=== PATIENT | female | born 1950 | race Hispanic/Latino ===

== ENCOUNTER 2016-08-07 19:21 | Emergency (ER) | payer MEDICARE, OTHER ==
[2016-08-07 19:45] VITALS: BP 150/103
--- NOTE | 2016-08-07 20:20 | Emergency Department Report ---
Chief Complaint: Chest Pain Stated Complaint: CHEST PAIN - HPI History of Present Illness: Patient w/ PMH of HTN, angina, CHF, COPD c/o squeezing-type chest pain with radiation into left shoulder blades and left neck since noon. states no relief with 2 ntg. Reports SOB. Patient on Lovenox blood-thinner. - Exam Vital Signs: Vital Signs 08/07/16 19:41 Temperature 98.1 F Pulse Rate 91 H Respiratory 22 Rate Blood Pressure 150/103 O2 Sat by Pulse 97 Oximetry Physical Exam: General: On o2 nasal canula. Heart: irregularly irregular. Lungs: Equal sounds b/l. MSE screening note: Focused history and physical exam performed. Due to findings the following was ordered: ED Medical Decision Making - Medical Decision Making Patient to be seen by MD in main ED. ED Disposition for MSE Condition: Stable
[2016-08-07 20:51] LABS: Basophils % (Auto) 0.6 % (0.0-1.8); Eosinophils % (Auto) 1.5 % (0.0-4.3); Hematocrit 41.1 % (30.3-42.9); Hemoglobin 13.6 gm/dl (10.1-14.3); Mean Corpuscular HGB Conc 33 % (30-34); Mean Corpuscular Hemoglobin 32 pg (28-32); Mean Corpuscular Volume 96 fl (79-97); Platelet Count 245 K/mm3 (140-440); Red Cell Distribution Width 13.5 % (13.2-15.2); White Blood Count 10.5 K/mm3 (4.5-11.0)
[2016-08-07 21:02] LABS: INR 1.35 (0.87-1.13)
[2016-08-07 21:49] LABS: BUN/Creatinine Ratio 14.28; Blood Urea Nitrogen 10 mg/dL (7-17); Calcium 9.5 mg/dL (8.4-10.2); Carbon Dioxide 32 mmol/L (22-30); Chloride 98.1 mmol/L (98-107); Glucose 89 mg/dL (65-100); Potassium 4.1 mmol/L (3.6-5.0); Sodium 143 mmol/L (137-145)
[2016-08-07 21:55] LABS: Anion Gap 17 mmol/L
--- NOTE | 2016-08-08 07:56 | XRay Report ---
PA and lateral chest: There is diffuse distortion of bronchovascular structures in both lungs slightly worse on the right than left. There are scattered areas of coarse bronchovascular markings. There is no focal infiltrate or nodule identified. The heart is normal in size and is no vascular congestion. On the frontal projection the markings at the left lung base appears slightly more prominent than seen on a prior study on February 28, 2016 however the remainder of the chest is essentially unchanged. Impression: Fibrotic appearing changes. Interval development of probable mild left basilar atelectasis.
--- NOTE | 2016-08-08 12:11 | ED Elopement Review ---
ED Pt Elopement review - Results review Lab results: Laboratory Tests 08/07/16 08/07/16 08/07/16 20:31 20:31 20:31 WBC 10.5 RBC 4.30 Hgb 13.6 Hct 41.1 MCV 96 MCH 32 MCHC 33 RDW 13.5 Plt Count 245 Lymph % (Auto) 19.3 Gilmer % (Auto) 5.4 Eos % (Auto) 1.5 Baso % (Auto) 0.6 Lymph # 2.0 Gilmer # 0.6 Eos # 0.2 Baso # 0.1 Seg Neutrophils % 73.2 H Seg Neutrophils # 7.7 PT 16.6 H INR 1.35 H APTT 33.0 Sodium 143 Potassium 4.1 Chloride 98.1 Carbon Dioxide 32 H Anion Gap 17 BUN 10 Creatinine 0.7 Estimated GFR > 60 BUN/Creatinine Ratio 14.28 Glucose 89 Calcium 9.5 Troponin T < 0.010 NT-Pro-B Natriuret Pep 08/07/16 20:31 WBC RBC Hgb Hct MCV MCH MCHC RDW Plt Count Lymph % (Auto) [place] % (Auto) Eos % (Auto) Baso % (Auto) Lymph # Gilmer # Eos # Baso # Seg Neutrophils % Seg Neutrophils # PT INR APTT Sodium Potassium Chloride Carbon Dioxide Anion Gap BUN Creatinine Estimated GFR BUN/Creatinine Ratio Glucose Calcium Troponin T NT-Pro-B Natriuret Pep 185.8 - Call Back decision Pt Call Back Decision: No action required
== END 2016-08-07 22:40 | disposition left against medical advice (07) ==
LOC: ED 19:21
DX: R07.89 Other chest pain (principal); R06.02 Shortness of breath; M54.2 Cervicalgia; Z53.21 Procedure and treatment not carried out due to patient leaving prior to being seen by health care provider
CPT/HCPCS: 36415; 71020; 80048; 83880; 84484; 85025; 85610; 85730; 93005; 93010

== ENCOUNTER 2016-08-13 09:34 | Emergency (ER) | payer MEDICARE, OTHER ==
--- NOTE | 2016-08-13 10:14 | Emergency Department Report ---
Chief Complaint: Shoulder Injury Stated Complaint: LEFT SHOULDER PAIN Time Seen by Provider: 08/13/16 10:08 - HPI History of Present Illness: 66 y/o female complain of left shoulder pain x 2 days ago .pt state was seen at primary care this am and sent over for further evaluation of left shoulder .obvious deformity noted to the left shoulder .pt state pain is radiating to finger .pt state she has taken half of percocet x 4 hours ago . - ROS Review of Systems: per HPI - Exam Vital Signs: Vital Signs 08/13/16 09:42 Temperature 97.9 F Pulse Rate 92 H Respiratory 18 Rate Blood Pressure 151/81 O2 Sat by Pulse 96 Oximetry Physical Exam: GENERAL: The patient is well-developed and well-nourished. Patient is in NAD. HENT: Normocephalic. Atraumatic. Patient has moist mucous membranes. Throat: No erythema, swelling or exudates. EYES: Extraocular motions are intact, PERRL NECK: Supple. No meningitic signs are noted. There is no adenopathy noted. CHEST/LUNGS: Clear to auscultation bilaterally. No wheezing, rales or rhonchi noted. There is no respiratory distress noted. HEART/CARDIOVASCULAR: Regular rate and rhythm. Normal S1 S2. No murmurs, rubs , clicks, or gallops. ABDOMEN: Abdomen is soft, nontender.. Bowel sounds normoactive. There is no abdominal distention. Negative rebound tenderness. : Deferred. SKIN: There is no rash. There is no edema. There is no diaphoresis. NEURO: The patient is A&Ox3. The patient has no focal neurologic deficits. MUSCULOSKELETAL: deformity noted to left shoulder .limit range of motion with pain to left shoulder PSYCH: Pt has appropriate mood and affect. MSE screening note: Focused history and physical exam performed. Due to findings the following was ordered: ED Disposition for MSE Condition: Stable
[2016-08-13] MEDS ORDERED: NORCO 5/325 PO ONE (10:41)
--- NOTE | 2016-08-13 10:41 | Emergency Department Report ---
HPI - General Chief Complaint: Shoulder Injury Time Seen by Provider: 08/13/16 10:32 - HPI HPI: This is a 66-year-old female who presents to the emergency department from her primary care doctor's office, Dr. Tunde Woodall, with the complaint of left shoulder pain and possible dislocation. Patient says that she injured it 2 nights ago when she was reaching up behind her body with her left arm to reach some water. At this point she felt it pop and has had residual pain since. She is not taken anything for symptoms prior to presentation. She went in to see the PCP today and was told to come here for x-rays and possible reduction as he had a high suspicion for dislocation. Patient says she is able to move the arm to some extent but it is painful to do so. She says she already has a history of left shoulder problems and requires a shoulder replacement, but her orthopedist at [facility], Dr. Hopper, does not want to do it secondary to her other comorbidities. ED Past Medical Hx - Past Medical History Previous Medical History?: Yes Hx Hypertension: Yes (s/p stroke on left side 02/06 and 12/09) Hx CVA: Yes Hx Congestive Heart Failure: Yes Hx Arthritis: Yes Hx Kidney Stones: Yes Hx Psychiatric Treatment: Yes (anxiety) Hx COPD: Yes (bronchitis) Additional medical history: emphysema, bronchitis, A. Fib; MVP; aneurysm- coil on right side of head, Home oxygen @ 2lpm nasal cannula - Surgical History Past Surgical History?: Yes Hx Breast Surgery: Yes (LEFT BREST BX) Additional Surgical History: tonsillectomy, cerebral aneurysm coil, hysterectomy , hemorrhoid surgery, bilateral benign breast biopsies - Social History Smoking Status: Former Smoker Substance Use Type: Prescribed - Medications Home Medications: Home Medications Medication Instructions Recorded Confirmed Last Taken Type Atorvastatin (Nf) [Lipitor (Nf)] 20 mg PO QDAY 11/30/14 02/28/16 05/28/16 History DULoxetine [Cymbalta] 30 mg PO QDAY 11/30/14 02/28/16 05/28/16 History Digoxin 125 mcg PO DAILY 11/30/14 02/28/16 05/28/16 History Esomeprazole Magnesium [NexIUM] 40 mg PO QDAY 11/30/14 02/28/16 05/28/16 History Fluticasone/Salmeterol [Advair 1 puff IH BID 11/30/14 02/28/16 05/28/16 History Diskus 500-50 mcg] Furosemide [Lasix TAB] 20 mg PO QDAY 11/30/14 02/28/16 05/28/16 History Isosorbide Mononitrate 120 mg PO DAILY 11/30/14 02/28/16 05/28/16 History Levocetirizine Dihydrochloride 5 mg PO DAILY 11/30/14 02/28/16 05/28/16 History Levothyroxine [Synthroid] 112 mcg PO QAM 11/30/14 02/28/16 05/28/16 History Lisinopril 10 mg PO DAILY 11/30/14 02/28/16 05/28/16 History Mirtazapine [Remeron] 45 mg PO DAILY 11/30/14 02/28/16 05/28/16 History [place]-3 Acid Ethyl Esters [Lovaza] 1 gm PO BID 11/30/14 02/28/16 05/28/16 History Prednisone [predniSONE] 5 mg PO QDAY 11/30/14 02/28/16 05/28/16 History Restasis 0.05% 1 drop OU BID 11/30/14 02/28/16 05/28/16 History Rivaroxaban [Xarelto] 20 mg PO QDAY 11/30/14 02/28/16 05/28/16 History Tiotropium [Spiriva] 18 mcg IH QDAY 11/30/14 02/28/16 05/28/16 History Verapamil ER [Calan SR] 240 mg PO DAILY 11/30/14 02/28/16 05/29/16 History Aspirin [Aspirin TAB] 325 mg PO QDAY tablet 12/02/14 02/28/16 05/21/16 Rx ALPRAZolam [Xanax TAB] 1 mg PO TID PRN #90 tablet 03/02/16 05/28/16 Rx Ciprofloxacin HCl [Ciprofloxacin 500 mg PO BID #7 day 03/02/16 Unknown Rx TAB] Lisinopril [Zestril TAB] 10 mg PO DAILY tablet 03/02/16 05/29/16 Rx Mirtazapine [Remeron] 45 mg PO QHS tablet 03/02/16 05/28/16 Rx metroNIDAZOLE [Flagyl TAB] 500 mg PO Q8HR #7 day 03/02/16 Unknown Rx oxyCODONE /ACETAMINOPHEN [Percocet 1 tab PO Q4HR PRN #30 tablet 03/02/16 Rx 5/325 mg] HYDROcodone/APAP 5-325 [[place] 1 each PO Q6HR PRN #12 tablet 08/13/16 Unknown Rx 5/325] ED Review of Systems ROS: Stated complaint: LEFT SHOULDER PAIN Other details as noted in HPI Comment: All other systems reviewed and negative Constitutional: denies: chills, fever Eyes: denies: eye pain, eye discharge, vision change ENT: denies: ear pain, throat pain Respiratory: denies: cough, shortness of breath, wheezing Cardiovascular: denies: chest pain, palpitations Gastrointestinal: denies: abdominal pain, nausea, diarrhea Genitourinary: denies: urgency, dysuria, discharge Musculoskeletal: arthralgia. denies: back pain Skin: denies: rash, lesions Neurological: denies: headache, weakness, paresthesias Physical Exam - Physical Exam Vital Signs: Vital Signs 08/13/16 09:42 Temperature 97.9 F Pulse Rate 92 H Respiratory 18 Rate Blood Pressure 151/81 O2 Sat by Pulse 96 Oximetry Physical Exam: GENERAL: The patient is well-developed well-nourished. HEENT: Normocephalic. Atraumatic. Extraocular motions are intact. Patient has moist mucous membranes. Pupils equal reactive to light bilaterally. NECK: Supple. Trachea is midline. CHEST/LUNGS: Clear to auscultation. There is no respiratory distress noted. HEART/CARDIOVASCULAR: Regular. There is no tachycardia. There is no gallop rub or murmur. ABDOMEN: Abdomen is soft, nontender. Patient has normal bowel sounds. There is no abdominal distention. SKIN: There is no rash. There is no edema. There is no diaphoresis. NEURO: The patient is awake, alert, and oriented. The patient is cooperative. The patient has no focal neurologic deficits. The patient has normal speech. MUSCULOSKELETAL: Patient has tenderness to palpation to the left circumferential shoulder and proximal left humerus but no obvious deformity. Patient has trouble actively moving the left upper STEMI secondary to pain in the shoulder. She still has pain with passive movement but I'm able to range it more. Radial pulses +2 over 4 bilaterally. Cap refill less than 2 seconds. ED Course Vital Signs 08/13/16 09:42 Temperature 97.9 F Pulse Rate 92 H Respiratory 18 Rate Blood Pressure 151/81 O2 Sat by Pulse 96 Oximetry ED Medical Decision Making - Radiology Data Radiology results: image reviewed interpreted by me: X-ray of the left shoulder, which also includes the proximal half of the humerus , does not show any obvious fracture, dislocation, subluxation or foreign bodies. - Medical Decision Making 66-year-old female sent in to get an x-ray done of her left shoulder after she reached back behind her body and felt a pop and has had residual pain since. X- ray was done that does not show any fracture, dislocation or any acute process and this was confirmed by the reading by radiology. Patient is unable to get an MRI anyways but does not require that through the emergency department at this time. She already has established care with an orthopedist through [facility]. She was given a pain pill here and will be given a prescription for it at home. We discussed using ice. She'll be placed in a sling. She is to return to the emergency department with any worsening of her symptoms or any acute distress. - Differential Diagnosis Shoulder fracture, dislocation, sprain, contusion, tendon injury Critical Care Time: No Critical care attestation.: If time is entered above; I have spent that time in minutes in the direct care of this critically ill patient, excluding procedure time. ED Disposition Clinical Impression: Shoulder pain, left Qualifiers: Chronicity: acute Qualified Code(s): M25.512 - Pain in left shoulder Left shoulder strain Qualifiers: Encounter type: initial encounter Qualified Code(s): S46.912A - Strain of unspecified muscle, fascia and tendon at shoulder and upper arm level, left arm , initial encounter Disposition: DISCHARGED TO HOME OR SELFCARE Is pt being admited?: No Does the pt Need Aspirin: No Condition: Stable Instructions: Rotator Cuff Injury (ED), Shoulder Sprain (ED) Additional Instructions: These follow-up with your orthopedist, Dr. Hopper, over the next few days. You can use ice at 20 mins intervals but not directly against the skin. Remain in the sling until follow-up with the orthopedist. Return to the emergency department with any worsening of your symptoms or any acute distress. You've been prescribed a medication that is sedating. Therefore this medication cannot be mixed with alcohol, or taken prior to driving, working, or being responsible for children. Prescriptions: HYDROcodone/APAP 5-325 [[place] 5/325] 1 each PO Q6HR PRN #12 tablet PRN Reason: Pain Referrals: TUNDE WOODALL MD [Primary Care Provider] - 3-5 Days Time of Disposition: 11:21
--- NOTE | 2016-08-13 10:55 | XRay Report ---
LEFT SHOULDER, 3 VIEWS: HISTORY: Left shoulder injury. FINDINGS: There is borderline bone mineralization. Mild degenerative changes are noted at the glenohumeral joint. Normal articulation at the AC joint. No evidence for fracture, dislocation or ligamentous injury. The left humeral head is slightly sclerotic which may represent osteonecrosis. There are also 3 or 4 calcified foreign bodies which appear to be within the joint space. This could represent chondromatosis. Consider further evaluation with MRI. IMPRESSION: No acute process. Chronic findings, as outlined above.
[2016-08-13 11:36] VITALS: BP 146/88
== END 2016-08-13 11:36 | disposition home or self-care (01) ==
LOC: ED 09:34
DX: S46.912A Strain of unspecified muscle, fascia and tendon at shoulder and upper arm level, left arm, initial encounter (principal); M25.512 Pain in left shoulder; I10 Essential (primary) hypertension; I63.9 Cerebral infarction, unspecified; I50.9 Heart failure, unspecified; M19.90 Unspecified osteoarthritis, unspecified site; F41.9 Anxiety disorder, unspecified; J44.9 Chronic obstructive pulmonary disease, unspecified; Z87.891 Personal history of nicotine dependence; Z79.82 Long term (current) use of aspirin; X58.XXXA Exposure to other specified factors, initial encounter; Y93.89 Activity, other specified; Y99.9 Unspecified external cause status; Y92.89 Other specified places as the place of occurrence of the external cause

== ENCOUNTER 2016-11-09 08:11 | Emergency (ER) | payer MEDICARE, OTHER ==
[2016-11-09] MEDS ORDERED: NORCO 5/325 PO ONE (09:50)
--- NOTE | 2016-11-09 10:37 | XRay Report ---
RIGHT WRIST THREE VIEWS: 11/09/16 08:39:00 CLINICAL: Fall and pain. FINDINGS: The quality of the exam is degraded by motion. Transverse minimally displaced fracture of the distal radius with no callus. No extension into the radiocarpal joint. The distal ulna and carpal bones are intact. No soft tissue swelling but no foreign body or soft tissue air. IMPRESSION: An acute closed minimally displaced traumatic distal radius fracture.
--- NOTE | 2016-11-09 10:38 | XRay Report ---
RIGHT KNEE THREE VIEWS: 11/09/16 08:11:00 CLINICAL: Fall and pain. FINDINGS: Normal bones, joints and soft tissues. No fracture or dislocation. No joint effusion. IMPRESSION: Normal.
--- NOTE | 2016-11-09 11:58 | Emergency Department Report ---
Entered by LISA MCDONNELL, acting as scribe for ANDRÉS LIN PA. ED Fall HPI - General Chief Complaint: Fall Stated Complaint: RT WRIST PAIN Time Seen by Provider: 11/09/16 08:53 Source: patient, family Mode of arrival: Wheelchair - History of Present Illness Initial Comments: 66 y/o female presents c/o sharp pain to the right knee and right wrist as a result of a fall that occurred this morning at her home. Pt notes she fell onto tile floor and rates the pain 10/10 in severity. Additional Sx include wheezing , but pt denies numbness, tingling, LOC. She denies any trauma to the head. Pt has Hx of COPD and medication includes xarelto. No additional Sx MD Complaint: fall -: This morning Fall From: standing (patient reported that she slipped) When Fall Occurred: just prior to arrival Fall Witnessed: no Place Fall Occurred: home Loss of Consciousness: none Prolonged Down Time?: no Symptoms Prior to Fall: none Location: other (right wrist and right knee impact) Location - Extremities: Right: Forearm (right wrist pain and swelling), Knee ( pain) Severity: severe Severity scale (0 -10): 10 Quality: sharp Context: tripped/slipped Associated Symptoms: other (pain in right wrist and right knee, denies tingling or LOC). denies: headache, neck pain, numbness, chest paint, shortness of breath, abdominal pain, hematuria, unable to walk, lightheaded, vertigo, confusion - Related Data Home Medications Medication Instructions Recorded Confirmed Last Taken Atorvastatin (Nf) [Lipitor (Nf)] 20 mg PO QDAY 11/30/14 02/28/16 05/28/16 DULoxetine [Cymbalta] 30 mg PO QDAY 11/30/14 02/28/16 05/28/16 Digoxin 125 mcg PO DAILY 11/30/14 02/28/16 05/28/16 Esomeprazole Magnesium [NexIUM] 40 mg PO QDAY 11/30/14 02/28/16 05/28/16 Fluticasone/Salmeterol [Advair 1 puff IH BID 11/30/14 02/28/16 05/28/16 Diskus 500-50 mcg] Furosemide [Lasix TAB] 20 mg PO QDAY 11/30/14 02/28/1605/28/16 Isosorbide Mononitrate 120 mg PO DAILY 11/30/14 02/28/16 05/28/16 Levocetirizine Dihydrochloride 5 mg PO DAILY 11/30/14 02/28/16 05/28/16 Levothyroxine [Synthroid] 112 mcg PO QAM 11/30/14 02/28/16 05/28/16 Lisinopril 10 mg PO DAILY 11/30/14 02/28/16 05/28/16 Mirtazapine [Remeron] 45 mg PO DAILY 11/30/14 02/28/16 05/28/16 O'Kean-3 Acid Ethyl Esters [Lovaza] 1 gm PO BID 11/30/14 02/28/16 05/28/16 Prednisone [predniSONE] 5 mg PO QDAY 11/30/14 02/28/16 05/28/16 Restasis 0.05% 1 drop OU BID 11/30/14 02/28/16 05/28/16 Rivaroxaban [Xarelto] 20 mg PO QDAY 11/30/14 02/28/16 05/28/16 Tiotropium [Spiriva] 18 mcg IH QDAY 11/30/14 02/28/16 05/28/16 Verapamil ER [Calan SR] 240 mg PO DAILY 11/30/14 02/28/16 05/29/16 Previous Rx's Medication Instructions Recorded Last Taken Type Aspirin [Aspirin TAB] 325 mg PO QDAY tablet 12/02/14 05/21/16 Rx ALPRAZolam [Xanax TAB] 1 mg PO TID PRN #90 tablet 03/02/16 05/28/16 Rx Ciprofloxacin HCl [Ciprofloxacin 500 mg PO BID #7 day 03/02/16 Unknown Rx TAB] Lisinopril [Zestril TAB] 10 mg PO DAILY tablet 03/02/16 05/29/16 Rx Mirtazapine [Remeron] 45 mg PO QHS tablet 03/02/16 05/28/16 Rx metroNIDAZOLE [Flagyl TAB] 500 mg PO Q8HR #7 day 03/02/16 Unknown Rx oxyCODONE /ACETAMINOPHEN [Percocet 1 tab PO Q4HR PRN #30 tablet 03/02/16 Rx 5/325 mg] HYDROcodone/APAP 5-325 [Moberly 1 each PO Q6HR PRN #12 tablet 08/13/16 Unknown Rx 5/325] traMADol [Ultram] 50 mg PO Q6HR PRN #20 tablet 11/09/16 Unknown Rx Allergies Allergy/AdvReac Type Severity Reaction Status Date / Time adhesive Allergy Hives Verified 06/05/15 16:31 amlodipine besylate Allergy Anaphylaxis Verified 06/05/15 16:31 [From Norvasc] diltiazem Allergy Anaphylaxis Verified 06/05/15 16:31 diltiazem HCl [From Cardizem] Allergy Anaphylaxis Verified 06/05/15 16:31 Renexa Allergy Unknown Uncoded 08/13/16 09:41 ED Review of Systems Comment: All other systems reviewed and negative Constitutional: denies: chills, fever Eyes: denies: eye pain, eye discharge, vision change ENT: denies: ear pain, throat pain, congestion Respiratory: wheezing. denies: cough Cardiovascular: denies: chest pain, palpitations, edema, syncope Gastrointestinal: denies: abdominal pain, nausea, vomiting Musculoskeletal: joint swelling, arthralgia, other (right wrist and right knee pain) Neurological: denies: headache, weakness, numbness, paresthesias, confusion, abnormal gait, vertigo ED Past Medical Hx - Past Medical History Previous Medical History?: Yes Hx Hypertension: Yes (s/p stroke on left side 02/06 and 12/09) Hx CVA: Yes Hx Congestive Heart Failure: Yes Hx Arthritis: Yes Hx Kidney Stones: Yes Hx Psychiatric Treatment: Yes (anxiety) Hx COPD: Yes (bronchitis) Additional medical history: emphysema, bronchitis, A. Fib; MVP; aneurysm- coil on right side of head, Home oxygen @ 2lpm nasal cannula - Surgical History Past Surgical History?: Yes Hx Breast Surgery: Yes (LEFT BREST BX) Additional Surgical History: tonsillectomy, cerebral aneurysm coil, hysterectomy , hemorrhoid surgery, bilateral benign breast biopsies - Family History Family history: hypertension - Social History Smoking Status: Former Smoker Substance Use Type: Prescribed - Medications Home Medications: Home Medications Medication Instructions Recorded Confirmed Last Taken Type Atorvastatin (Nf) [Lipitor (Nf)] 20 mg PO QDAY 11/30/14 02/28/16 05/28/16 History DULoxetine [Cymbalta] 30 mg PO QDAY 05/01/0902/28/16 05/28/16 History Digoxin 125 mcg PO DAILY 11/30/14 02/28/16 05/28/16 History Esomeprazole Magnesium [NexIUM] 40 mg PO QDAY 11/30/14 02/28/16 05/28/16 History Fluticasone/Salmeterol [Advair 1 puff IH BID 11/30/14 02/28/16 05/28/16 History Diskus 500-50 mcg] Furosemide [Lasix TAB] 20 mg PO QDAY 11/30/14 02/28/16 05/28/16 History Isosorbide Mononitrate 120 mg PO DAILY 11/30/14 02/28/16 05/28/16 History Levocetirizine Dihydrochloride 5 mg PO DAILY 11/30/14 02/28/16 05/28/16 History Levothyroxine [Synthroid] 112 mcg PO QAM 11/30/14 02/28/16 05/28/16 History Lisinopril 10 mg PO DAILY 11/30/14 02/28/16 05/28/16 History Mirtazapine [Remeron] 45 mg PO DAILY 11/30/14 02/28/16 05/28/16 History O'Kean-3 Acid Ethyl Esters [Lovaza] 1 gm PO BID 11/30/14 02/28/16 05/28/16 History Prednisone [predniSONE] 5 mg PO QDAY 11/30/14 02/28/16 05/28/16 History Restasis 0.05% 1 drop OU BID 11/30/14 02/28/16 05/28/16 History Rivaroxaban [Xarelto] 20 mg PO QDAY 11/30/14 02/28/16 05/28/16 History Tiotropium [Spiriva] 18 mcg IH QDAY 11/30/14 02/28/16 05/28/16 History Verapamil ER [Calan SR] 240 mg PO DAILY 11/30/14 02/28/16 05/29/16 History Aspirin [Aspirin TAB] 325 mg PO QDAY tablet 12/02/14 02/28/16 05/21/16 Rx ALPRAZolam [Xanax TAB] 1 mg PO TID PRN #90 tablet 03/02/16 05/28/16 Rx Ciprofloxacin HCl [Ciprofloxacin 500 mg PO BID #7 day 03/02/16 Unknown Rx TAB] Lisinopril [Zestril TAB] 10 mg PO DAILY tablet 03/02/16 05/29/16 Rx Mirtazapine [Remeron] 45 mg PO QHS tablet 03/02/16 05/28/16 Rx metroNIDAZOLE [Flagyl TAB] 500 mg PO Q8HR #7 day 03/02/16 Unknown Rx oxyCODONE /ACETAMINOPHEN [Percocet 1 tab PO Q4HR PRN #30 tablet 03/02/16 Rx 5/325 mg] HYDROcodone/APAP 5-325 [[place]ober[place] 1 each PO Q6HR PRN #12 tablet 08/13/16 Unknown Rx 5/325] traMADol [Ultram] 50 mg PO Q6HR PRN #20 tablet 11/09/16 Unknown Rx ED Physical Exam - General Limitations: No Limitations General appearance: alert, in no apparent distress - Head Head exam: Present: atraumatic, normocephalic, normal inspection - Expanded Head Exam Expanded Head exam: Absent: laceration, abrasion, contusion, hematoma, racoon eyes, vieira's sign, general tenderness, tenderness of temporal artery, CSF rhinorrhea , CSF otorrhea - Eye Eye exam: Present: normal appearance, PERRL, EOMI. Absent: periorbital swelling , periorbital tenderness Pupils: Present: normal accommodation - ENT ENT exam: Present: normal exam, normal orophraynx, mucous membranes moist, TM's normal bilaterally, normal external ear exam - Neck Neck exam: Present: full ROM. Absent: tenderness, lymphadenopathy - Respiratory Respiratory exam: Present: normal lung sounds bilaterally, decreased breath sounds. Absent: respiratory distress, wheezes, rales, rhonchi, stridor, chest wall tenderness - Cardiovascular Cardiovascular Exam: Present: regular rate, normal rhythm, normal heart sounds - GI/Abdominal GI/Abdominal exam: Present: soft, normal bowel sounds. Absent: distended, tenderness, rigid, hyperactive bowel sounds - Extremities Exam Extremities exam: Present: normal inspection, full ROM, normal capillary refill , other (No CCE. +2 pulses. No neurovascular compromise ,negative snuff box tenderness, pain with thumb movement, tender to palpate dorsal aspect of wrist, pain with wrist flexion/extension, able to move all fingers, elbow normal, no a/ c joint tenderness and good ROM, no signs of compartment syndrome in legs, can flex knee, right inner lateral knee tender to palpate, full flexion/extension ) . Absent: tenderness, pedal edema, joint swelling, calf tenderness - Expanded Upper Extremity Exam Right Shoulder Exam: Present: normal inspection, full ROM. Absent: tenderness, swelling, abrasion, laceration, ecchymosis, deformity, crepidus, dislocation, erythema, tenderness over AC joint Upper Arm exam: Present: normal inspection, full ROM. Absent: tenderness, swelling, abrasion, laceration, ecchymosis, deformity, crepidus, dislocation, erythema Elbow exam: Present: normal inspection, full ROM. Absent: tenderness, swelling , abrasion, laceration, ecchymosis, deformity, crepidus, dislocation, erythema, effusion, pain w/ pronation/supination, tenderness over radial head Forearm Wrist exam: Present: normal inspection, tenderness (dorsal aspect of right wrist), swelling (dorsal aspect of right wrist on the radial side), tenderness over anatomical snuff box, pain with axial thumb loading. Absent: full ROM (patient with limited range of motion to right wrist. Pain with passive and active range of motion flexing/Extending.), abrasion, laceration, ecchymosis, deformity, crepidus, dislocation, erythema Hand Wrist exam: Present: normal inspection, full ROM. Absent: tenderness, swelling, abrasion, laceration, ecchymosis, deformity, crepidus, dislocation, erythema, amputation, nail avulsion, subungual hematoma Neuro motor exam: Present: wrist extension intact, thumb opposition intact, thumb IP flexion intact, thumb adduction intact, fingers 2-5 abduction intact Neurosensory exam: Present: 2-point discrimination, radial nerve intact, ulnar nerve intact, median nerve intact Vascular: Present: normal capillary refill, radial pulse, brachial pulse, ulnar pulse. Absent: vascular compromise, Pallo, pulse deficit radial art, pulse deficit ulnar art, pulse deficit brachial art - Back Exam Back exam: Present: normal inspection, full ROM. Absent: tenderness (vertebral , paraspinal, C-spine ), CVA tenderness (R), CVA tenderness (L), muscle spasm, paraspinal tenderness, vertebral tenderness, rash noted - Expanded Neurological Exam Expanded Neurological exam: Absent: innattentive, memory loss-remote event, memory loss- recent event, ataxia, receptive aphasia, expressive aphasia, total aphasia, tremor, protecting the airway Patient oriented to: Present: person, place, time Speech: Present: fluid speech Cranial nerves: EOM's Intact: Normal, Gag Reflex: Normal, Nystagmus: Normal, Facial Sensation: Normal Cerebellar function: Romberg: Normal Upper motor neuron: Pronator Drift: Normal, Sensory Extinction: Normal Sensory exam: Upper Extremity Light Touch: Normal, Upper Extremity Temperature: Normal, UE 2 Point Discrimination: Normal, Lower Extremity Light Touch: Normal, Lower Extremity Temperature: Normal, LE 2 Point Discrimination: Normal Motor strength exam: RUE: 5, LUE: 5, RLE: 5, LLE: 5 DTR: bicep (R): 2+, bicep (L): 2+, tricep (R): 2+, tricep (L): 2+, knee (R): 2+ , knee (L): 2+, ankle (R): 2+, ankle (L): 2+ Best Eye Response ([place]): (4) open spontaneously Best Motor Response (David): (6) obeys commands Best Verbal Response (David): (5) oriented David Total: 15 - Psychiatric Psychiatric exam: Present: normal affect, normal mood - Skin Skin exam: Present: warm, dry, intact, normal color, other (clean, intact with no rash or lesions, good capillary refill in all extremities.). Absent: rash ED Course Vital Signs 11/09/16 11/09/16 08:35 10:16 Temperature 97.6 F Pulse Rate 85 Respiratory 20 16 Rate Blood Pressure 150/74 O2 Sat by Pulse 98 Oximetry - Reevaluation(s) Reevaluation #1: 11/09/16 11:48 Patient here reports that she fell accidentally this morning on tile floor at her home and she has right wrist and right knee pain. 11/09/16 11:48 Patient was given Moberly 1 11/27/24 tablet in emergency room which relieved her pain. XRof right knee reveals normal findings. X-ray of right wrist reveals fracture. - Orthopedic Splinting/Casting Injury #1 Side: right Upper Extremity Injury Location: wrist Upper Extremity Immobilizer: sling/shoulder immobilize, volar spint (dorsal splint) ED Medical Decision Making - Radiology Data Radiology results: report reviewed X-ray of the right wrist revealed an acute minimally displaced traumatic distal radius fracture. XR of right knee revealed no fracture or dislocation. - Medical Decision Making ED course: I diagnosis of arthralgias multiple sites and fracture Radial bone distally, accidental fall. Discussed the patient and x-ray results. See procedure note for splinting details. Patient was understanding of discharge diagnosis and treatment plan. Follow-up with orthopedic doctor in 2-3 days to call tomorrow to schedule an appointment. Receive norco 5/325 one tablet in emergency room which relieved her pain. ED Disposition Clinical Impression: Arthralgia of multiple sites Distal radial fracture Qualifiers: Encounter type: initial encounter Fracture type: closed Fracture morphology: unspecified fracture morphology Laterality: right Qualified Code(s): S52.501A - Unspecified fracture of the lower end of right radius, initial encounter for closed fracture Accidental fall Qualifiers: Encounter type: initial encounter Qualified Code(s): W19.XXXA - Unspecified fall, initial encounter Disposition: DISCHARGED TO HOME OR SELFCARE Is pt being admited?: No Does the pt Need Aspirin: No Condition: Stable Instructions: Fall Prevention for Older Adults (ED), Wrist Fracture in Adults ( ED), Splint Care (ED), Arthralgia (ED) Additional Instructions: Please following instructions and splint care. Call orthopedic doctor in the morning to schedule appointment visit for follow- up. Take Motrin and Ultram to manage her pain. Prescriptions: traMADol [Ultram] 50 mg PO Q6HR PRN #20 tablet PRN Reason: Pain Referrals: PRIMARY CAREMD [Primary Care Provider] - 3-5 Days EVITA MORRIS MD [Staff Physician] - 2-3 Days Forms: Accompanied Note This documentation as recorded by the KECIA burleson RYAN,accurately reflects the service I personally performed and the decisions made by ,ANDRÉS LIN PA.
[2016-11-09 12:47] VITALS: BP 148/76
== END 2016-11-09 11:57 | disposition home or self-care (01) ==
LOC: ED 08:11
DX: S52.501A Unspecified fracture of the lower end of right radius, initial encounter for closed fracture (principal); M25.561 Pain in right knee; I10 Essential (primary) hypertension; I50.9 Heart failure, unspecified; M19.90 Unspecified osteoarthritis, unspecified site; F41.9 Anxiety disorder, unspecified; J44.9 Chronic obstructive pulmonary disease, unspecified; Z90.89 Acquired absence of other organs; Z86.73 Personal history of transient ischemic attack (TIA), and cerebral infarction without residual deficits; Z90.710 Acquired absence of both cervix and uterus; Z87.891 Personal history of nicotine dependence; Z88.8 Allergy status to other drugs, medicaments and biological substances; W01.0XXA Fall on same level from slipping, tripping and stumbling without subsequent striking against object, initial encounter; Y93.89 Activity, other specified; Y92.098 Other place in other non-institutional residence as the place of occurrence of the external cause; Y99.8 Other external cause status

== ENCOUNTER 2017-05-09 15:57 | Outpatient (CLI) | payer MEDICARE, OTHER ==
--- NOTE | 2017-05-12 14:24 | Mammography Report ---
BILATERAL DIGITAL SCREENING MAMMOGRAM with CAD: 05/09/17 15:57:00 CLINICAL: Routine screening. COMPARISON:04/03/16 FINDINGS: The breasts are heterogeneously dense, which may obscure small masses. No mass, architectural distortion or suspicious calcifications. IMPRESSION: No mammographic evidence of malignancy. BI-RADS CATEGORY: 1 - - Negative RECOMMENDATION: Routine mammographic screening in one year. COMMENT: Patient follow-up letters are generated by our [employer] application.
== END 2017-05-09 15:58 | disposition home or self-care (01) ==
LOC: SPVWC 15:57
PROVIDERS: ATTEND Obstetrics & Gynecology
DX: Z12.31 Encounter for screening mammogram for malignant neoplasm of breast (principal)
CPT/HCPCS: 77067; G0202

== ENCOUNTER 2017-08-28 06:27 | Day surgery (SDC) | payer MEDICARE, OTHER ==
[2017-08-28] MEDS ORDERED: HALFPRIN EC PO ONE (06:56)
[2017-08-28] MEDS ORDERED: NACL 0.9% 500 ML 500 ML IV SCH (07:00)
[2017-08-28 07:08] LABS: Basophils % (Auto) 0.5 % (0.0-1.8); Eosinophils # (Auto) 0.2 K/mm3 (0.0-0.4); Eosinophils % (Auto) 2.3 % (0.0-4.3); Hematocrit 42.6 % (30.3-42.9); Hemoglobin 14.5 gm/dl (10.1-14.3); Lymphocytes % (Auto) 23.2 % (13.4-35.0); Mean Corpuscular HGB Conc 34 % (30-34); Mean Corpuscular Hemoglobin 33 pg (28-32); Mean Corpuscular Volume 96 fl (79-97); Monocytes # (Auto) 0.4 K/mm3 (0.0-0.8); Monocytes % (Auto) 5.1 % (0.0-7.3); Platelet Count 207 K/mm3 (140-440); Red Blood Count 4.44 M/mm3 (3.65-5.03); Red Cell Distribution Width 12.9 % (13.2-15.2)
[2017-08-28 07:20] LABS: BUN/Creatinine Ratio 11; Blood Urea Nitrogen 9 mg/dL (7-17); Calcium 9.2 mg/dL (8.4-10.2); Hemolysis Index 23
[2017-08-28 07:21] LABS: INR 0.95 (0.87-1.13)
[2017-08-28] MEDS ORDERED: HEPARIN/NS 5000 UNIT/500ML(CATH LAB) 1,000 ML IR ONE (08:26)
[2017-08-28] MEDS ORDERED: XYLOCAINE 2% INFILTRATI ONE (08:27)
[2017-08-28] MEDS ORDERED: SUBLIMAZE ONE (08:27)
[2017-08-28] MEDS ORDERED: VERSED ONE (08:27)
[2017-08-28] MEDS: CALAN ONE ×2 (08:37→08:58)
[2017-08-28] MEDS: NITROGLYCERIN SYRINGE 3 ML ONE ×2 (08:37→08:58)
[2017-08-28] MEDS: HEPARIN 10,000 UNITS/10 ML ONE ×2 (08:38→08:58)
[2017-08-28] MEDS ORDERED: BABY ASPIRIN PO SCH (10:00)
--- NOTE | 2017-08-28 10:08 | Cardiac Catherization Report ---
CARDIAC CATHETERIZATION REFERRING PHYSICIAN: Vishnu Jennings MD INDICATION FOR PROCEDURE: The patient is exceedingly pleasant 67-year-old female, multiple medical problems including advanced lung disease, known mild coronary disease, presents with recurrent chest pain despite negative stress test on adequate antianginals, referred for left heart catheterization. Risks, benefits, and potential alternatives explained at length prior to obtaining informed consent. PROCEDURE IN DETAIL: The patient was brought to the laborer filter plant in a postabsorptive state, prepped and draped in sterile fashion. Cheng's test in right hand was normal. A 2 mL of 2% lidocaine used to anesthetize the right groin. A standard 6-Argentine sheath used to cannulate the right common femoral artery via modified Seldinger technique. Moderate sedation was employed, directly administered moderate sedation. I directly monitored moderate sedation with administration of fentanyl and Versed. We started at 8:55, monitoring ended at 9:30 a.m. A JL3.5 catheter used to engage the left main. No dampening or ventricularization. Cineangiography performed in all projections. JR4 catheter used to cross the aortic valve under fluoroscopic guidance. Left ventriculography performed in 30 THOMPSON and 30 KHMER projections via hand injection, catheter flushed. Manual pullback performed with continuous pressure monitoring. Catheter used to engage the right coronary. No dampening or ventricularization. Cineangiography performed in all projections. Next, we had difficulty engaging the right coronary. Multiple distal catheters were attempted. Eventually, we were able to selectively engage with an AR mod. In future catheter recommend the use of an AR mod given the horizontal nature of her proximal aorta and groove. At this point, given recurrent chest pain and no evidence of significant coronary disease proceeded with root aortography in the KHMER projection with a power injector and pigtail catheter. Next, catheter removed from the body of wire, sheath removed. Manual pressure used to achieve hemostasis. There were no complications. DATA: Aortic pressure is 140/80, LV pressure is 140. LVP of 20 mmHg. Left ventriculography reveals normal left ventricular systolic performance, estimated ejection fraction of 55% to 60%. No evidence of aortic stenosis. CORONARY ANATOMY: This is a right dominant system, right coronary with a 10% to 20% ostial stenosis. No dampening with 6-Argentine catheter. The rest of the artery is without significant disease. The left main is without significant disease. It bifurcates the left anterior descending and left circumflex. The left circumflex is a moderate sized vessel, courses AV groove. No significant disease. LAD is a moderate sized vessel, courses anterior intergroove, wraps around the apex, no significant disease. There is a small second diagonal with a 70% ostial stenosis, ENEDELIA 3 flow would treat this medically given the size of the LAD from a ratio standpoint given the size of the LAD and diagonal. Mild root aortography reveals a normal contour. No evidence of dissection or penetrating aortic ulcer, no evidence of aortic insufficiency. A type 3 arch calcification horizontal proximal root. CONCLUSIONS: Mild coronary disease, 10% to 20% stenosis of the ostial right coronary and 70% stenosis of ostial second diagonal main branch. LAD is large and without significant disease. Circumflex and left main without significant disease, preserved normal left ventricular systolic performance with estimated ejection fraction of 55% to 60%. Next, root aortography without evidence of dissection, penetrating aortic ulcer, or aortic insufficiency. At this point, recommend continued medical management. Restart systemic anticoagulation. We will consider Ranexa if further chest pain arises. Although, chest pain is unlikely to be cardiac given these findings. Results of procedure explained to the patient and family. All questions and concerns were addressed. [facility]# [id number] VIOLA/JOSE ELIAS
[2017-08-28 12:55] VITALS: BP 149/89
--- NOTE | 2017-09-01 13:56 | Short Stay Summary ---
Short Stay Documentation Date of service: 08/28/17 - History H&P: obtained from office - Allergies and Medications Current Medications: Allergies adhesive Allergy (Verified 11/24/16 12:00) Hives amlodipine besylate [From Norvasc] Allergy (Verified 11/24/16 12:00) Anaphylaxis diltiazem Allergy (Verified 11/24/16 12:00) Anaphylaxis diltiazem HCl [From Cardizem] Allergy (Verified 11/24/16 12:00) Anaphylaxis Renexa Allergy (Uncoded 08/13/16 09:41) Unknown Home Medications Medication Instructions Recorded Confirmed Last Taken Type Atorvastatin (Nf) [Lipitor (Nf)] 20 mg PO QHS 11/30/14 08/28/17 08/27/17 History DULoxetine [Cymbalta] 30 mg PO QDAY 11/30/14 08/28/17 08/27/17 History Digoxin 125 mcg PO DAILY 11/30/14 08/28/17 08/27/17 History Fluticasone/Salmeterol [Advair 1 puff IH BID 11/30/14 08/28/17 08/27/17 History Diskus 500-50 mcg] Furosemide [Lasix TAB] 20 mg PO QDAY 11/30/14 08/28/17 08/27/17 History Isosorbide Mononitrate 120 mg PO DAILY 11/30/14 08/28/17 08/27/17 History Levothyroxine [Synthroid] 100 mcg PO QAM 11/30/14 08/28/17 08/28/17 05:00 History Lisinopril 10 mg PO DAILY 11/30/14 08/28/17 08/28/17 05:00 History Markle-3 Acid Ethyl Esters [Lovaza] 1 gm PO BID 11/30/14 08/28/17 08/27/17 History Prednisone [predniSONE] 5 mg PO QDAY 11/30/14 08/28/17 08/27/17 History Rivaroxaban [Xarelto] 20 mg PO QDAY 11/30/14 08/28/17 08/26/17 History Verapamil ER [Calan SR] 240 mg PO DAILY 11/30/14 08/28/17 08/27/17 History ALPRAZolam [Xanax TAB] 1 mg PO TID PRN #90 tablet 03/02/16 08/28/17 08/27/17 Rx Mirtazapine [Remeron] 45 mg PO QHS tablet 03/02/16 08/28/17 08/27/17 Rx ALBUTEROL Inhaler [Proair] 2 puff IH QID PRN 11/24/16 08/28/17 1 Week Ago History ~08/21/17 Aspirin [Aspirin BABY CHEW TAB] 81 mg PO QDAY 11/24/16 08/28/17 08/27/17 History Desloratadine [Clarinex] 5 mg PO DAILY 11/24/16 08/28/17 08/27/17 History Linaclotide (Nf) [Linzess (Nf)] 290 mcg PO Q48H 11/24/16 08/28/17 08/26/17 History Naloxegol Oxalate [Movantik] 25 mg PO DAILY 11/24/16 08/28/17 08/27/17 History Nitroglycerin [Nitrostat] 0.4 mg SL Q5M PRN 11/24/16 08/28/17 08/22/17 History Oxycodone HCl/Acetaminophen 1 each PO Q8H PRN 11/24/16 08/28/17 Unknown History [Percocet 7.5/325 mg] Pantoprazole [Protonix] 40 mg PO QDAY 11/24/16 08/28/17 08/28/17 05:00 History Potassium Chloride [Klor-Con] 20 meq PO DAILY 11/24/16 08/28/17 08/27/17 History Umeclidinium [place] [Incruse 1 puff IH DAILY 08/28/17 08/28/17 08/27/17 History Ellipta] predniSONE [Deltasone] 5 mg PO QDAY 08/28/17 08/28/17 Unknown History - Brief post op/procedure progress note Date of procedure: 08/28/17 Pre-op diagnosis: reurrent chest pain Post-op diagnosis: same Procedure: C - see cath report Anesthesia: local Estimated blood loss: none Condition: stable - Disposition Condition at discharge: Good Disposition: - TO HOME OR SELFCARE - Discharge Diagnoses (1) CAD (coronary artery disease) Status: Chronic Short Stay Discharge Plan Activity: advance as tolerated Diet: low fat, low cholesterol, low salt Wound: open to air, keep clean and dry, per your surgeon's advice Follow up with: NATASHA WOODALL MD [Primary Care Provider] - 7 Days DOMINICK VAUGHAN MD [Staff Physician] - 7 Days Forms: CardCath PCI D/C Instructions
== END 2017-08-28 12:50 | disposition home or self-care (01) ==
LOC: CATHLABREC 06:27
PROVIDERS: ATTEND Internal Medicine
DX: I25.10 Atherosclerotic heart disease of native coronary artery without angina pectoris (principal); Z88.8 Allergy status to other drugs, medicaments and biological substances; Z91.048 Other nonmedicinal substance allergy status; Z79.899 Other long term (current) drug therapy; Z79.82 Long term (current) use of aspirin
CPT/HCPCS: 36415; 80048; 85025; 85610; 85730; 93005; 93010; 93458; 93567; 99156; 99157; C1894; J1644; J2250; J3010; J7040; Q9967

== ENCOUNTER 2018-08-05 10:16 | Outpatient (CLI) | payer MEDICARE, OTHER ==
--- NOTE | 2018-08-05 10:43 | Mammography Report ---
LEFT DIGITAL DIAGNOSTIC MAMMOGRAM : 08/05/18 10:16:00 CLINICAL: Recalled for asymmetry. COMPARISON:07/22/18 screening FINDINGS: A spot compression MLO view was performed and is negative. Satisfactory effacement of upper asymmetry. IMPRESSION: No mammographic evidence of malignancy. BI-RADS CATEGORY: 1 -- Negative RECOMMENDATION: Routine mammographic screening in one year. ACR BI-RADS MAMMOGRAPHIC CODES: 0 = Needs additional imaging evaluation; 1 = Negative; 2 = Benign; 3 = Probably benign; 4 = Suspicious; 5 = Malignant; 6 = Known biopsy-proven malignancy COMMENT: 1. Dense breast tissue, i.e., adenosis, fibrocystic changes, etc., may obscure an underlying neoplasm. 2. Approximately 10% of cancers are not detected with mammography. 3. A negative mammography report should not delay biopsy if a clinically suspicious mass is present. COMMENT: Patient follow-up letters are generated via our [employer] application.
== END 2018-08-05 10:17 | disposition home or self-care (01) ==
LOC: SPVWC 10:16
PROVIDERS: ATTEND Obstetrics & Gynecology
DX: N64.89 Other specified disorders of breast (principal); I10 Essential (primary) hypertension; E78.5 Hyperlipidemia, unspecified; J44.9 Chronic obstructive pulmonary disease, unspecified; E78.00 Pure hypercholesterolemia, unspecified; E03.9 Hypothyroidism, unspecified; Z90.89 Acquired absence of other organs; Z90.710 Acquired absence of both cervix and uterus; Z87.891 Personal history of nicotine dependence

== ENCOUNTER 2019-04-01 06:46 | Outpatient (CLI) | payer MEDICARE, OTHER ==
--- NOTE | 2019-04-01 09:06 | Fluoroscopy Report ---
BARIUM SWALLOW Indication: R13.14 PHARYNGOSEOPH. Dysphagia Technique: Single contrast barium technique utilized to evaluate the esophagus. FINDINGS: To begin the exam, swallowing was evaluated in the lateral position under direct fluorosco py. Swallowing was within normal limits. No aspiration was witnessed. A prominent cricopharyngeus muscle is identified throughout this exam. This does not obstruct with ba rium liquid but some level of cricopharyngeal achalasia could be considered. A focal stricture is identified in the distal esophagus just above the GE junction consistent with a Schatzki's ring. Stenosis is estimated at 70-80% at the level of the ring. There is delayed emptying of the esophagus throughout this exam. A barium tablet was unable to transverse this ring. A 5 minute delayed drinking film was obtained which demonstrates persistence of the barium tablet in the distal esophagus. No other anatomic esophageal abnormality is identified. Occasional tertiary contractions in the esophagus were witnessed consistent with spasm. No evidence for hiatal hernia or reflux. IMPRESSION: Mildly obstructing Schatzki's ring is suspected as described above. Mild esophageal dysm otility. Slightly prominent cricopharyngeal muscle. See above and correlate with the patient's clinic al presentation. Fluoroscopic time: 2.1 minutes Number of fluoroscopic images: 38 Signer Name: Matt Pineda Jr, MD Signed: 04/01/2019 9:01 AM Workstation Name: [id number]
== END 2019-04-01 06:47 | disposition home or self-care (01) ==
LOC: FLUORO 06:46
PROVIDERS: ATTEND Internal Medicine Gastroenterology
DX: K22.4 Dyskinesia of esophagus (principal); I11.0 Hypertensive heart disease with heart failure; I50.9 Heart failure, unspecified; J43.9 Emphysema, unspecified; E03.9 Hypothyroidism, unspecified; Z90.710 Acquired absence of both cervix and uterus; Z90.89 Acquired absence of other organs
CPT/HCPCS: 74220

== ENCOUNTER 2019-04-13 11:57 | Emergency (ER) | payer MEDICARE, OTHER ==
[2019-04-13] MEDS ORDERED: MORPHINE IV ONE ×3 (13:12→16:19)
--- NOTE | 2019-04-13 13:15 | Emergency Department Report ---
ED General Adult HPI - General Chief complaint: Fall Stated complaint: FALL ON SIDE Time Seen by Provider: 04/13/19 12:47 Source: patient, EMS (ems notes not available at time of chart dictation), RN notes reviewed, old records reviewed Mode of arrival: Stretcher Limitations: Physical Limitation - History of Present Illness Initial comments: This is a pleasant 68-year-old female. Primary care Dr.: Dr. Tunde Woodall Cardiology: Dr. Harsh Jennings Past medical history: Asthma, COPD, stroke, aneurysm, hypertension, hypothyroidism, A. fib, on permanent anticoagulation, eliquis During the patient's history and physical, I am chaperoned by emergency paramed ic Che Del Toro The patient is a blxww-dutz-enrazeli female, who reports being in her usual state of health, when she had a mechanical fall. She reports that she got twisted up while picking up after some dogs. She reports that she landed on her left face, left chest and left arm. Prior to the fall, she is not having any pain. After the fall, she has diffuse left arm pain, left-sided thorax pain, indicates "I think I broke a number of ribs." She also has a mild left-sided headache, left-sided facial pain. She denies extremity weakness and numbness. She denies other complaints and denies abdominal pain. Has chronic upper extremity ecchymoses. Not sure of her last tetanus vaccination. -: Sudden Location: chest, left Radiation: non-radiation Severity scale (0 -10): 10 Quality: aching Consistency: intermittent Improves with: rest Worsens with: movement - Related Data Home Medications Medication Instructions Recorded Confirmed Last Taken Atorvastatin (Nf) [Lipitor (Nf)] 20 mg PO QHS 11/30/14 08/28/17 08/27/17 DULoxetine [Cymbalta] 30 mg PO QDAY 11/30/14 08/28/17 08/27/17 Digoxin 125 mcg PO DAILY 11/30/14 08/28/17 08/27/17 Fluticasone/Salmeterol [Advair 1 puff IH BID 11/30/14 08/28/17 08/27/17 Diskus 500-50 mcg] Furosemide [Lasix TAB] 20 mg PO QDAY 11/30/14 08/28/17 08/27/17 Isosorbide Mononitrate 120 mg PO DAILY 11/30/14 08/28/17 08/27/17 Levothyroxine [Synthroid] 100 mcg PO QAM 11/30/14 08/28/17 08/28/17 05:00 Lisinopril 10 mg PO DAILY 11/30/14 08/28/17 08/28/17 05:00 [place]-3 Acid Ethyl Esters [Lovaza] 1 gm PO BID 11/30/14 08/28/17 08/27/17 Rivaroxaban [Xarelto] 20 mg PO QDAY 11/30/14 08/28/17 08/26/17 Verapamil ER [Calan SR] 240 mg PO DAILY 11/30/14 08/28/17 08/27/17 predniSONE 5 mg PO QDAY 11/30/14 08/28/17 08/27/17 ALBUTEROL Inhaler (OR & NICU) 2 puff IH QID PRN 11/24/16 08/28/17 1 Week Ago [Proair] ~08/21/17 Aspirin [Aspirin BABY CHEW TAB] 81 mg PO QDAY 11/24/16 08/28/17 08/27/17 Desloratadine [Clarinex] 5 mg PO DAILY 11/24/16 08/28/17 08/27/17 Linaclotide (Nf) [Linzess (Nf)] 290 mcg PO Q48H 11/24/16 08/28/17 08/26/17 Naloxegol Oxalate [Movantik] 25 mg PO DAILY 11/24/16 08/28/17 08/27/17 Nitroglycerin [Nitrostat] 0.4 mg SL Q5M PRN 11/24/16 08/28/17 08/22/17 Oxycodone HCl/Acetaminophen 1 each PO Q8H PRN 11/24/16 08/28/17 Unknown [Percocet 7.5/325 mg] Pantoprazole [Protonix] 40 mg PO QDAY 11/24/16 08/28/17 08/28/17 05:00 Potassium Chloride [Klor-Con] 20 meq PO DAILY 11/24/16 08/28/17 08/27/17 Umeclidinium [place] [Incruse 1 puff IH DAILY 08/28/17 08/28/17 08/27/17 Ellipta] predniSONE [Deltasone] 5 mg PO QDAY 08/28/17 08/28/17 Unknown Previous Rx's Medication Instructions Recorded Last Taken Type ALPRAZolam [Xanax TAB] 1 mg PO TID PRN #90 tablet 03/02/16 08/27/17 Rx Mirtazapine [Remeron 15mg TAB] 45 mg PO QHS tablet 03/02/16 08/27/17 Rx oxyCODONE /ACETAMINOPHEN [Percocet 1 tab PO Q6HR PRN #9 tablet 04/13/19 Unknown Rx 5/325] Allergies Allergy/AdvReac Type Severity Reaction Status Date / Time adhesive Allergy Hives Verified 04/13/19 12:44 amlodipine besylate Allergy Anaphylaxis Verified 04/13/19 12:44 [From Norvasc] diltiazem Allergy Anaphylaxis Verified 04/13/19 12:44 diltiazem HCl [From Cardizem] Allergy Anaphylaxis Verified 04/13/19 12:44 Renexa Allergy Unknown Uncoded 08/13/16 09:41 ED Review of Systems ROS: Stated complaint: FALL ON SIDE Other details as noted in HPI Constitutional: denies: fever Eyes: denies: eye discharge ENT: denies: epistaxis Respiratory: denies: wheezing Cardiovascular: other (left-sided thorax and chest wall pain) Gastrointestinal: denies: abdominal pain, nausea, vomiting Genitourinary: denies: dysuria Musculoskeletal: arthralgia, myalgia Skin: denies: lesions Neurological: headache. denies: weakness Psychiatric: anxiety ED Past Medical Hx - Past Medical History Previous Medical History?: Yes Hx Hypertension: Yes Hx CVA: Yes Hx Congestive Heart Failure: Yes Hx Arthritis: Yes Hx Kidney Stones: Yes Hx Psychiatric Treatment: Yes (anxiety) Hx COPD: Yes Additional medical history: emphysema, bronchitis, A. Fib; MVP; aneurysm- coil on right side of head, Home oxygen @ 2lpm nasal cannula - Surgical History Past Surgical History?: Yes Hx Breast Surgery: Yes (bilateral breast biopsy benign) Additional Surgical History: tonsillectomy, cerebral aneurysm coil, hysterectomy, hemorrhoid surgery, bilateral benign breast biopsies - Social History Smoking Status: Never Smoker Substance Use Type: None - Medications Home Medications: Home Medications Medication Instructions Recorded Confirmed Last Taken Type Atorvastatin (Nf) [Lipitor (Nf)] 20 mg PO QHS 11/30/14 08/28/17 08/27/17 History DULoxetine [Cymbalta] 30 mg PO QDAY 11/30/14 08/28/17 08/27/17 History Digoxin 125 mcg PO DAILY 11/30/14 08/28/17 08/27/17 History Fluticasone/Salmeterol [Advair 1 puff IH BID 11/30/14 08/28/17 08/27/17 History Diskus 500-50 mcg] Furosemide [Lasix TAB] 20 mg PO QDAY 11/30/14 08/28/17 08/27/17 History Isosorbide Mononitrate 120 mg PO DAILY 11/30/14 08/28/17 08/27/17 History Levothyroxine [Synthroid] 100 mcg PO QAM 11/30/14 08/28/17 08/28/17 05:00 History Lisinopril 10 mg PO DAILY 11/30/14 08/28/17 08/28/17 05:00 History [place]-3 Acid Ethyl Esters [Lovaza] 1 gm PO BID 11/30/14 08/28/17 08/27/17 History Rivaroxaban [Xarelto] 20 mg PO QDAY 11/30/14 08/28/17 08/26/17 History Verapamil ER [Calan SR] 240 mg PO DAILY 11/30/14 08/28/17 08/27/17 History predniSONE 5 mg PO QDAY 11/30/14 08/28/17 08/27/17 History ALPRAZolam [Xanax TAB] 1 mg PO TID PRN #90 tablet 03/02/16 08/28/17 08/27/17 Rx Mirtazapine [Remeron 15mg TAB] 45 mg PO QHS tablet 03/02/16 08/28/17 08/27/17 Rx ALBUTEROL Inhaler (OR & NICU) 2 puff IH QID PRN 11/24/16 08/28/17 1 Week Ago History [Proair] ~08/21/17 Aspirin [Aspirin BABY CHEW TAB] 81 mg PO QDAY 11/24/16 08/28/17 08/27/17 History Desloratadine [Clarinex] 5 mg PO DAILY 11/24/16 08/28/17 08/27/17 History Linaclotide (Nf) [Linzess (Nf)] 290 mcg PO Q48H 11/24/16 08/28/17 08/26/17 History Naloxegol Oxalate [Movantik] 25 mg PO DAILY 11/24/16 08/28/17 08/27/17 History Nitroglycerin [Nitrostat] 0.4 mg SL Q5M PRN 11/24/16 08/28/17 08/22/17 History Oxycodone HCl/Acetaminophen 1 each PO Q8H PRN 11/24/16 08/28/17 Unknown History [Percocet 7.5/325 mg] Pantoprazole [Protonix] 40 mg PO QDAY 11/24/16 08/28/17 08/28/17 05:00 History Potassium Chloride [Klor-Con] 20 meq PO DAILY 11/24/16 08/28/17 08/27/17 History Umeclidinium [place] [Incruse 1 puff IH DAILY 08/28/17 08/28/17 08/27/17 History Ellipta] predniSONE [Deltasone] 5 mg PO QDAY 08/28/17 08/28/17 Unknown History oxyCODONE /ACETAMINOPHEN [Percocet 1 tab PO Q6HR PRN #9 tablet 04/13/19 Unknown Rx 5/325] ED Physical Exam - General Limitations: No Limitations General appearance: alert, anxious - Head Head exam: Present: atraumatic, normocephalic - Eye Eye exam: Present: normal appearance (evidence of chronic bilateral cataract repair), EOMI, other (visual acuity intact to finger counting, color perception, reading at a close distance) - ENT ENT exam: Present: normal exam, normal orophraynx, mucous membranes moist, TM's normal bilaterally (there is no nasal septal hematoma. There is no hemotympanum), normal external ear exam - Neck Neck exam: Present: normal inspection, tenderness (there is paracervical tenderness), full ROM - Respiratory Respiratory exam: Present: normal lung sounds bilaterally, chest wall tenderness, other (chaperoned by maitre d' Sebastian Del Toro). Absent: respiratory distress, rales, rhonchi, stridor - Cardiovascular Cardiovascular Exam: Present: regular rate, irregular rhythm, normal heart sounds. Absent: bradycardia, tachycardia, systolic murmur, diastolic murmur, rubs, gallop - GI/Abdominal GI/Abdominal exam: Present: soft. Absent: distended, tenderness, guarding, rebound, rigid, pulsatile mass - Extremities Exam Extremities exam: Present: full ROM, tenderness (there is tenderness in the left mid humerus, left elbow, and left forearm. There is no left hand or wrist tenderness. There is no snuffbox tenderness), other (2+ pulses noted in the bilateral upper, lower extremities. The pelvis is stable. There is no lower extremity long bony tenderness. There is no right upper extremity long bony tenderness. Muscular compartments soft). Absent: normal inspection (diffuse upper extremity ecchymosis), calf tenderness - Back Exam Back exam: Present: normal inspection, paraspinal tenderness. Absent: tenderness, CVA tenderness (R), CVA tenderness (L), vertebral tenderness - Neurological Exam Neurological exam: Present: alert, other (Extraocular movements intact. Tongue midline. No facial droop. Facial sensation intact to light touch in the V1, V2, V3 distribution bilaterally. 5 and 5 strength in 4 extremities.. Sensation is intact to light touch in 4 extremities.). Absent: motor sensory deficit - Psychiatric Psychiatric exam: Present: anxious - Skin Skin exam: Present: warm, ecchymosis ED Course Vital Signs 04/13/19 04/13/19 04/13/19 11:58 12:39 15:30 Temperature 97.8 F 97.9 F Pulse Rate 74 80 56 L Respiratory 16 18 24 Rate Blood Pressure 116/62 Blood Pressure 152/69 [Left] O2 Sat by Pulse 100 92 97 Oximetry 04/13/19 16:20 Temperature Pulse Rate 60 Respiratory 24 Rate Blood Pressure Blood Pressure 104/50 [Left] O2 Sat by Pulse 97 Oximetry - Reevaluation(s) Reevaluation #1: 04/13/19 13:35 Differential diagnosis, including not limited to: Soft tissue injury, mechanical fall, contusion, fracture, dislocation, intracranial injury, facial injury, chest wall fracture, contusion, sprain, strain Assessment and plan: Elderly 68-year-old female, multiple medical comorbidities, who is not having any complaints or issues until a mechanical fall, now with reproducible left-sided chest wall pain, left upper extremity pain, left-sided headache, facial pain, and left-sided neck pain. We will treat her pain. We will obtain plain films of the left upper extremity. Given advanced age, concomitant use of systemic anticoagulation, we will obtain CT scan of the brain, facial bones, chest, cervical spine. We will place the patient on a campus monitor. We will reassess after her data points have resulted. GCS of 15 at this time. Airway patent, and intact and protected at this time Reevaluation #2: 04/13/19 18:08 The patient is reassessed multiple times. She reports that she feels improved. CT scan of the brain, facial bones, cervical spine, chest negative for significant traumatic disease. X-ray of the left shoulder, left humerus, left arm/elbow, left forearm negative for acute disease. Vital signs remained stable. Repeat exam improved. Counseled patient to expect to be sore over the next few days. Patient on systemic anticoagulation, therefore not NSAID candidate. She'll be discharged with short prescription of Percocet. Also discussed nonnarcotic and complementary options for therapy, including massage therapy, physical therapy, occupational therapy, and/or acupuncture. ED Medical Decision Making - Lab Data Result diagrams: 04/13/19 14:34 04/13/19 14:34 Vital Signs 04/13/19 04/13/19 11:58 12:39 Temperature 97.8 F 97.9 F Pulse Rate 74 80 Respiratory 16 18 Rate Blood Pressure 116/62 Blood Pressure 152/69 [Left] O2 Sat by Pulse 100 92 Oximetry - EKG Data -: EKG Interpreted by Me - EKG Data 04/13/19 13:35 This EKG shows A. fib, 72 bpm, normal axis, QTC within normal limits, low voltage, motion artifact, the EKG is abnormal, this EKG is not consistent with ST elevation myocardial infarction. - Radiology Data Radiology results: pending, report reviewed, image reviewed Critical care attestation.: If time is entered above; I have spent that time in minutes in the direct care of this critically ill patient, excluding procedure time. ED Disposition Clinical Impression: History of fall, Chest wall pain, Left arm pain, Facial pain Disposition: - TO HOME OR SELFCARE Is pt being admited?: No Does the pt Need Aspirin: No Condition: Stable Instructions: Chest Pain (ED) Additional Instructions: As we discussed, pain typically gets worse before it gets better after mechanical fall. Rest, avoid heavy lifting, and avoid strenuous physical activities. He should may alternate heat packs and ice packs to areas of the body that are painful, and may pursue massage therapy, acupuncture and complementary medicine. Follow-up with your primary care doctor within the next 5-7 days, will return to the emergency room for repeat evaluation and checkup within the next 5-7 days. Patient may continue current outpatient medications. Return to the emergency room right away with new, worsening or different symptoms, or symptoms not present on the initial emergency room evaluation. If taking the Percocet for pain, do not drive, consume alcohol, or make important decisions. Do not combine with other sedating medications such as Xanax, or other opioids/narcotics. Referrals: TUNDE WOODALL MD [Staff Physician] - 3-5 Days
[2019-04-13] MEDS ORDERED: BOOSTRIX IM ONE (13:34)
[2019-04-13 14:55] LABS: Hematocrit 37.8 % (30.3-42.9); Hemoglobin 12.7 gm/dl (10.1-14.3); Mean Corpuscular HGB Conc 34 % (30-34); Mean Corpuscular Volume 97 fl (79-97); Platelet Count 208 K/mm3 (140-440); Red Blood Count 3.89 M/mm3 (3.65-5.03); Red Cell Distribution Width 13.5 % (13.2-15.2)
[2019-04-13 15:06] LABS: INR 1.36 (0.87-1.13)
[2019-04-13 15:07] LABS: Partial Thromboplastin Time 30.9 Sec. (24.2-36.6)
[2019-04-13 15:10] LABS: BUN/Creatinine Ratio 14; Blood Urea Nitrogen 11 mg/dL (7-17); Hemolysis Index 25
--- NOTE | 2019-04-13 16:15 | XRay Report ---
LEFT SHOULDER 3 VIEWS INDICATION / CLINICAL INFORMATION: left arm pain s/p fall. COMPARISON: None available. FINDINGS: Moderately advanced degenerative change in the glenohumeral joint with possible ossific bodies presen t. No definite evidence of a fracture or dislocation. Signer Name: Manoj MCMANUS Signed: 04/13/2019 4:11 PM Workstation Name: [id number]
--- NOTE | 2019-04-13 16:15 | Cat Scan Report ---
CT HEAD WITHOUT CONTRAST INDICATION : fall on head on eliquis. Head injury. TECHNIQUE: Axial imaging performed from the skull apex through the skull base without the use of con trast. Sagittal and coronal reformatted images. All CT scans at this location are performed using C T dose reduction for ALARA by means of automated exposure control. COMPARISON: None FINDINGS: Parenchyma: No acute intracranial hemorrhage or parenchymal abnormality. Ventricles: Ventricles are normal in size and appear symmetric. Bones: No acute osseous abnormality. Sinuses: Sinuses and mastoid air cells are clear. Soft tissues: Soft tissues including the orbits appear normal. Additional findings: Aneurysm coil in the anterior [place] is noted. IMPRESSION: No acute abnormality. Signer Name: Matt Pineda Jr, MD Signed: 04/13/2019 4:10 PM Workstation Name: [id number]
--- NOTE | 2019-04-13 16:15 | XRay Report ---
LEFT FOREARM 2 VIEWS INDICATION / CLINICAL INFORMATION: left arm pain fall. COMPARISON: None available. FINDINGS: No significant skeletal abnormality Signer Name: Manoj Womack MD FACR Signed: 04/13/2019 4:10 PM Workstation Name: [id number]
--- NOTE | 2019-04-13 16:16 | XRay Report ---
Left humerus, 2 views INDICATION: left arm pain fall. COMPARISON: None. IMPRESSION: No acute osseous or soft tissue abnormality. Mild osteopenia. Signer Name: Matt Pineda Jr, MD Signed: 04/13/2019 4:11 PM Workstation Name: [id number]
[2019-04-13] MEDS ORDERED: MORPHINE ONE (16:17)
[2019-04-13 16:21] VITALS: BP 104/50
--- NOTE | 2019-04-13 16:56 | Cat Scan Report ---
CT facial bones without contrast CLINICAL HISTORY: Facial pain and trauma FINDINGS: There is no CT ends of acute fracture involving the facial bones. The optic globes demonstr ate appropriate size and configuration. No significant post septal inflammatory changes are identifie d at. There is moderate opacification of the posterior right sphenoid sinus at. Otherwise I, the paranasal sinuses are clear. The nasal septum is essentially midline at. There is again note of coil embolizati on of projected along the anterior suprasellar region. All CT scans at this location are performed us ing the CT dose reduction for ALARA by means of automated exposure control. IMPRESSION: There is no CT evidence of acute fracture involving the facial bones. There is moderate opacification within the right sphenoid sinus. Signer Name: Samir Harris MD Signed: 04/13/2019 4:51 PM Workstation Name: [id number]
--- NOTE | 2019-04-13 17:03 | XRay Report ---
LEFT ELBOW 2 VIEWS. INDICATION / CLINICAL INFORMATION: fal left elbow pain COMPARISON: None available. FINDINGS: BONES / JOINT(S): No acute fracture or subluxation. No significant arthritis. SOFT TISSUES: Soft tissue swelling greater medially. ADDITIONAL FINDINGS: None. Signer Name: Mario Whitehead MD Signed: 04/13/2019 4:59 PM Workstation Name: [id number]
--- NOTE | 2019-04-13 17:22 | Cat Scan Report ---
CT CERVICAL SPINE: 04/13/2019 INDICATION / CLINICAL INFORMATION: fall on head on eliquis. Trauma COMPARISON: None available. FINDINGS: CT images of the cervical spine were obtained. Images are evaluated in the axial, coronal, and sagit debra planes. There is no evidence of acute osseous injury. Vertebral body alignment is preserved. Some degenerative disc space narrowing is present at the C6-7 level. CRANIOCERVICAL JUNCTION: Unremarkable. PARASPINAL STRUCTURES: Unremarkable. IMPRESSION: No acute abnormality. All CT scans at this location are performed using dose reduction to ALARA by means of automated expos ure control. Signer Name: Cheng Kinsey MD Signed: 04/13/2019 5:17 PM Workstation Name: [id number]
--- NOTE | 2019-04-13 17:25 | Cat Scan Report ---
CT chest wo con INDICATION: chest wall pain on eliquis fall. TECHNIQUE: All CT scans at this location are performed using the following dose modulation technique: Automated exposure control. CONTRAST: None. COMPARISON: CT chest 05/05/2013. FINDINGS: Severe bilateral emphysema/bullous disease is again noted. Negative for mass, pleural fluid or acute infiltrate. A nodular density within the right upper lobe anteriorly (series 2, image 45) m easures 1 cm and is not significantly different. The mediastinum contains reactive appearing age. Negative for mass or inflammatory process. Imaged po rtions of the upper abdomen are unremarkable. IMPRESSION: 1. Persistent severe emphysema. 2. Right upper lobe nodule not sniffly change giving the time interval. 3. Negative for acute abnormality. Signer Name: Mario Whitehead MD Signed: 04/13/2019 5:21 PM Workstation Name: [id number]
== END 2019-04-13 18:45 | disposition home or self-care (01) ==
LOC: ED 11:57
DX: R07.89 Other chest pain (principal); M79.602 Pain in left arm; R51 Headache; M54.2 Cervicalgia; I11.0 Hypertensive heart disease with heart failure; I50.9 Heart failure, unspecified; M19.90 Unspecified osteoarthritis, unspecified site; F41.9 Anxiety disorder, unspecified; J43.9 Emphysema, unspecified; I48.91 Unspecified atrial fibrillation; I34.1 Nonrheumatic mitral (valve) prolapse; I67.1 Cerebral aneurysm, nonruptured; E03.9 Hypothyroidism, unspecified; Z91.048 Other nonmedicinal substance allergy status; Z79.01 Long term (current) use of anticoagulants; Z98.890 Other specified postprocedural states; Z99.81 Dependence on supplemental oxygen; Z90.89 Acquired absence of other organs; Z86.73 Personal history of transient ischemic attack (TIA), and cerebral infarction without residual deficits; Z87.442 Personal history of urinary calculi; Z79.899 Other long term (current) drug therapy; Z79.82 Long term (current) use of aspirin; Z88.8 Allergy status to other drugs, medicaments and biological substances; Z91.81 History of falling
CPT/HCPCS: 36415; 70450; 70486; 71250; 72125; 73030; 73060; 73070; 73090; 80048; 82550; 83735; 85027; 85610; 85730; 90471; 90715; 93005; 93010; 96374; 96376; 99285; J2270

== ENCOUNTER 2019-06-22 18:16 | Inpatient (IN) | payer MEDICARE, OTHER ==
[2019-06-22] MEDS ORDERED: IPRATROPIUM 0.02% NEBU 2.5 ML IH ONE (20:25)
[2019-06-22] MEDS ORDERED: ALBUTEROL 2.5 MG/3 ML NEBU IH ONE ×2 (20:25→21:00)
[2019-06-22] MEDS ORDERED: MAGNESIUM SULFATE 2 GM/50 ML BAG IV ONE (20:25)
[2019-06-22 20:30] LABS: Hematocrit 37.9 % (30.3-42.9); Hemoglobin 12.6 gm/dl (10.1-14.3); Mean Corpuscular HGB Conc 33 % (30-34); Mean Corpuscular Volume 97 fl (79-97); Platelet Count 201 K/mm3 (140-440); Red Blood Count 3.91 M/mm3 (3.65-5.03); Red Cell Distribution Width 12.8 % (13.2-15.2)
[2019-06-22 20:50] LABS: Alanine Aminotransferase 11 units/L (7-56); Albumin 3.7 g/dL (3.9-5); BUN/Creatinine Ratio 17; Blood Urea Nitrogen 12 mg/dL (7-17); Hemolysis Index 54
--- NOTE | 2019-06-22 20:51 | XRay Report ---
CHEST 1 VIEW INDICATION / CLINICAL INFORMATION: ANDREI. COMPARISON: Chest CT dated 04/13/2019 FINDINGS: SUPPORT DEVICES: None. HEART / MEDIASTINUM: Unchanged LUNGS / PLEURA: Severe chronic changes of emphysema and severe bilateral interstitial disease is note d.. No pneumothorax. ADDITIONAL FINDINGS: No significant additional findings. IMPRESSION: 1. Severe chronic changes of emphysema and interstitial disease is noted. Signer Name: Jed Keith MD Signed: 06/22/2019 8:46 PM Workstation Name: [id number]
--- NOTE | 2019-06-22 22:18 | Emergency Department Report ---
ED Shortness of Breath HPI - General Chief Complaint: Dyspnea/Respdistress Stated Complaint: ANDREI Time Seen by Provider: 06/22/19 19:33 Source: EMS Mode of arrival: Stretcher Limitations: No Limitations - History of Present Illness Initial Comments: 69-year-old female presents to the emergency room for respiratory distress while at home 50% 2 L of nasal cannula oxygen. Patient has a past medical history of emphysema, bronchitis, A. 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 Patient denies any fever or chills does report sweating no leg edema productive cough of greenish to brownish mucus. She is followed by Dr. Baldwin handkerchief presser. Patient is here with her sister. MD Complaint: shortness of breath -: This afternoon Consistency: constant Improves With: oxygen Known History Of: COPD, asthma, congestive heart failure, other (emphysema, A. fib) Associated Symptoms: cough, sputum production Treatments Prior to Arrival: oxygen - Related Data Home Oxygen Therapy: Yes Home Oxygen Amount: 2 Liters Home Medications Medication Instructions Recorded Confirmed Last Taken Atorvastatin (Nf) [Lipitor (Nf)] 20 mg PO QHS 11/30/14 08/28/17 08/27/17 DULoxetine [Cymbalta] 30 mg PO QDAY 11/30/14 08/28/17 08/27/17 Digoxin 125 mcg PO DAILY 11/30/14 08/28/17 08/27/17 Fluticasone/Salmeterol [Advair 1 puff IH BID 11/30/14 08/28/17 08/27/17 Diskus 500-50 mcg] Furosemide [Lasix TAB] 20 mg PO QDAY 11/30/14 08/28/17 08/27/17 Isosorbide Mononitrate 120 mg PO DAILY 11/30/14 08/28/17 08/27/17 Levothyroxine [Synthroid] 100 mcg PO QAM 11/30/14 08/28/17 08/28/17 05:00 Lisinopril 10 mg PO DAILY 11/30/14 08/28/17 08/28/17 05:00 Berger-3 Acid Ethyl Esters [Lovaza] 1 gm PO BID 11/30/14 08/28/17 08/27/17 Rivaroxaban [Xarelto] 20 mg PO QDAY 11/30/14 08/28/17 08/26/17 Verapamil ER [Calan SR] 240 mg PO DAILY 11/30/14 08/28/17 08/27/17 predniSONE 5 mg PO QDAY 11/30/14 08/28/17 08/27/17 ALBUTEROL Inhaler (OR & NICU) 2 puff IH QID PRN 11/24/16 08/28/17 1 Week Ago [Proair] ~08/21/17 Aspirin [Aspirin BABY CHEW TAB] 81 mg PO QDAY 11/24/16 08/28/17 08/27/17 Desloratadine [Clarinex] 5 mg PO DAILY 11/24/16 08/28/17 08/27/17 Linaclotide (Nf) [Linzess (Nf)] 290 mcg PO Q48H 11/24/16 08/28/17 08/26/17 Naloxegol Oxalate [Movantik] 25 mg PO DAILY 11/24/16 08/28/17 08/27/17 Nitroglycerin [Nitrostat] 0.4 mg SL Q5M PRN 11/24/16 08/28/17 08/22/17 Oxycodone HCl/Acetaminophen 1 each PO Q8H PRN 11/24/16 08/28/17 Unknown [Percocet 7.5/325 mg] Pantoprazole [Protonix] 40 mg PO QDAY 11/24/16 08/28/17 08/28/17 05:00 Potassium Chloride [Klor-Con] 20 meq PO DAILY 11/24/16 08/28/17 08/27/17 Umeclidinium [place] [Incruse 1 puff IH DAILY 08/28/17 08/28/17 08/27/17 Ellipta] predniSONE [Deltasone] 5 mg PO QDAY 08/28/17 08/28/17 Unknown Previous Rx's Medication Instructions Recorded Last Taken Type ALPRAZolam [Xanax TAB] 1 mg PO TID PRN #90 tablet 03/02/16 08/27/17 Rx Mirtazapine [Remeron 15mg TAB] 45 mg PO QHS tablet 03/02/16 08/27/17 Rx oxyCODONE /ACETAMINOPHEN [Percocet 1 tab PO Q6HR PRN #9 tablet 04/13/19 Unknown Rx 5/325] Allergies Allergy/AdvReac Type Severity Reaction Status Date / Time adhesive Allergy Hives Verified 04/13/19 12:44 amlodipine besylate Allergy Anaphylaxis Verified 04/13/19 12:44 [From Norvasc] diltiazem Allergy Anaphylaxis Verified 04/13/19 12:44 diltiazem HCl [From Cardizem] Allergy Anaphylaxis Verified 04/13/19 12:44 Renexa Allergy Unknown Uncoded 08/13/16 09:41 ED Review of Systems ROS: Stated complaint: ANDREI Other details as noted in HPI Comment: All other systems reviewed and negative ED Past Medical Hx - Past Medical History Previous Medical History?: Yes Hx Hypertension: Yes Hx CVA: Yes Hx Congestive Heart Failure: Yes Hx Arthritis: Yes Hx Kidney Stones: Yes Hx Psychiatric Treatment: Yes (anxiety) Hx COPD: Yes Additional medical history: emphysema, bronchitis, A. Fib; MVP; aneurysm- coil on right side of head, Home oxygen @ 2lpm nasal cannula - Surgical History Past Surgical History?: Yes Hx Breast Surgery: Yes (bilateral breast biopsy benign) Additional Surgical History: tonsillectomy, cerebral aneurysm coil, hysterectomy, hemorrhoid surgery, bilateral benign breast biopsies - Social History Smoking Status: Never Smoker Substance Use Type: None - Medications Home Medications: Home Medications Medication Instructions Recorded Confirmed Last Taken Type Atorvastatin (Nf) [Lipitor (Nf)] 20 mg PO QHS 11/30/14 08/28/17 08/27/17 History DULoxetine [Cymbalta] 30 mg PO QDAY 11/30/14 08/28/17 08/27/17 History Digoxin 125 mcg PO DAILY 11/30/14 08/28/17 08/27/17 History Fluticasone/Salmeterol [Advair 1 puff IH BID 11/30/14 08/28/17 08/27/17 History Diskus 500-50 mcg] Furosemide [Lasix TAB] 20 mg PO QDAY 11/30/14 08/28/17 08/27/17 History Isosorbide Mononitrate 120 mg PO DAILY 11/30/14 08/28/17 08/27/17 History Levothyroxine [Synthroid] 100 mcg PO QAM 11/30/14 08/28/17 08/28/17 05:00 History Lisinopril 10 mg PO DAILY 11/30/14 08/28/17 08/28/17 05:00 History Berger-3 Acid Ethyl Esters [Lovaza] 1 gm PO BID 11/30/14 08/28/17 08/27/17 History Rivaroxaban [Xarelto] 20 mg PO QDAY 11/30/14 08/28/17 08/26/17 History Verapamil ER [Calan SR] 240 mg PO DAILY 11/30/14 08/28/17 08/27/17 History predniSONE 5 mg PO QDAY 11/30/14 08/28/17 08/27/17 History ALPRAZolam [Xanax TAB] 1 mg PO TID PRN #90 tablet 03/02/16 08/28/17 08/27/17 Rx Mirtazapine [Remeron 15mg TAB] 45 mg PO QHS tablet 03/02/16 08/28/17 08/27/17 Rx ALBUTEROL Inhaler (OR & NICU) 2 puff IH QID PRN 11/24/16 08/28/17 1 Week Ago History [Proair] ~08/21/17 Aspirin [Aspirin BABY CHEW TAB] 81 mg PO QDAY 11/24/16 08/28/17 08/27/17 History Desloratadine [Clarinex] 5 mg PO DAILY 11/24/16 08/28/17 08/27/17 History Linaclotide (Nf) [Linzess (Nf)] 290 mcg PO Q48H 11/24/16 08/28/17 08/26/17 History Naloxegol Oxalate [Movantik] 25 mg PO DAILY 11/24/16 08/28/17 08/27/17 History Nitroglycerin [Nitrostat] 0.4 mg SL Q5M PRN 11/24/16 08/28/17 08/22/17 History Oxycodone HCl/Acetaminophen 1 each PO Q8H PRN 11/24/16 08/28/17 Unknown History [Percocet 7.5/325 mg] Pantoprazole [Protonix] 40 mg PO QDAY 11/24/16 08/28/17 08/28/17 05:00 History Potassium Chloride [Klor-Con] 20 meq PO DAILY 11/24/16 08/28/17 08/27/17 History Umeclidinium [place] [Incruse 1 puff IH DAILY 08/28/17 08/28/17 08/27/17 History Ellipta] predniSONE [Deltasone] 5 mg PO QDAY 08/28/17 08/28/17 Unknown History oxyCODONE /ACETAMINOPHEN [Percocet 1 tab PO Q6HR PRN #9 tablet 04/13/19 Unknown Rx 5/325] ED Physical Exam - General Limitations: No Limitations General appearance: alert, in no apparent distress - Head Head exam: Present: atraumatic, normocephalic - Eye Eye exam: Present: normal appearance - ENT ENT exam: Present: mucous membranes moist - Neck Neck exam: Present: normal inspection - Respiratory Respiratory exam: Present: wheezes, prolonged expiratory - Cardiovascular Cardiovascular Exam: Present: tachycardia - GI/Abdominal GI/Abdominal exam: Present: soft, normal bowel sounds. Absent: distended, tende rness - Back Exam Back exam: Present: full ROM - Neurological Exam Neurological exam: Present: alert, oriented X3 - Psychiatric Psychiatric exam: Present: normal affect, normal mood - Skin Skin exam: Present: warm, dry, intact, normal color. Absent: rash ED Course Vital Signs 06/22/19 06/22/19 18:44 21:10 Temperature 98.4 F Pulse Rate 99 H Pulse Rate [ 88 Bilateral] Respiratory 17 Rate Respiratory 24 Rate [Bilateral ] Blood Pressure 136/75 O2 Sat by Pulse 99 Oximetry ED Medical Decision Making - Lab Data Result diagrams: 06/22/19 20:10 06/22/19 20:10 - Medical Decision Making 69-year-old female presents to the emergency room for respiratory distress while at home 50% 2 L of nasal cannula oxygen. Patient has a past medical history of emphysema, bronchitis, A. 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 Patient denies any fever or chills does report sweating no leg edema productive cough of greenish to brownish mucus. She is followed by Dr. Baldwin handkerchief presser. Patient is here with her sister. Critical care attestation.: If time is entered above; I have spent that time in minutes in the direct care of this critically ill patient, excluding procedure time. ED Disposition Condition: Stable
[2019-06-22] MEDS ORDERED: ACETAMINOPHEN 325 MG TAB PO PRN (22:35)
[2019-06-22] MEDS ORDERED: ONDANSETRON 4 MG/2 ML INJ IV PRN (22:35)
[2019-06-22] MEDS ORDERED: oxyCODONE /ACETAMINOPHEN 5-325MG TAB PO PRN (22:37)
[2019-06-22] MEDS ORDERED: NITROGLYCERIN 0.4 MG TAB SUBL SL PRN (22:37)
--- NOTE | 2019-06-22 22:40 | History and Physical Report ---
History of Present Illness Chief complaint: I cant breathe History of present illness: 69 YO Female with Atrial Fib on Therapeutic Anticoagulation, Chronic Respiratory Failure on Home Oxygen @2liters via [place], COPD, HTN, CHF, Anxiety, CVA presents to ED for evaluation. Pt states that she has been experiencing shortness of breath for the 4 days with progressively worsening symptoms over the same time frame. EMS notified, and upon arrival the patient was found to be in distress and transported to [facility]. Pt seen and evaluated in ED and found to have Acute on Chronic Hypoxemic Respiratory Failure. Pt admitted to medical floor. Pt treated with supplemental oxygen and nebulizer therapy without signikficant improvement. Pt acknowledges subjective fever, but denies chills, CP, Palpitations, Syncope, productive cough, BRBPR, hematuria, Syncope, hemoptysis, skin rashes, or recent ill contacts, prolonged immobility/travel, individual/family history of DVT/PE, leg swelling, or calf pain. Prior admission on 11/24/16 reviewed. All listed medication reconciled at time of admission. Past History Past Medical History: other (see hpi) Past Surgical History: Other (Breast surgery) Social history: Family history: hypertension Medications and Allergies Allergies Allergy/AdvReac Type Severity Reaction Status Date / Time adhesive Allergy Hives Verified 04/13/19 12:44 amlodipine besylate Allergy Anaphylaxis Verified 04/13/19 12:44 [From Norvasc] diltiazem Allergy Anaphylaxis Verified 04/13/19 12:44 diltiazem HCl [From Cardizem] Allergy Anaphylaxis Verified 04/13/19 12:44 Renexa Allergy Unknown Uncoded 08/13/16 09:41 Home Medications Medication Instructions Recorded Confirmed Last Taken Type predniSONE 2.5 mg PO QDAY 11/30/14 06/22/19 08/27/17 History ALPRAZolam [Xanax TAB] 1 mg PO TID PRN #90 tablet 03/02/16 06/22/19 08/27/17 Rx ALBUTEROL Inhaler (OR & NICU) 2 puff IH QID PRN 06/22/19 06/23/19 Unknown History [ProAir HFA Inhaler] Apixaban [Eliquis] 5 mg PO BID 06/22/19 06/23/19 Unknown History Aspirin [Aspirin BABY CHEW TAB] 81 mg PO QDAY 06/22/19 06/22/19 Unknown History AtorvaSTATin [Lipitor] 20 mg PO QHS 06/22/19 06/23/19 Unknown History DULoxetine [Cymbalta] 30 mg PO DAILY 06/22/19 06/22/19 Unknown History Desloratadine [Clarinex] 5 mg PO DAILY 06/22/19 06/23/19 Unknown History Digoxin [Lanoxin] 125 mcg PO DAILY 06/22/19 06/22/19 Unknown History Fluticasone/Salmeterol [Advair 1 puff IH BID 06/22/19 06/22/19 Unknown History Diskus 500-50 mcg] Furosemide [Lasix] 20 mg PO QDAY 06/22/19 06/22/19 Unknown History ISOSORBIDE MONOnitrate [Imdur ER] 120 mg PO QDAY 06/22/19 06/22/19 Unknown History Levothyroxine [Synthroid] 100 mcg PO QAM 06/22/19 06/22/19 Unknown History Linaclotide (Nf) [Linzess (Nf)] 290 mcg PO DAILY 06/22/19 06/22/19 Unknown History Lisinopril [Zestril TAB] 10 mg PO QDAY 06/22/19 06/23/19 Unknown History Mirtazapine [Remeron 45mg TAB] 45 mg PO DAILY 06/22/19 06/22/19 Unknown History Naloxegol Oxalate [Movantik] 25 mg PO DAILY 06/22/19 06/23/19 Unknown History Nitroglycerin [Nitrostat] 0.4 mg SL Q5M PRN 06/22/19 06/23/19 Unknown History [place]-3 Acid Ethyl Esters [Lovaza] 1 gm PO BID 06/22/19 06/23/19 Unknown History Oxycodone HCl/Acetaminophen 1 each PO Q6HR PRN 06/22/19 06/23/19 Unknown History [Percocet 7.5/325 mg] Pantoprazole [Protonix] 40 mg PO QDAY 06/22/19 06/22/19 Unknown History Potassium Chloride [Klor-Con 20 meq PO DAILY 06/22/19 06/23/19 Unknown History Sprinkle] Umeclidinium [place] [Incruse 62.5 mcg IH DAILY 06/22/19 06/22/19 Unknown History Ellipta 62.5MCG] Verapamil ER [Calan Sr] 240 mg PO DAILY 06/22/19 06/23/19 Unknown History Active Meds: Active Medications Acetaminophen (Tylenol) 650 mg PO Q4H PRN PRN Reason: Pain MILD(1-3)/Fever >100.5/ARAIZA Ondansetron HCl (Zofran) 4 mg IV Q8H PRN PRN Reason: Nausea And Vomiting Sodium Chloride (Sodium Chloride Flush Syringe 10 Ml) 10 ml IV BID JO Sodium Chloride (Sodium Chloride Flush Syringe 10 Ml) 10 ml IV PRN PRN PRN Reason: LINE FLUSH Review of Systems Constitutional: no weight loss, no weight gain, no fever Ears, nose, mouth and throat: no ear pain, no ear discharge Breasts: no change in shape, no swelling, no mass Cardiovascular: shortness of breath, no chest pain, no palpitations, no syncope Respiratory: shortness of breath, no excessive sputum, no congestion, no wheezing, no pleurisy, no pain Gastrointestinal: no nausea, no vomiting, no constipation, no change in bowel habits Genitourinary Female: no pelvic pain, no menorrhagia, no dysuria, no urgency, no post void dribbling, no incomplete emptying, no urge incontinence Rectal: no pain, no incontinence, no bleeding Musculoskeletal: no neck stiffness, no arm numbness/tingling, no shooting leg pain, no leg numbness/tingling Integumentary: no rash, no pruritis, no sores, no wounds, no jaundice Neurological: no head injury, no transient paralysis, no weakness Psychiatric: no anxiety, no memory loss, no sleep disturbances, no hypersomnia, no change in libido, no suicidal ideation Endocrine: no cold intolerance, no heat intolerance, no excessive thirst, no polyuria, no nocturia Hematologic/Lymphatic: no easy bruising, no easy bleeding, no lymphadenopathy Allergic/Immunologic: no urticaria, no wheezing, no persistent infections, no angioedema Exam - Constitutional Vitals: Temp Pulse Resp BP Pulse Ox 98.4 F 90 22 120/64 94 06/22/19 18:44 06/22/19 22:00 06/22/19 22:00 06/22/19 22:00 06/22/19 22:00 General appearance: Present: mild distress - EENT Eyes: Present: PERRL ENT: hearing intact, clear oral mucosa - Neck Neck: Present: supple, normal ROM - Respiratory Respiratory effort: normal, accessory muscle use Respiratory: bilateral: diminished, rhonchi - Cardiovascular Heart Sounds: Present: S1 & S2. Absent: rub, click - Extremities Extremities: pulses symmetrical, No edema Peripheral Pulses: within normal limits - Abdominal General gastrointestinal: Present: soft, non-tender, non-distended, normal bowel sounds Female genitourinary: Present: normal - Integumentary Integumentary: Present: clear, warm, dry - Musculoskeletal Musculoskeletal: gait normal, strength equal bilaterally - Psychiatric Psychiatric: appropriate mood/affect, intact judgment & insight - Neurologic Neurologic: CNII-XII intact, moves all extremities Results - Labs CBC & Chem 7: 06/22/19 20:10 06/22/19 20:10 Labs: Abnormal lab results 06/22/19 06/22/19 06/22/19 Range/Units 20:10 20:10 20:10 RDW 12.8 L (13.2-15.2) % POC ABG pCO2 (35-45) POC ABG pO2 (80-105) Chloride 95.0 L (98-107) mmol/L Glucose 124 H (65-100) mg/dL NT-Pro-B Natriuret Pep 1380 H (0-900) pg/mL Total Protein 6.1 L (6.3-8.2) g/dL Albumin 3.7 L (3.9-5) g/dL 06/22/19 Range/Units 21:06 RDW (13.2-15.2) % POC ABG pCO2 61.8 H (35-45) POC ABG pO2 77 L (80-105) Chloride (98-107) mmol/L Glucose (65-100) mg/dL NT-Pro-B Natriuret Pep (0-900) pg/mL Total Protein (6.3-8.2) g/dL Albumin (3.9-5) g/dL Assessment and Plan - Patient Problems (1) Acute respiratory failure Current Visit: No Status: Acute Qualifiers: Respiratory failure complication: hypoxia Qualified Code(s): J96.01 - Acute respiratory failure with hypoxia Plan to address problem: Supplemental oxygen, CTA chest, , nebulizer therapy, pulse oximetry, chest x ray, nippv as clinically indicated, (2) Atrial fibrillation Current Visit: Yes Status: Acute Qualifiers: Atrial fibrillation type: unspecified Qualified Code(s): I48.91 - Unspeci fied atrial fibrillation Plan to address problem: rate control, therapeutic anticoagulation, supportive care. (3) CHF (congestive heart failure) Current Visit: Yes Status: Acute Qualifiers: Heart failure chronicity: acute on chronic Plan to address problem: Strict I/O, daily weight, monitor uop q shift, bnp, pulse oximetry, chest x ray, bnp, d dimer (4) Anxiety Current Visit: Yes Status: Acute Plan to address problem: ativan prn, supportive care. (5) HTN (hypertension) Current Visit: No Status: Chronic Qualifiers: Hypertension type: essential hypertension Qualified Code(s): I10 - Essential (primary) hypertension Plan to address problem: monitor bp q shift, continue medical management (6) DVT prophylaxis Current Visit: No Status: Acute Plan to address problem: SCD to BLE while in bed,
[2019-06-22] MEDS ORDERED: LINACLOTIDE 290 MCG PO SCH (22:45)
[2019-06-23] MEDS ORDERED: LORazepam 2 MG/ML VIAL IV PRN (00:20)
[2019-06-23] MEDS ORDERED: NITROGLYCERIN 0.4 MG TAB SUBL SL PRN (00:21)
[2019-06-23] MEDS ORDERED: NON-FORMULARY EACH (Oxycodone Hcl/Acetaminophen [Percocet 7.5/325 Mg] 1 EACH) PO PRN (00:21)
--- NOTE | 2019-06-23 00:39 | Cat Scan Report ---
CTA CHEST WITH IV CONTRAST, 06/22/2019 INDICATION: Chest pain and shortness of breath TECHNIQUE: Axial CT images were obtained through the chest after injection of IV contrast. Coronal oblique 2-D reconstruction images were produced. 3 plane MIP reconstruction images were produced at an [employer] workstation. All CTs at this facility utilize dose reduction techniques including automated expos ure control, iterative reconstruction and weight based dosing when appropriate to reduce patient radi ation dose to as low as reasonable achievable. COMPARISON: CT of the chest, and 04/13/2019 FINDINGS: Evaluation of the pulmonary arteries demonstrates no evidence of central or segmental filling defect to suggest pulmonary embolism. The heart is enlarged. Evaluation of the lung parenchyma demonstrates advanced emphysematous change with diffuse bleb and bulla formation. No definitive superimposed airsp nettie disease or large pleural effusion is identified. The right middle lobe pulmonary nodule measuring 1 cm is again noted. There are numerous prominent mediastinal lymph nodes similar to the prior study . Limited imaging of the upper abdomen demonstrates no CT evidence of acute abnormality. Evaluation of bony structures demonstrates no evidence of acute bony abnormality. IMPRESSION: 1. No evidence of pulmonary embolism. 2. Advanced emphysematous change without definitive evidence of superimposed acute parenchymal proces s. 3. Redemonstration of 1 cm right middle lobe pulmonary mass. 4. Cardiomegaly. Signer Name: Geraldine Choudhury MD Signed: 06/23/2019 12:35 AM Workstation Name: [id number]
[2019-06-23] MEDS ORDERED: oxyCODONE 5 MG TAB PO PRN (00:43)
[2019-06-23] MEDS ORDERED: oxyCODONE /ACETAMINOPHEN 5-325MG TAB PO PRN (00:44)
[2019-06-23] MEDS: LEVOTHYROXINE 100 MCG TAB PO SCH (05:35)
[2019-06-23 05:48] LABS: Basophils % (Auto) 0.3 % (0.0-1.8); Hematocrit 35.9 % (30.3-42.9); Hemoglobin 11.9 gm/dl (10.1-14.3); Lymphocytes # (Auto) 0.7 K/mm3 (1.2-5.4); Lymphocytes % (Auto) 16.7 % (13.4-35.0); Mean Corpuscular HGB Conc 33 % (30-34); Mean Corpuscular Volume 96 fl (79-97); Monocytes # (Auto) 0.1 K/mm3 (0.0-0.8); Monocytes % (Auto) 2.9 % (0.0-7.3); Platelet Count 204 K/mm3 (140-440); Red Blood Count 3.73 M/mm3 (3.65-5.03)
[2019-06-23 06:18] LABS: Alanine Aminotransferase 11 units/L (7-56); Albumin 3.6 g/dL (3.9-5); BUN/Creatinine Ratio 19; Blood Urea Nitrogen 17 mg/dL (7-17); Calcium 9.2 mg/dL (8.4-10.2); Hemolysis Index 12
[2019-06-23] MEDS ORDERED: PREDNISONE 2.5 MG PO SCH (10:00)
[2019-06-23] MEDS ORDERED: FLUTICASONE IH SCH ×2 (10:00)
[2019-06-23] MEDS ORDERED: LINACLOTIDE 290 MCG PO SCH (10:00)
[2019-06-23] MEDS ORDERED: SALMETEROL IH SCH ×2 (10:00)
[2019-06-23] MEDS ORDERED: DULoxetine 30 MG CAP PO SCH (10:00)
[2019-06-23] MEDS ORDERED: ISOSORBIDE MONONITRATE 120 MG PO SCH (10:00)
[2019-06-23] MEDS ORDERED: POTASSIUM CHLORIDE 20 MEQ PO SCH (10:00)
[2019-06-23] MEDS ORDERED: predniSONE 5 MG TAB PO SCH (10:00)
[2019-06-23] MEDS ORDERED: DESLORATADINE 5 MG PO SCH ×2 (10:00)
[2019-06-23] MEDS ORDERED: UMECLIDINIUM BROMIDE 62.5 MCG IH SCH (10:00)
[2019-06-23] MEDS ORDERED: LISINOPRIL 10 MG TAB PO SCH (10:00)
[2019-06-23] MEDS ORDERED: NALOXEGOL OXALATE 25 MG PO SCH ×2 (10:00)
[2019-06-23] MEDS ORDERED: PANTOPRAZOLE 40 MG TAB PO SCH (10:00)
[2019-06-23] MEDS ORDERED: FUROSEMIDE 20 MG TAB PO SCH (10:00)
[2019-06-23] MEDS ORDERED: LEVOTHYROXINE 112 MCG TAB PO SCH (10:00)
[2019-06-23] MEDS ORDERED: LEVOTHYROXINE 100 MCG TAB PO SCH (10:00)
[2019-06-23] MEDS ORDERED: predniSONE 20 MG TAB PO SCH (10:00)
[2019-06-23] MEDS ORDERED: OMEGA ACID ETHYL ESTERS PO SCH ×2 (10:00)
[2019-06-23] MEDS ORDERED: MIRTAZAPINE 45 MG PO SCH (10:00)
[2019-06-23] MEDS ORDERED: DIGOXIN 0.125 MG TAB PO SCH (10:00)
[2019-06-23] MEDS ORDERED: ASPIRIN 81 MG TAB CHEW PO SCH (10:00)
[2019-06-23] MEDS ORDERED: RIVAROXABAN 20 MG TAB PO SCH (10:00)
[2019-06-23] MEDS ORDERED: UMECLIDINIUM BROMIDE IH SCH (10:00)
[2019-06-23] MEDS ORDERED: VERAPAMIL ER 240 MG TAB PO SCH (10:00)
[2019-06-23] MEDS: PANTOPRAZOLE 40 MG TAB PO SCH (10:18)
[2019-06-23] MEDS: FUROSEMIDE 20 MG TAB PO SCH (10:18)
[2019-06-23] MEDS: ASPIRIN 81 MG TAB CHEW PO SCH (10:18)
[2019-06-23] MEDS: APIXABAN 5 MG TAB PO SCH ×2 (10:18→21:19)
[2019-06-23] MEDS: OMEGA-3 FATTY ACIDS/FISH OIL 1 GRAM CAP PO SCH ×2 (10:18→21:19)
[2019-06-23] MEDS: LISINOPRIL 10 MG TAB PO SCH (10:19)
[2019-06-23] MEDS: VERAPAMIL ER 240 MG TAB PO SCH (10:19)
[2019-06-23] MEDS: DULoxetine 30 MG CAP PO SCH (10:19)
[2019-06-23] MEDS: predniSONE 5 MG TAB PO SCH (10:19)
[2019-06-23] MEDS: POTASSIUM CHLORIDE 20 MEQ PACKET PO SCH (10:19)
[2019-06-23] MEDS: LORATADINE (NF) 10 MG TAB PO SCH (10:19)
[2019-06-23] MEDS: BUDESONIDE 0.5 MG/2 ML NEBU IH SCH ×2 (10:40→20:59)
[2019-06-23] MEDS: ARFORMOTEROL 15 MCG/2 ML NEBU IH SCH ×2 (10:40→20:59)
[2019-06-23] MEDS: ALPRAZolam 1 MG TAB PO PRN ×2 (11:02→21:51)
--- NOTE | 2019-06-23 11:41 | Consultation ---
History of Present Illness Consult date: 06/23/19 Reason for consult: dyspnea, chest pain, COPD, hypoxemia History of present illness: Pulmonary and Critical Care Consultation Dr. Logan thank you for asking us to participate in the care of this patient. 69 YO Female with Atrial Fib on Therapeutic Anticoagulation, Chronic Respiratory Failure on Home Oxygen @2liters via [place], COPD, HTN, CHF, Anxiety, CVA presents to ED for evaluation. Pt states that she has been experiencing shortness of breath for the 4 days with progressively worsening symptoms over the same time frame. EMS notified, and upon arrival the patient was found to be in distress and transported to [facility]. Pt seen and evaluated in ED and found to have Acute on Chronic Hypoxemic and hypercapnic Respiratory Failure. Pt admitted to medical floor. Pt treated with supplemental oxygen and nebulizer therapy without significant improvement. Pt acknowledges subjective fever, but denies chills, CP, Palpitations, Syncope, productive cough, BRBPR, hematuria, Syncope, hemoptysis, skin rashes, or recent ill contacts, prolonged immobility/travel, individual/family history of DVT/PE, leg swelling, or calf pain. Patient has history of severe COPD. Patient is on home O2. Patient has history of smoking. Not smoking now. Denies alcohol or drug abuse. Patient allergic to multiple medications. Adhesive tape, [place];odipine, Diltiazem, Renexa. Patient alert, awake and resting on venturimask, FIO2 50%, O2 saturation 100%. Chest xray reported severe changes of COPD. Patient has Angio CT of chest on 06/22/19 reported No evidence of pulmonary embolism. Advanced emphysematous change without definitive evidence of superimposed acute parenchymal process. Redemonstration of 1 cm right middle lobe pulmonary mass. Cardiomegaly. Past History Past Medical History: COPD, hypertension, hypothyroidism, other (see hpi) Past Surgical History: Other (Breast surgery) Social history: Family history: hypertension Medications and Allergies Allergies Allergy/AdvReac Type Severity Reaction Status Date / Time adhesive Allergy Hives Verified 04/13/19 12:44 amlodipine besylate Allergy Anaphylaxis Verified 04/13/19 12:44 [From Norvasc] diltiazem Allergy Anaphylaxis Verified 04/13/19 12:44 diltiazem HCl [From Cardizem] Allergy Anaphylaxis Verified 04/13/19 12:44 Renexa Allergy Unknown Uncoded 08/13/16 09:41 Home Medications Medication Instructions Recorded Confirmed Last Taken Type predniSONE 2.5 mg PO QDAY 11/30/14 06/22/19 08/27/17 History ALPRAZolam [Xanax TAB] 1 mg PO TID PRN #90 tablet 03/02/16 06/22/19 08/27/17 Rx ALBUTEROL Inhaler (OR & NICU) 2 puff IH QID PRN 06/22/19 06/23/19 Unknown History [ProAir HFA Inhaler] Apixaban [Eliquis] 5 mg PO BID 06/22/19 06/23/19 Unknown History Aspirin [Aspirin BABY CHEW TAB] 81 mg PO QDAY 06/22/19 06/22/19 Unknown History AtorvaSTATin [Lipitor] 20 mg PO QHS 06/22/19 06/23/19 Unknown History DULoxetine [Cymbalta] 30 mg PO DAILY 06/22/19 06/22/19 Unknown History Desloratadine [Clarinex] 5 mg PO DAILY 06/22/19 06/23/19 Unknown History Digoxin [Lanoxin] 125 mcg PO DAILY 06/22/19 06/22/19 Unknown History Fluticasone/Salmeterol [Advair 1 puff IH BID 06/22/19 06/22/19 Unknown History Diskus 500-50 mcg] Furosemide [Lasix] 20 mg PO QDAY 06/22/19 06/22/19 Unknown History ISOSORBIDE MONOnitrate [Imdur ER] 120 mg PO QDAY 06/22/19 06/22/19 Unknown History Levothyroxine [Synthroid] 100 mcg PO QAM 06/22/19 06/22/19 Unknown History Linaclotide (Nf) [Linzess (Nf)] 290 mcg PO DAILY 06/22/19 06/22/19 Unknown History Lisinopril [Zestril TAB] 10 mg PO QDAY 06/22/19 06/23/19 Unknown History Mirtazapine [Remeron 45mg TAB] 45 mg PO DAILY 06/22/19 06/22/19 Unknown History Naloxegol Oxalate [Movantik] 25 mg PO DAILY 06/22/19 06/23/19 Unknown History Nitroglycerin [Nitrostat] 0.4 mg SL Q5M PRN 06/22/19 06/23/19 Unknown History [place] Acid Ethyl Esters [Lovaza] 1 gm PO BID 06/22/19 06/23/19 Unknown History Oxycodone HCl/Acetaminophen 1 each PO Q6HR PRN 06/22/19 06/23/19 Unknown History [Percocet 7.5/325 mg] Pantoprazole [Protonix] 40 mg PO QDAY 06/22/19 06/22/19 Unknown History Potassium Chloride [Klor-Con 20 meq PO DAILY 06/22/19 06/23/19 Unknown History Sprinkle] Umeclidinium [place] [Incruse 62.5 mcg IH DAILY 06/22/19 06/22/19 Unknown Histor y Ellipta 62.5MCG] Verapamil ER [Calan Sr] 240 mg PO DAILY 06/22/19 06/23/19 Unknown History Fluticasone/Salmeterol [Advair 500 mcg BID 06/23/19 06/23/19 06/22/19 10:00 History Diskus 500-50 mcg] Linaclotide [Linzess] 290 mcg DAILY 06/23/19 06/23/19 06/22/19 10:00 History Active Meds: Active Medications Acetaminophen (Tylenol) 650 mg PO Q4H PRN PRN Reason: Pain MILD(1-3)/Fever >100.5/ARAIZA Albuterol/Ipratropium (Duoneb *Not For Prn Use*) 1 ampul IH Q6HRT [facility] Alprazolam (Xanax) 1 mg PO TID PRN PRN Reason: Anxiety Last Admin: 06/23/19 11:02 Dose: 1 mg Documented by: Apixaban (Eliquis) 5 mg PO BID [facility]; Protocol Last Admin: 06/23/19 10:18 Dose: 5 mg Documented by: Arformoterol Tartrate (Brovana Nebu) 15 mcg IH Q12HRT [facility] Last Admin: 06/23/19 10:40 Dose: 15 mcg Documented by: Aspirin (Baby Aspirin) 81 mg PO QDAY [facility] Last Admin: 06/23/19 10:18 Dose: 81 mg Documented by: Atorvastatin Calcium (Lipitor) 20 mg PO QHS [facility] Budesonide (Pulmicort) 1 mg IH Q12HRT [facility] Last Admin: 06/23/19 10:40 Dose: 1 mg Documented by: Digoxin (Lanoxin) 0.125 mg PO DAILY@1700 [facility] Duloxetine HCl (Cymbalta) 30 mg PO QDAY [facility] Last Admin: 06/23/19 10:19 Dose: 30 mg Documented by: Fish Oil (Fish Oil) 1,000 mg PO BID [facility] Last Admin: 06/23/19 10:18 Dose: 1,000 mg Documented by: Furosemide (Lasix) 20 mg PO QDAY [facility] Last Admin: 06/23/19 10:18 Dose: 20 mg Documented by: Ipratropium [place] (Atrovent) 0.5 mg IH Q6HRT [facility] Isosorbide Mononitrate (Imdur) 120 mg PO QDAY [facility] Last Admin: 06/23/19 10:18 Dose: 120 mg Documented by: Levothyroxine Sodium (Synthroid) 100 mcg PO DAILY@0600 [facility] Last Admin: 06/23/19 05:35 Dose: 100 mcg Documented by: Lisinopril (Zestril) 10 mg PO DAILY [facility] Last Admin: 06/23/19 10:19 Dose: Not Given Documented by: Loratadine (Claritin) 10 mg PO DAILY [facility] Last Admin: 06/23/19 10:19 Dose: 10 mg Documented by: Lorazepam (Ativan) 1 mg IV Q4H PRN PRN Reason: Anxiety Methylprednisolone Sodium Succinate (Solu-Medrol) 40 mg IV Q8HR [facility] Mirtazapine (Remeron) 45 mg PO QHS [facility] Miscellaneous Medication (Naloxegol Oxalate [Movantik]) 25 mg PO DAILY [facility] Miscellaneous Medication (Linaclotide (Nf)) 290 mcg PO DAILY [facility] Nitroglycerin (Nitrostat) 0.4 mg SL Q5M PRN PRN Reason: Chest Pain Ondansetron HCl (Zofran) 4 mg IV Q8H PRN PRN Reason: Nausea And Vomiting Oxycodone HCl (Roxicodone) 2.5 mg PO Q6H PRN PRN Reason: Pain, Moderate (4-6) Oxycodone/Acetaminophen (Percocet 5/325) 1 tab PO Q6HR PRN PRN Reason: Pain, Moderate (4-6) Pantoprazole Sodium (Protonix) 40 mg PO QDAY [facility] Last Admin: 06/23/19 10:18 Dose: 40 mg Documented by: Potassium Chloride (Potassium Chloride) 20 meq PO DAILY [facility] Last Admin: 06/23/19 10:19 Dose: 20 meq Documented by: Prednisone (Deltasone) 2.5 mg PO QDAY [facility] Last Admin: 06/23/19 10:19 Dose: 2.5 mg Documented by: Sodium Chloride (Sodium Chloride Flush Syringe 10 Ml) 10 ml IV BID [facility] Last Admin: 06/23/19 10:19 Dose: 10 ml Documented by: Sodium Chloride (Sodium Chloride Flush Syringe 10 Ml) 10 ml IV PRN PRN PRN Reason: LINE FLUSH Verapamil HCl (Calan Sr) 240 mg PO DAILY [facility] Last Admin: 06/23/19 10:19 Dose: Not Given Documented by: Review of Systems All systems: negative Physical Examination Vital signs: Vital Signs Temp Pulse Resp BP Pulse Ox 98.4 F 99 H 17 136/75 99 06/22/19 18:44 06/22/19 18:44 06/22/19 18:44 06/22/19 18:44 06/22/19 18:44 General appearance: alert, appears uncomfortable Eyes: non-icteric ENT: oropharynx moist Neck: supple, no JVD Ascultation: Bilateral: diminished breath sounds, rhonchi, other (Prolonged expiratory phase.) Cardiovascular: regular rate and rhythm Gastrointestinal: normoactive bowel sounds, soft, non-tender Extremities: no cyanosis, no edema Musculoskeletal: no deformities Gait: other (Resting in bed at this time.) normal mental status, non-focal exam, pupils equal and round, CN II-XII normal mood appropriate Results - Laboratory Findings CBC and BMP: 06/23/19 05:29 06/23/19 05:29 ABG POC ABG pH 7.373 (7.35-7.45) 06/22/19 21:06 POC ABG pCO2 61.8 (35-45) H 06/22/19 21:06 POC ABG pO2 77 (80-105) L 06/22/19 21:06 POC ABG HCO3 35.9 (22-26 mml/L) 06/22/19 21:06 POC ABG Total CO2 38 (23-27mmol/L) 06/22/19 21:06 POC ABG O2 Sat 94 06/22/19 21:06 Abnormal lab findings: Abnormal Labs 06/22/19 06/22/19 06/22/19 20:10 20:10 20:10 WBC RDW 12.8 L Lymph # Seg Neutrophils % POC ABG pCO2 POC ABG pO2 Chloride 95.0 L Carbon Dioxide Glucose 124 H NT-Pro-B Natriuret Pep 1380 H Total Protein 6.1 L Albumin 3.7 L 06/22/19 06/23/19 06/23/19 21:06 05:29 05:29 WBC 4.3 L RDW 13.0 L Lymph # 0.7 L Seg Neutrophils % 80.1 H POC ABG pCO2 61.8 H POC ABG pO2 77 L Chloride 95.0 L Carbon Dioxide 31 H Glucose 175 H NT-Pro-B Natriuret Pep Total Protein 5.9 L Albumin 3.6 L - Diagnostic Findings Chest x-ray: report reviewed (Severe changes of COPD noted ), image reviewed CT scan - chest: report reviewed (1. No evidence of pulmonary embolism. ), image reviewed Additional studies: CTAngio of Chest on 06/22/2019 1. No evidence of pulmonary embolism. 2. Advanced emphysematous change without definitive evidence of superimposed acute parenchymal process. 3. Redemonstration of 1 cm right middle lobe pulmonary mass. 4. Cardiomegaly. Assessment and Plan 69 YO Female with Atrial Fib on Therapeutic Anticoagulation, Chronic Respiratory Failure on Home Oxygen @2liters via [place], COPD, HTN, CHF, Anxiety, CVA presents to ED for evaluation. Pt states that she has been experiencing shortness of breath for the 4 days with progressively worsening symptoms over the same time frame. EMS notified, and upon arrival the patient was found to be in distress and transported to [facility]. Pt seen and evaluated in ED and found to have Acute on Chronic Hypoxemic and hypercapnic Respiratory Failure. Pt admitted to medical floor. Pt treated with supplemental oxygen and nebulizer therapy without significant improvement. Pt acknowledges subjective fever, but denies chills, CP, Palpitations, Syncope, productive cough, BRBPR, hematuria, Syncope, hemoptysis, skin rashes, or recent ill contacts, prolonged immobility/travel, individual/family history of DVT/PE, leg swelling, or calf pain. Patient has history of severe COPD. Patient is on home O2. Patient has history of smoking. Not smoking now. Denies alcohol or drug abuse. Patient allergic to multiple medications. Adhesive tape, [place];odipine, Diltiazem, Renexa. Patient alert, awake and resting on venturimask, FIO2 50%, O2 saturation 100%. Chest xray reported severe changes of COPD. Patient has Angio CT of chest on 06/22/19 reported No evidence of pulmonary embolism. Advanced emphysematous change without definitive evidence of superimposed acute parenchymal process. Redemonstration of 1 cm right middle lobe pulmonary mass. Cardiomegaly. - Patient Problems (1) COPD with exacerbation Current Visit: No Status: Acute Plan to address problem: O2 3 litres via nasal canula. Albuterol/atrovent aerosol treatments q 6 hours. Continue I/V solumedrol. Continue Apixaban Continue Protonix. Recommend to start on Zithromax. (2) Acute on chronic respiratory failure with hypercapnia Current Visit: Yes Status: Acute Plan to address problem: 2 3 litres via nasal canula. Albuterol/atrovent aerosol treatments q 6 hours. Continue I/V solumedrol. Continue Apixaban Continue Protonix. Recommend to start on Zithromax. (3) Right middle lobe pulmonary nodule Current Visit: Yes Status: Acute Plan to address problem: May obtain percutaneous needle biopsy right chest lesion once patient is stable. (4) Atrial fibrillation Current Visit: Yes Status: Acute Qualifiers: Atrial fibrillation type: unspecified Qualified Code(s): I48.91 - Unspecified atrial fibrillation Plan to address problem: Patient is on apixaban. Management as per cardiology. (5) CHF (congestive heart failure) Current Visit: Yes Status: Acute Qualifiers: Heart failure chronicity: acute on chronic Plan to address problem: Management as per cardiology. (6) HTN (hypertension) Current Visit: No Status: Chronic Qualifiers: Hypertension type: essential hypertension Qualified Code(s): I10 - Essential (primary) hypertension Plan to address problem: Management as per primary care. (7) Hypothyroidism Current Visit: No Status: Chronic Plan to address problem: Patient is on Levothyroxine. Management as per primary care.
--- NOTE | 2019-06-23 11:43 | Consultation ---
History of Present Illness Consult date: 06/23/19 Past History Past Medical History: other (see hpi) Past Surgical History: Other (Breast surgery) Social history: Family history: hypertension Medications and Allergies Allergies Allergy/AdvReac Type Severity Reaction Status Date / Time adhesive Allergy Hives Verified 04/13/19 12:44 amlodipine besylate Allergy Anaphylaxis Verified 04/13/19 12:44 [From Norvasc] diltiazem Allergy Anaphylaxis Verified 04/13/19 12:44 diltiazem HCl [From Cardizem] Allergy Anaphylaxis Verified 04/13/19 12:44 Renexa Allergy Unknown Uncoded 08/13/16 09:41 Home Medications Medication Instructions Recorded Confirmed Last Taken Type predniSONE 2.5 mg PO QDAY 11/30/14 06/22/19 08/27/17 History ALPRAZolam [Xanax TAB] 1 mg PO TID PRN #90 tablet 03/02/16 06/22/19 08/27/17 Rx ALBUTEROL Inhaler (OR & NICU) 2 puff IH QID PRN 06/22/19 06/23/19 Unknown History [ProAir HFA Inhaler] Apixaban [Eliquis] 5 mg PO BID 06/22/19 06/23/19 Unknown History Aspirin [Aspirin BABY CHEW TAB] 81 mg PO QDAY 06/22/19 06/22/19 Unknown History AtorvaSTATin [Lipitor] 20 mg PO QHS 06/22/19 06/23/19 Unknown History DULoxetine [Cymbalta] 30 mg PO DAILY 06/22/19 06/22/19 Unknown History Desloratadine [Clarinex] 5 mg PO DAILY 06/22/19 06/23/19 Unknown History Digoxin [Lanoxin] 125 mcg PO DAILY 06/22/19 06/22/19 Unknown History Fluticasone/Salmeterol [Advair 1 puff IH BID 06/22/19 06/22/19 Unknown History Diskus 500-50 mcg] Furosemide [Lasix] 20 mg PO QDAY 06/22/19 06/22/19 Unknown History ISOSORBIDE MONOnitrate [Imdur ER] 120 mg PO QDAY 06/22/19 06/22/19 Unknown History Levothyroxine [Synthroid] 100 mcg PO QAM 06/22/19 06/22/19 Unknown History Linaclotide (Nf) [Linzess (Nf)] 290 mcg PO DAILY 06/22/19 06/22/19 Unknown History Lisinopril [Zestril TAB] 10 mg PO QDAY 06/22/19 06/23/19 Unknown History Mirtazapine [Remeron 45mg TAB] 45 mg PO DAILY 06/22/19 06/22/19 Unknown History Naloxegol Oxalate [Movantik] 25 mg PO DAILY 06/22/19 06/23/19 Unknown History Nitroglycerin [Nitrostat] 0.4 mg SL Q5M PRN 06/22/19 06/23/19 Unknown History [place]-3 Acid Ethyl Esters [Lovaza] 1 gm PO BID 06/22/19 06/23/19 Unknown History Oxycodone HCl/Acetaminophen 1 each PO Q6HR PRN 06/22/19 06/23/19 Unknown History [Percocet 7.5/325 mg] Pantoprazole [Protonix] 40 mg PO QDAY 06/22/19 06/22/19 Unknown History Potassium Chloride [Klor-Con 20 meq PO DAILY 06/22/19 06/23/19 Unknown History Sprinkle] Umeclidinium [place] [Incruse 62.5 mcg IH DAILY 06/22/19 06/22/19 Unknown History Ellipta 62.5MCG] Verapamil ER [Calan Sr] 240 mg PO DAILY 06/22/19 06/23/19 Unknown History Fluticasone/Salmeterol [Advair 500 mcg BID 06/23/19 06/23/19 06/22/19 10:00 History Diskus 500-50 mcg] Linaclotide [Linzess] 290 mcg DAILY 06/23/19 06/23/19 06/22/19 10:00 History Active Meds: Active Medications Acetaminophen (Tylenol) 650 mg PO Q4H PRN PRN Reason: Pain MILD(1-3)/Fever >100.5/ARAIZA Albuterol/Ipratropium (Duoneb *Not For Prn Use*) 1 ampul IH Q6HRT [facility] Alprazolam (Xanax) 1 mg PO TID PRN PRN Reason: Anxiety Last Admin: 06/23/19 11:02 Dose: 1 mg Documented by: Apixaban (Eliquis) 5 mg PO BID [facility]; Protocol Last Admin: 06/23/19 10:18 Dose: 5 mg Documented by: Arformoterol Tartrate (Brovana Nebu) 15 mcg IH Q12HRT [facility] Last Admin: 06/23/19 10:40 Dose: 15 mcg Documented by: Aspirin (Baby Aspirin) 81 mg PO QDAY [facility] Last Admin: 06/23/19 10:18 Dose: 81 mg Documented by: Atorvastatin Calcium (Lipitor) 20 mg PO QHS [facility] Budesonide (Pulmicort) 1 mg IH Q12HRT [facility] Last Admin: 06/23/19 10:40 Dose: 1 mg Documented by: Digoxin (Lanoxin) 0.125 mg PO DAILY@1700 [facility] Duloxetine HCl (Cymbalta) 30 mg PO QDAY [facility] Last Admin: 06/23/19 10:19 Dose: 30 mg Documented by: Fish Oil (Fish Oil) 1,000 mg PO BID [facility] Last Admin: 06/23/19 10:18 Dose: 1,000 mg Documented by: Furosemide (Lasix) 20 mg PO QDAY [facility] Last Admin: 06/23/19 10:18 Dose: 20 mg Documented by: Ipratropium [place] (Atrovent) 0.5 mg IH Q6HRT [facility] Isosorbide Mononitrate (Imdur) 120 mg PO QDAY [facility] Last Admin: 06/23/19 10:18 Dose: 120 mg Documented by: Levothyroxine Sodium (Synthroid) 100 mcg PO DAILY@0600 [facility] Last Admin: 06/23/19 05:35 Dose: 100 mcg Documented by: Lisinopril (Zestril) 10 mg PO DAILY [facility] Last Admin: 06/23/19 10:19 Dose: Not Given Documented by: Loratadine (Claritin) 10 mg PO DAILY [facility] Last Admin: 06/23/19 10:19 Dose: 10 mg Documented by: Lorazepam (Ativan) 1 mg IV Q4H PRN PRN Reason: Anxiety Methylprednisolone Sodium Succinate (Solu-Medrol) 40 mg IV Q8HR [facility] Mirtazapine (Remeron) 45 mg PO QHS [facility] Miscellaneous Medication (Naloxegol Oxalate [Movantik]) 25 mg PO DAILY [facility] Miscellaneous Medication (Linaclotide (Nf)) 290 mcg PO DAILY [facility] Nitroglycerin (Nitrostat) 0.4 mg SL Q5M PRN PRN Reason: Chest Pain Ondansetron HCl (Zofran) 4 mg IV Q8H PRN PRN Reason: Nausea And Vomiting Oxycodone HCl (Roxicodone) 2.5 mg PO Q6H PRN PRN Reason: Pain, Moderate (4-6) Oxycodone/Acetaminophen (Percocet 5/325) 1 tab PO Q6HR PRN PRN Reason: Pain, Moderate (4-6) Pantoprazole Sodium (Protonix) 40 mg PO QDAY [facility] Last Admin: 06/23/19 10:18 Dose: 40 mg Documented by: Potassium Chloride (Potassium Chloride) 20 meq PO DAILY [facility] Last Admin: 06/23/19 10:19 Dose: 20 meq Documented by: Prednisone (Deltasone) 2.5 mg PO QDAY [facility] Last Admin: 06/23/19 10:19 Dose: 2.5 mg Documented by: Sodium Chloride (Sodium Chloride Flush Syringe 10 Ml) 10 ml IV BID [facility] Last Admin: 06/23/19 10:19 Dose: 10 ml Documented by: Sodium Chloride (Sodium Chloride Flush Syringe 10 Ml) 10 ml IV PRN PRN PRN Reason: LINE FLUSH Verapamil HCl (Calan Sr) 240 mg PO DAILY [facility] Last Admin: 06/23/19 10:19 Dose: Not Given Documented by: Physical Examination Vital Signs Temp Pulse Resp BP Pulse Ox 98.4 F 99 H 17 136/75 99 06/22/19 18:44 06/22/19 18:44 06/22/19 18:44 06/22/19 18:44 06/22/19 18:44 Results 06/23/19 05:29 06/23/19 05:29 Cardiac Enzymes 06/22/19 06/23/19 Range/Units 20:10 05:29 AST 21 15 (5-40) units/L CBC 06/22/19 06/23/19 Range/Units 20:10 05:29 WBC 6.4 4.3 L (4.5-11.0) K/mm3 RBC 3.91 3.73 (3.65-5.03) M/mm3 Hgb 12.6 11.9 (10.1-14.3) gm/dl Hct 37.9 35.9 (30.3-42.9) % Plt Count 201 204 (140-440) K/mm3 Lymph # 0.7 L (1.2-5.4) K/mm3 [place] # 0.1 (0.0-0.8) K/mm3 Eos # 0.0 (0.0-0.4) K/mm3 Baso # 0.0 (0.0-0.1) K/mm3 Comprehensive Metabolic Panel 06/22/19 06/23/19 Range/Units 20:10 05:29 Sodium 138 140 (137-145) mmol/L Potassium 4.3 4.8 (3.6-5.0) mmol/L Chloride 95.0 L 95.0 L (98-107) mmol/L Carbon Dioxide 29 31 H (22-30) mmol/L BUN 12 17 (7-17) mg/dL Creatinine 0.7 0.9 (0.7-1.2) mg/dL Glucose 124 H 175 H (65-100) mg/dL Calcium 9.0 9.2 (8.4-10.2) mg/dL AST 21 15 (5-40) units/L ALT 11 11 (7-56) units/L Alkaline Phosphatase 95 90 (35-129) units/L Total Protein 6.1 L 5.9 L (6.3-8.2) g/dL Albumin 3.7 L 3.6 L (3.9-5) g/dL Assessment and Plan Detailed Cardiology consult dictaed.
--- NOTE | 2019-06-23 12:16 | Consultation ---
CARDIOLOGY CONSULTATION AGE: 69. SEX: Female. REFERRING PHYSICIAN: Sha Logan MD TIME SEEN: 11:30 a.m. HISTORY OF PRESENT ILLNESS: A 69-year-old pleasant white woman with a history of multiple medical problems, hypertension, hyperlipidemia,hypothyroidism, severe COPD, history of chronic heavy smoking in the past, chronic anxiety, chronic diastolic heart failure, chronic atrial fibrillation, was admitted with progressive shortness of breath for the past 1 week, which has become more marked for 2 days before admission. She also had cough with brownish expectoration on and off for the past 1 week. No history of fever or chills. She had some chest heaviness. She is being treated for acute exacerbation of chronic obstructive pulmonary disease with bronchodilators, intravenous steroids. She is also on long-acting nitrates and furosemide. She has clinically improved. She has been on 2.5 liters O2 by nasal cannula at home. She is a prediabetic with hemoglobin A1c of 6.3. PAST MEDICAL HISTORY: History of multiple medical problems as described above. Her most recent echocardiogram was during 05/2017, which revealed normal left ventricular systolic function with LVEF of 65-70%. It was a technically difficult and limited study, no further comments can be made. She had a bilateral carotid Doppler study during 2014, which was unremarkable. Her cardiac catheterization done on 06/08/2015 revealed an 80% stenosis in the proximal part of the first diagonal branch of the left anterior descending artery. She has been treated medically for her coronary artery disease. She is also known to have surgery for cerebral aneurysm in the past. She has had bilateral breast biopsy, which was benign. SOCIAL HISTORY: She was a chronic heavy smoker. She at least has about a 40-50 pack years of smoking. She quit smoking more than 20 years ago. No history of alcohol or drug abuse. FAMILY HISTORY: Negative for premature coronary artery disease. REVIEW OF SYSTEMS: CARDIOVASCULAR: As described in the history. PULMONARY: As described in the history. METABOLISM AND ENDOCRINOLOGY: As described in the history. GASTROINTESTINAL SYSTEM: History of rectal bleed in the past, also known to have diverticulosis of the left colon. BONE AND JOINTS: Negative. NEUROPSYCHIATRIC: History of chronic anxiety. Review of rest of the 10 systems are negative. ADDENDUM: Her echocardiogram during 2014 revealed normal systolic function with evidence of grade 1 diastolic left ventricular dysfunction, insignificant regurgitant valvular lesions were seen at that time. MEDICATIONS: DuoNeb inhaler, Xanax 1 mg p.o. t.i.d. p.r.n., Eliquis 5 mg p.o. b.i.d., Brovana q. 12 hours, aspirin 81 mg p.o. daily, atorvastatin 20 mg p.o. at bedtime daily, Pulmicort 1 mg twice daily, digoxin 0.125 mg p.o. daily, Cymbalta 30 mg p.o. daily, Lasix 20 mg p.o. daily, Imdur 120 mg p.o. daily, levothyroxine 100 mg p.o. daily, lisinopril 10 mg p.o. daily, Claritin 10 mg p.o. daily, Ativan p.r.n. for anxiety, IV Solu-Medrol 40 mg every 8 hours, Remeron 45 mg p.o. at bedtime daily, Protonix 40 mg p.o. daily, potassium supplements, verapamil hydrochloride 240 mg p.o. daily. PHYSICAL EXAMINATION: GENERAL: A 69-year-old pleasant, anxious white woman. VITAL SIGNS: She is afebrile, pulse 76 per minute, irregularly irregular, blood pressure 108/59 mmHg, respirations 20 per minute. NEUROLOGIC: She is alert and oriented x 3. HEENT: Negative. NECK: Supple, no JVD, no bruit, no thyromegaly. HEART: PMI could not be felt satisfactorily. Auscultation of heart reveals S1, S2 heard, heart sounds are muffled. No murmur or rub is detected. EXTREMITIES: Peripheral pulses felt. No edema. LUNGS: Bilateral moderate wheezing. No bronchial breathing. ABDOMEN: Soft, benign. No organomegaly. SKIN: A few superficially engorged veins on both lower extremities. NEUROLOGIC: No focal neurological deficit. LABORATORY DATA: Potassium 4.5, BUN and creatinine normal, sodium 138. Blood gases revealed hypercapnic chronic respiratory acidosis. CBC, platelet count unremarkable. Hemoglobin A1c is 6.3. EKG, atrial fibrillation with controlled ventricular response with mild nonspecific ST-T abnormalities. Chest x-ray, 1 view, severe chronic changes of emphysema, interstitial disease. CAT scan of the chest, no evidence of pulmonary embolism, advanced emphysematous changes. Redemonstration of 1 cm right middle lobe pulmonary mass and cardiomegaly. IMPRESSION: 1. Acute on chronic diastolic heart failure. 2. Acute exacerbation of chronic obstructive pulmonary disease. 3. Known coronary artery disease being treated medically. 4. History of hypertension, hyperlipidemia and hypothyroidism 5. Chronic atrial fibrillation with controlled ventricular response. 6. Chronic anxiety. 7. Acute on chronic hypercapnic respiratory failure. RECOMMENDATIONS: 1. Continue present management. 2. We will order serial troponins. 3. Will obtain an echocardiogram to follow up her RV and LV function. Thank you again, we will follow. Yours Sincerely, MD Kristopher JOB# [id number] MATT/JOSE ELIAS LOFTON
--- NOTE | 2019-06-23 12:17 | Progress Note ---
Assessment and Plan Assessment and plan: 69-year-old woman who presents to the hospital with shortness of breath. She has a history of COPD on 2 L of oxygen at home. CT angiogram chest; emphysematous changes, no PE Copd exacerbation; steroids, nebs, pulmonology consults, aggressive chest PT Hypertension Patient's blood pressure is running low, will hold verapamil and MUNA inhibitor today. Atrial fibrillation Continue digoxin, check dig level, cardiology consulted Previous echo report reviewed, she had preserved EF -No documented history of CHF contrary to H&P Anxiety disorder Ativan as needed DVT prophylaxis Lovenox History Interval history: Review of systems Constitutional: No fevers, no malaise, no joint pains CVS: No chest pain, no orthopnea, no pedal edema GI: No abdominal pain, no diarrhea, no vomiting, no constipation Respiratory: , Complaining of shortness of breath and wheezing Hospitalist Physical - Physical exam Narrative exam: General.: Moderate distress HEENT: Moist mucous membranes, extraocular muscles intact, no lymphadenopathy Neck: supple Cardiac: S1-S2 heard Lungs: Decreased air entry, wheezing throughout Abdomen: soft , nontender, nondistended, bowel sounds positive Extremities: no edema clubbing or cyanosis Skin: no rash or lesions Neurologic: no gross focal deficits Psych: calm, and cooperative - Constitutional Vitals: Temp Pulse Resp BP Pulse Ox 98.2 F 76 20 108/59 96 06/23/19 07:53 06/23/19 10:00 06/23/19 07:53 06/23/19 07:53 06/23/19 07:53 General appearance: Present: mild distress Results - Labs CBC & Chem 7: 06/23/19 05:29 06/23/19 05:29 Labs: Laboratory Last Values WBC 4.3 K/mm3 (4.5-11.0) L 06/23/19 05:29 RBC 3.73 M/mm3 (3.65-5.03) 06/23/19 05:29 Hgb 11.9 gm/dl (10.1-14.3) 06/23/19 05:29 Hct 35.9 % (30.3-42.9) 06/23/19 05:29 MCV 96 fl (79-97) 06/23/19 05:29 MCH 32 pg (28-32) 06/23/19 05:29 MCHC 33 % (30-34) 06/23/19 05:29 RDW 13.0 % (13.2-15.2) L 06/23/19 05:29 Plt Count 204 K/mm3 (140-440) 06/23/19 05:29 Lymph % (Auto) 16.7 % (13.4-35.0) 06/23/19 05:29 [place] % (Auto) 2.9 % (0.0-7.3) 06/23/19 05:29 Eos % (Auto) 0.0 % (0.0-4.3) 06/23/19 05:29 Baso % (Auto) 0.3 % (0.0-1.8) 06/23/19 05:29 Lymph # 0.7 K/mm3 (1.2-5.4) L 06/23/19 05:29 [place] # 0.1 K/mm3 (0.0-0.8) 06/23/19 05:29 Eos # 0.0 K/mm3 (0.0-0.4) 06/23/19 05:29 Baso # 0.0 K/mm3 (0.0-0.1) 06/23/19 05:29 Seg Neutrophils % 80.1 % (40.0-70.0) H 06/23/19 05:29 Seg Neutrophils # 3.4 K/mm3 (1.8-7.7) 06/23/19 05:29 POC ABG pH 7.373 (7.35-7.45) 06/22/19 21:06 POC ABG pCO2 61.8 (35-45) H 06/22/19 21:06 POC ABG pO2 77 (80-105) L 06/22/19 21:06 POC ABG HCO3 35.9 (22-26 mml/L) 06/22/19 21:06 POC ABG Total CO2 38 (23-27mmol/L) 06/22/19 21:06 POC ABG O2 Sat 94 06/22/19 21:06 POC ABG Base Excess 11 ((-2) - (+3)mmol/L) 06/22/19 21:06 FiO2 50 % 06/22/19 21:06 Sodium 140 mmol/L (137-145) 06/23/19 05:29 Potassium 4.8 mmol/L (3.6-5.0) 06/23/19 05:29 Chloride 95.0 mmol/L (98-107) L 06/23/19 05:29 Carbon Dioxide 31 mmol/L (22-30) H 06/23/19 05:29 Anion Gap 19 mmol/L 06/23/19 05:29 BUN 17 mg/dL (7-17) 06/23/19 05:29 Creatinine 0.9 mg/dL (0.7-1.2) 06/23/19 05:29 Estimated GFR > 60 ml/min 06/23/19 05:29 BUN/Creatinine Ratio 19 % 06/23/19 05:29 Glucose 175 mg/dL (65-100) H 06/23/19 05:29 Calcium 9.2 mg/dL (8.4-10.2) 06/23/19 05:29 Magnesium 2.30 mg/dL (1.7-2.3) 06/23/19 10:28 Total Bilirubin 0.50 mg/dL (0.1-1.2) 06/23/19 05:29 AST 15 units/L (5-40) 06/23/19 05:29 ALT 11 units/L (7-56) 06/23/19 05:29 Alkaline Phosphatase 90 units/L (35-129) 06/23/19 05:29 NT-Pro-B Natriuret Pep 1380 pg/mL (0-900) H 06/22/19 20:10 Total Protein 5.9 g/dL (6.3-8.2) L 06/23/19 05:29 Albumin 3.6 g/dL (3.9-5) L 06/23/19 05:29 Albumin/Globulin Ratio 1.6 % 06/23/19 05:29 TSH 1.090 mlU/mL (0.270-4.200) 06/23/19 10:28 Digoxin 1.2 ng/mL (0.9-2.0) 06/23/19 10:28 Active Medications - Current Medications Current Medications: Generic Name Dose Route Start Last Admin Trade Name Freq PRN Reason Stop Dose Admin Acetaminophen 650 mg 06/22/19 22:35 Tylenol PO Q4H PRN Pain MILD(1-3)/Fever >100.5/ARAIZA Albuterol/Ipratropium 1 ampul 06/23/19 14:00 Duoneb *Not For Prn Use* IH Q6HRT [facility] Alprazolam 1 mg 06/22/19 22:37 06/23/19 11:02 Xanax PO 1 mg TID PRN Administration Anxiety Apixaban 5 mg 06/23/19 10:00 06/23/19 10:18 Eliquis PO 5 mg BID JO Administration Protocol Arformoterol Tartrate 15 mcg 06/23/19 08:00 06/23/19 10:40 Brovana Nebu IH 15 mcg Q12HRT JO Administration Aspirin 81 mg 06/23/19 10:00 06/23/19 10:18 Baby Aspirin PO 81 mg QDAY [facility] Administration Atorvastatin Calcium 20 mg 06/23/19 22:00 Lipitor PO QHS [facility] Budesonide 1 mg 06/23/19 08:00 06/23/19 10:40 Pulmicort IH 1 mg Q12HRT JO Administration Digoxin 0.125 mg 06/23/19 17:00 Lanoxin PO DAILY@1700 [facility] Duloxetine HCl 30 mg 06/23/19 10:00 06/23/19 10:19 Cymbalta PO 30 mg QDAY [facility] Administration Fish Oil 1,000 mg 06/23/19 10:00 06/23/19 10:18 Fish Oil PO 1,000 mg BID [facility] Administration Furosemide 20 mg 06/23/19 10:00 06/23/19 10:18 Lasix PO 20 mg QDAY [facility] Administration Ipratropium Alvo 0.5 mg 06/23/19 02:00 Atrovent IH Q6HRT [facility] Isosorbide Mononitrate 120 mg 06/23/19 10:00 06/23/19 10:18 Imdur PO 120 mg QDAY [facility] Administration Levothyroxine Sodium 100 mcg 06/23/19 06:00 06/23/19 05:35 Synthroid PO 100 mcg DAILY@0600 [facility] Administration Lisinopril 10 mg 06/23/19 10:00 06/23/19 10:19 Zestril PO Not Given DAILY [facility] Loratadine 10 mg 06/23/19 10:00 06/23/19 10:19 Claritin PO 10 mg DAILY JO Administration Lorazepam 1 mg 06/23/19 00:20 Ativan IV Q4H PRN Anxiety Methylprednisolone Sodium Succinate 40 mg 06/23/19 10:15 Solu-Medrol IV Q8HR JO Mirtazapine 45 mg 06/23/19 22:00 Remeron PO QHS JO Miscellaneous Medication 25 mg 06/23/19 10:00 Naloxegol Oxalate [Movantik] PO DAILY [facility] Miscellaneous Medication 290 mcg 06/23/19 10:00 Linaclotide (Nf) PO DAILY [facility] Nitroglycerin 0.4 mg 06/23/19 00:21 Nitrostat SL Q5M PRN Chest Pain Ondansetron HCl 4 mg 06/22/19 22:35 Zofran IV Q8H PRN Nausea And Vomiting Oxycodone HCl 2.5 mg 06/23/19 00:43 Roxicodone PO Q6H PRN Pain, Moderate (4-6) Oxycodone/Acetaminophen 1 tab 06/23/19 00:44 Percocet 5/325 PO Q6HR PRN Pain, Moderate (4-6) Pantoprazole Sodium 40 mg 06/23/19 10:00 06/23/19 10:18 Protonix PO 40 mg QDAY JO Administration Potassium Chloride 20 meq 06/23/19 10:00 06/23/19 10:19 Potassium Chloride PO 20 meq DAILY JO Administration Prednisone 2.5 mg 06/23/19 10:00 06/23/19 10:19 Deltasone PO 2.5 mg QDAY JO Administration Sodium Chloride 10 ml 06/23/19 10:00 06/23/19 10:19 Sodium Chloride Flush Syringe 10 Ml IV 10 ml BID JO Administration Sodium Chloride 10 ml 06/22/19 22:35 Sodium Chloride Flush Syringe 10 Ml IV PRN PRN LINE FLUSH Verapamil HCl 240 mg 06/23/19 10:00 06/23/19 10:19 Calan Sr PO Not Given DAILY [facility] Nutrition/Malnutrition Assess - Dietary Evaluation Nutrition/Malnutrition Findings: Nutrition Notes Start: 06/23/19 11:09 Freq: Status: Active Protocol: Document 06/23/19 11:09 LM (Rec: 06/23/19 11:31 LM [id number]) Nutrition Notes Need for Assessment generated from: image editor Initial or Follow up Assessment Current Diagnosis COPD,Hypertension,Heart Failure,Respiratory Failure Other Pertinent Diagnosis afib, CVA, UTI Current Diet Cardiac diet Labs/Tests BG 175 Pertinent Medications Lasix Height 5 ft 8 in Weight 74.7 kg Usual Body Weight 75 kg Neal Body Weight (kg) 63.63 BMI 25.0 Weight Status Appropriate Subjective/Other Information RN screen for MST score and skin risk. Marvin score or 20. Pt stated she was not eating well at home for a couple of days due to UTI and antibiotics. Pt says her UBW is 165 lb (75 kg). Pt ate about 25% of breakfast because she was asleep when tray arrived. Pt stated she feels like she has appetite to eat. Noticed pt with distended abdomin. Burn Absent Trauma Absent GI Symptoms None Current % PO Poor (25-49%) Minimum of two criteria No #1 Nutrition Diagnosis Inadequate oral intake Etiology UTI, SOB As Evidenced by Signs and Symptoms Pt eating 25% of meal, statement of not eating well at home for a couple days due to antibiotics/UTI Is patient on ventilator? No Is Patient Ambulatory and/or Out of Bed Yes REE-([facility]-ambulatory/OOB) [ 1703.650 [id number]] Calculation Used for Recommendations [facility] Additional Notes Protein: 75-90g (1-1.2 g/kg) Fluid: 1 ml/kcal or per MD Nutrition Intervention Change Diet Order: Continue cardiac diet Goal #1 Meet at least 75% of energy and protein needs Anticipated Discharge Needs: Cardaic diet Follow-Up By: 06/25/19 Additional Comments F/U for PO intakes
--- NOTE | 2019-06-23 12:40 | Vascular Lab Report ---
DUPLEX DOPPLER LOWER EXTREMITY VEINS, BILATERAL INDICATION: Bilateral lower extremity edema. TECHNIQUE: Duplex doppler imaging was performed through the veins of both lower extremities using ve nous compression and other maneuvers. COMPARISON: No relevant prior imaging study available. FINDINGS: Right Common femoral vein: Negative. Right Superficial femoral vein: Negative. Right Popliteal vein: Negative. Right Calf veins: Negative. Left Common femoral vein: Negative. Left Superficial femoral vein: Negative. Left Popliteal vein: Negative. Left Calf veins: Negative. Additional findings: None.. IMPRESSION: No sonographic evidence for DVT in either lower extremity. Signer Name: Matt Pineda Jr, MD Signed: 06/23/2019 12:35 PM Workstation Name: [id number]
[2019-06-23] MEDS: IPRATROPIUM/ALBUTEROL SULFATE 3 ML AMPUL.NEB IH SCH ×2 (15:53→20:59)
[2019-06-23] MEDS: methylPREDNISolone Sod Succinate 40 MG/1 ML INJ IV SCH ×3 (16:04→21:20)
[2019-06-23] MEDS: DIGOXIN 0.125 MG TAB PO SCH (17:37)
[2019-06-23] MEDS: MIRTAZAPINE 15 MG TAB PO SCH (21:19)
[2019-06-23] MEDS ORDERED: ENOXAPARIN 40 MG/0.4 ML INJ SUB-Q SCH (22:00)
[2019-06-24] MEDS: LEVOTHYROXINE 100 MCG TAB PO SCH (06:03)
[2019-06-24] MEDS: methylPREDNISolone Sod Succinate 40 MG/1 ML INJ IV SCH ×3 (06:08→22:21)
[2019-06-24] MEDS: BUDESONIDE 0.5 MG/2 ML NEBU IH SCH (08:26)
[2019-06-24] MEDS: ARFORMOTEROL 15 MCG/2 ML NEBU IH SCH (08:26)
[2019-06-24] MEDS: IPRATROPIUM/ALBUTEROL SULFATE 3 ML AMPUL.NEB IH SCH ×3 (08:27→20:47)
--- NOTE | 2019-06-24 09:01 | Progress Note ---
Assessment and Plan Patient's HR noted to be in low 100s intermittently - suspect d/t SOB and use of steroids. Continue digoxin (level WNL) and other cardiac management. The patient has been seen in conjunction with Dr. Rama Jennings, who agrees with the assessment and plan of care. - Patient Problems (1) Atrial fibrillation with rapid ventricular response Current Visit: No Status: Acute (2) Acute respiratory failure Current Visit: No Status: Acute Qualifiers: Respiratory failure complication: hypoxia Qualified Code(s): J96.01 - Acute respiratory failure with hypoxia (3) Right middle lobe pulmonary nodule Current Visit: Yes Status: Chronic (4) COPD (chronic obstructive pulmonary disease) Current Visit: No Status: Acute Qualifiers: COPD type: COPD with acute exacerbation Qualified Code(s): J44.1 - Chronic obstructive pulmonary disease with (acute) exacerbation (5) HTN (hypertension) Current Visit: No Status: Chronic Qualifiers: Hypertension type: essential hypertension Qualified Code(s): I10 - Essential (primary) hypertension (6) CAD (coronary artery disease) Current Visit: No Status: Chronic Qualifiers: Coronary Disease-Associated Artery/Lesion type: [place] artery [place] vs. transplanted heart: unspecified whether [place] or transplanted heart Associated angina: with stable angina Qualified Code(s): I25.118 - Atherosclerotic heart disease of [place] coronary artery with other forms of angina pectoris Subjective Date of service: 06/24/19 Interval history: The patient is lying in bed in NAD. She says she feels worse than she did last night d/t persistent cough and inability clear secretions. Telemetry reviewed - afib in 100s. Echocardiogram reviwed: EF 55 to 60 percent, mild LVH, mild TR, mild MR. Objective Vital Signs Temp Pulse Pulse Resp Resp BP Pulse Ox 06/24/19 08:29 96 06/24/19 08:26 89 12 06/24/19 07:44 98.3 F 97 H 20 148/83 92 06/24/19 02:36 98.3 F 98 H 20 124/76 95 06/23/19 22:00 102 H 97 06/23/19 21:37 93 06/23/19 20:55 98 H 20 06/23/19 19:55 102 H 97 06/23/19 19:42 98.3 F 20 122/76 06/23/19 15:53 96 H 18 06/23/19 13:32 95 H 95 06/23/19 13:31 98.2 F 97 H 20 119/68 85 06/23/19 10:00 76 - Physical Examination General: Appears Well HEENT: Positive: PERRL Neck: Positive: neck supple Cardiac: Positive: irregularly irregular Lungs: Positive: Decreased Breath Sounds Neuro: Positive: Grossly Intact Abdomen: Positive: Unremarkable /Rectal: Other (deferred) Skin: Positive: Clear Musculoskeletal: Normal Range of Motion Extremities: Present: normal - Imaging and Cardiology Echo: report reviewed (05/2019: EF 55-60%, mild LVH, mild MR, mild TR)
--- NOTE | 2019-06-24 09:31 | Progress Note ---
Assessment and Plan COPD with acute exacerbation Acute on chronic hypercapnic and hypoxemic respiratory failure Right middle lobe pulmonary nodule Atrial fibrillation CHF (congestive heart failure) HTN (hypertension) Hypothyroidism - continue supplemental oxygen as needed to keep O2 sat's > 90% (on 4L NC) - prn BIPAP support - continue bronchodilators (add LABA) with pulmonary hygiene per RT - continue systemic steroids with slow taper (add ICS / Pulmicort) - continue anticoagulation with Eliquis for A-fib - rate control per cardiology team - consider empiric CAP directed antibiotics for severe COPD exacerbation - PT/OT as tolerated - mobility protocols for pressure ulcer prophylaxis - GI prophylaxis with pantoprazole - tobacco abstinence strongly counseled at bedside - Flu & Pneumovax addressed per protocol .... re-evaluate in am & prn Subjective Date of service: 06/24/19 Principal diagnosis: AE-COPD; Ac on ch hypercapnic and hypoxemic resp failure; RML nodule; CHF Interval history: Patient is seen today for: AE-COPD; Acute on chronic hypercapnic and hypoxemic respiratory failure; Right middle lobe pulmonary nodule; Atrial fibrillation; CHF (congestive heart failure); HTN (hypertension); Hypothyroidism Seen and examined at bedside; 24hour events reviewed; nursing and respiratory care staff consulted; no adverse overnight events reported to me; resting peacefuly in bed; remains on supplemental oxygen; denies acute chest pains or palpitations; feels a little better; looking forwards to thanksgiving turkey !!! Objective Vital Signs - 12hr 06/23/19 06/23/19 06/24/19 21:37 22:00 02:36 Temperature 98.3 F Pulse Rate 102 H 98 H Pulse Rate [ Bilateral] Respiratory 20 Rate Respiratory Rate [Bilateral ] Blood Pressure 124/76 O2 Sat by Pulse 93 97 95 Oximetry 06/24/19 06/24/19 06/24/19 07:44 08:26 08:29 Temperature 98.3 F Pulse Rate 97 H Pulse Rate [ 89 Bilateral] Respiratory 20 Rate Respiratory 12 Rate [Bilateral ] Blood Pressure 148/83 O2 Sat by Pulse 92 96 Oximetry Constitutional: alert, other (elderly looking obese female normocephalic with mildly increased resp effort at rest) Eyes: non-icteric ENT: oropharynx moist, other (Mallampati 3) Neck: supple, no lymphadenopathy, no JVD Effort: mildly labored Ascultation: Bilateral: diminished breath sounds, rhonchi, other (Prolonged expiratory phase.) Percussion: Bilateral: not dull Cardiovascular: irregular rhythm Gastrointestinal: normoactive bowel sounds, soft, non-tender, non-distended Integumentary: normal Extremities: no cyanosis, no edema, pink and warm, pulses normal, no ischemia or petechiae Neurologic: normal mental status, non-focal exam (grossly), pupils equal and round, CN II-XII normal, motor strength normal and Psychiatric: mood appropriate, affect normal CBC and BMP: 06/23/19 05:29 06/23/19 05:29 ABG, PT/INR, D-dimer: ABG POC ABG pH 7.373 (7.35-7.45) 06/22/19 21:06 POC ABG pCO2 61.8 (35-45) H 06/22/19 21:06 POC ABG pO2 77 (80-105) L 06/22/19 21:06 POC ABG HCO3 35.9 (22-26 mml/L) 06/22/19 21:06 POC ABG Total CO2 38 (23-27mmol/L) 06/22/19 21:06 POC ABG O2 Sat 94 06/22/19 21:06 Abnormal lab findings: Abnormal Labs 06/22/19 06/22/19 06/22/19 20:10 20:10 20:10 WBC RDW 12.8 L Lymph # Seg Neutrophils % POC ABG pCO2 POC ABG pO2 Chloride 95.0 L Carbon Dioxide Glucose 124 H NT-Pro-B Natriuret Pep 1380 H Total Protein 6.1 L Albumin 3.7 L 06/22/19 06/23/19 06/23/19 21:06 05:29 05:29 WBC 4.3 L RDW 13.0 L Lymph # 0.7 L Seg Neutrophils % 80.1 H POC ABG pCO2 61.8 H POC ABG pO2 77 L Chloride 95.0 L Carbon Dioxide 31 H Glucose 175 H NT-Pro-B Natriuret Pep Total Protein 5.9 L Albumin 3.6 L Chest x-ray: image reviewed (chronic fibritic and COPD changes) CT scan - chest: image reviewed (stable RUL 1 cm nodule) Allied health notes reviewed: nursing
--- NOTE | 2019-06-24 09:33 | Progress Note ---
Assessment and Plan Assessment and plan: 69-year-old woman who presents to the hospital with shortness of breath. She has a history of COPD on 2 L of oxygen at home. CT angiogram chest; emphysematous changes, no PE Copd exacerbation; steroids, nebs, pulmonology consults, aggressive chest PT Hypertension cont bp meds Atrial fibrillation with hypercoagulable states Continue digoxin, dig level wnl, cardiology consult appreciated Previous echo report reviewed, she had preserved EF -No documented history of CHF contrary to H&P Fully anticoagulated on Eliquis Anxiety disorder Ativan as needed DVT prophylaxis fully anticoagulated History Interval history: Review of systems Constitutional: No fevers, no malaise, no joint pains CVS: No chest pain, no orthopnea, no pedal edema GI: No abdominal pain, no diarrhea, no vomiting, no constipation Respiratory: , Complaining of shortness of breath and wheezing Hospitalist Physical - Physical exam Narrative exam: General.: Moderate distress HEENT: Moist mucous membranes, extraocular muscles intact, no lymphadenopathy Neck: supple Cardiac: S1-S2 heard Lungs: Decreased air entry, wheezing throughout Abdomen: soft , nontender, nondistended, bowel sounds positive Extremities: no edema clubbing or cyanosis Skin: no rash or lesions Neurologic: no gross focal deficits Psych: calm, and cooperative - Constitutional Vitals: Temp Pulse Resp BP Pulse Ox 98.3 F 89 12 148/83 96 06/24/19 07:44 06/24/19 08:26 06/24/19 08:26 06/24/19 07:44 06/24/19 08:29 General appearance: Present: mild distress Results - Labs CBC & Chem 7: 06/23/19 05:29 06/23/19 05:29 Labs: Laboratory Last Values WBC 4.3 K/mm3 (4.5-11.0) L 06/23/19 05:29 RBC 3.73 M/mm3 (3.65-5.03) 06/23/19 05:29 Hgb 11.9 gm/dl (10.1-14.3) 06/23/19 05:29 Hct 35.9 % (30.3-42.9) 06/23/19 05:29 MCV 96 fl (79-97) 06/23/19 05:29 MCH 32 pg (28-32) 06/23/19 05:29 MCHC 33 % (30-34) 06/23/19 05:29 RDW 13.0 % (13.2-15.2) L 06/23/19 05:29 Plt Count 204 K/mm3 (140-440) 06/23/19 05:29 Lymph % (Auto) 16.7 % (13.4-35.0) 06/23/19 05:29 [place] % (Auto) 2.9 % (0.0-7.3) 06/23/19 05:29 Eos % (Auto) 0.0 % (0.0-4.3) 06/23/19 05:29 Baso % (Auto) 0.3 % (0.0-1.8) 06/23/19 05:29 Lymph # 0.7 K/mm3 (1.2-5.4) L 06/23/19 05:29 [place] # 0.1 K/mm3 (0.0-0.8) 06/23/19 05:29 Eos # 0.0 K/mm3 (0.0-0.4) 06/23/19 05:29 Baso # 0.0 K/mm3 (0.0-0.1) 06/23/19 05:29 Seg Neutrophils % 80.1 % (40.0-70.0) H 06/23/19 05:29 Seg Neutrophils # 3.4 K/mm3 (1.8-7.7) 06/23/19 05:29 POC ABG pH 7.373 (7.35-7.45) 06/22/19 21:06 POC ABG pCO2 61.8 (35-45) H 06/22/19 21:06 POC ABG pO2 77 (80-105) L 06/22/19 21:06 POC ABG HCO3 35.9 (22-26 mml/L) 06/22/19 21:06 POC ABG Total CO2 38 (23-27mmol/L) 06/22/19 21:06 POC ABG O2 Sat 94 06/22/19 21:06 POC ABG Base Excess 11 ((-2) - (+3)mmol/L) 06/22/19 21:06 FiO2 50 % 06/22/19 21:06 Sodium 140 mmol/L (137-145) 06/23/19 05:29 Potassium 4.8 mmol/L (3.6-5.0) 06/23/19 05:29 Chloride 95.0 mmol/L (98-107) L 06/23/19 05:29 Carbon Dioxide 31 mmol/L (22-30) H 06/23/19 05:29 Anion Gap 19 mmol/L 06/23/19 05:29 BUN 17 mg/dL (7-17) 06/23/19 05:29 Creatinine 0.9 mg/dL (0.7-1.2) 06/23/19 05:29 Estimated GFR > 60 ml/min 06/23/19 05:29 BUN/Creatinine Ratio 19 % 06/23/19 05:29 Glucose 175 mg/dL (65-100) H 06/23/19 05:29 Calcium 9.2 mg/dL (8.4-10.2) 06/23/19 05:29 Magnesium 2.30 mg/dL (1.7-2.3) 06/23/19 10:28 Total Bilirubin 0.50 mg/dL (0.1-1.2) 06/23/19 05:29 AST 15 units/L (5-40) 06/23/19 05:29 ALT 11 units/L (7-56) 06/23/19 05:29 Alkaline Phosphatase 90 units/L (35-129) 06/23/19 05:29 Troponin T < 0.010 ng/mL (0.00-0.029) 06/23/19 16:39 NT-Pro-B Natriuret Pep 1380 pg/mL (0-900) H 06/22/19 20:10 Total Protein 5.9 g/dL (6.3-8.2) L 06/23/19 05:29 Albumin 3.6 g/dL (3.9-5) L 06/23/19 05:29 Albumin/Globulin Ratio 1.6 % 06/23/19 05:29 TSH 1.090 mlU/mL (0.270-4.200) 06/23/19 10:28 Digoxin 1.2 ng/mL (0.9-2.0) 06/23/19 10:28 Active Medications - Current Medications Current Medications: Generic Name Dose Route Start Last Admin Trade Name Stivenq PRN Reason Stop Dose Admin Acetaminophen 650 mg 06/22/19 22:35 Tylenol PO Q4H PRN Pain MILD(1-3)/Fever >100.5/ARAIZA Albuterol/Ipratropium 1 ampul 06/23/19 14:00 06/24/19 08:27 Duoneb *Not For Prn Use* IH Not Given Q6HRT JO Alprazolam 1 mg 06/22/19 22:37 06/23/19 21:51 Xanax PO 1 mg TID PRN Administration Anxiety Apixaban 5 mg 06/23/19 10:00 06/23/19 21:19 Eliquis PO 5 mg BID JO Administration Protocol Arformoterol Tartrate 15 mcg 06/23/19 08:00 06/24/19 08:26 Brovana Nebu IH 15 mcg Q12HRT JO Administration Aspirin 81 mg 06/23/19 10:00 06/23/19 10:18 Baby Aspirin PO 81 mg QDAY JO Administration Atorvastatin Calcium 20 mg 06/23/19 22:00 06/23/19 21:19 Lipitor PO 20 mg QHS JO Administration Budesonide 1 mg 06/23/19 08:00 06/24/19 08:26 Pulmicort IH 1 mg Q12HRT JO Administration Digoxin 0.125 mg 06/23/19 17:00 06/23/19 17:37 Lanoxin PO 0.125 mg DAILY@1700 JO Administration Duloxetine HCl 30 mg 06/23/19 10:00 06/23/19 10:19 Cymbalta PO 30 mg QDAY JO Administration Fish Oil 1,000 mg 06/23/19 10:00 06/23/19 21:19 Fish Oil PO 1,000 mg BID JO Administration Furosemide 20 mg 06/23/19 10:00 06/23/19 10:18 Lasix PO 20 mg QDAY JO Administration Ipratropium [place] 0.5 mg 06/23/19 02:00 Atrovent IH Q6HRT JO Isosorbide Mononitrate 120 mg 06/23/19 10:00 06/23/19 10:18 Imdur PO 120 mg QDAY JO Administration Levothyroxine Sodium 100 mcg 06/23/19 06:00 06/24/19 06:03 Synthroid PO 100 mcg DAILY@0600 JO Administration Lisinopril 10 mg 06/23/19 10:00 06/23/19 10:19 Zestril PO Not Given DAILY [facility] Loratadine 10 mg 06/23/19 10:00 06/23/19 10:19 Claritin PO 10 mg DAILY JO Administration Lorazepam 1 mg 06/23/19 00:20 Ativan IV Q4H PRN Anxiety Methylprednisolone Sodium Succinate 40 mg 06/23/19 10:15 06/24/19 06:08 Solu-Medrol IV 40 mg Q8HR JO Administration Mirtazapine 45 mg 06/23/19 22:00 06/23/19 21:19 Remeron PO 45 mg QHS JO Administration Miscellaneous Medication 25 mg 06/23/19 10:00 Naloxegol Oxalate [Movantik] PO DAILY [facility] Miscellaneous Medication 290 mcg 06/24/19 10:00 Linaclotide [Linzess] PO DAILY [facility] Nitroglycerin 0.4 mg 06/23/19 00:21 Nitrostat SL Q5M PRN Chest Pain Ondansetron HCl 4 mg 06/22/19 22:35 Zofran IV Q8H PRN Nausea And Vomiting Oxycodone HCl 2.5 mg 06/23/19 00:43 Roxicodone PO Q6H PRN Pain, Moderate (4-6) Oxycodone/Acetaminophen 1 tab 06/23/19 00:44 Percocet 5/325 PO Q6HR PRN Pain, Moderate (4-6) Pantoprazole Sodium 40 mg 06/23/19 10:00 06/23/19 10:18 Protonix PO 40 mg QDAY JO Administration Potassium Chloride 20 meq 06/23/19 10:00 06/23/19 10:19 Potassium Chloride PO 20 meq DAILY JO Administration Prednisone 2.5 mg 06/23/19 10:00 06/23/19 10:19 Deltasone PO 2.5 mg QDAY JO Administration Sodium Chloride 10 ml 06/23/19 10:00 06/23/19 21:21 Sodium Chloride Flush Syringe 10 Ml IV 10 ml BID JO Administration Sodium Chloride 10 ml 06/22/19 22:35 Sodium Chloride Flush Syringe 10 Ml IV PRN PRN LINE FLUSH Verapamil HCl 240 mg 06/23/19 10:00 06/23/19 10:19 Calan Sr PO Not Given DAILY [facility] Nutrition/Malnutrition Assess - Dietary Evaluation Nutrition/Malnutrition Findings: Nutrition Notes Start: 06/23/19 11:09 Freq: Status: Active Protocol: Document 06/23/19 11:09 LM (Rec: 06/23/19 11:31 LM [email or web address]) Nutrition Notes Need for Assessment 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 [place] score or 20. Pt stated she was not eating well at home for a couple of days due to UTI and antibiotics. Pt says her UBW is 165 lb (75 kg). Pt ate about 25% of breakfast because she was asleep when tray arrived. Pt stated she feels like she has appetite to eat. Noticed pt with distended abdomin. Burn Absent Trauma Absent GI Symptoms None Current % PO Poor (25-49%) Minimum of two criteria No #1 Nutrition Diagnosis Inadequate oral intake Etiology UTI, SOB As Evidenced by Signs and Symptoms Pt eating 25% of meal, statement of not eating well at home for a couple days due to antibiotics/UTI Is patient on ventilator? No Is Patient Ambulatory and/or Out of Bed Yes REE-([place]. Jeor-ambulatory/OOB) [ 1703.650 [id number]] Calculation Used for Recommendations [place] or Additional Notes Protein: 75-90g (1-1.2 g/kg) Fluid: 1 ml/kcal or per MD Nutrition Intervention Change Diet Order: Continue cardiac diet Goal #1 Meet at least 75% of energy and protein needs Anticipated Discharge Needs: Cardaic diet Follow-Up By: 06/25/19 Additional Comments F/U for PO intakes
[2019-06-24] MEDS: OMEGA-3 FATTY ACIDS/FISH OIL 1 GRAM CAP PO SCH ×2 (09:49→22:21)
[2019-06-24] MEDS: predniSONE 5 MG TAB PO SCH (09:50)
[2019-06-24] MEDS: ASPIRIN 81 MG TAB CHEW PO SCH (09:50)
[2019-06-24] MEDS: LISINOPRIL 10 MG TAB PO SCH (09:50)
[2019-06-24] MEDS: APIXABAN 5 MG TAB PO SCH ×2 (09:50→22:21)
[2019-06-24] MEDS: PANTOPRAZOLE 40 MG TAB PO SCH (09:51)
[2019-06-24] MEDS: LORATADINE (NF) 10 MG TAB PO SCH (09:51)
[2019-06-24] MEDS: DULoxetine 30 MG CAP PO SCH (09:51)
[2019-06-24] MEDS: POTASSIUM CHLORIDE 20 MEQ PACKET PO SCH (09:51)
[2019-06-24] MEDS: VERAPAMIL ER 240 MG TAB PO SCH (09:52)
[2019-06-24] MEDS: FUROSEMIDE 20 MG TAB PO SCH (09:52)
[2019-06-24] MEDS ORDERED: LINACLOTIDE 290 MCG PO SCH (10:00)
[2019-06-24] MEDS: ALPRAZolam 1 MG TAB PO PRN ×2 (10:48→22:51)
[2019-06-24] MEDS: IPRATROPIUM 0.02% NEBU 2.5 ML IH SCH (16:40)
[2019-06-24] MEDS: DIGOXIN 0.125 MG TAB PO SCH (18:02)
[2019-06-24] MEDS: ADVAIR PO SCH (22:20)
[2019-06-24] MEDS: MIRTAZAPINE 15 MG TAB PO SCH (22:21)
[2019-06-25] MEDS: IPRATROPIUM/ALBUTEROL SULFATE 3 ML AMPUL.NEB IH SCH ×4 (02:29→20:38)
[2019-06-25] MEDS: methylPREDNISolone Sod Succinate 40 MG/1 ML INJ IV SCH ×3 (06:57→22:01)
[2019-06-25] MEDS: LEVOTHYROXINE 100 MCG TAB PO SCH (06:58)
--- NOTE | 2019-06-25 09:52 | Progress Note ---
Assessment and Plan Patient remains mildly tachycardic, which is likely physiologic secondary to SOB and steroid therapy. Continue current management. The patient has been seen in conjunction with Dr. Rama Jennings, who agrees with the assessment and plan. - Patient Problems (1) Atrial fibrillation with rapid ventricular response Current Visit: No Status: Acute (2) Acute respiratory failure Current Visit: No Status: Acute Qualifiers: Respiratory failure complication: hypoxia Qualified Code(s): J96.01 - Acute respiratory failure with hypoxia (3) Right middle lobe pulmonary nodule Current Visit: Yes Status: Chronic (4) COPD (chronic obstructive pulmonary disease) Current Visit: No Status: Acute Qualifiers: COPD type: COPD with acute exacerbation Qualified Code(s): J44.1 - Chronic obstructive pulmonary disease with (acute) exacerbation (5) HTN (hypertension) Current Visit: No Status: Chronic Qualifiers: Hypertension type: essential hypertension Qualified Code(s): I10 - Essential (primary) hypertension (6) CAD (coronary artery disease) Current Visit: No Status: Chronic Qualifiers: Coronary Disease-Associated Artery/Lesion type: [place] artery [place] vs. transplanted heart: unspecified whether [place] or transplanted heart Associated angina: with stable angina Qualified Code(s): I25.118 - Atherosclerotic heart disease of [place] coronary artery with other forms of angina pectoris Subjective Date of service: 06/25/19 Interval history: The patient is sitting up in bed in [facility]. She reports that her breathing is improved and her supplemental oxygen requirement is lower. Telemetry reviewed - afib in 100s. Objective Last Vital Signs Temp 97.7 F 06/25/19 07:19 Pulse 104 H 06/25/19 08:49 Resp 20 06/25/19 08:49 BP 146/92 06/25/19 07:19 Pulse Ox 95 06/25/19 08:51 - Physical Examination General: Appears Well HEENT: Positive: PERRL Neck: Positive: neck supple Cardiac: Positive: irregularly irregular Lungs: Positive: Decreased Breath Sounds Neuro: Positive: Grossly Intact Abdomen: Positive: Unremarkable /Rectal: Other (deferred) Skin: Positive: Clear Musculoskeletal: Normal Range of Motion Extremities: Present: normal - Imaging and Cardiology Echo: report reviewed (05/2019: EF 55-60%, mild LVH, mild MR, mild TR) - Telemetry EKG Rhythm: Atrial Fibrillation
[2019-06-25] MEDS: APIXABAN 5 MG TAB PO SCH ×2 (10:31→21:59)
[2019-06-25] MEDS: VERAPAMIL ER 240 MG TAB PO SCH (10:31)
[2019-06-25] MEDS: POTASSIUM CHLORIDE 20 MEQ PACKET PO SCH (10:31)
[2019-06-25] MEDS: DULoxetine 30 MG CAP PO SCH (10:32)
[2019-06-25] MEDS: ALPRAZolam 1 MG TAB PO PRN ×2 (10:32→22:31)
[2019-06-25] MEDS: ASPIRIN 81 MG TAB CHEW PO SCH (10:32)
[2019-06-25] MEDS: LISINOPRIL 10 MG TAB PO SCH (10:32)
[2019-06-25] MEDS: FUROSEMIDE 20 MG TAB PO SCH (10:32)
[2019-06-25] MEDS: PANTOPRAZOLE 40 MG TAB PO SCH (10:32)
[2019-06-25] MEDS: predniSONE 5 MG TAB PO SCH (10:32)
[2019-06-25] MEDS: OMEGA-3 FATTY ACIDS/FISH OIL 1 GRAM CAP PO SCH ×2 (10:32→21:59)
[2019-06-25] MEDS: LINZESS 290 MCG CAPSULE PO SCH (10:37)
[2019-06-25] MEDS: ADVAIR PO SCH ×2 (10:44→22:32)
[2019-06-25] MEDS: LORATADINE (NF) 10 MG TAB PO SCH (10:45)
[2019-06-25] MEDS: INCRUSE ELLIPTA PO SCH (11:28)
--- NOTE | 2019-06-25 13:08 | Progress Note ---
Assessment and Plan Assessment and plan: 69-year-old woman who presents to the hospital with shortness of breath. She has a history of COPD on 2 L of oxygen at home. CT angiogram chest; emphysematous changes, no PE Copd exacerbation; steroids, nebs, pulmonology consults, aggressive chest PT Acute on chronic hypoxic respiratory failure Continue oxygen supplementation. She is currently on 4 L, takes 2 L at home Hypertension cont bp meds Atrial fibrillation with hypercoagulable states Continue digoxin, dig level wnl, cardiology consult appreciated Previous echo report reviewed, she had preserved EF -No documented history of CHF contrary to H&P Fully anticoagulated on Eliquis Anxiety disorder Ativan as needed DVT prophylaxis fully anticoagulated History Interval history: Review of systems Constitutional: No fevers, no malaise, no joint pains CVS: No chest pain, no orthopnea, no pedal edema GI: No abdominal pain, no diarrhea, no vomiting, no constipation Respiratory: , Complaining of shortness of breath and wheezing Hospitalist Physical - Physical exam Narrative exam: General.: Moderate distress HEENT: Moist mucous membranes, extraocular muscles intact, no lymphadenopathy Neck: supple Cardiac: S1-S2 heard Lungs: Decreased air entry, wheezing throughout Abdomen: soft , nontender, nondistended, bowel sounds positive Extremities: no edema clubbing or cyanosis Skin: no rash or lesions Neurologic: no gross focal deficits Psych: calm, and cooperative - Constitutional Vitals: Temp Pulse Resp BP Pulse Ox 97.7 F 104 H 20 146/92 95 06/25/19 07:19 06/25/19 08:49 06/25/19 08:49 06/25/19 07:19 06/25/19 08:51 General appearance: Present: mild distress Results - Labs CBC & Chem 7: 06/23/19 05:29 06/23/19 05:29 Labs: Laboratory Last Values WBC 4.3 K/mm3 (4.5-11.0) L 06/23/19 05:29 RBC 3.73 M/mm3 (3.65-5.03) 06/23/19 05:29 Hgb 11.9 gm/dl (10.1-14.3) 06/23/19 05:29 Hct 35.9 % (30.3-42.9) 06/23/19 05:29 MCV 96 fl (79-97) 06/23/19 05:29 MCH 32 pg (28-32) 06/23/19 05:29 MCHC 33 % (30-34) 06/23/19 05:29 RDW 13.0 % (13.2-15.2) L 06/23/19 05:29 Plt Count 204 K/mm3 (140-440) 06/23/19 05:29 Lymph % (Auto) 16.7 % (13.4-35.0) 06/23/19 05:29 [place] % (Auto) 2.9 % (0.0-7.3) 06/23/19 05:29 Eos % (Auto) 0.0 % (0.0-4.3) 06/23/19 05:29 Baso % (Auto) 0.3 % (0.0-1.8) 06/23/19 05:29 Lymph # 0.7 K/mm3 (1.2-5.4) L 06/23/19 05:29 [place] # 0.1 K/mm3 (0.0-0.8) 06/23/19 05:29 Eos # 0.0 K/mm3 (0.0-0.4) 06/23/19 05:29 Baso # 0.0 K/mm3 (0.0-0.1) 06/23/19 05:29 Seg Neutrophils % 80.1 % (40.0-70.0) H 06/23/19 05:29 Seg Neutrophils # 3.4 K/mm3 (1.8-7.7) 06/23/19 05:29 POC ABG pH 7.373 (7.35-7.45) 06/22/19 21:06 POC ABG pCO2 61.8 (35-45) H 06/22/19 21:06 POC ABG pO2 77 (80-105) L 06/22/19 21:06 POC ABG HCO3 35.9 (22-26 mml/L) 06/22/19 21:06 POC ABG Total CO2 38 (23-27mmol/L) 06/22/19 21:06 POC ABG O2 Sat 94 06/22/19 21:06 POC ABG Base Excess 11 ((-2) - (+3)mmol/L) 06/22/19 21:06 FiO2 50 % 06/22/19 21:06 Sodium 140 mmol/L (137-145) 06/23/19 05:29 Potassium 4.8 mmol/L (3.6-5.0) 06/23/19 05:29 Chloride 95.0 mmol/L (98-107) L 06/23/19 05:29 Carbon Dioxide 31 mmol/L (22-30) H 06/23/19 05:29 Anion Gap 19 mmol/L 06/23/19 05:29 BUN 17 mg/dL (7-17) 06/23/19 05:29 Creatinine 0.9 mg/dL (0.7-1.2) 06/23/19 05:29 Estimated GFR > 60 ml/min 06/23/19 05:29 BUN/Creatinine Ratio 19 % 06/23/19 05:29 Glucose 175 mg/dL (65-100) H 06/23/19 05:29 Calcium 9.2 mg/dL (8.4-10.2) 06/23/19 05:29 Magnesium 2.30 mg/dL (1.7-2.3) 06/23/19 10:28 Total Bilirubin 0.50 mg/dL (0.1-1.2) 06/23/19 05:29 AST 15 units/L (5-40) 06/23/19 05:29 ALT 11 units/L (7-56) 06/23/19 05:29 Alkaline Phosphatase 90 units/L (35-129) 06/23/19 05:29 Troponin T < 0.010 ng/mL (0.00-0.029) 06/23/19 16:39 NT-Pro-B Natriuret Pep 1380 pg/mL (0-900) H 06/22/19 20:10 Total Protein 5.9 g/dL (6.3-8.2) L 06/23/19 05:29 Albumin 3.6 g/dL (3.9-5) L 06/23/19 05:29 Albumin/Globulin Ratio 1.6 % 06/23/19 05:29 TSH 1.090 mlU/mL (0.270-4.200) 06/23/19 10:28 Digoxin 1.2 ng/mL (0.9-2.0) 06/23/19 10:28 Active Medications - Current Medications Current Medications: Generic Name Dose Route Start Last Admin Trade Name Freq PRN Reason Stop Dose Admin Acetaminophen 650 mg 06/22/19 22:35 Tylenol PO Q4H PRN Pain MILD(1-3)/Fever >100.5/ARAIZA Albuterol/Ipratropium 1 ampul 06/23/19 14:00 06/25/19 08:30 Duoneb *Not For Prn Use* IH 1 ampul Q6HRT JO Administration Alprazolam 1 mg 06/22/19 22:37 06/25/19 10:32 Xanax PO 1 mg TID PRN Administration Anxiety Apixaban 5 mg 06/23/19 10:00 06/25/19 10:31 Eliquis PO 5 mg BID JO Administration Protocol Aspirin 81 mg 06/23/19 10:00 06/25/19 10:32 Baby Aspirin PO 81 mg QDAY JO Administration Atorvastatin Calcium 20 mg 06/23/19 22:00 06/24/19 22:22 Lipitor PO 20 mg QHS JO Administration Digoxin 0.125 mg 06/23/19 17:00 06/24/19 18:02 Lanoxin PO 0.125 mg DAILY@1700 JO Administration Duloxetine HCl 30 mg 06/23/19 10:00 06/25/19 10:32 Cymbalta PO 30 mg QDAY JO Administration Fish Oil 1,000 mg 06/23/19 10:00 06/25/19 10:32 Fish Oil PO 1,000 mg BID JO Administration Furosemide 20 mg 06/23/19 10:00 06/25/19 10:32 Lasix PO 20 mg QDAY JO Administration Ipratropium [place] 0.5 mg 06/23/19 02:00 06/24/19 16:40 Atrovent IH Not Given Q6HRT JO Isosorbide Mononitrate 120 mg 06/23/19 10:00 06/25/19 10:31 Imdur PO 120 mg QDAY JO Administration Levothyroxine Sodium 100 mcg 06/23/19 06:00 06/25/19 06:58 Synthroid PO 100 mcg DAILY@0600 JO Administration Lisinopril 10 mg 06/23/19 10:00 06/25/19 10:32 Zestril PO 10 mg DAILY JO Administration Loratadine 10 mg 06/23/19 10:00 06/25/19 10:45 Claritin PO 10 mg DAILY JO Administration Lorazepam 1 mg 06/23/19 00:20 Ativan IV Q4H PRN Anxiety Methylprednisolone Sodium Succinate 40 mg 06/23/19 10:15 06/25/19 06:57 Solu-Medrol IV 40 mg Q8HR JO Administration Mirtazapine 45 mg 06/23/19 22:00 06/24/19 22:21 Remeron PO 45 mg QHS JO Administration Miscellaneous Medication 25 mg 06/23/19 10:00 Naloxegol Oxalate [Movantik] PO DAILY JO Miscellaneous Medication 1 each 06/25/19 10:00 06/25/19 10:37 Non-Formulary PO 1 each QDAY JO Administration Miscellaneous Medication 1 each 06/25/19 10:00 06/25/19 11:28 Non-Formulary PO 1 each QDAY JO Administration Miscellaneous Medication 1 each 06/24/19 22:00 06/25/19 10:44 Non-Formulary PO 1 each BID JO Administration Nitroglycerin 0.4 mg 06/23/19 00:21 Nitrostat SL Q5M PRN Chest Pain Ondansetron HCl 4 mg 06/22/19 22:35 Zofran IV Q8H PRN Nausea And Vomiting Oxycodone HCl 2.5 mg 06/23/19 00:43 Roxicodone PO Q6H PRN Pain, Moderate (4-6) Oxycodone/Acetaminophen 1 tab 06/23/19 00:44 Percocet 5/325 PO Q6HR PRN Pain, Moderate (4-6) Pantoprazole Sodium 40 mg 06/23/19 10:00 06/25/19 10:32 Protonix PO 40 mg QDAY JO Administration Potassium Chloride 20 meq 06/23/19 10:00 06/25/19 10:31 Potassium Chloride PO 20 meq DAILY JO Administration Prednisone 2.5 mg 06/23/19 10:00 06/25/19 10:32 Deltasone PO 2.5 mg QDAY JO Administration Sodium Chloride 10 ml 06/23/19 10:00 06/25/19 11:29 Sodium Chloride Flush Syringe 10 Ml IV 10 ml BID JO Administration Sodium Chloride 10 ml 06/22/19 22:35 Sodium Chloride Flush Syringe 10 Ml IV PRN PRN LINE FLUSH Verapamil HCl 240 mg 06/23/19 10:00 06/25/19 10:31 Calan Sr PO 240 mg DAILY JO Administration Nutrition/Malnutrition Assess - Dietary Evaluation Nutrition/Malnutrition Findings: Nutrition Notes Start: 06/23/19 11:09 Freq: Status: Active Protocol: Document 06/25/19 12:58 LM (Rec: 06/25/19 13:01 LM [email or web address]) Nutrition Notes Initial or Follow up Brief Note Subjective/Other Information Pt ate all of breakfast this AM. Percent of energy/protein needs met: 100%/100% #1 Nutrition Diagnosis Inadequate oral intake Diagnosis Progress(for reassessment Resolved documentation) Nutrition Intervention Revisit per MD consult or patient Sign Off request:
--- NOTE | 2019-06-25 13:50 | Progress Note ---
Assessment and Plan COPD with acute exacerbation Acute on chronic hypercapnic and hypoxemic respiratory failure Right middle lobe pulmonary nodule Atrial fibrillation CHF (congestive heart failure) HTN (hypertension) Hypothyroidism - continue supplemental oxygen as needed to keep O2 sat's > 90% (on 4L NC) - prn BIPAP support - continue bronchodilators (add LABA) with pulmonary hygiene per RT - continue systemic steroids with slow taper (add ICS / Pulmicort) - continue anticoagulation with Eliquis for A-fib - rate control per cardiology team - consider empiric CAP directed antibiotics for severe COPD exacerbation - PT/OT as tolerated - mobility protocols for pressure ulcer prophylaxis - GI prophylaxis with pantoprazole - tobacco abstinence strongly counseled at bedside - Flu & Pneumovax addressed per protocol .... re-evaluate in am & prn Subjective Date of service: 06/25/19 Principal diagnosis: AE-COPD; Ac on ch hypercapnic and hypoxemic resp failure; RML nodule; CHF Interval history: Patient is seen today for: AE-COPD; Acute on chronic hypercapnic and hypoxemic respiratory failure; Right middle lobe pulmonary nodule; Atrial fibrillation; CHF (congestive heart failure); HTN (hypertension); Hypothyroidism Seen and examined at bedside; 24hour events reviewed; nursing and respiratory care staff consulted; no adverse overnight events reported to me; resting peacefuly in bed; remains on supplemental oxygen; denies acute chest pains or palpitations; feels better overall; No N/V/F/C Objective Vital Signs - 12hr 06/25/19 06/25/19 06/25/19 07:19 08:30 08:49 Temperature 97.7 F Pulse Rate 93 H Pulse Rate [ 104 H Bilateral] Respiratory 20 Rate Respiratory 20 Rate [Bilateral ] Blood Pressure 146/92 O2 Sat by Pulse 96 99 Oximetry 06/25/19 06/25/19 08:51 12:38 Temperature 97.8 F Pulse Rate 105 H Pulse Rate [ Bilateral] Respiratory 20 Rate Respiratory Rate [Bilateral ] Blood Pressure 154/80 O2 Sat by Pulse 95 97 Oximetry Constitutional: alert, other (elderly looking obese female normocephalic with mildly increased resp effort at rest) Eyes: non-icteric ENT: oropharynx moist, other (Mallampati 3) Neck: supple, no lymphadenopathy, no JVD Effort: mildly labored Ascultation: Bilateral: diminished breath sounds, rhonchi, other (Prolonged expiratory phase.) Percussion: Bilateral: not dull Cardiovascular: irregular rhythm Gastrointestinal: normoactive bowel sounds, soft, non-tender, non-distended Integumentary: normal Extremities: no cyanosis, no edema, pink and warm, pulses normal, no ischemia or petechiae Neurologic: normal mental status, non-focal exam (grossly), pupils equal and round, CN II-XII normal, motor strength normal and Psychiatric: mood appropriate, affect normal CBC and BMP: 06/23/19 05:29 06/23/19 05:29 ABG, PT/INR, D-dimer: ABG POC ABG pH 7.373 (7.35-7.45) 06/22/19 21:06 POC ABG pCO2 61.8 (35-45) H 06/22/19 21:06 POC ABG pO2 77 (80-105) L 06/22/19 21:06 POC ABG HCO3 35.9 (22-26 mml/L) 06/22/19 21:06 POC ABG Total CO2 38 (23-27mmol/L) 06/22/19 21:06 POC ABG O2 Sat 94 06/22/19 21:06 Abnormal lab findings: Abnormal Labs 06/22/19 06/22/19 06/22/19 20:10 20:10 20:10 WBC RDW 12.8 L Lymph # Seg Neutrophils % POC ABG pCO2 POC ABG pO2 Chloride 95.0 L Carbon Dioxide Glucose 124 H NT-Pro-B Natriuret Pep 1380 H Total Protein 6.1 L Albumin 3.7 L 06/22/19 06/23/19 06/23/19 21:06 05:29 05:29 WBC 4.3 L RDW 13.0 L Lymph # 0.7 L Seg Neutrophils % 80.1 H POC ABG pCO2 61.8 H POC ABG pO2 77 L Chloride 95.0 L Carbon Dioxide 31 H Glucose 175 H NT-Pro-B Natriuret Pep Total Protein 5.9 L Albumin 3.6 L Allied health notes reviewed: nursing
[2019-06-25] MEDS: DIGOXIN 0.125 MG TAB PO SCH (18:06)
[2019-06-25] MEDS: MIRTAZAPINE 15 MG TAB PO SCH (22:01)
[2019-06-26] MEDS: IPRATROPIUM/ALBUTEROL SULFATE 3 ML AMPUL.NEB IH SCH ×4 (02:38→23:52)
[2019-06-26] MEDS: LEVOTHYROXINE 100 MCG TAB PO SCH (05:13)
[2019-06-26] MEDS: methylPREDNISolone Sod Succinate 40 MG/1 ML INJ IV SCH ×3 (05:13→16:53)
[2019-06-26] MEDS: VERAPAMIL ER 240 MG TAB PO SCH (10:05)
[2019-06-26] MEDS: ADVAIR PO SCH ×2 (10:05→21:18)
[2019-06-26] MEDS: INCRUSE ELLIPTA PO SCH (10:05)
[2019-06-26] MEDS: POTASSIUM CHLORIDE 20 MEQ PACKET PO SCH (10:05)
[2019-06-26] MEDS: OMEGA-3 FATTY ACIDS/FISH OIL 1 GRAM CAP PO SCH ×2 (10:05→21:20)
[2019-06-26] MEDS: DULoxetine 30 MG CAP PO SCH (10:05)
[2019-06-26] MEDS: LORATADINE (NF) 10 MG TAB PO SCH (10:06)
[2019-06-26] MEDS: FUROSEMIDE 20 MG TAB PO SCH (10:06)
[2019-06-26] MEDS: LINZESS 290 MCG CAPSULE PO SCH (10:06)
[2019-06-26] MEDS: ASPIRIN 81 MG TAB CHEW PO SCH (10:06)
[2019-06-26] MEDS: PANTOPRAZOLE 40 MG TAB PO SCH (10:06)
[2019-06-26] MEDS: LISINOPRIL 10 MG TAB PO SCH (10:07)
[2019-06-26] MEDS: predniSONE 5 MG TAB PO SCH (10:07)
[2019-06-26] MEDS: APIXABAN 5 MG TAB PO SCH ×2 (10:07→21:20)
--- NOTE | 2019-06-26 10:33 | Progress Note ---
Assessment and Plan stable from cardiac perspective cont to optimize pulm status - Patient Problems (1) Acute on chronic respiratory failure with hypercapnia Current Visit: Yes Status: Acute (2) Anxiety Current Visit: Yes Status: Acute (3) Atrial fibrillation Current Visit: Yes Status: Acute Qualifiers: Atrial fibrillation type: unspecified Qualified Code(s): I48.91 - Unspecified atrial fibrillation (4) Right middle lobe pulmonary nodule Current Visit: Yes Status: Chronic (5) Acute respiratory failure Current Visit: No Status: Acute Qualifiers: Respiratory failure complication: hypoxia Qualified Code(s): J96.01 - Acute respiratory failure with hypoxia (6) Atrial fibrillation or flutter Current Visit: No Status: Acute (7) COPD (chronic obstructive pulmonary disease) Current Visit: No Status: Acute Qualifiers: COPD type: COPD with acute exacerbation Qualified Code(s): J44.1 - Chronic obstructive pulmonary disease with (acute) exacerbation (8) CAD (coronary artery disease) Current Visit: No Status: Chronic (9) Chronic anticoagulation Current Visit: No Status: Chronic (10) Dyslipidemia Current Visit: No Status: Chronic (11) HTN (hypertension) Current Visit: No Status: Chronic Qualifiers: Hypertension type: essential hypertension Qualified Code(s): I10 - Essential (primary) hypertension Subjective Date of service: 06/26/19 Principal diagnosis: AE-COPD; Ac on ch hypercapnic and hypoxemic resp failure; RML nodule; CHF Interval history: feeling a little better Objective Vital Signs Temp Pulse Pulse Resp Resp BP Pulse Ox 06/26/19 09:12 96 06/26/19 08:58 100 H 18 06/26/19 07:43 98.6 F 104 H 20 156/90 95 06/26/19 02:37 97.8 F 99 H 18 117/59 94 06/25/19 20:53 98 H 18 95 06/25/19 19:25 98.3 F 98 H 18 141/84 93 06/25/19 18:06 113 H 06/25/19 14:47 104 H 06/25/19 14:45 94 H 20 06/25/19 12:38 97.8 F 105 H 20 154/80 97 - Physical Examination General: Appears Well HEENT: Positive: PERRL Neck: Positive: neck supple Neuro: Positive: Grossly Intact Abdomen: Positive: Unremarkable /Rectal: Other (deferred) Skin: Positive: Clear Musculoskeletal: Normal Range of Motion Extremities: Present: normal - Imaging and Cardiology Echo: report reviewed (05/2019: EF 55-60%, mild LVH, mild MR, mild TR) - Allied health notes Allied health notes reviewed: nursing
[2019-06-26] MEDS: ALPRAZolam 1 MG TAB PO PRN ×2 (10:34→21:20)
--- NOTE | 2019-06-26 12:21 | Progress Note ---
Hospitalist Physical - Constitutional Vitals: Temp Pulse Resp BP Pulse Ox 98.6 F 100 H 18 156/90 96 06/26/19 07:43 06/26/19 08:58 06/26/19 08:58 06/26/19 07:43 06/26/19 09:12 General appearance: Present: mild distress Results - Labs CBC & Chem 7: 06/23/19 05:29 06/23/19 05:29 Labs: Laboratory Last Values WBC 4.3 K/mm3 (4.5-11.0) L 06/23/19 05:29 RBC 3.73 M/mm3 (3.65-5.03) 06/23/19 05:29 Hgb 11.9 gm/dl (10.1-14.3) 06/23/19 05:29 Hct 35.9 % (30.3-42.9) 06/23/19 05:29 MCV 96 fl (79-97) 06/23/19 05:29 MCH 32 pg (28-32) 06/23/19 05:29 MCHC 33 % (30-34) 06/23/19 05:29 RDW 13.0 % (13.2-15.2) L 06/23/19 05:29 Plt Count 204 K/mm3 (140-440) 06/23/19 05:29 Lymph % (Auto) 16.7 % (13.4-35.0) 06/23/19 05:29 [place] % (Auto) 2.9 % (0.0-7.3) 06/23/19 05:29 Eos % (Auto) 0.0 % (0.0-4.3) 06/23/19 05:29 Baso % (Auto) 0.3 % (0.0-1.8) 06/23/19 05:29 Lymph # 0.7 K/mm3 (1.2-5.4) L 06/23/19 05:29 [place] # 0.1 K/mm3 (0.0-0.8) 06/23/19 05:29 Eos # 0.0 K/mm3 (0.0-0.4) 06/23/19 05:29 Baso # 0.0 K/mm3 (0.0-0.1) 06/23/19 05:29 Seg Neutrophils % 80.1 % (40.0-70.0) H 06/23/19 05:29 Seg Neutrophils # 3.4 K/mm3 (1.8-7.7) 06/23/19 05:29 POC ABG pH 7.373 (7.35-7.45) 06/22/19 21:06 POC ABG pCO2 61.8 (35-45) H 06/22/19 21:06 POC ABG pO2 77 (80-105) L 06/22/19 21:06 POC ABG HCO3 35.9 (22-26 mml/L) 06/22/19 21:06 POC ABG Total CO2 38 (23-27mmol/L) 06/22/19 21:06 POC ABG O2 Sat 94 06/22/19 21:06 POC ABG Base Excess 11 ((-2) - (+3)mmol/L) 06/22/19 21:06 FiO2 50 % 06/22/19 21:06 Sodium 140 mmol/L (137-145) 06/23/19 05:29 Potassium 4.8 mmol/L (3.6-5.0) 06/23/19 05:29 Chloride 95.0 mmol/L (98-107) L 06/23/19 05:29 Carbon Dioxide 31 mmol/L (22-30) H 06/23/19 05:29 Anion Gap 19 mmol/L 06/23/19 05:29 BUN 17 mg/dL (7-17) 06/23/19 05:29 Creatinine 0.9 mg/dL (0.7-1.2) 06/23/19 05:29 Estimated GFR > 60 ml/min 06/23/19 05:29 BUN/Creatinine Ratio 19 % 06/23/19 05:29 Glucose 175 mg/dL (65-100) H 06/23/19 05:29 Calcium 9.2 mg/dL (8.4-10.2) 06/23/19 05:29 Magnesium 2.30 mg/dL (1.7-2.3) 06/23/19 10:28 Total Bilirubin 0.50 mg/dL (0.1-1.2) 06/23/19 05:29 AST 15 units/L (5-40) 06/23/19 05:29 ALT 11 units/L (7-56) 06/23/19 05:29 Alkaline Phosphatase 90 units/L (35-129) 06/23/19 05:29 Troponin T < 0.010 ng/mL (0.00-0.029) 06/23/19 16:39 NT-Pro-B Natriuret Pep 1380 pg/mL (0-900) H 06/22/19 20:10 Total Protein 5.9 g/dL (6.3-8.2) L 06/23/19 05:29 Albumin 3.6 g/dL (3.9-5) L 06/23/19 05:29 Albumin/Globulin Ratio 1.6 % 06/23/19 05:29 TSH 1.090 mlU/mL (0.270-4.200) 06/23/19 10:28 Digoxin 1.2 ng/mL (0.9-2.0) 06/23/19 10:28 Active Medications - Current Medications Current Medications: Generic Name Dose Route Start Last Admin Trade Name Freq PRN Reason Stop Dose Admin Acetaminophen 650 mg 06/22/19 22:35 Tylenol PO Q4H PRN Pain MILD(1-3)/Fever >100.5/ARAIZA Albuterol/Ipratropium 1 ampul 06/23/19 14:00 06/26/19 08:52 Duoneb *Not For Prn Use* IH 1 ampul Q6HRT JO Administration Alprazolam 1 mg 06/22/19 22:37 06/26/19 10:34 Xanax PO 1 mg TID PRN Administration Anxiety Apixaban 5 mg 06/23/19 10:00 06/26/19 10:07 Eliquis PO 5 mg BID JO Administration Protocol Aspirin 81 mg 06/23/19 10:00 06/26/19 10:06 Baby Aspirin PO 81 mg QDAY JO Administration Atorvastatin Calcium 20 mg 06/23/19 22:00 06/25/19 22:02 Lipitor PO 20 mg QHS JO Administration Digoxin 0.125 mg 06/23/19 17:00 06/25/19 18:06 Lanoxin PO 0.125 mg DAILY@1700 JO Administration Duloxetine HCl 30 mg 06/23/19 10:00 06/26/19 10:05 Cymbalta PO 30 mg QDAY JO Administration Fish Oil 1,000 mg 06/23/19 10:00 06/26/19 10:05 Fish Oil PO 1,000 mg BID JO Administration Furosemide 20 mg 06/23/19 10:00 06/26/19 10:06 Lasix PO 20 mg QDAY JO Administration Ipratropium [place] 0.5 mg 06/23/19 02:00 06/24/19 16:40 Atrovent IH Not Given Q6HRT [facility] Isosorbide Mononitrate 120 mg 06/23/19 10:00 06/26/19 10:05 Imdur PO 120 mg QDAY JO Administration Levothyroxine Sodium 100 mcg 06/23/19 06:00 06/26/19 05:13 Synthroid PO 100 mcg DAILY@0600 [facility] Administration Lisinopril 10 mg 06/23/19 10:00 06/26/19 10:07 Zestril PO 10 mg DAILY [facility] Administration Loratadine 10 mg 06/23/19 10:00 06/26/19 10:06 Claritin PO 10 mg DAILY [facility] Administration Lorazepam 1 mg 06/23/19 00:20 Ativan IV Q4H PRN Anxiety Methylprednisolone Sodium Succinate 40 mg 06/23/19 10:15 06/26/19 05:13 Solu-Medrol IV 40 mg Q8HR JO Administration Mirtazapine 45 mg 06/23/19 22:00 06/25/19 22:01 Remeron PO 45 mg QHS JO Administration Miscellaneous Medication 25 mg 06/23/19 10:00 Naloxegol Oxalate [Movantik] PO DAILY [facility] Miscellaneous Medication 1 each 06/25/19 10:00 06/26/19 10:06 Non-Formulary PO 1 each QDAY JO Administration Miscellaneous Medication 1 each 06/25/19 10:00 06/26/19 10:05 Non-Formulary PO 1 each QDAY JO Administration Miscellaneous Medication 1 each 06/24/19 22:00 06/26/19 10:05 Non-Formulary PO 1 each BID JO Administration Nitroglycerin 0.4 mg 06/23/19 00:21 Nitrostat SL Q5M PRN Chest Pain Ondansetron HCl 4 mg 06/22/19 22:35 Zofran IV Q8H PRN Nausea And Vomiting Oxycodone HCl 2.5 mg 06/23/19 00:43 Roxicodone PO Q6H PRN Pain, Moderate (4-6) Oxycodone/Acetaminophen 1 tab 06/23/19 00:44 Percocet 5/325 PO Q6HR PRN Pain, Moderate (4-6) Pantoprazole Sodium 40 mg 06/23/19 10:00 06/26/19 10:06 Protonix PO 40 mg QDAY JO Administration Potassium Chloride 20 meq 06/23/19 10:00 06/26/19 10:05 Potassium Chloride PO 20 meq DAILY JO Administration Prednisone 2.5 mg 06/23/19 10:00 06/26/19 10:07 Deltasone PO 2.5 mg QDAY JO Administration Sodium Chloride 10 ml 06/23/19 10:00 06/25/19 22:02 Sodium Chloride Flush Syringe 10 Ml IV 10 ml BID JO Administration Sodium Chloride 10 ml 06/22/19 22:35 06/25/19 15:14 Sodium Chloride Flush Syringe 10 Ml IV 10 ml PRN PRN Administration LINE FLUSH Verapamil HCl 240 mg 06/23/19 10:00 06/26/19 10:05 Calan Sr PO 240 mg DAILY JO Administration Nutrition/Malnutrition Assess - Dietary Evaluation Nutrition/Malnutrition Findings: Nutrition Notes Start: 06/23/19 11:09 Freq: Status: Active Protocol: Document 06/25/19 12:58 LM (Rec: 06/25/19 13:01 LM [id number]) Nutrition Notes Initial or Follow up Brief Note Subjective/Other Information Pt ate all of breakfast this AM. Percent of energy/protein needs met: 100%/100% #1 Nutrition Diagnosis Inadequate oral intake Diagnosis Progress(for reassessment Resolved documentation) Nutrition Intervention Revisit per MD consult or patient Sign Off request:
--- NOTE | 2019-06-26 13:33 | Progress Note ---
Assessment and Plan COPD with acute exacerbation Acute on chronic hypercapnic and hypoxemic respiratory failure Right middle lobe pulmonary nodule Atrial fibrillation CHF (congestive heart failure) HTN (hypertension) Hypothyroidism - continue supplemental oxygen as needed to keep O2 sat's > 90% (on 4L NC) - prn BIPAP support - continue bronchodilators (HEAVENLY & LABA) with pulmonary hygiene per RT - continue systemic steroids with slow taper (tapered to 40mg IV q12h) - continue ICS - continue anticoagulation with Eliquis for A-fib - rate control per cardiology team - consider empiric CAP directed antibiotics for severe COPD exacerbation - PT/OT as tolerated - mobility protocols for pressure ulcer prophylaxis - GI prophylaxis with pantoprazole - tobacco abstinence strongly counseled at bedside - Flu & Pneumovax addressed per protocol .... re-evaluate in am & prn Subjective Date of service: 06/26/19 Principal diagnosis: AE-COPD; Ac on ch hypercapnic and hypoxemic resp failure; RML nodule; CHF Interval history: Patient is seen today for: AE-COPD; Acute on chronic hypercapnic and hypoxemic respiratory failure; Right middle lobe pulmonary nodule; Atrial fibrillation; CHF (congestive heart failure); HTN (hypertension); Hypothyroidism Seen and examined at bedside; 24hour events reviewed; nursing and respiratory care staff consulted; no adverse overnight events reported to me; resting peacefuly in bed; remains on supplemental oxygen; began PT/OT today; NO N/V/F/C; no chest pains or palpitations Objective Vital Signs - 12hr 06/26/19 06/26/19 06/26/19 02:37 07:43 08:58 Temperature 97.8 F 98.6 F Pulse Rate 99 H 104 H Pulse Rate [ 100 H Bilateral] Respiratory 18 20 Rate Respiratory 18 Rate [Bilateral ] Blood Pressure 117/59 156/90 O2 Sat by Pulse 94 95 Oximetry 06/26/19 06/26/19 09:12 13:15 Temperature 97.8 F Pulse Rate 100 H Pulse Rate [ Bilateral] Respiratory 22 Rate Respiratory Rate [Bilateral ] Blood Pressure 144/67 O2 Sat by Pulse 96 93 Oximetry Constitutional: alert, other (elderly looking obese female normocephalic with mildly increased resp effort at rest) Eyes: non-icteric ENT: oropharynx moist, other (Mallampati 3) Neck: supple, no lymphadenopathy, no JVD Effort: mildly labored Ascultation: Bilateral: diminished breath sounds, rhonchi, other (Prolonged expiratory phase.) Percussion: Bilateral: not dull Cardiovascular: irregular rhythm Gastrointestinal: normoactive bowel sounds, soft, non-tender, non-distended Integumentary: normal Extremities: no cyanosis, no edema, pink and warm, pulses normal, no ischemia or petechiae Neurologic: normal mental status, non-focal exam (grossly), pupils equal and round, CN II-XII normal, motor strength normal and Psychiatric: mood appropriate, affect normal CBC and BMP: 06/23/19 05:29 06/23/19 05:29 ABG, PT/INR, D-dimer: ABG POC ABG pH 7.373 (7.35-7.45) 06/22/19 21:06 POC ABG pCO2 61.8 (35-45) H 06/22/19 21:06 POC ABG pO2 77 (80-105) L 06/22/19 21:06 POC ABG HCO3 35.9 (22-26 mml/L) 06/22/19 21:06 POC ABG Total CO2 38 (23-27mmol/L) 06/22/19 21:06 POC ABG O2 Sat 94 06/22/19 21:06 Abnormal lab findings: Abnormal Labs 06/22/19 06/22/19 06/22/19 20:10 20:10 20:10 WBC RDW 12.8 L Lymph # Seg Neutrophils % POC ABG pCO2 POC ABG pO2 Chloride 95.0 L Carbon Dioxide Glucose 124 H NT-Pro-B Natriuret Pep 1380 H Total Protein 6.1 L Albumin 3.7 L 06/22/19 06/23/19 06/23/19 21:06 05:29 05:29 WBC 4.3 L RDW 13.0 L Lymph # 0.7 L Seg Neutrophils % 80.1 H POC ABG pCO2 61.8 H POC ABG pO2 77 L Chloride 95.0 L Carbon Dioxide 31 H Glucose 175 H NT-Pro-B Natriuret Pep Total Protein 5.9 L Albumin 3.6 L Allied health notes reviewed: nursing
[2019-06-26] MEDS: DIGOXIN 0.125 MG TAB PO SCH (16:53)
[2019-06-26] MEDS: MIRTAZAPINE 15 MG TAB PO SCH (21:20)
[2019-06-26] MEDS: BUDESONIDE 0.5 MG/2 ML NEBU IH SCH (23:52)
[2019-06-26] MEDS: ARFORMOTEROL 15 MCG/2 ML NEBU IH SCH (23:52)
[2019-06-27] MEDS: methylPREDNISolone Sod Succinate 40 MG/1 ML INJ IV SCH (04:14)
[2019-06-27] MEDS: ARFORMOTEROL 15 MCG/2 ML NEBU IH SCH (09:03)
[2019-06-27] MEDS: IPRATROPIUM/ALBUTEROL SULFATE 3 ML AMPUL.NEB IH SCH ×3 (09:03→13:00)
[2019-06-27] MEDS: BUDESONIDE 0.5 MG/2 ML NEBU IH SCH (09:03)
[2019-06-27] MEDS: INCRUSE ELLIPTA PO SCH (09:34)
[2019-06-27] MEDS: LINZESS 290 MCG CAPSULE PO SCH (09:34)
[2019-06-27] MEDS: ADVAIR PO SCH (09:34)
[2019-06-27] MEDS: VERAPAMIL ER 240 MG TAB PO SCH (09:35)
[2019-06-27] MEDS: predniSONE 5 MG TAB PO SCH (09:35)
[2019-06-27] MEDS: LISINOPRIL 10 MG TAB PO SCH (09:36)
[2019-06-27] MEDS: DULoxetine 30 MG CAP PO SCH (09:36)
[2019-06-27] MEDS: FUROSEMIDE 20 MG TAB PO SCH (09:37)
[2019-06-27] MEDS: POTASSIUM CHLORIDE 20 MEQ PACKET PO SCH (09:37)
[2019-06-27] MEDS: LORATADINE (NF) 10 MG TAB PO SCH (09:37)
[2019-06-27] MEDS: ASPIRIN 81 MG TAB CHEW PO SCH (09:37)
[2019-06-27] MEDS: APIXABAN 5 MG TAB PO SCH (09:37)
[2019-06-27] MEDS: PANTOPRAZOLE 40 MG TAB PO SCH (09:37)
[2019-06-27] MEDS: OMEGA-3 FATTY ACIDS/FISH OIL 1 GRAM CAP PO SCH (09:43)
[2019-06-27] MEDS: ALPRAZolam 1 MG TAB PO PRN (09:43)
--- NOTE | 2019-06-27 12:52 | Discharge Summary ---
Providers - Providers Date of Admission: 06/22/19 22:35 Attending physician: ROB LOMBARDO MD 06/23/19 08:47 Physical Therapy Evaluation and Treat [CONS] Routine Comment: Reason For Exam: weakness 06/23/19 10:05 Consult to Physician [CONS] Routine Comment: spoke to dr/ cassi Consulting Provider: MAC BEY Physician Instructions: Reason For Exam: afib 06/23/19 10:14 Consult to Physician [CONS] Routine Comment: called office/ cassi Consulting Provider: ANNIE PACHECO Physician Instructions: Reason For Exam: copd Primary care physician: PAOLA GUERRA MD Hospitalization Condition: Stable Exam - Constitutional Vitals: Temp Pulse Resp BP Pulse Ox 97.7 F 94 H 18 148/93 93 06/27/19 07:35 06/27/19 09:36 06/27/19 09:23 06/27/19 09:36 06/27/19 09:23 Plan Follow up with: PAOLA GUERRA MD [Primary Care Provider] - 7 Days
--- NOTE | 2019-06-27 13:24 | Progress Note ---
Assessment and Plan stable from cardiac perspective no changes today - Patient Problems (1) Acute on chronic respiratory failure with hypercapnia Current Visit: Yes Status: Acute (2) Anxiety Current Visit: Yes Status: Acute (3) Atrial fibrillation Current Visit: Yes Status: Acute Qualifiers: Atrial fibrillation type: unspecified Qualified Code(s): I48.91 - Unspecified atrial fibrillation (4) Right middle lobe pulmonary nodule Current Visit: Yes Status: Chronic (5) Acute respiratory failure Current Visit: No Status: Acute Qualifiers: Respiratory failure complication: hypoxia Qualified Code(s): J96.01 - Acute respiratory failure with hypoxia (6) Atrial fibrillation or flutter Current Visit: No Status: Acute (7) COPD (chronic obstructive pulmonary disease) Current Visit: No Status: Acute Qualifiers: COPD type: COPD with acute exacerbation Qualified Code(s): J44.1 - Chronic obstructive pulmonary disease with (acute) exacerbation (8) CAD (coronary artery disease) Current Visit: No Status: Chronic (9) Chronic anticoagulation Current Visit: No Status: Chronic (10) Dyslipidemia Current Visit: No Status: Chronic (11) HTN (hypertension) Current Visit: No Status: Chronic Qualifiers: Hypertension type: essential hypertension Qualified Code(s): I10 - Essential (primary) hypertension Subjective Principal diagnosis: AE-COPD; Ac on ch hypercapnic and hypoxemic resp failure; RML nodule; CHF Interval history: feels a lot better today Objective Vital Signs Temp Pulse Pulse Resp Resp BP Pulse Ox 06/27/19 13:00 121 H 18 06/27/19 09:36 94 H 148/93 06/27/19 09:35 94 H 148/93 06/27/19 09:23 115 H 18 93 06/27/19 07:35 97.7 F 94 H 20 148/93 94 06/27/19 02:46 97.7 F 86 20 137/79 96 06/26/19 23:54 104 H 18 06/26/19 22:00 104 H 98 06/26/19 20:24 98.6 F 94 H 18 150/82 94 06/26/19 16:53 100 H 06/26/19 14:10 96 H 18 - Physical Examination General: Appears Well HEENT: Positive: PERRL Neck: Positive: neck supple Neuro: Positive: Grossly Intact Abdomen: Positive: Unremarkable /Rectal: Other (deferred) Skin: Positive: Clear Musculoskeletal: Normal Range of Motion Extremities: Present: normal - Imaging and Cardiology Echo: report reviewed (05/2019: EF 55-60%, mild LVH, mild MR, mild TR) - Allied health notes Allied health notes reviewed: nursing
--- NOTE | 2019-06-27 14:53 | Progress Note ---
Assessment and Plan COPD with acute exacerbation Acute on chronic hypercapnic and hypoxemic respiratory failure Right middle lobe pulmonary nodule Atrial fibrillation CHF (congestive heart failure) HTN (hypertension) Hypothyroidism - continue supplemental oxygen as needed to keep O2 sat's > 90% (on 4L NC) - continue bronchodilators (HEAVENLY & LABA) with pulmonary hygiene per RT - continue systemic steroids with slow taper (tapered to oral Prednisone) - continue ICS - continue anticoagulation with Eliquis for A-fib - rate control per cardiology team - consider empiric CAP directed antibiotics for severe COPD exacerbation - PT/OT as tolerated - mobility protocols for pressure ulcer prophylaxis - GI prophylaxis with pantoprazole - tobacco abstinence strongly counseled at bedside - Flu & Pneumovax addressed per protocol - discharge planning ongoing concurrently .... re-evaluate in am & prn Subjective Date of service: 06/27/19 Principal diagnosis: AE-COPD; Ac on ch hypercapnic and hypoxemic resp failure; RML nodule; CHF Interval history: Patient is seen today for: AE-COPD; Acute on chronic hypercapnic and hypoxemic respiratory failure; Right middle lobe pulmonary nodule; Atrial fibrillation; CHF (congestive heart failure); HTN (hypertension); Hypothyroidism Seen and examined at bedside; 24hour events reviewed; nursing and respiratory care staff consulted; no adverse overnight events reported to me; resting peacefuly in bed; feels better; remains on supplemental oxygen; ready to go home Objective Vital Signs - 12hr 06/27/19 06/27/19 06/27/19 07:35 09:23 09:35 Temperature 97.7 F Pulse Rate 94 H 94 H Pulse Rate [ 115 H Bilateral] Respiratory 20 Rate Respiratory 18 Rate [Bilateral ] Blood Pressure 148/93 148/93 O2 Sat by Pulse 94 93 Oximetry 06/27/19 06/27/19 09:36 13:00 Temperature Pulse Rate 94 H Pulse Rate [ 121 H Bilateral] Respiratory Rate Respiratory 18 Rate [Bilateral ] Blood Pressure 148/93 O2 Sat by Pulse Oximetry Constitutional: alert, other (elderly looking obese female normocephalic with mildly increased resp effort at rest) Eyes: non-icteric ENT: oropharynx moist, other (Mallampati 3) Neck: supple, no lymphadenopathy, no JVD Effort: mildly labored Ascultation: Bilateral: diminished breath sounds, rhonchi, other (Prolonged expiratory phase.) Percussion: Bilateral: not dull Cardiovascular: irregular rhythm Gastrointestinal: normoactive bowel sounds, soft, non-tender, non-distended Integumentary: normal Extremities: no cyanosis, no edema, pink and warm, pulses normal, no ischemia or petechiae Neurologic: normal mental status, non-focal exam (grossly), pupils equal and round, CN II-XII normal, motor strength normal and Psychiatric: mood appropriate, affect normal CBC and BMP: 06/23/19 05:29 06/23/19 05:29 ABG, PT/INR, D-dimer: ABG POC ABG pH 7.373 (7.35-7.45) 06/22/19 21:06 POC ABG pCO2 61.8 (35-45) H 06/22/19 21:06 POC ABG pO2 77 (80-105) L 06/22/19 21:06 POC ABG HCO3 35.9 (22-26 mml/L) 06/22/19 21:06 POC ABG Total CO2 38 (23-27mmol/L) 06/22/19 21:06 POC ABG O2 Sat 94 06/22/19 21:06 Abnormal lab findings: Abnormal Labs 06/22/19 06/22/19 06/22/19 20:10 20:10 20:10 WBC RDW 12.8 L Lymph # Seg Neutrophils % POC ABG pCO2 POC ABG pO2 Chloride 95.0 L Carbon Dioxide Glucose 124 H NT-Pro-B Natriuret Pep 1380 H Total Protein 6.1 L Albumin 3.7 L 06/22/19 06/23/19 06/23/19 21:06 05:29 05:29 WBC 4.3 L RDW 13.0 L Lymph # 0.7 L Seg Neutrophils % 80.1 H POC ABG pCO2 61.8 H POC ABG pO2 77 L Chloride 95.0 L Carbon Dioxide 31 H Glucose 175 H NT-Pro-B Natriuret Pep Total Protein 5.9 L Albumin 3.6 L Allied health notes reviewed: nursing
[2019-06-27] MEDS ORDERED: predniSONE 5 MG TAB PO SCH (14:54)
[2019-06-27] MEDS ORDERED: predniSONE 20 MG TAB PO SCH (16:00)
[2019-06-27 16:37] VITALS: BP 147/72
== END 2019-06-27 14:40 | disposition home or self-care (01) | DRG 291 ==
LOC: ED 18:16 → 2B-ACE 22:35
PROVIDERS: ADMIT Internal Medicine; ATTEND Internal Medicine
PROC: 4A033R1 Measurement of Arterial Saturation, Peripheral, Percutaneous Approach (ICD-10-PCS; principal; 2019-06-22)
DX: I11.0 Hypertensive heart disease with heart failure (principal); J96.21 Acute and chronic respiratory failure with hypoxia; J96.22 Acute and chronic respiratory failure with hypercapnia; I48.92 Unspecified atrial flutter; D68.59 Other primary thrombophilia; I50.33 Acute on chronic diastolic (congestive) heart failure; I48.91 Unspecified atrial fibrillation; J43.9 Emphysema, unspecified; R91.1 Solitary pulmonary nodule; E78.5 Hyperlipidemia, unspecified; E03.9 Hypothyroidism, unspecified; M19.90 Unspecified osteoarthritis, unspecified site; I25.118 Atherosclerotic heart disease of native coronary artery with other forms of angina pectoris; F41.9 Anxiety disorder, unspecified; Z79.01 Long term (current) use of anticoagulants; Z82.49 Family history of ischemic heart disease and other diseases of the circulatory system; Z79.899 Other long term (current) drug therapy; Z79.82 Long term (current) use of aspirin; Z99.81 Dependence on supplemental oxygen; Z86.73 Personal history of transient ischemic attack (TIA), and cerebral infarction without residual deficits; Z87.442 Personal history of urinary calculi
CPT/HCPCS: 36415; 71045; 71275; 80053; 80162; 82803; 83735; 83880; 84443; 84484; 85025; 85027; 93005; 93010; 93306; 93970; 94640; 94644; 94760; G0378; A9270-GY; J2920; J3475; J7512; Q9967

== ENCOUNTER 2019-07-10 14:09 | Inpatient (IN) | payer MEDICARE, OTHER ==
--- NOTE | 2019-07-10 14:41 | Emergency Department Report ---
ED Shortness of Breath HPI - General Stated Complaint: CHEST PAIN/SOB Time Seen by Provider: 07/10/19 14:31 Source: patient, EMS Mode of arrival: Stretcher Limitations: Physical Limitation - History of Present Illness Initial Comments: Patient is a 69-year-old female that presents emergency room with complaints of chest pain or shortness of breath. Patient states her chest pain was a 9 out of 10 when EMS picked her up but after the medications the patient states her chest pain is now a 7 out of 10. Patient states her chest pain is a throbbing pain in the center of her chest and is nonradiating. Patient states that her pain is better with medications, rest. Patient states her pain is worse with exertion, movement, lying flat. Patient states she has a history of CHF, A. fib, hypertension, COPD. Patient states her chest pain shortness of breath been going on for 2 days. Report received from EMS. EMS states that the patient's initial blood pressure was 210/120 and then reduced to 140/73 after she was given meds. EMS states they gave her Lasix 40 mg, aspirin 324 mg, 4 mg of morphine, 3 nitroglycerin. EMS states the patient's oxygen saturation was 83% and then after the medications and oxygen increased to 95%. MD Complaint: shortness of breath, cough, chest pain, pain with inspiration -: Sudden Severity: severe Pain Scale: 7 Quality: throbbing Consistency: constant Improves With: oxygen, rest, upright position Worsens With: lying flat, exertion, movement, coughing, inspiration Known History Of: COPD, congestive heart failure Associated Symptoms: chest pain, pain with inspiration, cough Treatments Prior to Arrival: oxygen, asprin, nitroglycerin, diuretics, other (4 mg of morphine) - Related Data Home Oxygen Therapy: No Home Medications Medication Instructions Recorded Confirmed Last Taken ALBUTEROL Inhaler (OR & NICU) 2 puff IH QID PRN 06/22/19 06/23/19 Unknown [ProAir HFA Inhaler] Apixaban [Eliquis] 5 mg PO BID 06/22/19 06/23/19 Unknown Aspirin [Aspirin BABY CHEW TAB] 81 mg PO QDAY 06/22/19 06/22/19 Unknown AtorvaSTATin [Lipitor] 20 mg PO QHS 06/22/19 06/23/19 Unknown DULoxetine [Cymbalta] 30 mg PO DAILY 06/22/19 06/22/19 Unknown Desloratadine [Clarinex] 5 mg PO DAILY 06/22/19 06/23/19 Unknown Fluticasone/Salmeterol [Advair 1 puff IH BID 06/22/19 06/22/19 Unknown Diskus 500-50 mcg] Mirtazapine [Remeron 45mg TAB] 45 mg PO DAILY 06/22/19 06/22/19 Unknown Nitroglycerin [Nitrostat] 0.4 mg SL Q5M PRN 06/22/19 06/23/19 Unknown Norlina-3 Acid Ethyl Esters [Lovaza] 1 gm PO BID 06/22/19 06/23/19 Unknown Oxycodone HCl/Acetaminophen 1 each PO Q6HR PRN 06/22/19 06/23/19 Unknown [Percocet 7.5/325 mg] Pantoprazole [Protonix TAB] 40 mg PO QDAY 06/22/19 06/22/19 Unknown Umeclidinium [place] [Incruse 62.5 mcg IH DAILY 06/22/19 06/22/19 Unknown Ellipta 62.5MCG] Verapamil ER [Calan SR] 240 mg PO DAILY 06/22/19 06/23/19 Unknown Linaclotide [Linzess] 290 mcg DAILY 06/23/19 06/23/19 06/22/19 10:00 Previous Rx's Medication Instructions Recorded Last Taken Type ALPRAZolam [Xanax TAB] 1 mg PO TID PRN #90 tablet 03/02/16 08/27/17 Rx AtorvaSTATin [Lipitor] 20 mg PO QHS tablet 06/27/19 Unknown Rx DULoxetine [Cymbalta] 30 mg PO QDAY capsule 06/27/19 Unknown Rx Digoxin [Lanoxin] 0.125 mg PO DAILY@1700 tablet 06/27/19 Unknown Rx Furosemide [Lasix TAB] 20 mg PO QDAY tablet 06/27/19 Unknown Rx ISOSORBIDE MONOnitrate [Imdur ER] 120 mg PO QDAY tablet 06/27/19 Unknown Rx Levothyroxine [Synthroid] 100 mcg PO DAILY@0600 tablet 06/27/19 Unknown Rx Lisinopril [Zestril TAB] 10 mg PO DAILY tablet 06/27/19 Unknown Rx Loratadine (Nf) [Claritin (Nf)] 10 mg PO DAILY tablet 06/27/19 Unknown Rx Mirtazapine [Remeron 15mg TAB] 45 mg PO QHS tablet 06/27/19 Unknown Rx Naloxegol Oxalate [Movantik] 25 mg PO DAILY 06/27/19 Unknown Rx Norlina-3 Fatty Acids/Fish Oil [Fish 1,000 mg PO BID capsule 06/27/19 Unknown Rx Oil] Pantoprazole [Protonix TAB] 40 mg PO QDAY tablet 06/27/19 Unknown Rx Potassium Chloride 20 meq PO DAILY packet 06/27/19 Unknown Rx predniSONE [Deltasone] 10 mg PO .TAPER #48 tab 06/27/19 Unknown Rx Allergies Allergy/AdvReac Type Severity Reaction Status Date / Time adhesive Allergy Hives Verified 04/13/19 12:44 amlodipine besylate Allergy Anaphylaxis Verified 04/13/19 12:44 [From Norvasc] diltiazem Allergy Anaphylaxis Verified 04/13/19 12:44 diltiazem HCl [From Cardizem] Allergy Anaphylaxis Verified 04/13/19 12:44 Renexa Allergy Unknown Uncoded 08/13/16 09:41 ED Review of Systems ROS: Stated complaint: CHEST PAIN/SOB Other details as noted in HPI Constitutional: denies: chills, fever Eyes: denies: eye pain, eye discharge, vision change ENT: denies: ear pain, throat pain Respiratory: cough, shortness of breath, SOB with exertion, SOB at rest Cardiovascular: chest pain, dyspnea on exertion. denies: palpitations Endocrine: no symptoms reported Gastrointestinal: denies: abdominal pain, nausea, diarrhea Genitourinary: denies: urgency, dysuria, discharge Musculoskeletal: denies: back pain, joint swelling, arthralgia Skin: denies: rash, lesions Neurological: denies: headache, weakness, paresthesias Psychiatric: denies: anxiety, depression Hematological/Lymphatic: denies: easy bleeding, easy bruising ED Past Medical Hx - Past Medical History Previous Medical History?: Yes Hx Hypertension: Yes Hx CVA: Yes Hx Congestive Heart Failure: Yes Hx Arthritis: Yes Hx Kidney Stones: Yes Hx Psychiatric Treatment: Yes (anxiety) Hx COPD: Yes Additional medical history: emphysema, bronchitis, A. Fib; MVP; aneurysm- coil on right side of head, Home oxygen @ 2lpm nasal cannula - Surgical History Hx Breast Surgery: Yes (bilateral breast biopsy benign) Additional Surgical History: tonsillectomy, cerebral aneurysm coil, hysterectomy , hemorrhoid surgery, bilateral benign breast biopsies - Social History Smoking Status: Former Smoker - Medications Home Medications: Home Medications Medication Instructions Recorded Confirmed Last Taken Type ALPRAZolam [Xanax TAB] 1 mg PO TID PRN #90 tablet 03/02/16 06/22/19 08/27/17 Rx ALBUTEROL Inhaler (OR & NICU) 2 puff IH QID PRN 06/22/19 06/23/19 Unknown History [ProAir HFA Inhaler] Apixaban [Eliquis] 5 mg PO BID 06/22/19 06/23/19 Unknown History Aspirin [Aspirin BABY CHEW TAB] 81 mg PO QDAY 06/22/19 06/22/19 Unknown History AtorvaSTATin [Lipitor] 20 mg PO QHS 06/22/19 06/23/19 Unknown History DULoxetine [Cymbalta] 30 mg PO DAILY 06/22/19 06/22/19 Unknown History Desloratadine [Clarinex] 5 mg PO DAILY 06/22/19 06/23/19 Unknown History Fluticasone/Salmeterol [Advair 1 puff IH BID 06/22/19 06/22/19 Unknown History Diskus 500-50 mcg] Mirtazapine [Remeron 45mg TAB] 45 mg PO DAILY 06/22/19 06/22/19 Unknown History Nitroglycerin [Nitrostat] 0.4 mg SL Q5M PRN 06/22/19 06/23/19 Unknown History [place]-3 Acid Ethyl Esters [Lovaza] 1 gm PO BID 06/22/19 06/23/19 Unknown History Oxycodone HCl/Acetaminophen 1 each PO Q6HR PRN 06/22/19 06/23/19 Unknown History [Percocet 7.5/325 mg] Pantoprazole [Protonix TAB] 40 mg PO QDAY 06/22/19 06/22/19 Unknown History Umeclidinium [place] [Incruse 62.5 mcg IH DAILY 06/22/19 06/22/19 Unknown History Ellipta 62.5MCG] Verapamil ER [Calan SR] 240 mg PO DAILY 06/22/19 06/23/19 Unknown History Linaclotide [Linzess] 290 mcg DAILY 06/23/19 06/23/19 06/22/19 10:00 History AtorvaSTATin [Lipitor] 20 mg PO QHS tablet 06/27/19 Unknown Rx DULoxetine [Cymbalta] 30 mg PO QDAY capsule 06/27/19 Unknown Rx Digoxin [Lanoxin] 0.125 mg PO DAILY@1700 tablet 06/27/19 Unknown Rx Furosemide [Lasix TAB] 20 mg PO QDAY tablet 06/27/19 Unknown Rx ISOSORBIDE MONOnitrate [Imdur ER] 120 mg PO QDAY tablet 06/27/19 Unknown Rx Levothyroxine [Synthroid] 100 mcg PO DAILY@0600 tablet 06/27/19 Unknown Rx Lisinopril [Zestril TAB] 10 mg PO DAILY tablet 06/27/19 Unknown Rx Loratadine (Nf) [Claritin (Nf)] 10 mg PO DAILY tablet 06/27/19 Unknown Rx Mirtazapine [Remeron 15mg TAB] 45 mg PO QHS tablet 06/27/19 Unknown Rx Naloxegol Oxalate [Movantik] 25 mg PO DAILY 06/27/19 Unknown Rx [place]-3 Fatty Acids/Fish Oil [Fish 1,000 mg PO BID capsule 06/27/19 Unknown Rx Oil] Pantoprazole [Protonix TAB] 40 mg PO QDAY tablet 06/27/19 Unknown Rx Potassium Chloride 20 meq PO DAILY packet 06/27/19 Unknown Rx predniSONE [Deltasone] 10 mg PO .TAPER #48 tab 06/27/19 Unknown Rx ED Physical Exam - General Limitations: No Limitations General appearance: alert, in distress - Head Head exam: Present: atraumatic, normocephalic - Eye Eye exam: Present: normal appearance, PERRL, EOMI Pupils: Present: normal accommodation - ENT ENT exam: Present: mucous membranes dry - Neck Neck exam: Present: normal inspection, full ROM. Absent: tenderness, meningismus - Respiratory Respiratory exam: Present: respiratory distress, wheezes, rales - Cardiovascular Cardiovascular Exam: Present: regular rate, normal rhythm. Absent: systolic murmur, diastolic murmur, rubs, gallop - GI/Abdominal GI/Abdominal exam: Present: soft, normal bowel sounds - Rectal Rectal exam: Present: deferred - Extremities Exam Extremities exam: Present: normal inspection - Back Exam Back exam: Present: normal inspection - Neurological Exam Neurological exam: Present: alert, oriented X3 - Psychiatric Psychiatric exam: Present: normal affect, normal mood - Skin Skin exam: Present: warm, dry, intact, normal color. Absent: rash ED Course Vital Signs 07/10/19 07/10/19 07/10/19 14:44 14:45 15:00 Pulse Rate 89 95 H 91 H Pulse Rate [ Anterior Bilateral Throughout] Pulse Rate [ Anterior Bilateral Upper Lobe] Respiratory 23 19 20 Rate Respiratory Rate [Anterior Bilateral Throughout] Respiratory Rate [Anterior Bilateral Upper Lobe] Blood Pressure 140/75 119/75 Blood Pressure [Right] O2 Sat by Pulse 100 100 92 Oximetry 07/10/19 07/10/19 07/10/19 15:15 15:30 15:41 Pulse Rate 89 95 H 92 H Pulse Rate [ Anterior Bilateral Throughout] Pulse Rate [ Anterior Bilateral Upper Lobe] Respiratory 22 21 18 Rate Respiratory Rate [Anterior Bilateral Throughout] Respiratory Rate [Anterior Bilateral Upper Lobe] Blood Pressure 130/72 130/74 130/74 Blood Pressure 130/74 [Right] O2 Sat by Pulse 88 84 100 Oximetry 07/10/19 07/10/19 07/10/19 15:45 16:01 16:15 Pulse Rate 87 91 H 95 H Pulse Rate [ Anterior Bilateral Throughout] Pulse Rate [ Anterior Bilateral Upper Lobe] Respiratory 16 19 18 Rate Respiratory Rate [Anterior Bilateral Throughout] Respiratory Rate [Anterior Bilateral Upper Lobe] Blood Pressure 130/74 130/74 130/74 Blood Pressure [Right] O2 Sat by Pulse 100 100 100 Oximetry 07/10/19 07/10/19 07/10/19 16:31 16:45 17:01 Pulse Rate 91 H 92 H 81 Pulse Rate [ Anterior Bilateral Throughout] Pulse Rate [ Anterior Bilateral Upper Lobe] Respiratory 18 21 16 Rate Respiratory Rate [Anterior Bilateral Throughout] Respiratory Rate [Anterior Bilateral Upper Lobe] Blood Pressure 130/74 130/74 130/74 Blood Pressure [Right] O2 Sat by Pulse 100 100 100 Oximetry 07/10/19 07/10/19 07/10/19 17:15 17:31 17:45 Pulse Rate 90 86 90 Pulse Rate [ Anterior Bilateral Throughout] Pulse Rate [ Anterior Bilateral Upper Lobe] Respiratory 13 18 22 Rate Respiratory Rate [Anterior Bilateral Throughout] Respiratory Rate [Anterior Bilateral Upper Lobe] Blood Pressure 130/74 130/74 130/74 Blood Pressure [Right] O2 Sat by Pulse 97 99 99 Oximetry 1207/10/19 07/10/19 18:01 18:15 18:31 Pulse Rate 90 100 H 79 Pulse Rate [ Anterior Bilateral Throughout] Pulse Rate [ Anterior Bilateral Upper Lobe] Respiratory 11 L 15 17 Rate Respiratory Rate [Anterior Bilateral Throughout] Respiratory Rate [Anterior Bilateral Upper Lobe] Blood Pressure 130/74 130/74 109/63 Blood Pressure [Right] O2 Sat by Pulse 100 98 97 Oximetry 07/10/19 07/10/19 07/10/19 18:45 19:00 19:30 Pulse Rate 89 81 89 Pulse Rate [ Anterior Bilateral Throughout] Pulse Rate [ Anterior Bilateral Upper Lobe] Respiratory 16 16 14 Rate Respiratory Rate [Anterior Bilateral Throughout] Respiratory Rate [Anterior Bilateral Upper Lobe] Blood Pressure 122/56 122/56 116/57 Blood Pressure [Right] O2 Sat by Pulse 98 99 99 Oximetry 07/10/19 07/10/19 20:00 20:22 Pulse Rate 86 Pulse Rate [ 78 Anterior Bilateral Throughout] Pulse Rate [ 85 Anterior Bilateral Upper Lobe] Respiratory 17 Rate Respiratory 14 Rate [Anterior Bilateral Throughout] Respiratory 14 Rate [Anterior Bilateral Upper Lobe] Blood Pressure 126/77 Blood Pressure [Right] O2 Sat by Pulse 98 Oximetry - Reevaluation(s) Reevaluation #1: Initial evaluation done. Patient is having increased work of breathing placed on BiPAP. Patient states her pain is improving. O2 sat is 98% 07/10/19 14:32 Reevaluation #2: Patient's oxygen is 100% and is doing better on BiPAP. Patient's work of breathing is decreased. Patient states her pain has resolved with BiPAP. 07/10/19 15:22 Reevaluation #3: Patient status wheezing for lung sounds. 07/10/19 16:01 Reevaluation #4: Patient's lung sounds are clear. Patient states she is feeling better. Patient will be admitted to the hospitalist service. Patient agrees with plan of care and admission. I discussed all results with patient. 07/10/19 16:58 - Consultations Consultation #1: I discussed EKG with Dr. Price, cardiology. Dr. Hernandez states there is no STEMI. 07/10/19 15:15 Consultation #2: Hospitalist consult for admission. Hospitalist admit patient. 07/10/19 16:59 ED Medical Decision Making - Lab Data Result diagrams: 07/10/19 15:44 07/10/19 15:44 - EKG Data -: EKG Interpreted by Pr EKG shows normal: axis, intervals, QRS complexes, ST-T waves Rate: normal - EKG Data Interpretation: other (atrial fibrillation.) - Radiology Data Radiology results: report reviewed, image reviewed CHEST 1 VIEW 07/10/2019 3:19 PM INDICATION / CLINICAL INFORMATION: Dyspnea. COMPARISON: 06/22/19 FINDINGS: SUPPORT DEVICES: None. HEART / MEDIASTINUM: No significant abnormality. LUNGS / PLEURA: Lungs are slightly hyperinflated. Diffuse bilateral pulmonary fibrosis and scarring appear unchanged. No acute airspace disease. No pneumothorax. ADDITIONAL FINDINGS: No significant additional findings. IMPRESSION: 1. Hyperinflated lungs and pulmonary fibrosis. No acute findings. No change. - Medical Decision Making Patient is a 69-year-old female up since emergency room with complaints of chest pain shortness of breath. Patient was found to have rales and wheezes. Patient clinical findings are consistent with a COPD and a CHF exacerbation. Patient was given multiple medications by EMS prior to arrival. Meds given by EMS were Lasix, nitroglycerin, morphine, aspirin and oxygen. Patient swirls improved but began to wheeze. Patient given breathing treatment and Solu- Medrol. Patient was also placed on BiPAP for respiratory distress and hypoxia. Patient responded well to BIPAP. Patient admitted to the hospitalist service and into the ICU. The chest x-ray done. EKG done. EKG shows A. fib no STEMI. Cardiology was consulted for the EKG. - Differential Diagnosis COPD exacerbation, CHF exacerbation, chest pain, sob, hypoxia Critical Care Time: Yes Critical care time in (mins) excluding proc time.: 45 Critical care attestation.: If time is entered above; I have spent that time in minutes in the direct care of this critically ill patient, excluding procedure time. Critical Care Time: 45 minutes ED Disposition Clinical Impression: Hypoxia, COPD with exacerbation, Lactic acid acidosis Chest pain Qualifiers: Chest pain type: unspecified Qualified Code(s): R07.9 - Chest pain, unspecified Afib Qualifiers: Atrial fibrillation type: other persistent Qualified Code(s): I48.19 - Other persistent atrial fibrillation CHF (congestive heart failure) Qualifiers: Heart failure type: systolic Heart failure chronicity: acute on chronic Qualified Code(s): I50.23 - Acute on chronic systolic (congestive) heart failure Respiratory failure Qualifiers: Chronicity: acute Respiratory failure complication: hypoxia Qualified Code(s): J96.01 - Acute respiratory failure with hypoxia CHF exacerbation Qualifiers: Heart failure type: unspecified Qualified Code(s): I50.9 - Heart failure, unspecified Disposition: OP ADMIT IP TO THIS HOSP Is pt being admited?: Yes Does the pt Need Aspirin: No Condition: Critical Time of Disposition: 17:00
--- NOTE | 2019-07-10 15:53 | XRay Report ---
CHEST 1 VIEW 07/10/2019 3:19 PM INDICATION / CLINICAL INFORMATION: Dyspnea. COMPARISON: 06/22/19 FINDINGS: SUPPORT DEVICES: None. HEART / MEDIASTINUM: No significant abnormality. LUNGS / PLEURA: Lungs are slightly hyperinflated. Diffuse bilateral pulmonary fibrosis and scarring a ppear unchanged. No acute airspace disease. No pneumothorax. ADDITIONAL FINDINGS: No significant additional findings. IMPRESSION: 1. Hyperinflated lungs and pulmonary fibrosis. No acute findings. No change. Signer Name: Jerson Fletcher MD Signed: 07/10/2019 3:49 PM Workstation Name: [id number]
[2019-07-10 16:18] LABS: Basophils % (Auto) 0.5 % (0.0-1.8); Eosinophils # (Auto) 0.2 K/mm3 (0.0-0.4); Eosinophils % (Auto) 2.6 % (0.0-4.3); Hematocrit 41.1 % (30.3-42.9); Hemoglobin 13.6 gm/dl (10.1-14.3); Lymphocytes # (Auto) 1.2 K/mm3 (1.2-5.4); Lymphocytes % (Auto) 16.7 % (13.4-35.0); Mean Corpuscular HGB Conc 33 % (30-34); Mean Corpuscular Volume 96 fl (79-97); Monocytes # (Auto) 0.3 K/mm3 (0.0-0.8); Monocytes % (Auto) 4.5 % (0.0-7.3); Platelet Count 204 K/mm3 (140-440); Red Blood Count 4.27 M/mm3 (3.65-5.03); Red Cell Distribution Width 13.1 % (13.2-15.2)
[2019-07-10] MEDS ORDERED: methylPREDNISolone Sod Succinate 125 MG/2 ML INJ IV ONE (16:24)
[2019-07-10] MEDS ORDERED: IPRATROPIUM/ALBUTEROL SULFATE 3 ML AMPUL.NEB IH ONE ×4 (16:24→20:31)
[2019-07-10 16:42] LABS: Alanine Aminotransferase 22 units/L (7-56); Albumin 3.6 g/dL (3.9-5); BUN/Creatinine Ratio 18; Blood Urea Nitrogen 14 mg/dL (7-17); Calcium 9.3 mg/dL (8.4-10.2); Hemolysis Index 8
--- NOTE | 2019-07-10 17:08 | History and Physical Report ---
History of Present Illness Chief complaint: I cant breathe, and my chest hurts when i breathe History of present illness: 69 YO Female with Atrial Fib on Therapeutic Anticoagulation, Chronic Respiratory Failure on Home Oxygen @2liters via [place], Severe COPD, HTN, CHF, Anxiety, CVA, MVP, OA presents to ED for evaluation. Pt states that she has been experiencing shortness of breath and episodes of productive cough with clear sputum for the past 1 week with progressively worsening symptoms over the past 2 days. EMS noti fied, and upon arrival the patient was found to be in distress and transported to [facility]. Pt seen and evaluated in ED and found to have Acute on Chronic Hypoxemic Respiratory Failure with pulse oximetry of 85% on supplemental oxygen. Pt is using accessory muscles to breathe, Pt agitated, and states that she is "scared" because she cant breathe. Pt admitted to medical floor. Pt treated with supplemental oxygen and nebulizer therapy without significant improvement and was subsequently placed on NIPPV. Pt acknowledges chest discomfort associated with coughing episodes, but denies CP, Chills, Palpitations, Syncope, BRBPR, hematuria, Syncope, hemoptysis, skin rashes, or recent ill contacts, prolonged immobility/travel, individual/family history of DVT/PE, leg swelling, or calf pain. Prior admission on 06/22/19 reviewed. All listed medication reconciled at time of admission. Past History Past Medical History: other (see HPI) Past Surgical History: hysterectomy, tonsillectomy, Other (Breast Biopsy, Aneurysm coil) Social history: . denies: smoking, alcohol abuse, prescription drug abuse Family history: hypertension Medications and Allergies Allergies Allergy/AdvReac Type Severity Reaction Status Date / Time adhesive Allergy Hives Verified 04/13/19 12:44 amlodipine besylate Allergy Anaphylaxis Verified 04/13/19 12:44 [From Norvasc] diltiazem Allergy Anaphylaxis Verified 04/13/19 12:44 diltiazem HCl [From Cardizem] Allergy Anaphylaxis Verified 04/13/19 12:44 Renexa Allergy Unknown Uncoded 08/13/16 09:41 Home Medications Medication Instructions Recorded Confirmed Last Taken Type ALPRAZolam [Xanax TAB] 1 mg PO TID PRN #90 tablet 03/02/16 06/22/19 08/27/17 Rx ALBUTEROL Inhaler (OR & NICU) 2 puff IH QID PRN 06/22/19 06/23/19 Unknown History [ProAir HFA Inhaler] Apixaban [Eliquis] 5 mg PO BID 06/22/19 06/23/19 Unknown History Aspirin [Aspirin BABY CHEW TAB] 81 mg PO QDAY 06/22/19 06/22/19 Unknown History AtorvaSTATin [Lipitor] 20 mg PO QHS 06/22/19 06/23/19 Unknown History DULoxetine [Cymbalta] 30 mg PO DAILY 06/22/19 06/22/19 Unknown History Desloratadine [Clarinex] 5 mg PO DAILY 06/22/19 06/23/19 Unknown History Fluticasone/Salmeterol [Advair 1 puff IH BID 06/22/19 06/22/19 Unknown History Diskus 500-50 mcg] Mirtazapine [Remeron 45mg TAB] 45 mg PO DAILY 06/22/19 06/22/19 Unknown History Nitroglycerin [Nitrostat] 0.4 mg SL Q5M PRN 06/22/19 06/23/19 Unknown History Paradox-3 Acid Ethyl Esters [Lovaza] 1 gm PO BID 06/22/19 06/23/19 Unknown History Oxycodone HCl/Acetaminophen 1 each PO Q6HR PRN 06/22/19 06/23/19 Unknown History [Percocet 7.5/325 mg] Pantoprazole [Protonix TAB] 40 mg PO QDAY 06/22/19 06/22/19 Unknown History Umeclidinium Herbster [Incruse 62.5 mcg IH DAILY 06/22/19 06/22/19 Unknown H istory Ellipta 62.5MCG] Verapamil ER [Calan SR] 240 mg PO DAILY 06/22/19 06/23/19 Unknown History Linaclotide [Linzess] 290 mcg DAILY 06/23/19 06/23/19 06/22/19 10:00 History AtorvaSTATin [Lipitor] 20 mg PO QHS tablet 06/27/19 Unknown Rx DULoxetine [Cymbalta] 30 mg PO QDAY capsule 06/27/19 Unknown Rx Digoxin [Lanoxin] 0.125 mg PO DAILY@1700 tablet 06/27/19 Unknown Rx Furosemide [Lasix TAB] 20 mg PO QDAY tablet 06/27/19 Unknown Rx ISOSORBIDE MONOnitrate [Imdur ER] 120 mg PO QDAY tablet 06/27/19 Unknown Rx Levothyroxine [Synthroid] 100 mcg PO DAILY@0600 tablet 06/27/19 Unknown Rx Lisinopril [Zestril TAB] 10 mg PO DAILY tablet 06/27/19 Unknown Rx Loratadine (Nf) [Claritin (Nf)] 10 mg PO DAILY tablet 06/27/19 Unknown Rx Mirtazapine [Remeron 15mg TAB] 45 mg PO QHS tablet 06/27/19 Unknown Rx Naloxegol Oxalate [Movantik] 25 mg PO DAILY 06/27/19 Unknown Rx Paradox-3 Fatty Acids/Fish Oil [Fish 1,000 mg PO BID capsule 06/27/19 Unknown Rx Oil] Pantoprazole [Protonix TAB] 40 mg PO QDAY tablet 06/27/19 Unknown Rx Potassium Chloride 20 meq PO DAILY packet 06/27/19 Unknown Rx predniSONE [Deltasone] 10 mg PO .TAPER #48 tab 06/27/19 Unknown Rx Review of Systems Constitutional: no weight gain, no fever, no sweats, no night sweats Ears, nose, mouth and throat: no ear pain, no ear discharge, no decreased hearing, no nasal discharge Breasts: no change in shape, no swelling, no mass Cardiovascular: no chest pain, no orthopnea, no rapid/irregular heart beat, no syncope, no lightheadedness Respiratory: cough, cough with sputum, excessive sputum, shortness of breath, no pain on inspiration Gastrointestinal: no abdominal pain, no nausea, no vomiting, no diarrhea, no constipation Genitourinary Female: no pelvic pain, no flank pain, no menorrhagia, no dysuria, no urinary frequency, no urgency Rectal: no pain, no incontinence, no bleeding Musculoskeletal: no neck stiffness, no shooting arm pain, no arm numbness/tingling, no low back pain, no leg numbness/tingling Integumentary: no rash, no pruritis, no sores, no wounds, no boils Neurological: no weakness, no tingling, no syncope, no tremors, no headaches, no convulsions, no change in mentation Psychiatric: no anxiety, no change in sleep habits, no sleep disturbances, no hypersomnia, no change in libido Endocrine: no cold intolerance, no polyphagia, no polyuria, no nocturia, no excessive sweating Hematologic/Lymphatic: no easy bruising, no easy bleeding, no lymphedema Allergic/Immunologic: no wheezing, no anaphylaxis, no angioedema Exam - Constitutional Vitals: Temp Pulse Resp BP Pulse Ox 92 H 21 130/74 100 07/10/19 16:45 07/10/19 16:45 07/10/19 16:45 07/10/19 16:45 General appearance: Present: mild distress - EENT Eyes: Present: PERRL ENT: hearing intact, clear oral mucosa - Neck Neck: Present: supple, normal ROM - Respiratory Respiratory effort: labored, pursed lips, accessory muscle use, stridor Respiratory: bilateral: diminished, rhonchi, wheezing - Cardiovascular Heart Sounds: Present: S1 & S2. Absent: rub, click - Extremities Extremities: pulses symmetrical, No edema Peripheral Pulses: within normal limits - Abdominal General gastrointestinal: Present: soft, non-tender, non-distended, normal bowel sounds Female genitourinary: Present: normal - Integumentary Integumentary: Present: clear, warm, dry - Musculoskeletal Musculoskeletal: generalized weakness - Psychiatric Psychiatric: appropriate mood/affect, intact judgment & insight, agitated - Neurologic Neurologic: CNII-XII intact, moves all extremities Results - Labs CBC & Chem 7: 07/10/19 15:44 07/10/19 15:44 Labs: Abnormal lab results 07/10/19 07/10/19 07/10/19 Range/Units 15:44 15:44 15:44 RDW 13.1 L (13.2-15.2) % Seg Neutrophils % 75.7 H (40.0-70.0) % Chloride 92.4 L (98-107) mmol/L Carbon Dioxide 31 H (22-30) mmol/L Glucose 116 H (65-100) mg/dL Lactic Acid 2.20 H* (0.7-2.0) mmol/L Total Creatine Kinase (30-135) units/L CK-MB (CK-2) Rel Index (0-4) NT-Pro-B Natriuret Pep (0-900) pg/mL Albumin 3.6 L (3.9-5) g/dL 07/10/19 07/10/19 Range/Units 15:44 15:44 RDW (13.2-15.2) % Seg Neutrophils % (40.0-70.0) % Chloride (98-107) mmol/L Carbon Dioxide (22-30) mmol/L Glucose (65-100) mg/dL Lactic Acid (0.7-2.0) mmol/L Total Creatine Kinase 25 L (30-135) units/L CK-MB (CK-2) Rel Index 8.0 H (0-4) NT-Pro-B Natriuret Pep 997.5 H (0-900) pg/mL Albumin (3.9-5) g/dL Assessment and Plan - Patient Problems (1) Acute and chronic respiratory failure Current Visit: Yes Status: Acute Qualifiers: Respiratory failure complication: hypoxia Qualified Code(s): J96.21 - Acute and chronic respiratory failure with hypoxia Plan to address problem: Admit to IMCU, supplemental oxygen, nebulizer therapy, pulse oximetry, NIPPV, ABG, chest x ray. (2) CHF (congestive heart failure) Current Visit: Yes Status: Acute Qualifiers: Heart failure type: systolic Heart failure chronicity: acute on chronic Qualified Code(s): I50.23 - Acute on chronic systolic (congestive) heart failure Plan to address problem: Strict I/O, daily weight, BNP, monitor uop q shift, daily weight, supplemental oxygen, pulse oximetry, afterload reduction. (3) Atrial fibrillation Current Visit: Yes Status: Acute Qualifiers: Atrial fibrillation type: other persistent Qualified Code(s): I48.19 - Other persistent atrial fibrillation Plan to address problem: continue therapeutic anticoagulation, rate control, ekg (4) Osteoarthritis Current Visit: Yes Status: Acute Qualifiers: Laterality: unspecified laterality Plan to address problem: Pain control, supportive care (5) HTN (hypertension) Current Visit: Yes Status: Acute Qualifiers: Hypertension type: essential hypertension Qualified Code(s): I10 - Essential (primary) hypertension Plan to address problem: Monitor bp q shift, continue current care (6) DVT prophylaxis Current Visit: Yes Status: Acute Plan to address problem: SCD to BLE while in bed, continue therapeutic anticoagulation.
[2019-07-10] MEDS ORDERED: ALBUTEROL 2.5 MG/3 ML NEBU IH PRN (17:17)
[2019-07-10] MEDS ORDERED: methylPREDNISolone Sod Succinate 125 MG/2 ML INJ ONE (18:58)
[2019-07-11 05:18] LABS: Basophils % (Auto) 0.2 % (0.0-1.8); Eosinophils % (Auto) 0.1 % (0.0-4.3); Hematocrit 39.3 % (30.3-42.9); Hemoglobin 13.2 gm/dl (10.1-14.3); Lymphocytes # (Auto) 0.8 K/mm3 (1.2-5.4); Lymphocytes % (Auto) 19.6 % (13.4-35.0); Mean Corpuscular HGB Conc 34 % (30-34); Mean Corpuscular Volume 95 fl (79-97); Monocytes # (Auto) 0.1 K/mm3 (0.0-0.8); Monocytes % (Auto) 1.6 % (0.0-7.3); Platelet Count 186 K/mm3 (140-440); Red Blood Count 4.12 M/mm3 (3.65-5.03); Red Cell Distribution Width 13.3 % (13.2-15.2)
[2019-07-11 05:33] LABS: Alanine Aminotransferase 20 units/L (7-56); Albumin 3.4 g/dL (3.9-5); BUN/Creatinine Ratio 23; Blood Urea Nitrogen 16 mg/dL (7-17); Calcium 9.5 mg/dL (8.4-10.2); Hemolysis Index 29
[2019-07-11] MEDS ORDERED: NON-FORMULARY EACH (Oxycodone Hcl/Acetaminophen [Percocet 7.5/325 Mg] 1 EACH) PO PRN (09:34)
[2019-07-11] MEDS ORDERED: NITROGLYCERIN 0.4 MG TAB SUBL SL PRN (09:34)
--- NOTE | 2019-07-11 09:38 | Progress Note ---
Assessment and Plan Assessment and plan: 69 YO Female with Atrial Fib on Therapeutic Anticoagulation, Chronic Respiratory Failure on Home Oxygen @2liters via [place], Severe COPD, HTN, CHF, Anxiety, CVA, MVP, OA presents to ED for evaluation. Pt states that she has been experiencing shortness of breath and episodes of productive cough with clear sputum for the past 1 week with progressively worsening symptoms over the past 2 days. EMS notified, and upon arrival the patient was found to be in distress and transported to [facility]. Pt seen and evaluated in ED and found to have Acute on Chronic Hypoxemic Respiratory Failure with pulse oximetry of 85% on supplemental oxygen. Pt is using accessory muscles to breathe, Pt agitated, and states that she is "scared" because she cant breathe. Pt admitted to medical floor. Pt treated with supplemental oxygen and nebulizer therapy without significant improvement and was subsequently placed on NIPPV. Pt acknowledges chest discomfort associated with coughing episodes, but denies CP, Chills, Palpitations, Syncope, BRBPR, hematuria, Syncope, hemoptysis, skin rashes, or recent ill contacts, prolonged immobility/travel, individual/family history of DVT/PE, leg swelling, or calf pain. Prior admission on 06/22/19 reviewed. All listed medication reconciled at time of admission. DOWNGRADE TO TELE PCP- Dr Zamora Pulmonologsiedgard-Mr Saldivar (1) Acute and chronic respiratory failure Current Visit: Yes Status: Acute Qualifiers: Respiratory failure complication: hypoxia Qualified Code(s): J96.21 - Acute and chronic respiratory failure with hypoxia Plan to address problem: We will downgrade to telemetry, supplemental oxygen, nebulizer therapy, pulse oximetry, NIPPV, ABG, chest x ray. Extensive discussion with the patient revealed that her shortness of breath got back worse after she tapered off steroids. Unfortunately has not been able to f ollow with her primary care physician. (2) CHF (congestive heart failure) Current Visit: Yes Status: Acute Qualifiers: Heart failure type: systolic Heart failure chronicity: acute on chronic Qualified Code(s): I50.23 - Acute on chronic systolic (congestive) heart failure Plan to address problem: Strict I/O, daily weight, BNP, monitor uop q shift, daily weight, supplemental oxygen, pulse oximetry, afterload reduction. (3) Atrial fibrillation Current Visit: Yes Status: Acute Qualifiers: Atrial fibrillation type: other persistent Qualified Code(s): I48.19 - Other persistent atrial fibrillation Plan to address problem: continue therapeutic anticoagulation, rate control, ekg (4) Osteoarthritis Current Visit: Yes Status: Acute Qualifiers: Laterality: unspecified laterality Plan to address problem: Pain control, supportive care (5) HTN (hypertension) Current Visit: Yes Status: Acute Qualifiers: Hypertension type: essential hypertension Qualified Code(s): I10 - Essential (primary) hypertension Plan to address problem: Monitor bp q shift, continue current care (6) anxiety disorder Continue anxiolytic, her anxiety actually plays a big role recurrent readmissi ons to the hospital. (7) chronic pain syndrome Continue pain medication judiciously with bowel regimen (8) DVT prophylaxis Current Visit: Yes Status: Acute Plan to address problem: SCD to BLE while in bed, continue therapeutic anticoagulation. We will obtain case management to assist in setting up appointments with her to see her physician sooner rather than later upon discharge from the hospital. History Interval history: Patient seen and examined at this time continues on BiPAP but initially was on oxygen yesterday after admission. She states that she feels better and can come off the BiPAP now. Denies any chest pain nausea vomiting. Hospitalist Physical - Physical exam Narrative exam: VITAL SIGNS: Reviewed. GENERAL: The patient appears normally developed, moderate shortness of breath and distress respiratory truong vital signs as documented. HEAD: No signs of head trauma. EYES: Pupils are equal. Extraocular motions intact. EARS: Hearing grossly intact. MOUTH: Oropharynx is normal. NECK: No adenopathy, no JVD. CHEST: Chest with diminished breath sounds bilaterally with increased work of breathing. No wheezes, rales, or rhonchi. CARDIAC: Regular rate and rhythm. S1 and S2, without murmurs, gallops, or rubs. VASCULAR: No Edema. Peripheral pulses normal and equal in all extremities. ABDOMEN: Soft, non tender and non distended. No rebound or guarding, and no masses palpated. Bowel Sounds normal. MUSCULOSKELETAL: Good range of motion of all major joints. Extremities without clubbing, cyanosis or edema. NEUROLOGIC EXAM: Alert and oriented x 3 No focal sensory or strength deficits. Speech normal. Follows commands. PSYCHIATRIC: Mood normal. SKIN: detail exam as documented in skin assessment - Constitutional Vitals: Temp Pulse Resp BP Pulse Ox 95 H 20 152/75 98 07/11/19 08:00 07/11/19 08:00 07/11/19 08:00 07/11/19 08:00 General appearance: Present: mild distress Results - Labs CBC & Chem 7: 07/11/19 04:56 07/11/19 04:56 Labs: Laboratory Last Values WBC 3.9 K/mm3 (4.5-11.0) L 07/11/19 04:56 RBC 4.12 M/mm3 (3.65-5.03) 07/11/19 04:56 Hgb 13.2 gm/dl (10.1-14.3) 07/11/19 04:56 Hct 39.3 % (30.3-42.9) 07/11/19 04:56 MCV 95 fl (79-97) 07/11/19 04:56 MCH 32 pg (28-32) 07/11/19 04:56 MCHC 34 % (30-34) 07/11/19 04:56 RDW 13.3 % (13.2-15.2) 07/11/19 04:56 Plt Count 186 K/mm3 (140-440) 07/11/19 04:56 Lymph % (Auto) 19.6 % (13.4-35.0) 07/11/19 04:56 [place] % (Auto) 1.6 % (0.0-7.3) 07/11/19 04:56 Eos % (Auto) 0.1 % (0.0-4.3) 07/11/19 04:56 Baso % (Auto) 0.2 % (0.0-1.8) 07/11/19 04:56 Lymph # 0.8 K/mm3 (1.2-5.4) L 07/11/19 04:56 [place] # 0.1 K/mm3 (0.0-0.8) 07/11/19 04:56 Eos # 0.0 K/mm3 (0.0-0.4) 07/11/19 04:56 Baso # 0.0 K/mm3 (0.0-0.1) 07/11/19 04:56 Seg Neutrophils % 78.5 % (40.0-70.0) H 07/11/19 04:56 Seg Neutrophils # 3.1 K/mm3 (1.8-7.7) 07/11/19 04:56 POC ABG pH 7.400 (7.35-7.45) 07/10/19 20:28 POC ABG pCO2 64.3 (35-45) H 07/10/19 20:28 POC ABG pO2 168 (80-105) H 07/10/19 20:28 POC ABG HCO3 39.8 (22-26 mml/L) 07/10/19 20:28 POC ABG Total CO2 42 (23-27mmol/L) 07/10/19 20:28 POC ABG O2 Sat 99 07/10/19 20:28 POC ABG Base Excess 15 ((-2) - (+3)mmol/L) 07/10/19 20:28 FiO2 60 % 07/10/19 20:28 Sodium 135 mmol/L (137-145) L 07/11/19 04:56 Potassium 4.4 mmol/L (3.6-5.0) 07/11/19 04:56 Chloride 92.7 mmol/L (98-107) L 07/11/19 04:56 Carbon Dioxide 29 mmol/L (22-30) 07/11/19 04:56 Anion Gap 18 mmol/L 07/11/19 04:56 BUN 16 mg/dL (7-17) 07/11/19 04:56 Creatinine 0.7 mg/dL (0.7-1.2) 07/11/19 04:56 Estimated GFR > 60 ml/min 07/11/19 04:56 BUN/Creatinine Ratio 23 % 07/11/19 04:56 Glucose 131 mg/dL (65-100) H 07/11/19 04:56 Lactic Acid 1.00 mmol/L (0.7-2.0) 07/10/19 17:45 Calcium 9.5 mg/dL (8.4-10.2) 07/11/19 04:56 Total Bilirubin 0.70 mg/dL (0.1-1.2) 07/11/19 04:56 AST 19 units/L (5-40) 07/11/19 04:56 ALT 20 units/L (7-56) 07/11/19 04:56 Alkaline Phosphatase 82 units/L (35-129) 07/11/19 04:56 Total Creatine Kinase 25 units/L (30-135) L 07/10/19 15:44 CK-MB (CK-2) 2.0 ng/mL (0.0-4.0) 07/10/19 15:44 CK-MB (CK-2) Rel Index 8.0 (0-4) H 07/10/19 15:44 Troponin T < 0.010 ng/mL (0.00-0.029) 07/10/19 15:44 NT-Pro-B Natriuret Pep 997.5 pg/mL (0-900) H 07/10/19 15:44 Total Protein 7.0 g/dL (6.3-8.2) 07/11/19 04:56 Albumin 3.4 g/dL (3.9-5) L 07/11/19 04:56 Albumin/Globulin Ratio 0.9 % 07/11/19 04:56 Active Medications - Current Medications Current Medications: Generic Name Dose Route Start Last Admin Trade Name Freq PRN Reason Stop Dose Admin Albuterol 2.5 mg 07/10/19 17:17 Proventil IH Q3HRT PRN Shortness Of Breath Levofloxacin/Dextrose 500 mg in 100 mls @ 100 mls/hr 07/11/19 20:00 Levaquin 500mg/100ml IV Q24H JO Protocol Sodium Chloride 10 ml 07/10/19 22:00 07/10/19 22:00 Sodium Chloride Flush Syringe 10 Ml IV 10 ml BID JO Administration Sodium Chloride 10 ml 07/10/19 17:17 Sodium Chloride Flush Syringe 10 Ml IV PRN PRN LINE FLUSH
[2019-07-11] MEDS ORDERED: DESLORATADINE 5 MG PO SCH (10:00)
[2019-07-11] MEDS ORDERED: NON-FORMULARY EACH (Loratadine 10 MG) PO SCH (10:00)
[2019-07-11] MEDS ORDERED: MIRTAZAPINE 45 MG PO SCH (10:00)
[2019-07-11] MEDS ORDERED: UMECLIDINIUM BROMIDE 62.5 MCG IH SCH (10:00)
[2019-07-11] MEDS ORDERED: SALMETEROL IH SCH (10:00)
[2019-07-11] MEDS ORDERED: LINACLOTIDE 290 MCG PO SCH (10:00)
[2019-07-11] MEDS ORDERED: OMEGA ACID ETHYL ESTERS PO SCH (10:00)
[2019-07-11] MEDS ORDERED: NALOXEGOL OXALATE 25 MG PO SCH (10:00)
[2019-07-11] MEDS ORDERED: FLUTICASONE IH SCH (10:00)
[2019-07-11] MEDS ORDERED: oxyCODONE /ACETAMINOPHEN 5-325MG TAB PO PRN (10:01)
[2019-07-11] MEDS ORDERED: ASPIRIN 81 MG TAB CHEW ONE (10:31)
[2019-07-11] MEDS ORDERED: DULoxetine 30 MG CAP ONE (10:31)
[2019-07-11] MEDS ORDERED: APIXABAN 5 MG TAB ONE (10:32)
[2019-07-11] MEDS ORDERED: FUROSEMIDE 20 MG TAB ONE (10:33)
[2019-07-11] MEDS: ASPIRIN 81 MG TAB CHEW PO SCH (10:44)
[2019-07-11] MEDS: VERAPAMIL ER 240 MG TAB PO SCH (10:46)
[2019-07-11] MEDS: APIXABAN 5 MG TAB PO SCH ×2 (10:47→21:47)
[2019-07-11] MEDS: DULoxetine 30 MG CAP PO SCH (10:47)
[2019-07-11] MEDS: FUROSEMIDE 20 MG TAB PO SCH (10:48)
[2019-07-11] MEDS: OMEGA-3 FATTY ACIDS/FISH OIL 1 GRAM CAP PO SCH ×2 (10:50→21:46)
[2019-07-11] MEDS: CETIRIZINE 10 MG TAB PO SCH (10:50)
[2019-07-11] MEDS: PANTOPRAZOLE 40 MG TAB PO SCH (10:52)
[2019-07-11] MEDS: POTASSIUM CHLORIDE 20 MEQ PACKET PO SCH (10:52)
[2019-07-11] MEDS: LISINOPRIL 10 MG TAB PO SCH (10:53)
[2019-07-11] MEDS ORDERED: PANTOPRAZOLE 40 MG TAB PO ONE (10:59)
[2019-07-11] MEDS ORDERED: POTASSIUM CHLORIDE ER 20 MEQ TAB PO ONE (10:59)
[2019-07-11] MEDS ORDERED: LISINOPRIL 10 MG TAB ONE (11:00)
--- NOTE | 2019-07-11 13:12 | Consultation ---
History of Present Illness Consult date: 07/11/19 Requesting physician: AKILAH GARCIAS History of present illness: 69 YO Female with Atrial Fib on Therapeutic Anticoagulation, Chronic Respiratory Failure on Home Oxygen @2liters via [place], Severe COPD, HTN, CHF, Anxiety, CVA, MVP, OA presents to ED for evaluation. Pt states that she has been experiencing shortness of breath and episodes of productive cough with clear sputum for the past 1 week with progressively worsening symptoms over the past 2 days. EMS notified, and upon arrival the patient was found to be in distress and transported to [facility]. Pt seen and evaluated in ED and found to have Acute on Chronic Hypoxemic Respiratory Failure with pulse oximetry of 85% on supplemental oxygen. Pt is using accessory muscles to breathe, Pt agitated, and states that she is "scared" because she cant breathe. Pt admitted to medical floor. Pt treated with supplemental oxygen and nebulizer therapy without significant improvement and was subsequently placed on NIPPV. Pt acknowledges chest discomfort associated with coughing episodes, but denies CP, Chills, Palpitations, Syncope, BRBPR, hematuria, Syncope, hemoptysis, skin rashes, or recent ill contacts, prolonged immobility/travel, individual/family history of DVT/PE, leg swelling, or calf pain. Prior admission on 06/22/19 reviewed. Patient has been admitted into the hospital for stabilization and I have been consulted for acute on chronic respiratory failure, AE_COPD. Thank you. Patient was seen and examined. Vitals, labs, medications, chart and imaging reviewed. She states she is feeling better. Her community Road Test Examiner is Dr. Xie ROS: Stated complaint: CHEST PAIN/SOB Other details as noted in HPI Constitutional: denies: chills, fever Eyes: denies: eye pain, eye discharge, vision change ENT: denies: ear pain, throat pain Respiratory: cough, shortness of breath, SOB with exertion, SOB at rest Cardiovascular: chest pain, dyspnea on exertion. denies: palpitations Endocrine: no symptoms reported Gastrointestinal: denies: abdominal pain, nausea, diarrhea Genitourinary: denies: urgency, dysuria, discharge Musculoskeletal: denies: back pain, joint swelling, arthralgia Skin: denies: rash, lesions Neurological: denies: headache, weakness, paresthesias Psychiatric: denies: anxiety, depression Hematological/Lymphatic: denies: easy bleeding, easy bruising - Past Medical History Previous Medical History?: Yes Hx Hypertension: Yes Hx CVA: Yes Hx Congestive Heart Failure: Yes Hx Arthritis: Yes Hx Kidney Stones: Yes Hx Psychiatric Treatment: Yes (anxiety) Hx COPD: Yes Additional medical history: emphysema, bronchitis, A. Fib; MVP; aneurysm- coil on right side of head, Home oxygen @ 2lpm nasal cannula - Surgical History Hx Breast Surgery: Yes (bilateral breast biopsy benign) Additional Surgical History: tonsillectomy, cerebral aneurysm coil, hysterectomy, hemorrhoid surgery, bilateral benign breast biopsies - Social History Smoking Status: Former Smoker Past History Past Medical History: other (see HPI) Past Surgical History: hysterectomy, tonsillectomy, Other (Breast Biopsy, Aneurysm coil) Social history: . denies: smoking, alcohol abuse, prescription drug abuse Family history: hypertension Medications and Allergies Allergies Allergy/AdvReac Type Severity Reaction Status Date / Time adhesive Allergy Hives Verified 04/13/19 12:44 amlodipine besylate Allergy Anaphylaxis Verified 04/13/19 12:44 [From Norvasc] diltiazem Allergy Anaphylaxis Verified 04/13/19 12:44 diltiazem HCl [From Cardizem] Allergy Anaphylaxis Verified 04/13/19 12:44 Renexa Allergy Unknown Uncoded 08/13/16 09:41 Home Medications Medication Instructions Recorded Confirmed Last Taken Type ALPRAZolam [Xanax TAB] 1 mg PO TID PRN #90 tablet 03/02/16 07/11/19 08/27/17 Rx ALBUTEROL Inhaler (OR & NICU) 2 puff IH QID PRN 06/22/19 07/11/19 Unknown History [ProAir HFA Inhaler] Apixaban [Eliquis] 5 mg PO BID 06/22/19 07/11/19 07/10/19 History Aspirin [Aspirin BABY CHEW TAB] 81 mg PO QDAY 06/22/19 07/11/19 07/10/19 History Desloratadine [Clarinex] 5 mg PO DAILY PRN 06/22/19 07/11/19 Unknown History Fluticasone/Salmeterol [Advair 1 puff IH BID 06/22/19 07/11/19 Unknown History Diskus 500-50 mcg] Mirtazapine [Remeron 45mg TAB] 45 mg PO HS 06/22/19 07/11/19 07/11/19 History Nitroglycerin [Nitrostat] 0.4 mg SL Q5M PRN 06/22/19 07/11/19 Unknown History [place] Acid Ethyl Esters [Lovaza] 1 gm PO BID 06/22/19 07/11/19 07/10/19 History Oxycodone HCl/Acetaminophen 1 each PO Q6HR PRN 06/22/19 07/11/19 Unknown History [Percocet 7.5/325 mg] Umeclidinium [place] [Incruse 62.5 mcg IH DAILY 06/22/19 07/11/19 Unknown History Ellipta 62.5MCG] Verapamil ER [Calan SR] 240 mg PO DAILY 06/22/19 07/11/19 07/11/19 History Linaclotide [Linzess] 290 mcg DAILY 06/23/19 07/11/19 07/10/19 History AtorvaSTATin [Lipitor] 20 mg PO QHS tablet 06/27/19 07/11/19 07/10/19 Rx Digoxin [Lanoxin] 0.125 mg PO DAILY@1700 tablet 06/27/19 07/11/19 07/11/19 Rx Furosemide [Lasix TAB] 20 mg PO QDAY tablet 06/27/19 07/11/19 07/11/19 Rx ISOSORBIDE MONOnitrate [Imdur ER] 120 mg PO QDAY tablet 06/27/19 07/11/19 07/11/19 Rx Levothyroxine [Synthroid] 100 mcg PO DAILY@0600 tablet 06/27/19 07/11/19 07/10/19 Rx Lisinopril [Zestril TAB] 10 mg PO DAILY tablet 06/27/19 07/11/19 07/11/19 Rx Loratadine (Nf) [Claritin (Nf)] 10 mg PO DAILY tablet 06/27/19 07/11/19 Unknown Rx Naloxegol Oxalate [Movantik] 25 mg PO DAILY 06/27/19 07/11/19 Unknown Rx [place] Fatty Acids/Fish Oil [Fish 1,000 mg PO BID capsule 06/27/19 07/11/19 07/10/19 Rx Oil] Pantoprazole [Protonix TAB] 40 mg PO QDAY tablet 06/27/19 07/11/19 07/11/19 Rx Potassium Chloride 20 meq PO DAILY packet 06/27/19 07/11/19 07/11/19 Rx DULoxetine [Cymbalta] 60 mg PO QDAY 07/11/19 07/11/19 07/10/19 History predniSONE [Deltasone] 2.5 mg PO QDAY 07/11/19 07/11/19 07/10/19 History Active Meds: Active Medications Albuterol (Proventil) 2.5 mg IH Q3HRT PRN PRN Reason: Shortness Of Breath Albuterol/Ipratropium (Duoneb *Not For Prn Use*) 1 ampul IH Q6HRT [facility] Alprazolam (Xanax) 1 mg PO TID PRN PRN Reason: Anxiety Apixaban (Eliquis) 5 mg PO BID [facility]; Protocol Last Admin: 07/11/19 10:47 Dose: 5 mg Documented by: Arformoterol Tartrate (Brovana Nebu) 15 mcg IH Q12HRT [facility] Aspirin (Baby Aspirin) 81 mg PO QDAY [facility] Last Admin: 07/11/19 10:44 Dose: 81 mg Documented by: Atorvastatin Calcium (Lipitor) 20 mg PO QHS [facility] Budesonide (Pulmicort) 1 mg IH Q12HRT [facility] Cetirizine HCl (Cetirizine) 10 mg PO DAILY [facility] Last Admin: 07/11/19 10:50 Dose: Not Given Documented by: Digoxin (Lanoxin) 0.125 mg PO DAILY@1700 [facility] Duloxetine HCl (Cymbalta) 60 mg PO QDAY [facility] Last Admin: 07/11/19 10:47 Dose: 60 mg Documented by: Fish Oil (Fish Oil) 1,000 mg PO BID [facility] Last Admin: 07/11/19 10:50 Dose: Not Given Documented by: Furosemide (Lasix) 20 mg PO QDAY [facility] Last Admin: 07/11/19 10:48 Dose: 20 mg Documented by: Levofloxacin/Dextrose (Levaquin 500mg/100ml) 500 mg in 100 mls @ 100 mls/hr IV Q24H [facility]; Protocol Isosorbide Mononitrate (Imdur) 120 mg PO QDAY [facility] Levothyroxine Sodium (Synthroid) 100 mcg PO DAILY@0600 [facility] Lisinopril (Zestril) 10 mg PO DAILY [facility] Last Admin: 07/11/19 10:53 Dose: 10 mg Documented by: Methylprednisolone Sodium Succinate (Solu-Medrol) 60 mg IV Q8HR [facility] Mirtazapine (Remeron) 45 mg PO QHS [facility] Miscellaneous Medication (Linaclotide [Linzess]) 290 mcg PO DAILY [facility] Last Admin: 07/11/19 10:51 Dose: Not Given Documented by: Miscellaneous Medication (Naloxegol Oxalate [Movantik]) 25 mg PO DAILY [facility] Miscellaneous Medication (Umeclidinium [place] [Incruse Ellipta 62.5mcg]) 62.5 mcg IH DAILY [facility] Nitroglycerin (Nitrostat) 0.4 mg SL Q5M PRN PRN Reason: Chest Pain Oxycodone/Acetaminophen (Percocet 5/325) 1.5 tab PO Q6H PRN PRN Reason: Pain, Moderate (4-6) Pantoprazole Sodium (Protonix) 40 mg PO QDAY [facility] Last Admin: 07/11/19 10:52 Dose: 40 mg Documented by: Potassium Chloride (Potassium Chloride) 20 meq PO DAILY [facility] Last Admin: 07/11/19 10:52 Dose: 20 meq Documented by: Sodium Chloride (Sodium Chloride Flush Syringe 10 Ml) 10 ml IV BID [facility] Last Admin: 07/11/19 10:52 Dose: 10 ml Documented by: Sodium Chloride (Sodium Chloride Flush Syringe 10 Ml) 10 ml IV PRN PRN PRN Reason: LINE FLUSH Verapamil HCl (Calan Sr) 240 mg PO DAILY [facility] Last Admin: 07/11/19 10:46 Dose: 240 mg Documented by: Physical Examination Vital signs: Vital Signs Pulse Resp Pulse Ox 89 23 100 07/10/19 14:44 07/10/19 14:44 07/10/19 14:44 Vitals reviewed General appearance: Present: mild distress, sitting up in bed on supplemental oxygen - EENT Eyes: Present: PERRL ENT: hearing intact, clear oral mucosa - Neck Neck: Present: supple, normal ROM - Respiratory Respiratory effort: mild distress pursed lips, Respiratory: bilateral: diminished, rhonchi, expiratory wheezing - Cardiovascular Heart Sounds: Present: S1 & S2. Absent: rub, click - Extremities Extremities: pulses symmetrical, No edema Peripheral Pulses: within normal limits - Abdominal General gastrointestinal: Present: soft, non-tender, non-distended, normal bowel sounds Female genitourinary: Present: normal - Integumentary Integumentary: Present: clear, warm, dry - Musculoskeletal Musculoskeletal: generalized weakness - Psychiatric Psychiatric: appropriate mood/affect, intact judgment & insight, agitated - Neurologic Neurologic: CNII-XII intact, moves all extremities Results - Laboratory Findings CBC and BMP: 07/11/19 04:56 07/11/19 04:56 ABG POC ABG pH 7.400 (7.35-7.45) 07/10/19 20:28 POC ABG pCO2 64.3 (35-45) H 07/10/19 20:28 POC ABG pO2 168 (80-105) H 07/10/19 20:28 POC ABG HCO3 39.8 (22-26 mml/L) 07/10/19 20:28 POC ABG Total CO2 42 (23-27mmol/L) 07/10/19 20:28 POC ABG O2 Sat 99 07/10/19 20:28 Abnormal lab findings: Abnormal Labs 07/10/19 07/10/19 07/10/19 15:44 15:44 15:44 WBC RDW 13.1 L Lymph # Seg Neutrophils % 75.7 H POC ABG pCO2 POC ABG pO2 Sodium Chloride 92.4 L Carbon Dioxide 31 H Glucose 116 H Lactic Acid 2.20 H* Total Creatine Kinase CK-MB (CK-2) Rel Index NT-Pro-B Natriuret Pep Albumin 3.6 L 07/10/19 07/10/19 07/10/19 15:44 15:44 20:28 WBC RDW Lymph # Seg Neutrophils % POC ABG pCO2 64.3 H POC ABG pO2 168 H Sodium Chloride Carbon Dioxide Glucose Lactic Acid Total Creatine Kinase 25 L CK-MB (CK-2) Rel Index 8.0 H NT-Pro-B Natriuret Pep 997.5 H Albumin 07/11/19 07/11/19 04:56 04:56 WBC 3.9 L RDW Lymph # 0.8 L Seg Neutrophils % 78.5 H POC ABG pCO2 POC ABG pO2 Sodium 135 L Chloride 92.7 L Carbon Dioxide Glucose 131 H Lactic Acid Total Creatine Kinase CK-MB (CK-2) Rel Index NT-Pro-B Natriuret Pep Albumin 3.4 L - Diagnostic Findings Chest x-ray: image reviewed (hyperinflated with chronic interstitial changes) Assessment and Plan (1) Acute and chronic respiratory failure Current Visit: Yes Status: Acute Qualifiers: Respiratory failure complication: hypoxia Qualified Code(s): J96.21 - Acute and chronic respiratory failure with hypoxia Plan to address problem: Continue with supplemental oxygen, keep O2 sats 88-90% Follow up ABG Short acting bronchodilators Steroids with slow taper. While on high dose steroids, Stress ulcer prophylaxis Chronic COPD medications VTE prophylaxis- on therapeutic anticoagulation, continue the same Accuchecks with glycemic control while on steroids Mobility, increase activity as tolerated by respiratory status Influenza and pneumonia vaccination per protocol (2) CHF (congestive heart failure) Current Visit: Yes Status: Acute Qualifiers: Heart failure type: systolic Heart failure chronicity: acute on chronic Qualified Code(s): I50.23 - Acute on chronic systolic (congestive) heart failure Plan to address problem: Strict I/O, daily weight, BNP, monitor uop q shift, daily weight, supplemental oxygen, pulse oximetry, afterload reduction. (3) Atrial fibrillation Current Visit: Yes Status: Acute Qualifiers: Atrial fibrillation type: other persistent Qualified Code(s): I48.19 - Other persistent atrial fibrillation Plan to address problem: continue therapeutic anticoagulation, rate control, ekg (4) Osteoarthritis Current Visit: Yes Status: Acute Qualifiers: Laterality: unspecified laterality Plan to address problem: Pain control, supportive care (5) HTN (hypertension) Current Visit: Yes Status: Acute Qualifiers: Hypertension type: essential hypertension Qualified Code(s): I10 - Essential (primary) hypertension Plan to address problem: Monitor bp q shift, continue current care (6) DVT prophylaxis Current Visit: Yes Status: Acute Plan to address problem: SCD to BLE while in bed, continue therapeutic anticoagulation.
[2019-07-11] MEDS: methylPREDNISolone Sod Succinate 125 MG/2 ML INJ IV SCH ×2 (14:30→21:47)
[2019-07-11] MEDS: IPRATROPIUM/ALBUTEROL SULFATE 3 ML AMPUL.NEB IH SCH ×2 (14:46→20:15)
[2019-07-11] MEDS: DIGOXIN 0.125 MG TAB PO SCH (16:37)
[2019-07-11] MEDS: BUDESONIDE 0.5 MG/2 ML NEBU IH SCH (20:15)
[2019-07-11] MEDS: ARFORMOTEROL 15 MCG/2 ML NEBU IH SCH (20:15)
[2019-07-11] MEDS: ALPRAZolam 1 MG TAB PO PRN (21:46)
[2019-07-11] MEDS: MIRTAZAPINE 15 MG TAB PO SCH (21:47)
[2019-07-12] MEDS: IPRATROPIUM/ALBUTEROL SULFATE 3 ML AMPUL.NEB IH SCH ×4 (02:00→21:48)
[2019-07-12] MEDS: methylPREDNISolone Sod Succinate 125 MG/2 ML INJ IV SCH ×3 (05:28→21:21)
[2019-07-12] MEDS: LEVOTHYROXINE 100 MCG TAB PO SCH (05:28)
[2019-07-12] MEDS: BUDESONIDE 0.5 MG/2 ML NEBU IH SCH ×2 (07:59→21:49)
[2019-07-12] MEDS: ARFORMOTEROL 15 MCG/2 ML NEBU IH SCH ×2 (08:00→21:49)
[2019-07-12] MEDS: OMEGA-3 FATTY ACIDS/FISH OIL 1 GRAM CAP PO SCH ×2 (09:35→21:22)
[2019-07-12] MEDS: FUROSEMIDE 20 MG TAB PO SCH (09:35)
[2019-07-12] MEDS: APIXABAN 5 MG TAB PO SCH ×2 (09:36→21:22)
[2019-07-12] MEDS: PANTOPRAZOLE 40 MG TAB PO SCH (09:36)
[2019-07-12] MEDS: POTASSIUM CHLORIDE 20 MEQ PACKET PO SCH (09:36)
[2019-07-12] MEDS: CETIRIZINE 10 MG TAB PO SCH (09:36)
[2019-07-12] MEDS: VERAPAMIL ER 240 MG TAB PO SCH (09:36)
[2019-07-12] MEDS: LISINOPRIL 10 MG TAB PO SCH (09:36)
[2019-07-12] MEDS: DULoxetine 30 MG CAP PO SCH (09:36)
[2019-07-12] MEDS: ASPIRIN 81 MG TAB CHEW PO SCH (09:36)
--- NOTE | 2019-07-12 13:30 | Progress Note ---
Assessment and Plan Patient is admitted for exacerbation of COPD. Pateitn coughing, reported sputum mixed with blood. Today, no hemoptysis. Patient still having some shortness of breath. she is on 3L O2 with BiPAP on bedside. O2 saturation is 93%. Patient a febrile and no leukocytosis. - Patient Problems (1) Acute and chronic respiratory failure Current Visit: Yes Status: Acute Qualifiers: Respiratory failure complication: hypoxia Qualified Code(s): J96.21 - Acute and chronic respiratory failure with hypoxia Plan to address problem: Patient is on albuterol and atrovent aerosol treatments. Continue 3L O2 via nasal cannula Continue solumedrol. continue apixaban continue protonix Patient is on levoquin (2) COPD with exacerbation Current Visit: Yes Status: Acute Plan to address problem: Patient is on albuterol and atrovent aerosol treatments. Continue 3L O2 via nasal cannula Continue solumedrol. continue apixaban continue protonix Patient is on levoquin (3) Atrial fibrillation Current Visit: Yes Status: Acute Qualifiers: Atrial fibrillation type: unspecified Qualified Code(s): I48.91 - Unspecified atrial fibrillation Plan to address problem: Management as per cardiology and primary team patient is on apixaban (4) CHF (congestive heart failure) Current Visit: Yes Status: Acute Qualifiers: Heart failure type: systolic Heart failure chronicity: acute on chronic Qualified Code(s): I50.23 - Acute on chronic systolic (congestive) heart failure Plan to address problem: Management as per cardiology and primary team (5) Chest pain Current Visit: Yes Status: Acute Qualifiers: Chest pain type: unspecified Qualified Code(s): R07.9 - Chest pain, unspecified Plan to address problem: management as per cardiology and primary team (6) HTN (hypertension) Current Visit: Yes Status: Acute Qualifiers: Hypertension type: essential hypertension Qualified Code(s): I10 - Essential (primary) hypertension Plan to address problem: management as per cardiology and primary team (7) Hypothyroidism Current Visit: No Status: Chronic Plan to address problem: Management as per primary team and endocrinology Subjective Date of service: 07/12/19 Interval history: Patient is admitted for exacerbation of COPD. Pateitn coughing, reported sputum mixed with blood. Today, no hemoptysis. Patient still having some shortness of breath. she is on 3L O2 with BiPAP on bedside. O2 saturation is 93%. Patient afebrile and no leukocytosis. Objective Vital Signs - 12hr 07/12/19 07/12/19 07/12/19 04:37 04:38 07:58 Temperature 98.2 F Pulse Rate 92 H Pulse Rate [ Anterior Bilateral Upper Lobe] Respiratory 20 Rate Respiratory Rate [Anterior Bilateral Upper Lobe] Blood Pressure 129/77 O2 Sat by Pulse 98 96 Oximetry 07/12/19 07/12/19 07/12/19 08:00 08:03 09:35 Temperature 97.5 F L Pulse Rate 94 H 94 H Pulse Rate [ 98 H Anterior Bilateral Upper Lobe] Respiratory 18 Rate Respiratory 16 Rate [Anterior Bilateral Upper Lobe] Blood Pressure 149/68 149/68 O2 Sat by Pulse 95 Oximetry 07/12/19 09:36 Temperature Pulse Rate 94 H Pulse Rate [ Anterior Bilateral Upper Lobe] Respiratory Rate Respiratory Rate [Anterior Bilateral Upper Lobe] Blood Pressure 149/68 O2 Sat by Pulse Oximetry Constitutional: alert, appears uncomfortable Eyes: non-icteric ENT: oropharynx moist Neck: supple Effort: mildly labored Ascultation: Bilateral: diminished breath sounds, rhonchi (few), other (prolonged expiratory phase) Cardiovascular: regular rate and rhythm Gastrointestinal: normoactive bowel sounds, non-distended Integumentary: normal Extremities: no cyanosis, no edema Neurologic: normal mental status, non-focal exam Psychiatric: mood appropriate CBC and BMP: 07/11/19 04:56 07/11/19 04:56 ABG, PT/INR, D-dimer: ABG POC ABG pH 7.400 (7.35-7.45) 07/10/19 20:28 POC ABG pCO2 64.3 (35-45) H 07/10/19 20:28 POC ABG pO2 168 (80-105) H 07/10/19 20:28 POC ABG HCO3 39.8 (22-26 mml/L) 07/10/19 20:28 POC ABG Total CO2 42 (23-27mmol/L) 07/10/19 20:28 POC ABG O2 Sat 99 07/10/19 20:28 Abnormal lab findings: Abnormal Labs 07/10/19 07/10/19 07/10/19 15:44 15:44 15:44 WBC RDW 13.1 L Lymph # Seg Neutrophils % 75.7 H POC ABG pCO2 POC ABG pO2 Sodium Chloride 92.4 L Carbon Dioxide 31 H Glucose 116 H Lactic Acid 2.20 H* Total Creatine Kinase CK-MB (CK-2) Rel Index NT-Pro-B Natriuret Pep Albumin 3.6 L 07/10/19 07/10/19 07/10/19 15:44 15:44 20:28 WBC RDW Lymph # Seg Neutrophils % POC ABG pCO2 64.3 H POC ABG pO2 168 H Sodium Chloride Carbon Dioxide Glucose Lactic Acid Total Creatine Kinase 25 L CK-MB (CK-2) Rel Index 8.0 H NT-Pro-B Natriuret Pep 997.5 H Albumin 07/11/19 07/11/19 04:56 04:56 WBC 3.9 L RDW Lymph # 0.8 L Seg Neutrophils % 78.5 H POC ABG pCO2 POC ABG pO2 Sodium 135 L Chloride 92.7 L Carbon Dioxide Glucose 131 H Lactic Acid Total Creatine Kinase CK-MB (CK-2) Rel Index NT-Pro-B Natriuret Pep Albumin 3.4 L Chest x-ray: report reviewed (Hyperinflated lungs and pulmonary fibrosis.), image reviewed
--- NOTE | 2019-07-12 15:59 | Progress Note ---
Assessment and Plan Assessment and plan: 69 YO Female with Atrial Fib on Therapeutic Anticoagulation, Chronic Respiratory Failure on Home Oxygen @2liters via NC, Severe COPD, HTN, CHF, Anxiety, CVA, MVP, OA presents to ED for evaluation. Pt states that she has been experiencing shortness of breath and episodes of productive cough with clear sputum for the past 1 week with progressively worsening symptoms over the past 2 days. EMS notified, and upon arrival the patient was found to be in distress and transported to [facility]. Pt seen and evaluated in ED and found to have Acute on Chronic Hypoxemic Respiratory Failure with pulse oximetry of 85% on supplemental oxygen. Pt is using accessory muscles to breathe, Pt agitated, and states that she is "scared" because she cant breathe. Pt admitted to medical floor. Pt treated with supplemental oxygen and nebulizer therapy without significant improvement and was subsequently placed on NIPPV. Pt acknowledges chest discomfort associated with coughing episodes, but denies CP, Chills, Palpitations, Syncope, BRBPR, hematuria, Syncope, hemoptysis, skin rashes, or recent ill contacts, prolonged immobility/travel, individual/family history of DVT/PE, leg swelling, or calf pain. Prior admission on 06/22/19 reviewed. All listed medication reconciled at time of admission. * Continue neb treatment * pt/ot for today * bernard steroids * will need outpatient pulmnary rehab PCP- Dr Zamora Pulmonologsit-Mr Saldivar (1) Acute and chronic respiratory failure Current Visit: Yes Status: Acute Qualifiers: Respiratory failure complication: hypoxia Qualified Code(s): J96.21 - Acute and chronic respiratory failure with hypoxia Plan to address problem: supplemental oxygen, nebulizer therapy, pulse oximetry, NIPPV, ABG, chest x ray. Extensive discussion with the patient revealed that her shortness of breath got back worse after she tapered off steroids. Unfortunately has not been able to follow with her primary care physician. (2) CHF (congestive heart failure) Current Visit: Yes Status: Acute Qualifiers: Heart failure type: systolic Heart failure chronicity: acute on chronic Qualified Code(s): I50.23 - Acute on chronic systolic (congestive) heart failure Plan to address problem: Strict I/O, daily weight, BNP, monitor uop q shift, daily weight, supplemental oxygen, pulse oximetry, afterload reduction. (3) Atrial fibrillation Current Visit: Yes Status: Acute Qualifiers: Atrial fibrillation type: other persistent Qualified Code(s): I48.19 - Other persistent atrial fibrillation Plan to address problem: continue therapeutic anticoagulation, rate control, ekg (4) Osteoarthritis Current Visit: Yes Status: Acute Qualifiers: Laterality: unspecified laterality Plan to address problem: Pain control, supportive care (5) HTN (hypertension) Current Visit: Yes Status: Acute Qualifiers: Hypertension type: essential hypertension Qualified Code(s): I10 - Essential (primary) hypertension Plan to address problem: Monitor bp q shift, continue current care (6) anxiety disorder Continue anxiolytic, her anxiety actually plays a big role recurrent readmissions to the hospital. (7) chronic pain syndrome Continue pain medication judiciously with bowel regimen (8) DVT prophylaxis Current Visit: Yes Status: Acute Plan to address problem: SCD to BLE while in bed, continue therapeutic anticoagulation. We will obtain case management to assist in setting up appointments with her to see her physician sooner rather than later upon discharge from the hospital. History Interval history: Patient seen and examined at this time now off BIPAP, patient still with nita rtness of breath. Patient has still with shortness of breath at 10 feet ambulation which is not usual for her Hospitalist Physical - Physical exam Narrative exam: VITAL SIGNS: Reviewed. GENERAL: The patient appears normally developed, mild shortness of breath and distress respiratory truong vital signs as documented. HEAD: No signs of head trauma. EYES: Pupils are equal. Extraocular motions intact. EARS: Hearing grossly intact. MOUTH: Oropharynx is normal. NECK: No adenopathy, no JVD. CHEST: Chest with diminished breath sounds bilaterally with increased work of breathing. No wheezes, rales, or rhonchi. CARDIAC: Regular rate and rhythm. S1 and S2, without murmurs, gallops, or rubs. VASCULAR: No Edema. Peripheral pulses normal and equal in all extremities. ABDOMEN: Soft, non tender and non distended. No rebound or guarding, and no masses palpated. Bowel Sounds normal. MUSCULOSKELETAL: Good range of motion of all major joints. Extremities without clubbing, cyanosis or edema. NEUROLOGIC EXAM: Alert and oriented x 3 No focal sensory or strength deficits. Speech normal. Follows commands. PSYCHIATRIC: Mood normal. SKIN: detail exam as documented in skin assessment - Constitutional Vitals: Temp Pulse Resp BP Pulse Ox 97.5 F L 112 H 20 149/68 95 07/12/19 08:03 07/12/19 14:06 07/12/19 14:06 07/12/19 09:36 07/12/19 08:03 General appearance: Present: mild distress Results - Labs CBC & Chem 7: 07/11/19 04:56 07/11/19 04:56 Labs: Laboratory Last Values WBC 3.9 K/mm3 (4.5-11.0) L 07/11/19 04:56 RBC 4.12 M/mm3 (3.65-5.03) 07/11/19 04:56 Hgb 13.2 gm/dl (10.1-14.3) 07/11/19 04:56 Hct 39.3 % (30.3-42.9) 07/11/19 04:56 MCV 95 fl (79-97) 07/11/19 04:56 MCH 32 pg (28-32) 07/11/19 04:56 MCHC 34 % (30-34) 07/11/19 04:56 RDW 13.3 % (13.2-15.2) 07/11/19 04:56 Plt Count 186 K/mm3 (140-440) 07/11/19 04:56 Lymph % (Auto) 19.6 % (13.4-35.0) 07/11/19 04:56 Taylor % (Auto) 1.6 % (0.0-7.3) 07/11/19 04:56 Eos % (Auto) 0.1 % (0.0-4.3) 07/11/19 04:56 Baso % (Auto) 0.2 % (0.0-1.8) 07/11/19 04:56 Lymph # 0.8 K/mm3 (1.2-5.4) L 07/11/19 04:56 Taylor # 0.1 K/mm3 (0.0-0.8) 07/11/19 04:56 Eos # 0.0 K/mm3 (0.0-0.4) 07/11/19 04:56 Baso # 0.0 K/mm3 (0.0-0.1) 07/11/19 04:56 Seg Neutrophils % 78.5 % (40.0-70.0) H 07/11/19 04:56 Seg Neutrophils # 3.1 K/mm3 (1.8-7.7) 07/11/19 04:56 POC ABG pH 7.400 (7.35-7.45) 07/10/19 20:28 POC ABG pCO2 64.3 (35-45) H 07/10/19 20:28 POC ABG pO2 168 (80-105) H 07/10/19 20:28 POC ABG HCO3 39.8 (22-26 mml/L) 07/10/19 20:28 POC ABG Total CO2 42 (23-27mmol/L) 07/10/19 20:28 POC ABG O2 Sat 99 07/10/19 20:28 POC ABG Base Excess 15 ((-2) - (+3)mmol/L) 07/10/19 20:28 FiO2 60 % 07/10/19 20:28 Sodium 135 mmol/L (137-145) L 07/11/19 04:56 Potassium 4.4 mmol/L (3.6-5.0) 07/11/19 04:56 Chloride 92.7 mmol/L (98-107) L 07/11/19 04:56 Carbon Dioxide 29 mmol/L (22-30) 07/11/19 04:56 Anion Gap 18 mmol/L 07/11/19 04:56 BUN 16 mg/dL (7-17) 07/11/19 04:56 Creatinine 0.7 mg/dL (0.7-1.2) 07/11/19 04:56 Estimated GFR > 60 ml/min 07/11/19 04:56 BUN/Creatinine Ratio 23 % 07/11/19 04:56 Glucose 131 mg/dL (65-100) H 07/11/19 04:56 Lactic Acid 1.00 mmol/L (0.7-2.0) 07/10/19 17:45 Calcium 9.5 mg/dL (8.4-10.2) 07/11/19 04:56 Total Bilirubin 0.70 mg/dL (0.1-1.2) 07/11/19 04:56 AST 19 units/L (5-40) 07/11/19 04:56 ALT 20 units/L (7-56) 07/11/19 04:56 Alkaline Phosphatase 82 units/L (35-129) 07/11/19 04:56 Total Creatine Kinase 25 units/L (30-135) L 07/10/19 15:44 CK-MB (CK-2) 2.0 ng/mL (0.0-4.0) 07/10/19 15:44 CK-MB (CK-2) Rel Index 8.0 (0-4) H 07/10/19 15:44 Troponin T < 0.010 ng/mL (0.00-0.029) 07/10/19 15:44 NT-Pro-B Natriuret Pep 997.5 pg/mL (0-900) H 07/10/19 15:44 Total Protein 7.0 g/dL (6.3-8.2) 07/11/19 04:56 Albumin 3.4 g/dL (3.9-5) L 07/11/19 04:56 Albumin/Globulin Ratio 0.9 % 07/11/19 04:56 Active Medications - Current Medications Current Medications: Generic Name Dose Route Start Last Admin Trade Name Freq PRN Reason Stop Dose Admin Albuterol 2.5 mg 07/10/19 17:17 Proventil IH Q3HRT PRN Shortness Of Breath Albuterol/Ipratropium 1 ampul 07/11/19 14:00 07/12/19 14:06 Duoneb *Not For Prn Use* IH 1 ampul Q6HRT JO Administration Alprazolam 1 mg 07/11/19 09:34 07/11/19 21:46 Xanax PO 1 mg TID PRN Administration Anxiety Apixaban 5 mg 07/11/19 10:00 07/12/19 09:36 Eliquis PO 5 mg BID JO Administration Protocol Arformoterol Tartrate 15 mcg 07/11/19 20:00 07/12/19 08:00 Brovana Nebu IH 15 mcg Q12HRT JO Administration Aspirin 81 mg 07/11/19 10:00 07/12/19 09:36 Baby Aspirin PO 81 mg QDAY JO Administration Atorvastatin Calcium 20 mg 07/11/19 22:00 07/11/19 21:46 Lipitor PO 20 mg QHS JO Administration Budesonide 1 mg 07/11/19 20:00 07/12/19 07:59 Pulmicort IH 1 mg Q12HRT JO Administration Cetirizine HCl 10 mg 07/11/19 10:00 07/12/19 09:36 Cetirizine PO 10 mg DAILY JO Administration Digoxin 0.125 mg 07/11/19 17:00 07/11/19 16:37 Lanoxin PO 0.125 mg DAILY@1700 JO Administration Duloxetine HCl 60 mg 07/11/19 10:00 07/12/19 09:36 Cymbalta PO 60 mg QDAY JO Administration Fish Oil 1,000 mg 07/11/19 10:00 07/12/19 09:35 Fish Oil PO 1,000 mg BID JO Administration Furosemide 20 mg 07/11/19 10:00 07/12/19 09:35 Lasix PO 20 mg QDAY [facility] Administration Levofloxacin/Dextrose 500 mg in 100 mls @ 100 mls/hr 07/11/19 20:00 07/11/19 21:45 Levaquin 500mg/100ml IV 07/15/19 20:59 100 mls/hr Q24H JO Administration Protocol Isosorbide Mononitrate 120 mg 07/11/19 12:30 07/12/19 09:35 Imdur PO 120 mg QDAY [facility] Administration Levothyroxine Sodium 100 mcg 07/12/19 06:00 07/12/19 05:28 Synthroid PO 100 mcg DAILY@0600 [facility] Administration Lisinopril 10 mg 07/11/19 10:00 07/12/19 09:36 Zestril PO 10 mg DAILY [facility] Administration Methylprednisolone Sodium Succinate 60 mg 07/11/19 14:00 07/12/19 13:50 Solu-Medrol IV 60 mg Q8HR JO Administration Mirtazapine 45 mg 07/11/19 22:00 07/11/19 21:47 Remeron PO 45 mg QHS [facility] Administration Miscellaneous Medication 25 mg 07/11/19 10:00 Naloxegol Oxalate [Movantik] PO DAILY [facility] Miscellaneous Medication 62.5 mcg 07/11/19 10:00 Umeclidinium [place] [Incruse Ellipta 62.5mcg] IH DAILY [facility] Miscellaneous Medication 290 mcg 07/13/19 10:00 Linaclotide [Linzess] PO DAILY [facility] Nitroglycerin 0.4 mg 07/11/19 09:34 Nitrostat SL Q5M PRN Chest Pain Oxycodone/Acetaminophen 1.5 tab 07/11/19 10:01 Percocet 5/325 PO Q6H PRN Pain, Moderate (4-6) Pantoprazole Sodium 40 mg 07/11/19 10:00 07/12/19 09:36 Protonix PO 40 mg QDAY JO Administration Potassium Chloride 20 meq 07/11/19 10:00 07/12/19 09:36 Potassium Chloride PO 20 meq DAILY JO Administration Sodium Chloride 10 ml 07/10/19 22:00 07/12/19 09:37 Sodium Chloride Flush Syringe 10 Ml IV 10 ml BID JO Administration Sodium Chloride 10 ml 07/10/19 17:17 Sodium Chloride Flush Syringe 10 Ml IV PRN PRN LINE FLUSH Verapamil HCl 240 mg 07/11/19 10:00 07/12/19 09:36 Calan Sr PO 240 mg DAILY JO Administration
[2019-07-12] MEDS: DIGOXIN 0.125 MG TAB PO SCH (17:23)
[2019-07-12] MEDS: ALPRAZolam 1 MG TAB PO PRN (21:22)
[2019-07-12] MEDS: MIRTAZAPINE 15 MG TAB PO SCH (21:22)
[2019-07-13 04:04] VITALS: BP 142/66
[2019-07-13] MEDS: IPRATROPIUM/ALBUTEROL SULFATE 3 ML AMPUL.NEB IH SCH ×3 (04:10→16:34)
[2019-07-13] MEDS: LEVOTHYROXINE 100 MCG TAB PO SCH (05:28)
[2019-07-13] MEDS: methylPREDNISolone Sod Succinate 125 MG/2 ML INJ IV SCH (05:29)
[2019-07-13] MEDS: VERAPAMIL ER 240 MG TAB PO SCH (09:34)
[2019-07-13] MEDS: LISINOPRIL 10 MG TAB PO SCH (09:35)
[2019-07-13] MEDS: APIXABAN 5 MG TAB PO SCH (09:35)
[2019-07-13] MEDS: POTASSIUM CHLORIDE 20 MEQ PACKET PO SCH (09:35)
[2019-07-13] MEDS: DULoxetine 30 MG CAP PO SCH (09:35)
[2019-07-13] MEDS: ASPIRIN 81 MG TAB CHEW PO SCH (09:35)
[2019-07-13] MEDS: CETIRIZINE 10 MG TAB PO SCH (09:35)
[2019-07-13] MEDS: OMEGA-3 FATTY ACIDS/FISH OIL 1 GRAM CAP PO SCH (09:35)
[2019-07-13] MEDS: FUROSEMIDE 20 MG TAB PO SCH (09:36)
[2019-07-13] MEDS: PANTOPRAZOLE 40 MG TAB PO SCH (09:36)
[2019-07-13] MEDS: ARFORMOTEROL 15 MCG/2 ML NEBU IH SCH (09:50)
[2019-07-13] MEDS: BUDESONIDE 0.5 MG/2 ML NEBU IH SCH (09:50)
[2019-07-13] MEDS ORDERED: LINACLOTIDE 290 MCG PO SCH (10:00)
[2019-07-13] MEDS ORDERED: methylPREDNISolone Sod Succinate 125 MG/2 ML INJ IV SCH (11:37)
--- NOTE | 2019-07-13 11:44 | Discharge Summary ---
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 Pt states that she has been experiencing shortness of breath and episodes of productive cough with clear sputum for the past 1 week with progressively worsening symptoms over the past 2 days. EMS notified, and upon arrival the patient was found to be in distress and transported to [facility]. Pt seen and evaluated in ED and found to have Acute on Chronic Hypoxemic Respiratory Failure with pulse oximetry of 85% on supplemental oxygen. Pt is using accessory muscles to breathe, Pt agitated, and states that she is "scared" because she cant breathe. Pt admitted to medical floor. Pt treated with supplemental oxygen and nebulizer therapy without significant improvement and was subsequently placed on NIPPV. Pt acknowledges chest discomfort associated with coughing episodes, but denies CP, Chills, Palpitations, Syncope, BRBPR, hematuria, Syncope, hemoptysis, skin rashes, or recent ill contacts, prolonged immobility/travel, individual/family history of D VT/PE, leg swelling, or calf pain. Prior admission on 06/22/19 reviewed. All listed medication reconciled at time of admission. * Continue neb treatment * pt/ot for today * bernard steroids * will need outpatient pulmnary rehab PCP- Dr Zamora Pulmonologsit-Mr Saldivar (1) Acute and chronic respiratory failure Current Visit: Yes Status: Acute Qualifiers: Respiratory failure complication: hypoxia Qualified Code(s): J96.21 - Acute and chronic respiratory failure with hypoxia Plan to address problem: supplemental oxygen, nebulizer therapy, pulse oximetry, NIPPV, ABG, chest x ray. Extensive discussion with the patient revealed that her shortness of breath got back worse after she tapered off steroids. Unfortunately has not been able to follow with her primary care physician. We will obtain case management to assist in setting up appointments with her to see her physician sooner rather than later upon discharge from the hospital. patient states she is > 75% better and very close to her baseline, I deally would have loved to watch her for one additional day as she still has resting shortness of breath to me. She would rather go home today but agrees to make it a later discharge (2) CHF (congestive heart failure) Current Visit: Yes Status: Acute Qualifiers: Heart failure type: systolic Heart failure chronicity: acute on chronic Qualified Code(s): I50.23 - Acute on chronic systolic (congestive) heart failure Plan to address problem: Strict I/O, daily weight, BNP, monitor uop q shift, daily weight, supplemental oxygen, pulse oximetry, afterload reduction. (3) Atrial fibrillation Current Visit: Yes Status: Acute Qualifiers: Atrial fibrillation type: other persistent Qualified Code(s): I48.19 - Other persistent atrial fibrillation Plan to address problem: continue therapeutic anticoagulation, rate control, ekg (4) Osteoarthritis Current Visit: Yes Status: Acute Qualifiers: Laterality: unspecified laterality Plan to address problem: Pain control, supportive care (5) HTN (hypertension) Current Visit: Yes Status: Acute Qualifiers: Hypertension type: essential hypertension Qualified Code(s): I10 - Essential (primary) hypertension Plan to address problem: Monitor bp q shift, continue current care (6) anxiety disorder Continue anxiolytic, her anxiety actually plays a big role recurrent readmissions to the hospital. (7) chronic pain syndrome Continue pain medication judiciously with bowel regimen Disposition: [id number] HOME UNDER HOME [facility] Time spent for discharge: 35 mins Core Measure Documentation - Palliative Care Palliative Care/ Comfort Measures: Not Applicable - Core Measures Any of the following diagnoses?: none Exam - Physical Exam Narrative exam: VITAL SIGNS: Reviewed. GENERAL: The patient appears normally developed, mild shortness of breath and distress respiratory truong vital signs as documented. HEAD: No signs of head trauma. EYES: Pupils are equal. Extraocular motions intact. EARS: Hearing grossly intact. MOUTH: Oropharynx is normal. NECK: No adenopathy, no JVD. CHEST: Chest with diminished breath sounds bilaterally with increased work of breathing. No wheezes, rales, or rhonchi. CARDIAC: Regular rate and rhythm. S1 and S2, without murmurs, gallops, or rubs. VASCULAR: No Edema. Peripheral pulses normal and equal in all extremities. ABDOMEN: Soft, non tender and non distended. No rebound or guarding, and no masses palpated. Bowel Sounds normal. MUSCULOSKELETAL: Good range of motion of all major joints. Extremities without clubbing, cyanosis or edema. NEUROLOGIC EXAM: Alert and oriented x 3 No focal sensory or strength deficits. Speech normal. Follows commands. PSYCHIATRIC: Mood normal. SKIN: detail exam as documented in skin assessment - Constitutional Vitals: Temp Pulse Resp BP Pulse Ox 98.2 F 98 H 18 142/66 94 07/13/19 03:41 07/13/19 09:51 07/13/19 09:51 07/13/19 09:35 07/13/19 09:55 Plan Activity: advance as tolerated, fall precautions Diet: low fat Special Instructions: record daily BP diary, record blood sugar diary Follow up with: PRIMARY CAREMD [Primary Care Provider] - 3-5 Days JAY LUONG MD [Staff Physician] - 7 Days Prescriptions: Fluconazole [Diflucan TAB] 100 mg PO QDAY #3 tablet levoFLOXacin [Levaquin] 750 mg PO QDAY #5 tablet methylPREDNISolone [Medrol 4MG DOSEPAK (21 tabs)] 4 mg PO . DIRECTED #1 tab.ds.pk
[2019-07-13] MEDS ORDERED: FLUCONAZOLE 100 MG TAB PO SCH (12:00)
[2019-07-13] MEDS ORDERED: methylPREDNISolone Sod Succinate 40 MG/1 ML INJ IV SCH (14:00)
--- NOTE | 2019-07-13 14:09 | Progress Note ---
Assessment and Plan Patient is admitted for exacerbation of COPD with cough and sputum mixed with blood. Patient says breathing better to day. Patient is on 3 litres O2 and O2 saturation is 94%. Patient afebrile and no leukocytosis. . - Patient Problems (1) Acute and chronic respiratory failure Status: Acute Qualifiers: Respiratory failure complication: hypoxia Qualified Code(s): J96.21 - Acute and chronic respiratory failure with hypoxia Plan to address problem: Patient is on albuterol and atrovent aerosol treatments. Continue 3L O2 via nasal cannula Continue solumedrol. continue apixaban continue protonix Patient is on levoquin (2) COPD with exacerbation Status: Acute Plan to address problem: Patient is on albuterol and atrovent aerosol treatments. Continue 3L O2 via nasal cannula Continue solumedrol. continue apixaban continue protonix Patient is on levoquin (3) Atrial fibrillation Status: Acute Qualifiers: Atrial fibrillation type: unspecified Qualified Code(s): I48.91 - Unspecified atrial fibrillation Plan to address problem: Management as per cardiology and primary team patient is on apixaban (4) CHF (congestive heart failure) Status: Acute Qualifiers: Heart failure type: systolic Heart failure chronicity: acute on chronic Qualified Code(s): I50.23 - Acute on chronic systolic (congestive) heart failure Plan to address problem: Management as per cardiology and primary team (5) Chest pain Status: Acute Qualifiers: Chest pain type: unspecified Qualified Code(s): R07.9 - Chest pain, unspecified Plan to address problem: management as per cardiology and primary team (6) HTN (hypertension) Status: Acute Qualifiers: Hypertension type: essential hypertension Qualified Code(s): I10 - Essential (primary) hypertension Plan to address problem: management as per cardiology and primary team (7) Hypothyroidism Status: Chronic Plan to address problem: Management as per primary team . Subjective Date of service: 07/13/19 Interval history: Patient is admitted for exacerbation of COPD with cough and sputum mixed with blood. Patient says breathing better to day. Patient is on 3 litres O2 and O2 saturation is 94%. Patient afebrile and no leukocytosis. Objective Vital Signs - 12hr 07/13/19 07/13/19 07/13/19 03:41 09:34 09:35 Temperature 98.2 F Pulse Rate 102 H 102 H 102 H Pulse Rate [ Anterior Bilateral Upper Lobe] Respiratory 16 Rate Respiratory Rate [Anterior Bilateral Upper Lobe] Blood Pressure 142/66 142/66 142/66 O2 Sat by Pulse 91 Oximetry 07/13/19 07/13/19 07/13/19 09:51 09:55 10:00 Temperature Pulse Rate 77 Pulse Rate [ 98 H Anterior Bilateral Upper Lobe] Respiratory Rate Respiratory 18 Rate [Anterior Bilateral Upper Lobe] Blood Pressure O2 Sat by Pulse 94 Oximetry Constitutional: no acute distress, alert Eyes: non-icteric ENT: oropharynx moist Neck: supple Effort: mildly labored Ascultation: Bilateral: diminished breath sounds, rhonchi (few), other (prolonged expiratory phase) Cardiovascular: regular rate and rhythm Gastrointestinal: normoactive bowel sounds, non-distended Integumentary: normal Extremities: no cyanosis, no edema Neurologic: normal mental status, non-focal exam Psychiatric: mood appropriate CBC and BMP: 07/11/19 04:56 07/11/19 04:56 ABG, PT/INR, D-dimer: ABG POC ABG pH 7.400 (7.35-7.45) 07/10/19 20:28 POC ABG pCO2 64.3 (35-45) H 07/10/19 20:28 POC ABG pO2 168 (80-105) H 07/10/19 20:28 POC ABG HCO3 39.8 (22-26 mml/L) 07/10/19 20:28 POC ABG Total CO2 42 (23-27mmol/L) 07/10/19 20:28 POC ABG O2 Sat 99 07/10/19 20:28 Abnormal lab findings: Abnormal Labs 07/10/19 07/10/19 07/10/19 15:44 15:44 15:44 WBC RDW 13.1 L Lymph # Seg Neutrophils % 75.7 H POC ABG pCO2 POC ABG pO2 Sodium Chloride 92.4 L Carbon Dioxide 31 H Glucose 116 H Lactic Acid 2.20 H* Total Creatine Kinase CK-MB (CK-2) Rel Index NT-Pro-B Natriuret Pep Albumin 3.6 L 07/10/19 07/10/19 07/10/19 15:44 15:44 20:28 WBC RDW Lymph # Seg Neutrophils % POC ABG pCO2 64.3 H POC ABG pO2 168 H Sodium Chloride Carbon Dioxide Glucose Lactic Acid Total Creatine Kinase 25 L CK-MB (CK-2) Rel Index 8.0 H NT-Pro-B Natriuret Pep 997.5 H Albumin 07/11/19 07/11/19 04:56 04:56 WBC 3.9 L RDW Lymph # 0.8 L Seg Neutrophils % 78.5 H POC ABG pCO2 POC ABG pO2 Sodium 135 L Chloride 92.7 L Carbon Dioxide Glucose 131 H Lactic Acid Total Creatine Kinase CK-MB (CK-2) Rel Index NT-Pro-B Natriuret Pep Albumin 3.4 L
== END 2019-07-13 14:09 | disposition home health service (06) | DRG 291 ==
LOC: ED 14:09 → IMCU 17:17 → 4A 07-11 09:53
PROVIDERS: ADMIT Internal Medicine; ATTEND Internal Medicine
PROC: 4A033R1 Measurement of Arterial Saturation, Peripheral, Percutaneous Approach (ICD-10-PCS; principal; 2019-07-10)
PROC: 5A09357 Assistance with Respiratory Ventilation, Less than 24 Consecutive Hours, Continuous Positive Airway Pressure (ICD-10-PCS; 2019-07-10)
DX: I11.0 Hypertensive heart disease with heart failure (principal); J96.21 Acute and chronic respiratory failure with hypoxia; I48.19 Other persistent atrial fibrillation; E87.2 Acidosis; I50.23 Acute on chronic systolic (congestive) heart failure; M19.90 Unspecified osteoarthritis, unspecified site; F41.9 Anxiety disorder, unspecified; J43.9 Emphysema, unspecified; G89.4 Chronic pain syndrome; E03.9 Hypothyroidism, unspecified; Z79.01 Long term (current) use of anticoagulants; Z87.442 Personal history of urinary calculi; Z86.73 Personal history of transient ischemic attack (TIA), and cerebral infarction without residual deficits; Z90.710 Acquired absence of both cervix and uterus; Z82.49 Family history of ischemic heart disease and other diseases of the circulatory system
CPT/HCPCS: 36415; 36600; 71045; 80053; 82140; 82550; 82553; 82803; 83880; 84484; 85025; 93005; 93010; 94640; 94644; 94760; 96374; G0378; A9270-GY; J1956; J2930

== ENCOUNTER 2019-09-06 12:05 | Outpatient (CLI) | payer MEDICARE, OTHER ==
--- NOTE | 2019-09-06 15:09 | Cat Scan Report ---
CT abdomen pelvis wo con INDICATION: R31.0 HEMATURIA. TECHNIQUE: All CT scans at this location are performed using the following dose modulation technique: Automated exposure control. CONTRAST: None. COMPARISON: None available. CT ABDOMEN: The parenchymal organs are unremarkable in appearance. Negative for abdominal mass, fluid or inflammation. The bowel is not dilated or thickened. CT PELVIS: A 4 mm stone is seen in the region of the distal left ureteral orifice. There is no ureter al dilatation. Status post previous hysterectomy. Sigmoid diverticula are noninflamed. IMPRESSION: 1. 4 mm stone in the region of the left ureteral orifice without obstruction. 2. Noninflamed colonic diverticulosis. Signer Name: Mario Whitehead MD Signed: 09/06/2019 3:05 PM Workstation Name: [email or web address]
== END 2019-09-06 12:06 | disposition home or self-care (01) ==
LOC: CT 12:05
PROVIDERS: ATTEND Urology
DX: N20.1 Calculus of ureter (principal); K57.30 Diverticulosis of large intestine without perforation or abscess without bleeding; R31.0 Gross hematuria
CPT/HCPCS: 74176

== ENCOUNTER 2020-03-06 08:21 | Inpatient (IN) | payer MEDICARE, OTHER ==
[2020-03-06] MEDS ORDERED: ASPIRIN 81 MG TAB CHEW PO ONE (08:30)
[2020-03-06] MEDS ORDERED: methylPREDNISolone Sod Succinate 125 MG/2 ML INJ IV ONE (08:32)
[2020-03-06] MEDS ORDERED: ALBUTEROL 2.5 MG/3 ML NEBU IH ONE (08:32)
[2020-03-06] MEDS ORDERED: IPRATROPIUM 0.02% NEBU 2.5 ML IH ONE (08:32)
[2020-03-06] MEDS ORDERED: ONDANSETRON 4 MG/2 ML INJ IV ONE (08:35)
--- NOTE | 2020-03-06 08:39 | Emergency Department Report ---
ED Chest Pain HPI - General Stated Complaint: CHEST PAIN Time Seen by Provider: 03/06/20 08:30 Source: patient, EMS - History of Present Illness Initial Comments: Patient is 69 years old female with history of congestive heart failure, COPD, CVA, history of brain aneurysm and and anxiety. Patient brought to the emergency room via EMS from home for evaluation of sudden onset of chest pain and shortness of breath that started this morning. Patient described her chest pain as left-sided, pressure and heaviness that radiated to her left upper extremity associated with significant shortness of breath and orthopnea. Patient also stated that she had a temperature of 99.9 last night. Patient also complaining of nausea but no vomiting. Patient found to be 79% on her 2 L home oxygen improved to 100% on nonrebreather. MD Complaint: chest pain -: This morning Onset: during rest Pain Location: left chest Pain Radiation: LUE Severity: moderate Severity scale (0 -10): 5 Quality: tightness, heaviness - Related Data Home Medications Medication Instructions Recorded Confirmed Last Taken Albuterol Mdi (or & Nicu Only) 2 puff IH QID PRN 06/22/19 03/06/20 Unknown [ProAir HFA Inhaler] Apixaban [Eliquis] 5 mg PO BID 06/22/19 03/06/20 07/10/19 Aspirin [Aspirin BABY CHEW TAB] 81 mg PO QDAY 06/22/19 03/06/20 07/10/19 Fluticasone/Salmeterol [Advair 1 puff IH BID 06/22/19 03/06/20 Unknown Diskus 500-50 mcg] Mirtazapine [Remeron 45mg TAB] 45 mg PO HS 06/22/19 03/06/20 07/11/19 Nitroglycerin [Nitrostat] 0.4 mg SL Q5M PRN 06/22/19 03/06/20 Unknown [place]-3 Acid Ethyl Esters [Lovaza] 1 gm PO BID 06/22/19 03/06/20 07/10/19 Oxycodone HCl/Acetaminophen 1 each PO Q6HR PRN 06/22/19 03/06/20 Unknown [Percocet 7.5/325 mg] Umeclidinium [place] [Incruse 62.5 mcg IH DAILY 06/22/19 03/06/20 Unknown Ellipta 62.5MCG] Verapamil ER [Calan SR] 240 mg PO DAILY 06/22/19 03/06/20 07/11/19 Linaclotide [Linzess] 290 mcg DAILY 06/23/19 03/06/20 07/10/19 DULoxetine [Cymbalta] 60 mg PO QDAY 07/11/19 03/06/20 07/10/19 predniSONE [Deltasone] 2.5 mg PO QDAY 07/11/19 03/06/20 07/10/19 Previous Rx's Medication Instructions Recorded Last Taken Type ALPRAZolam [Xanax TAB] 1 mg PO TID PRN #90 tablet 03/02/16 08/27/17 Rx AtorvaSTATin [Lipitor] 20 mg PO QHS tablet 06/27/19 07/10/19 Rx Digoxin [Lanoxin] 0.125 mg PO DAILY@1700 tablet 06/27/19 07/11/19 Rx Furosemide [Lasix TAB] 20 mg PO QDAY tablet 06/27/19 07/11/19 Rx ISOSORBIDE MONOnitrate [Imdur ER] 120 mg PO QDAY tablet 06/27/19 07/11/19 Rx Levothyroxine [Synthroid] 100 mcg PO DAILY@0600 tablet 06/27/19 07/10/19 Rx Naloxegol Oxalate [Movantik] 25 mg PO DAILY 06/27/19 Unknown Rx [place]-3 Fatty Acids/Fish Oil [Fish 1,000 mg PO BID capsule 06/27/19 07/10/19 Rx Oil] Pantoprazole [Protonix TAB] 40 mg PO QDAY tablet 06/27/19 07/11/19 Rx Potassium Chloride 20 meq PO DAILY packet 06/27/19 07/11/19 Rx lisinopriL [Zestril TAB] 10 mg PO DAILY tablet 06/27/19 07/11/19 Rx Allergies Allergy/AdvReac Type Severity Reaction Status Date / Time adhesive Allergy Hives Verified 04/13/19 12:44 amlodipine besylate Allergy Anaphylaxis Verified 04/13/19 12:44 [From Norvasc] diltiazem Allergy Anaphylaxis Verified 04/13/19 12:44 diltiazem HCl [From Cardizem] Allergy Anaphylaxis Verified 04/13/19 12:44 Renexa Allergy Unknown Uncoded 08/13/16 09:41 Heart Score - HEART Score History: Moderately suspicious EKG: Non-specific Age: > 65 Risk factors: > 3 risk factors or hx of atherosclerotic disease Troponin: < normal limit HEART Score: 6 - Critical Actions Critical Actions: 4-6 pts:12-16.6% risk of adverse cardiac event. Should be admitted ED Review of Systems ROS: Stated complaint: CHEST PAIN Other details as noted in HPI Comment: All other systems reviewed and negative Constitutional: chills, fever Respiratory: cough, orthopnea, shortness of breath, SOB with exertion, SOB at rest, wheezing Cardiovascular: chest pain, palpitations Gastrointestinal: nausea. denies: abdominal pain Musculoskeletal: denies: back pain Neurological: denies: headache, weakness, numbness, paresthesias, confusion, abnormal gait ED Past Medical Hx - Past Medical History Hx Hypertension: Yes Hx CVA: Yes Hx Congestive Heart Failure: Yes Hx Arthritis: Yes Hx Kidney Stones: Yes Hx Psychiatric Treatment: Yes (anxiety) Hx COPD: Yes Additional medical history: emphysema, bronchitis, A. Fib; MVP; aneurysm- coil on right side of head, Home oxygen @ 2lpm nasal cannula - Surgical History Hx Breast Surgery: Yes (bilateral breast biopsy benign) Additional Surgical History: tonsillectomy, cerebral aneurysm coil, hysterectomy, hemorrhoid surgery, bilateral benign breast biopsies - Social History Smoking Status: Current Some Day Smoker - Medications Home Medications: Home Medications Medication Instructions Recorded Confirmed Last Taken Type ALPRAZolam [Xanax TAB] 1 mg PO TID PRN #90 tablet 03/02/16 03/06/20 08/27/17 Rx Albuterol Mdi (or & Nicu Only) 2 puff IH QID PRN 06/22/19 03/06/20 Unknown History [ProAir HFA Inhaler] Apixaban [Eliquis] 5 mg PO BID 06/22/19 03/06/20 07/10/19 History Aspirin [Aspirin BABY CHEW TAB] 81 mg PO QDAY 06/22/19 03/06/20 07/10/19 History Fluticasone/Salmeterol [Advair 1 puff IH BID 06/22/19 03/06/20 Unknown History Diskus 500-50 mcg] Mirtazapine [Remeron 45mg TAB] 45 mg PO HS 06/22/19 03/06/20 07/11/19 History Nitroglycerin [Nitrostat] 0.4 mg SL Q5M PRN 06/22/19 03/06/20 Unknown History [place]-3 Acid Ethyl Esters [Lovaza] 1 gm PO BID 06/22/19 03/06/20 07/10/19 History Oxycodone HCl/Acetaminophen 1 each PO Q6HR PRN 06/22/19 03/06/20 Unknown History [Percocet 7.5/325 mg] Umeclidinium [place] [Incruse 62.5 mcg IH DAILY 06/22/19 03/06/20 Unknown History Ellipta 62.5MCG] Verapamil ER [Calan SR] 240 mg PO DAILY 06/22/19 03/06/20 07/11/19 History Linaclotide [Linzess] 290 mcg DAILY 06/23/19 03/06/20 07/10/19 History AtorvaSTATin [Lipitor] 20 mg PO QHS tablet 06/27/19 03/06/20 07/10/19 Rx Digoxin [Lanoxin] 0.125 mg PO DAILY@1700 tablet 06/27/19 03/06/20 07/11/19 Rx Furosemide [Lasix TAB] 20 mg PO QDAY tablet 06/27/19 03/06/20 07/11/19 Rx ISOSORBIDE MONOnitrate [Imdur ER] 120 mg PO QDAY tablet 06/27/19 03/06/20 07/11/19 Rx Levothyroxine [Synthroid] 100 mcg PO DAILY@0600 tablet 06/27/19 03/06/20 07/10/19 Rx Naloxegol Oxalate [Movantik] 25 mg PO DAILY 06/27/19 03/06/20 Unknown Rx [place]-3 Fatty Acids/Fish Oil [Fish 1,000 mg PO BID capsule 06/27/19 03/06/20 07/10/19 Rx Oil] Pantoprazole [Protonix TAB] 40 mg PO QDAY tablet 06/27/19 03/06/20 07/11/19 Rx Potassium Chloride 20 meq PO DAILY packet 06/27/19 03/06/20 07/11/19 Rx lisinopriL [Zestril TAB] 10 mg PO DAILY tablet 06/27/19 03/06/20 07/11/19 Rx DULoxetine [Cymbalta] 60 mg PO QDAY 07/11/19 03/06/20 07/10/19 History predniSONE [Deltasone] 2.5 mg PO QDAY 07/11/19 03/06/20 07/10/19 History ED Physical Exam - General General appearance: alert, in distress (Moderate respiratory distress.) - ENT ENT exam: Present: normal exam, normal orophraynx, mucous membranes moist - Neck Neck exam: Present: normal inspection, full ROM. Absent: tenderness, meningismus - Respiratory Respiratory exam: Present: respiratory distress, wheezes, rales, rhonchi, accessory muscle use, decreased breath sounds, prolonged expiratory. Absent: stridor, chest wall tenderness - Cardiovascular Cardiovascular Exam: Present: tachycardia, irregular rhythm - GI/Abdominal GI/Abdominal exam: Present: soft, normal bowel sounds. Absent: distended, te nderness, guarding, rebound, rigid, organomegaly, mass, bruit, pulsatile mass - Extremities Exam Extremities exam: Present: normal inspection, full ROM, normal capillary refill. Absent: pedal edema, calf tenderness - Back Exam Back exam: Present: normal inspection, full ROM. Absent: CVA tenderness (R), CVA tenderness (L) - Neurological Exam Neurological exam: Present: alert, oriented X3, CN II-XII intact. Absent: motor sensory deficit - Psychiatric Psychiatric exam: Present: anxious - Skin Skin exam: Present: warm, intact, normal color ED Course Vital Signs 03/06/20 03/06/20 09:14 10:21 Temperature 98.8 F Pulse Rate 117 H Pulse Rate [ 106 H Anterior Bilateral Throughout] Respiratory 26 H Rate Respiratory 20 Rate [Anterior Bilateral Throughout] Blood Pressure 160/75 [Left] O2 Sat by Pulse 96 Oximetry ENEDELIA score - Enedelia Score Age > 65: (1) Yes Aspirin use within the Past 7 Days: (1) Yes 3 or more CAD Risk Factors: (1) Yes 2 or more Angina events in past 24 hrs: (1) Yes Known CAD with more than 50% Stenosis: (1) Yes Elevated Cardiac Markers: (0) No ST Deviation Greater than 0.5mm: (0) No ENEDELIA Score: 5 ED Medical Decision Making - Lab Data Result diagrams: 03/06/20 09:25 03/06/20 09:25 - EKG Data -: EKG Interpreted by Pr Rate: tachycardia - EKG Data 03/06/20 11:11 Atrial fibrillation with RVR heart rate of 102 - Radiology Data Radiology results: report reviewed - Medical Decision Making Patient is 69 years old female with history of congestive heart failure, COPD, CVA, history of brain aneurysm and and anxiety. Patient brought to the emergency room via EMS from home for evaluation of sudden onset of chest pain and shortness of breath that started this morning. Patient described her chest pain as left-sided, pressure and heaviness that radiated to her left upper extremity associated with significant shortness of breath and orthopnea. Patient also stated that she had a temperature of 99.9 last night. Patient also complaining of nausea but no vomiting. Patient found to be 79% on her 2 L home oxygen improved to 100% on nonrebreather. Patient received albuterol, Atrovent, Solu-Medrol and Zofran. Chest x-ray is unremarkable. ABG reviewed and unremarkable. Patient stated that symptoms improved with breathing treatment. I discussed the patient with Dr. Veras, he agreed to admit the patient to the hospital and advised to admit the patient to Dr. Lima. Critical Care Time: Yes Critical care time in (mins) excluding proc time.: 30 Critical care attestation.: If time is entered above; I have spent that time in minutes in the direct care of this critically ill patient, excluding procedure time. ED Disposition Clinical Impression: Chest pain, Atrial fibrillation with RVR, Acute and chronic respiratory failure, Suspected 2019-nCoV infection Disposition: OP ADMIT IP TO THIS HOSP Is pt being admited?: Yes Condition: Stable Instructions: Chest Pain (ED) Referrals: PRIMARY CARE, [Primary Care Provider] - 3-5 Days
--- NOTE | 2020-03-06 08:57 | XRay Report ---
CHEST 1 VIEW INDICATION: Chest Pain. COMPARISON: 07/10/2019 FINDINGS: Support devices: None. Heart: Within normal limits. Lungs/Pleura: The lungs remain hyperinflated with prominent interstitial markings throughout. No acut e infiltrate, pleural effusion or pneumothorax. Additional findings: None. IMPRESSION: COPD. No acute cardiopulmonary process. No change since 07/10/2019. Signer Name: Matt Pineda Jr, MD Signed: 03/06/2020 8:52 AM Workstation Name: [id number]
[2020-03-06 09:38] LABS: ABG HCO3 33.3 mmol/L (20.0-26.0); ABG Methemoglobin 0.6 % (0.0-1.5); ABG Oxygen Saturation 93.2 % (95.0-99.0); ABG PCO2 60.4 mm Hg; ABG PH 7.359 pH Units (7.350-7.450); ABG PO2 65.8 mm Hg (80.0-90.0)
[2020-03-06 09:56] LABS: Basophils % (Auto) 0.3 % (0.0-1.8); Eosinophils # (Auto) 0.1 K/mm3 (0.0-0.4); Eosinophils % (Auto) 1.1 % (0.0-4.3); Hemoglobin 13.7 gm/dl (10.1-14.3); Lymphocytes # (Auto) 1.1 K/mm3 (1.2-5.4); Lymphocytes % (Auto) 8.3 % (13.4-35.0); Mean Corpuscular HGB Conc 34 % (30-34); Mean Corpuscular Volume 94 fl (79-97); Monocytes # (Auto) 0.6 K/mm3 (0.0-0.8); Monocytes % (Auto) 4.7 % (0.0-7.3); Platelet Count 200 K/mm3 (140-440); Red Blood Count 4.24 M/mm3 (3.65-5.03); Red Cell Distribution Width 12.9 % (13.2-15.2)
[2020-03-06 10:08] LABS: INR 1.06 (0.87-1.13)
[2020-03-06 10:09] LABS: Partial Thromboplastin Time 27.7 Sec. (24.2-36.6)
[2020-03-06 10:13] LABS: Alanine Aminotransferase 14 units/L (7-56); Albumin 4.2 g/dL (3.9-5)
[2020-03-06 10:21] LABS: Bilirubin,Direct < 0.2 mg/dL (0-0.2)
[2020-03-06 10:35] LABS: Blood Urea Nitrogen 12 mg/dL (7-17); Calcium 9.1 mg/dL (8.4-10.2); Hemolysis Index 7
[2020-03-06 11:05] LABS: BUN/Creatinine Ratio 17
--- NOTE | 2020-03-06 11:32 | History and Physical Report ---
History of Present Illness Date of examination: 03/06/20 Date of admission: 03/06/2020. Chief complaint: CP, SOB History of present illness: Patient is 69 years old female with history of Atrial Fib on Therapeutic Anticoagulation, Chronic Respiratory Failure on Home Oxygen @2liters via [place], Severe COPD, HTN, CHF, Anxiety, CVA, MVP, OA who presents to the emergency room via EMS from home for evaluation of sudden onset of chest pain and shortness of breath that started this morning. Patient described her chest pain as left- sided, pressure and heaviness that radiated to her left upper extremity associated with significant shortness of breath and orthopnea. Patient also stated that she had a temperature of 99.9 last night. Patient also complaining of nausea but no vomiting. Patient found to be 79% on her 2 L home oxygen improved to 100% on nonrebreather. Patient denies any cough or cold-like symptoms. Most recent stress test documented at our facility was completed May 2017 which revealed normal myocardial perfusion without evidence of active ischemia or prior infarction. Normal left ventricular systolic function. Echocardiogram completed last year revealed left ventricular hypertrophy with EF of 55 to 60%. Past History Past Medical History: atrial fib, arthritis, COPD, heart failure, hypertension, other (Anxiety disorder and chronic pain syndrome) Past Surgical History: No surgical history Social history: smoking Family history: no significant family history Medications and Allergies Allergies Allergy/AdvReac Type Severity Reaction Status Date / Time adhesive Allergy Hives Verified 04/13/19 12:44 amlodipine besylate Allergy Anaphylaxis Verified 04/13/19 12:44 [From Norvasc] diltiazem Allergy Anaphylaxis Verified 04/13/19 12:44 diltiazem HCl [From Cardizem] Allergy Anaphylaxis Verified 04/13/19 12:44 Renexa Allergy Unknown Uncoded 08/13/16 09:41 Home Medications Medication Instructions Recorded Confirmed Last Taken Type ALPRAZolam [Xanax TAB] 1 mg PO TID PRN #90 tablet 03/02/16 03/06/20 08/27/17 Rx Albuterol Mdi (or & Nicu Only) 2 puff IH QID PRN 06/22/19 03/06/20 Unknown History [ProAir HFA Inhaler] Apixaban [Eliquis] 5 mg PO BID 06/22/19 03/06/20 07/10/19 History Aspirin [Aspirin BABY CHEW TAB] 81 mg PO QDAY 06/22/19 03/06/20 07/10/19 History Fluticasone/Salmeterol [Advair 1 puff IH BID 06/22/19 03/06/20 Unknown History Diskus 500-50 mcg] Mirtazapine [Remeron 45mg TAB] 45 mg PO HS 06/22/19 03/06/20 07/11/19 History Nitroglycerin [Nitrostat] 0.4 mg SL Q5M PRN 06/22/19 03/06/20 Unknown History [place]-3 Acid Ethyl Esters [Lovaza] 1 gm PO BID 06/22/19 03/06/20 07/10/19 H istory Oxycodone HCl/Acetaminophen 1 each PO Q6HR PRN 06/22/19 03/06/20 Unknown History [Percocet 7.5/325 mg] Umeclidinium [place] [Incruse 62.5 mcg IH DAILY 06/22/19 03/06/20 Unknown Histor y Ellipta 62.5MCG] Verapamil ER [Calan SR] 240 mg PO DAILY 06/22/19 03/06/20 07/11/19 History Linaclotide [Linzess] 290 mcg DAILY 06/23/19 03/06/20 07/10/19 History AtorvaSTATin [Lipitor] 20 mg PO QHS tablet 06/27/19 03/06/20 07/10/19 Rx Digoxin [Lanoxin] 0.125 mg PO DAILY@1700 tablet 06/27/19 03/06/20 07/11/19 Rx Furosemide [Lasix TAB] 20 mg PO QDAY tablet 06/27/19 03/06/20 07/11/19 Rx ISOSORBIDE MONOnitrate [Imdur ER] 120 mg PO QDAY tablet 06/27/19 03/06/20 07/11/19 Rx Levothyroxine [Synthroid] 100 mcg PO DAILY@0600 tablet 06/27/19 03/06/20 07/10/19 Rx Naloxegol Oxalate [Movantik] 25 mg PO DAILY 06/27/19 03/06/20 Unknown Rx [place]-3 Fatty Acids/Fish Oil [Fish 1,000 mg PO BID capsule 06/27/19 03/06/20 07/10/19 Rx Oil] Pantoprazole [Protonix TAB] 40 mg PO QDAY tablet 06/27/19 03/06/20 07/11/19 Rx Potassium Chloride 20 meq PO DAILY packet 06/27/19 03/06/20 07/11/19 Rx lisinopriL [Zestril TAB] 10 mg PO DAILY tablet 06/27/19 03/06/20 07/11/19 Rx DULoxetine [Cymbalta] 60 mg PO QDAY 07/11/19 03/06/20 07/10/19 History predniSONE [Deltasone] 2.5 mg PO QDAY 07/11/19 03/06/20 07/10/19 History Review of Systems All systems: negative Exam - Constitutional Vitals: Temp Pulse Resp BP Pulse Ox 98.8 F 106 H 20 160/75 96 03/06/20 09:14 03/06/20 10:21 03/06/20 10:21 03/06/20 09:14 03/06/20 09:14 General appearance: Present: no acute distress, well-nourished - EENT Eyes: Present: PERRL ENT: hearing intact, clear oral mucosa - Neck Neck: Present: supple, normal ROM - Respiratory Respiratory effort: normal Respiratory: bilateral: CTA - Cardiovascular Heart Sounds: Present: S1 & S2. Absent: rub, click - Extremities Extremities: pulses symmetrical, No edema Peripheral Pulses: within normal limits - Abdominal General gastrointestinal: Present: soft, non-tender, non-distended, normal bowel sounds Female genitourinary: Present: normal - Integumentary Integumentary: Present: clear, warm, dry - Musculoskeletal Musculoskeletal: gait normal, strength equal bilaterally - Psychiatric Psychiatric: appropriate mood/affect, intact judgment & insight - Neurologic Neurologic: CNII-XII intact, moves all extremities HEART Score - HEART Score EKG: Non-specific Age: > 65 Risk factors: > 3 risk factors or hx of atherosclerotic disease Troponin: Troponin T < 0.010 ng/mL (0.00-0.029) 03/06/20 09:25 Troponin: < normal limit - Critical Actions Critical Actions: 4-6 pts:12-16.6% risk of adverse cardiac event. Should be admitted Results - Labs CBC & Chem 7: 03/06/20 09:25 03/06/20 09:25 Labs: Laboratory Last Values WBC 13.5 K/mm3 (4.5-11.0) H 03/06/20 09:25 RBC 4.24 M/mm3 (3.65-5.03) 03/06/20 09:25 Hgb 13.7 gm/dl (10.1-14.3) 03/06/20 09:25 Hct 40.0 % (30.3-42.9) 03/06/20 09:25 MCV 94 fl (79-97) 03/06/20 09:25 MCH 32 pg (28-32) 03/06/20 09:25 MCHC 34 % (30-34) 03/06/20 09: RDW 12.9 % (13.2-15.2) L 03/06/20:25 Plt Count 200 K/mm3 (140-440) 03/06/20 09:25 Lymph % (Auto) 8.3 % (13.4-35.0) L 03/06/20 09:25 [place] % (Auto) 4.7 % (0.0-7.3) 03/06/20 09:25 Eos % (Auto) 1.1 % (0.0-4.3) 03/06/20 09:25 Baso % (Auto) 0.3 % (0.0-1.8) 03/06/20 09:25 Lymph # 1.1 K/mm3 (1.2-5.4) L 03/06/20 09:25 [place] # 0.6 K/mm3 (0.0-0.8) 03/06/20 09:25 Eos # 0.1 K/mm3 (0.0-0.4) 03/06/20 09:25 Baso # 0.0 K/mm3 (0.0-0.1) 03/06/20 09:25 Seg Neutrophils % 85.6 % (40.0-70.0) H 03/06/20 09:25 Seg Neutrophils # 11.5 K/mm3 (1.8-7.7) H 03/06/20 09:25 PT 14.0 Sec. (12.2-14.9) 03/06/20 09:25 INR 1.06 (0.87-1.13) 03/06/20 09:25 APTT 27.7 Sec. (24.2-36.6) 03/06/20 09:25 D-Dimer 196.55 ng/mlDDU (0-234) 03/06/20 09:25 ABG pH 7.359 pH Units (7.350-7.450) 03/06/20 08:32 ABG pCO2 60.4 mm Hg 03/06/20 08:32 ABG pO2 65.8 mm Hg (80.0-90.0) L 03/06/20 08:32 ABG HCO3 33.3 mmol/L (20.0-26.0) H 03/06/20 08:32 ABG O2 Saturation 93.2 % (95.0-99.0) L 03/06/20 08:32 ABG O2 Content 17.5 (0.0-44) 03/06/20 08:32 ABG Base Excess 6.0 mmol/L (-2.0-3.0) H 03/06/20 08:32 ABG Hemoglobin 13.6 gm/dl (12.0-16.0) 03/06/20 08:32 ABG Carboxyhemoglobin 1.7 % (0.0-5.0) 03/06/20 08:32 ABG Methemoglobin 0.6 % (0.0-1.5) 03/06/20 08:32 Oxyhemoglobin 91.1 % (95.0-99.0) L 03/06/20 08:32 FiO2 40 % 03/06/20 08:32 Sodium 141 mmol/L (137-145) 03/06/20 09:25 Potassium 4.2 mmol/L (3.6-5.0) 03/06/20 09:25 Chloride 98.2 mmol/L (98-107) 03/06/20 09:25 Carbon Dioxide 30 mmol/L (22-30) 03/06/20 09:25 Anion Gap 17 mmol/L 03/06/20 09:25 BUN 12 mg/dL (7-17) 03/06/20 09:25 Creatinine 0.7 mg/dL (0.6-1.2) 03/06/20 09:25 Estimated GFR > 60 ml/min 03/06/20 09:25 BUN/Creatinine Ratio 17 % 03/06/20 09:25 Glucose 108 mg/dL (65-100) H 03/06/20 09:25 Glucose 110 mg/dL (65-100) H 03/06/20 09:25 Calcium 9.1 mg/dL (8.4-10.2) 03/06/20 09:25 Ferritin 74.4 ng/mL (10.0-200.0) 03/06/20 09:25 Total Bilirubin 0.50 mg/dL (0.1-1.2) 03/06/20 09:25 Direct Bilirubin < 0.2 mg/dL (0-0.2) 03/06/20 09:25 Indirect Bilirubin 0.3 mg/dL 03/06/20 09:25 AST 17 units/L (5-40) 03/06/20 09:25 ALT 14 units/L (7-56) 03/06/20 09:25 Alkaline Phosphatase 108 units/L (35-129) 03/06/20 09:25 Lactate Dehydrogenase 261 units/L (91-180) H 03/06/20 09:25 Troponin T < 0.010 ng/mL (0.00-0.029) 03/06/20 09:25 C-Reactive Protein 0.90 mg/dL (0.00-1.30) 03/06/20 09:25 NT-Pro-B Natriuret Pep 243.0 pg/mL (0-900) 03/06/20 09:25 Total Protein 6.1 g/dL (6.3-8.2) L 03/06/20 09:25 Albumin 4.2 g/dL (3.9-5) 03/06/20 09:25 Albumin/Globulin Ratio 2.2 % 03/06/20 09:25 Procalcitonin 0.10 ng/mL (<0.15) 03/06/20 09:25 Assessment and Plan Assessment and plan: Acute on chronic hypoxic respiratory failure. The patient has underlying severe COPD. Patient will be treated with O2 and BiPAP as clinically indicated. Chest pain. Patient's documented stress test in May 2017 was negative. Cardiology consultation and stress test. Acute COPD exacerbation. Continue bronchodilators/nebulizers. Solu-Medrol 40 mg IV every 8 hours. Pulmonary consultation. Atrial fibrillation. Continue medications for rate control. Telemetry monitoring. Continue therapeutic anticoagulation if necessary Hypertension. Resume antihypertensive medications Anxiety disorder. Resume medications. Consider psychiatric evaluation. Chronic diastolic heart failure. Compensated.
[2020-03-06] MEDS ORDERED: ONDANSETRON 4 MG/2 ML INJ IV PRN (11:36)
[2020-03-06] MEDS ORDERED: ACETAMINOPHEN 325 MG TAB PO PRN (12:00)
[2020-03-06 12:28] LABS: Bilirubin,Urine NEG (Negative); Blood,Urine NEG (Negative); Color,Urine Yellow (Yellow); Mucus,Urine FEW /HPF; Protein,Urine <15 mg/dL mg/dL (Negative)
[2020-03-06 13:36] LABS: Hematocrit 40.8 % (30.3-42.9); Hemoglobin 13.5 gm/dl (10.1-14.3); Mean Corpuscular HGB Conc 33 % (30-34); Mean Corpuscular Volume 95 fl (79-97); Platelet Count 193 K/mm3 (140-440); Red Cell Distribution Width 13.2 % (13.2-15.2)
[2020-03-06] MEDS: IPRATROPIUM/ALBUTEROL SULFATE 3 ML AMPUL.NEB IH SCH ×2 (13:47→19:45)
[2020-03-06 13:54] LABS: Blood Urea Nitrogen 12 mg/dL (7-17); Calcium 9.3 mg/dL (8.4-10.2); Hemolysis Index 32
--- NOTE | 2020-03-06 13:56 | Consultation ---
History of Present Illness Consult date: 03/06/20 Reason for consult: dyspnea, chest pain, COPD History of present illness: Patient is 69 years old female with history of Atrial Fib on Therapeutic Anticoagulation, Chronic Respiratory Failure on Home Oxygen @2liters via [place], Severe COPD, HTN, CHF, Anxiety, CVA, MVP, OA who presents to the emergency room via EMS from home for evaluation of sudden onset of chest pain and shortness of breath that started this morning. Patient described her chest pain as left- sided, pressure and heaviness that radiated to her left upper extremity associated with significant shortness of breath and orthopnea. Patient also stated that she had a temperature of 99.9 last night. Patient also complaining of nausea but no vomiting. Patient found to be 79% on her 2 L home oxygen improved to 100% on nonrebreather. Patient denies any cough or cold-like symptoms. Most recent stress test documented at our facility was completed May 2017 which revealed normal myocardial perfusion without evidence of active ischemia or prior infarction. Normal left ventricular systolic function. Echocardiogram completed last year revealed left ventricular hypertrophy with EF of 55 to 60%. Patient alert, awake.Patient presently resting on 4 litres O2. O2 saturation running 96%. Patient has COPD. Still smoking off and On. Counselled to stop smoking. Chest xray done 03/01/20 reported COPD. No acute cardiopulmonary process. No change since 07/10/2019. Patient afebrile and has leukocytosis. Patient is on I/V solumedrol, Apixaban and Albuterol/atrovent aerosol billy tments. ABG on FIO2 40%. ABG pH 7.359 pH Units (7.350-7.450) 03/06/20 08:32 ABG pCO2 60.4 mm Hg 03/06/20 08:32 ABG pO2 65.8 mm Hg (80.0-90.0) L 03/06/20 08:32 ABG O2 Saturation 93.2 % (95.0-99.0) L 03/06/20 08:32 Past History Past Medical History: atrial fib, arthritis, COPD, heart failure, hypertension, other (Anxiety disorder and chronic pain syndrome) Past Surgical History: No surgical history Social history: smoking Family history: no significant family history Medications and Allergies Allergies Allergy/AdvReac Type Severity Reaction Status Date / Time adhesive Allergy Hives Verified 04/13/19 12:44 amlodipine besylate Allergy Anaphylaxis Verified 04/13/19 12:44 [From Norvasc] diltiazem Allergy Anaphylaxis Verified 04/13/19 12:44 diltiazem HCl [From Cardizem] Allergy Anaphylaxis Verified 04/13/19 12:44 Renexa Allergy Unknown Uncoded 08/13/16 09:41 Home Medications Medication Instructions Recorded Confirmed Last Taken Type ALPRAZolam [Xanax TAB] 1 mg PO TID PRN #90 tablet 03/02/16 03/06/20 08/27/17 Rx Albuterol Mdi (or & Nicu Only) 2 puff IH QID PRN 06/22/19 03/06/20 Unknown History [ProAir HFA Inhaler] Apixaban [Eliquis] 5 mg PO BID 06/22/19 03/06/20 07/10/19 History Aspirin [Aspirin BABY CHEW TAB] 81 mg PO QDAY 06/22/19 03/06/20 07/10/19 History Fluticasone/Salmeterol [Advair 1 puff IH BID 06/22/19 03/06/20 Unknown History Diskus 500-50 mcg] Mirtazapine [Remeron 45mg TAB] 45 mg PO HS 06/22/19 03/06/20 07/11/19 History Nitroglycerin [Nitrostat] 0.4 mg SL Q5M PRN 06/22/19 03/06/20 Unknown History [place]-3 Acid Ethyl Esters [Lovaza] 1 gm PO BID 06/22/19 03/06/20 07/10/19 History Oxycodone HCl/Acetaminophen 1 each PO Q6HR PRN 06/22/19 03/06/20 Unknown History [Percocet 7.5/325 mg] Umeclidinium [place] [Incruse 62.5 mcg IH DAILY 06/22/19 03/06/20 Unknown History Ellipta 62.5MCG] Verapamil ER [Calan SR] 240 mg PO DAILY 06/22/19 03/06/20 07/11/19 History Linaclotide [Linzess] 290 mcg DAILY 06/23/19 03/06/20 07/10/19 History AtorvaSTATin [Lipitor] 20 mg PO QHS tablet 06/27/19 03/06/20 07/10/19 Rx Digoxin [Lanoxin] 0.125 mg PO DAILY@1700 tablet 06/27/19 03/06/20 07/11/19 Rx Furosemide [Lasix TAB] 20 mg PO QDAY tablet 06/27/19 03/06/20 07/11/19 Rx ISOSORBIDE MONOnitrate [Imdur ER] 120 mg PO QDAY tablet 06/27/19 03/06/20 07/11/19 Rx Levothyroxine [Synthroid] 100 mcg PO DAILY@0600 tablet 06/27/19 03/06/20 07/10/19 Rx Naloxegol Oxalate [Movantik] 25 mg PO DAILY 06/27/19 03/06/20 Unknown Rx [place]-3 Fatty Acids/Fish Oil [Fish 1,000 mg PO BID capsule 06/27/19 03/06/20 07/10/19 Rx Oil] Pantoprazole [Protonix TAB] 40 mg PO QDAY tablet 06/27/19 03/06/20 07/11/19 Rx Potassium Chloride 20 meq PO DAILY packet 06/27/19 03/06/20 07/11/19 Rx lisinopriL [Zestril TAB] 10 mg PO DAILY tablet 06/27/19 03/06/20 07/11/19 Rx DULoxetine [Cymbalta] 60 mg PO QDAY 07/11/19 03/06/20 07/10/19 History predniSONE [Deltasone] 2.5 mg PO QDAY 07/11/19 03/06/20 07/10/19 History Active Meds: Active Medications Acetaminophen (Tylenol) 650 mg PO Q4H PRN PRN Reason: Pain MILD(1-3)/Fever >100.5/ARAIZA Albuterol/Ipratropium (Duoneb *Not For Prn Use*) 1 ampul IH Q6HRT [facility] Last Admin: 03/06/20 13:47 Dose: 1 ampul Documented by: Enoxaparin Sodium (Enoxaparin) 40 mg SUB-Q QDAY [facility] Methylprednisolone Sodium Succinate (Solu-Medrol) 40 mg IV Q8HR [facility] Ondansetron HCl (Zofran) 4 mg IV Q8H PRN PRN Reason: Nausea And Vomiting Sodium Chloride (Sodium Chloride Flush Syringe 10 Ml) 10 ml IV BID JO Sodium Chloride (Sodium Chloride Flush Syringe 10 Ml) 10 ml IV PRN PRN PRN Reason: LINE FLUSH Sodium Chloride (Sodium Chloride Flush Syringe 10 Ml) 10 ml IV PRN PRN PRN Reason: LINE FLUSH Review of Systems All systems: negative Physical Examination Vital signs: Vital Signs Temp Pulse Resp BP Pulse Ox 98.8 F 117 H 26 H 160/75 96 03/06/20 09:14 03/06/20 09:14 03/06/20 09:14 03/06/20 09:14 03/06/20 09:14 General appearance: no acute distress, alert Eyes: non-icteric ENT: oropharynx moist Neck: supple, no JVD Effort: mildly labored Ascultation: Bilateral: diminished breath sounds, other (Prolonged expiratory phase.) Cardiovascular: irregular rhythm Gastrointestinal: normoactive bowel sounds, soft, non-tender Integumentary: normal Extremities: no cyanosis, no edema Musculoskeletal: no deformities Gait: poor gait normal mental status, pupils equal and round mood appropriate Results - Laboratory Findings CBC and BMP: 03/06/20 13:08 03/06/20 13:08 ABG ABG pH 7.359 pH Units (7.350-7.450) 03/06/20 08:32 ABG pCO2 60.4 mm Hg 03/06/20 08:32 ABG pO2 65.8 mm Hg (80.0-90.0) L 03/06/20 08:32 ABG O2 Saturation 93.2 % (95.0-99.0) L 03/06/20 08:32 PT/INR, D-dimer PT 14.0 Sec. (12.2-14.9) 03/06/20 09:25 INR 1.06 (0.87-1.13) 03/06/20 09:25 D-Dimer 196.55 ng/mlDDU (0-234) 03/06/20 09:25 Abnormal lab findings: Abnormal Labs 03/06/20 03/06/20 03/06/20 08:32 09:25 09:25 WBC 13.5 H RDW 12.9 L Lymph % (Auto) 8.3 L Lymph # 1.1 L Seg Neutrophils % 85.6 H Seg Neutrophils # 11.5 H ABG pO2 65.8 L ABG HCO3 33.3 H ABG O2 Saturation 93.2 L ABG Base Excess 6.0 H Oxyhemoglobin 91.1 L Glucose 108 H Lactate Dehydrogenase Total Protein 03/06/20 03/06/20 09:25 13:08 WBC 16.1 H RDW Lymph % (Auto) Lymph # Seg Neutrophils % Seg Neutrophils # ABG pO2 ABG HCO3 ABG O2 Saturation ABG Base Excess Oxyhemoglobin Glucose 110 H Lactate Dehydrogenase 261 H Total Protein 6.1 L - Diagnostic Findings Chest x-ray: report reviewed, image reviewed Additional studies: CHEST 1 VIEW 03/06/20 INDICATION: Chest Pain. COMPARISON: 07/10/2019 FINDINGS: Support devices: None. Heart: Within normal limits. Lungs/Pleura: The lungs remain hyperinflated with prominent interstitial markings throughout. No acute infiltrate, pleural effusion or pneumothorax. Additional findings: None. IMPRESSION: COPD. No acute cardiopulmonary process. No change since 07/10/2019. Assessment and Plan Patient is 69 years old female with history of Atrial Fib on Therapeutic Anticoagulation, Chronic Respiratory Failure on Home Oxygen @2liters via [place], Severe COPD, HTN, CHF, Anxiety, CVA, MVP, OA who presents to the emergency room via EMS from home for evaluation of sudden onset of chest pain and shortness of breath that started this morning. Patient described her chest pain as left- sided, pressure and heaviness that radiated to her left upper extremity associated with significant shortness of breath and orthopnea. Patient also stated that she had a temperature of 99.9 last night. Patient also complaining of nausea but no vomiting. Patient found to be 79% on her 2 L home oxygen improved to 100% on nonrebreather. Patient denies any cough or cold-like symptoms. Most recent stress test documented at our facility was completed May 2017 which revealed normal myocardial perfusion without evidence of active ischemia or prior infarction. Normal left ventricular systolic function. Echocardiogram completed last year revealed left ventricular hypertrophy with EF of 55 to 60%. Patient alert, awake.Patient presently resting on 4 litres O2. O2 saturation running 96%. Patient has COPD. Still smoking off and On. Counselled to stop sm oking. Chest xray done 03/01/20 reported COPD. No acute cardiopulmonary process. No change since 07/10/2019. Patient afebrile and has leukocytosis. Patient is on I/V solumedrol, Apixaban and Albuterol/atrovent aerosol treatments. ABG on FIO2 40%. ABG pH 7.359 pH Units (7.350-7.450) 03/06/20 08:32 ABG pCO2 60.4 mm Hg 03/06/20 08:32 ABG pO2 65.8 mm Hg (80.0-90.0) L 03/06/20 08:32 ABG O2 Saturation 93.2 % (95.0-99.0) L 03/06/20 08:32 - Patient Problems (1) COPD with exacerbation Current Visit: Yes Status: Acute Plan to address problem: O2 4 litres via nasal canula. Albuterol/atrovent aerosol treatments q 6 hours. Continue I/V solumedrol. Continue Apixaban. Recommend GI prophylaxis. (2) Acute and chronic respiratory failure Current Visit: Yes Status: Acute Qualifiers: Plan to address problem: 2 4 litres via nasal canula. Albuterol/atrovent aerosol treatments q 6 hours. Continue I/V solumedrol. Continue Apixaban. Recommend GI prophylaxis. (3) Atrial fibrillation with rapid ventricular response Current Visit: Yes Status: Acute Plan to address problem: Patient is on Apixaban. (4) Chest pain Current Visit: Yes Status: Acute Plan to address problem: Management as per cardiology. (5) Suspected 2019-nCoV infection Current Visit: Yes Status: Suspected Plan to address problem: COVID 19 test results pending. (6) Hypothyroidism Current Visit: No Status: Chronic Plan to address problem: Management as per primary care. (7) CVA (cerebral infarction) Current Visit: No Status: Acute Plan to address problem: Management as per primary care.
[2020-03-06 13:58] LABS: BUN/Creatinine Ratio 17
--- NOTE | 2020-03-06 14:18 | Consultation ---
History of Present Illness Consult date: 03/06/20 Requesting physician: AMY CONTRERAS Consult reason: chest pain History of present illness: The patient is a 69-year-old female with a past medical history of chronic atrial fibrillation (on Eliquis), severe COPD on home oxygen, hypertension, cerebral artery aneurysm status post embolization, hyperlipidemia, single vessel coronary artery disease which is not amenable to intervention, and cerebrovascular accident with mild left paresis. She is followed in our office by Dr. Rama Jennings. She is COVID-19 PUI and thus HPI is obtained per the chart. Pt presented to the emergency room via EMS from home for evaluation of sudden onset of chest pain and shortness of breath that started this morning. Patient described her chest pain as left-sided, pressure and heaviness that radiated to her left upper extremity associated with significant shortness of breath and orthopnea. Patient also stated that she had a temperature of 99.9 last night. Patient also complaining of nausea but no vomiting. Patient found to be 79% on her 2 L home oxygen improved to 100% on nonrebreather. Patient denies any cough or cold-like symptoms. LHC done 08/2017 showed mild CAD, 10-10% ostial RCA, 70% stenosis of ostial second diagonal main branch. Medical management was recommended. tte done 05/2019 showed EF 55-60%, mild LVH, mild MR, mild TR. Lexiscan MPI stress test done 05/2017 was negative. Past History Past Medical History: atrial fib, arthritis, COPD, heart failure, hypertension, other (Anxiety disorder and chronic pain syndrome) Past Surgical History: No surgical history Social history: smoking Family history: no significant family history Medications and Allergies Allergies Allergy/AdvReac Type Severity Reaction Status Date / Time adhesive Allergy Hives Verified 04/13/19 12:44 amlodipine besylate Allergy Anaphylaxis Verified 04/13/19 12:44 [From Norvasc] diltiazem Allergy Anaphylaxis Verified 04/13/19 12:44 diltiazem HCl [From Cardizem] Allergy Anaphylaxis Verified 04/13/19 12:44 Renexa Allergy Unknown Uncoded 08/13/16 09:41 Home Medications Medication Instructions Recorded Confirmed Last Taken Type ALPRAZolam [Xanax TAB] 1 mg PO TID PRN #90 tablet 03/02/16 03/06/20 08/27/17 Rx Albuterol Mdi (or & Nicu Only) 2 puff IH QID PRN 06/22/19 03/06/20 Unknown History [ProAir HFA Inhaler] Apixaban [Eliquis] 5 mg PO BID 06/22/19 03/06/20 07/10/19 History Aspirin [Aspirin BABY CHEW TAB] 81 mg PO QDAY 06/22/19 03/06/20 07/10/19 History Fluticasone/Salmeterol [Advair 1 puff IH BID 06/22/19 03/06/20 Unknown History Diskus 500-50 mcg] Mirtazapine [Remeron 45mg TAB] 45 mg PO HS 06/22/19 03/06/20 07/11/19 History Nitroglycerin [Nitrostat] 0.4 mg SL Q5M PRN 06/22/19 03/06/20 Unknown History [place]-3 Acid Ethyl Esters [Lovaza] 1 gm PO BID 06/22/19 03/06/20 07/10/19 History Oxycodone HCl/Acetaminophen 1 each PO Q6HR PRN 06/22/19 03/06/20 Unknown History [Percocet 7.5/325 mg] Umeclidinium [place] [Incruse 62.5 mcg IH DAILY 06/22/19 03/06/20 Unknown History Ellipta 62.5MCG] Verapamil ER [Calan SR] 240 mg PO DAILY 06/22/19 03/06/20 07/11/19 History Linaclotide [Linzess] 290 mcg DAILY 06/23/19 03/06/20 07/10/19 History AtorvaSTATin [Lipitor] 20 mg PO QHS tablet 06/27/19 03/06/20 07/10/19 Rx Digoxin [Lanoxin] 0.125 mg PO DAILY@1700 tablet 06/27/19 03/06/20 07/11/19 Rx Furosemide [Lasix TAB] 20 mg PO QDAY tablet 06/27/19 03/06/20 07/11/19 Rx ISOSORBIDE MONOnitrate [Imdur ER] 120 mg PO QDAY tablet 06/27/19 03/06/20 07/11/19 Rx Levothyroxine [Synthroid] 100 mcg PO DAILY@0600 tablet 06/27/19 03/06/20 07/10/19 Rx Naloxegol Oxalate [Movantik] 25 mg PO DAILY 06/27/19 03/06/20 Unknown Rx [place]-3 Fatty Acids/Fish Oil [Fish 1,000 mg PO BID capsule 06/27/19 03/06/20 07/10/19 Rx Oil] Pantoprazole [Protonix TAB] 40 mg PO QDAY tablet 06/27/19 03/06/20 07/11/19 Rx Potassium Chloride 20 meq PO DAILY packet 06/27/19 03/06/20 07/11/19 Rx lisinopriL [Zestril TAB] 10 mg PO DAILY tablet 06/27/19 03/06/20 07/11/19 Rx DULoxetine [Cymbalta] 60 mg PO QDAY 07/11/19 03/06/20 07/10/19 History predniSONE [Deltasone] 2.5 mg PO QDAY 07/11/19 03/06/20 07/10/19 History Active Meds: Active Medications Acetaminophen (Tylenol) 650 mg PO Q4H PRN PRN Reason: Pain MILD(1-3)/Fever >100.5/ARAIZA Albuterol/Ipratropium (Duoneb *Not For Prn Use*) 1 ampul IH Q6HRT [facility] Last Admin: 03/06/20 13:47 Dose: 1 ampul Documented by: Enoxaparin Sodium (Enoxaparin) 40 mg SUB-Q QDAY [facility] Methylprednisolone Sodium Succinate (Solu-Medrol) 40 mg IV Q8HR [facility] Ondansetron HCl (Zofran) 4 mg IV Q8H PRN PRN Reason: Nausea And Vomiting Sodium Chloride (Sodium Chloride Flush Syringe 10 Ml) 10 ml IV BID [facility] Sodium Chloride (Sodium Chloride Flush Syringe 10 Ml) 10 ml IV PRN PRN PRN Reason: LINE FLUSH Sodium Chloride (Sodium Chloride Flush Syringe 10 Ml) 10 ml IV PRN PRN PRN Reason: LINE FLUSH Review of Systems All systems: negative (as per HPI) Physical Examination Vital Signs Temp Pulse Resp BP Pulse Ox 98.8 F 117 H 26 H 160/75 96 03/06/20 09:14 03/06/20 09:14 03/06/20 09:14 03/06/20 09:14 03/06/20 09:14 Narrative exam: agree with physical examination per primary team Results 03/07/20 06:47 03/07/20 06:47 Cardiac Enzymes 03/06/20 Range/Units 09:25 AST 17 (5-40) units/L Lactate Dehydrogenase 261 H (91-180) units/L Coagulation 03/06/20 Range/Units 09:25 PT 14.0 (12.2-14.9) Sec. INR 1.06 (0.87-1.13) APTT 27.7 (24.2-36.6) Sec. CBC 03/06/20 03/06/20 Range/Units 09:25 13:08 WBC 13.5 H 16.1 H (4.5-11.0) K/mm3 RBC 4.24 4.30 (3.65-5.03) M/mm3 Hgb 13.7 13.5 (10.1-14.3) gm/dl Hct 40.0 40.8 (30.3-42.9) % Plt Count 200 193 (140-440) K/mm3 Lymph # 1.1 L (1.2-5.4) K/mm3 [place] # 0.6 (0.0-0.8) K/mm3 Eos # 0.1 (0.0-0.4) K/mm3 Baso # 0.0 (0.0-0.1) K/mm3 Comprehensive Metabolic Panel 03/06/20 03/06/20 03/06/20 Range/Units 09:25 09:25 13:08 Sodium 141 139 (137-145) mmol/L Potassium 4.2 4.4 (3.6-5.0) mmol/L Chloride 98.2 98.7 (98-107) mmol/L Carbon Dioxide 30 28 (22-30) mmol/L BUN 12 12 (7-17) mg/dL Creatinine 0.7 0.7 (0.6-1.2) mg/dL Glucose 108 H 110 H 156 H (65-100) mg/dL Calcium 9.1 9.3 (8.4-10.2) mg/dL Direct Bilirubin < 0.2 (0-0.2) mg/dL Indirect Bilirubin 0.3 mg/dL AST 17 (5-40) units/L ALT 14 (7-56) units/L Alkaline Phosphatase 108 (35-129) units/L Total Protein 6.1 L (6.3-8.2) g/dL Albumin 4.2 (3.9-5) g/dL - Imaging and Cardiology Echo: report reviewed ( 05/2019 showed EF 55-60%, mild LVH, mild MR, mild TR. ) Cardiac cath: report reviewed (08/2017 showed mild CAD, 10-10% ostial RCA, 70% stenosis of ostial second diagonal main branch. Medical management was recommended. ) EKG: report reviewed, image reviewed EKG interpretations - Telemetry EKG Rhythm: Atrial Fibrillation - EKG Supraventricular dysrhythmia: atrial fibrillation Assessment and Plan AMI r/o. Resume home cardiac regimen. R/o COVID-19 per primary. Proceed with stress test pending COVID-19 test results. The patient has been seen in conjunction with Dr. Rama Jennings who agrees with the assessment and plan of care. - Patient Problems (1) Suspected 2018-nCoV infection Current Visit: Yes Status: Suspected (2) COPD with exacerbation Current Visit: Yes Status: Acute (3) Acute on chronic respiratory failure Current Visit: Yes Status: Acute (4) Chest pain Current Visit: Yes Status: Acute (5) Atrial fibrillation Current Visit: Yes Status: Chronic Qualifiers: Atrial fibrillation type: unspecified Qualified Code(s): I48.91 - Unspecified atrial fibrillation (6) CAD (coronary artery disease) Current Visit: Yes Status: Chronic (7) HTN (hypertension) Current Visit: Yes Status: Chronic Qualifiers: Hypertension type: essential hypertension Qualified Code(s): I10 - Essential (primary) hypertension (8) Hyperlipidemia Current Visit: Yes Status: Chronic (9) History of CVA (cerebrovascular accident) Current Visit: Yes Status: Chronic
[2020-03-06 14:20] LABS: Band Neutrophils # (Manual) 0.5 K/mm3; Basophils % (Manual) 0 % (0.0-1.8); Eosinophils % (Manual) 0 % (0.0-4.3); RBC Morphology Normal; Total Cells Counted 100
[2020-03-06 14:21] LABS: Platelet Estimate Consistent w Auto
[2020-03-06] MEDS: methylPREDNISolone Sod Succinate 40 MG/1 ML INJ IV SCH ×2 (16:04→22:04)
[2020-03-06] MEDS: DIGOXIN 0.125 MG TAB PO SCH (18:47)
[2020-03-06] MEDS: APIXABAN 5 MG TAB PO SCH (22:05)
[2020-03-07] MEDS: IPRATROPIUM/ALBUTEROL SULFATE 3 ML AMPUL.NEB IH SCH ×4 (03:23→20:16)
[2020-03-07] MEDS: methylPREDNISolone Sod Succinate 40 MG/1 ML INJ IV SCH ×3 (05:49→21:50)
[2020-03-07 07:34] LABS: Hematocrit 40.7 % (30.3-42.9); Hemoglobin 13.6 gm/dl (10.1-14.3); Mean Corpuscular HGB Conc 33 % (30-34); Mean Corpuscular Volume 95 fl (79-97); Platelet Count 200 K/mm3 (140-440); Red Blood Count 4.26 M/mm3 (3.65-5.03); Red Cell Distribution Width 13.4 % (13.2-15.2)
[2020-03-07 07:59] LABS: Blood Urea Nitrogen 18 mg/dL (7-17); Calcium 9.9 mg/dL (8.4-10.2); Hemolysis Index 9
[2020-03-07 08:08] LABS: BUN/Creatinine Ratio 26
[2020-03-07] MEDS ORDERED: SODIUM POLYSTYRENE 15 GM/60 ML ORAL LIQD PO NR (09:08)
--- NOTE | 2020-03-07 09:13 | Progress Note ---
Assessment and Plan Assessment and plan: Patient is 69 years old female with history of Atrial Fib on Therapeutic Anticoagulation, Chronic Respiratory Failure on Home Oxygen @2liters via NC, Severe COPD, HTN, CHF, Anxiety, CVA, MVP, OA who presents to the emergency room via EMS from home for evaluation of sudden onset of chest pain and shortness of breath that started this morning. Patient described her chest pain as left- sided, pressure and heaviness that radiated to her left upper extremity associated with significant shortness of breath and orthopnea. Patient also stated that she had a temperature of 99.9 last night. Patient also complaining of nausea but no vomiting. Patient found to be 79% on her 2 L home oxygen improved to 100% on nonrebreather. Patient denies any cough or cold-like symptoms. Most recent stress test documented at our facility was completed May 2017 which revealed normal myocardial perfusion without evidence of active ischemia or prior infarction. Normal left ventricular systolic function. Echocardiogram completed last year revealed left ventricular hypertrophy with EF of 55 to 60%. LHC done 08/2017 showed mild CAD, 10-10% ostial RCA, 70% stenosis of ostial second diagonal main branch. Medical management was recommended. tte done 05/2019 showed EF 55-60%, mild LVH, mild MR, mild TR. Lexiscan MPI stress test done 05/2017 was negative. Acute on chronic hypoxic respiratory failure. The patient has underlying severe COPD. Patient will be treated with O2 and BiPAP as clinically indicated. Pulmonary consulted, Chest pain. Patient's documented stress test in May 2017 was negative. Cardiology consultation and stress test. Acute COPD exacerbation. Continue bronchodilators/nebulizers. Solu-Medrol 40 mg IV every 8 hours. Pulmonary consultation. Atrial fibrillation. Continue medications for rate control. Telemetry monitoring. Continue therapeutic anticoagulation if necessary Hypertension. Resume antihypertensive medications Hyperkalemia. Give kayxalate, recheck in AM Anxiety disorder. Resume medications. Consider psychiatric evaluation. Chronic diastolic heart failure. Compensated. Leukocytosis: On steroids, no evidence of Pneumonia ? SOURCE as patient had elevated leukocytosis on admission. NO FEVER OR EVIDENCE OF INFECTION SIRS with organ dysfunction: Leukocytosis, hypoxic and copd, no sepsis. Suspected COVID19 Infection: Awaiting covid testing Fall: Patient reported fall- PT/OT call DVT/GI prophy History Interval history: Patient seen and examined, no new distress. Hospitalist Physical - Physical exam Narrative exam: General appearance: Present: no acute distress, well-nourished - EENT Eyes: Present: PERRL ENT: hearing intact, clear oral mucosa - Neck Neck: Present: supple, normal ROM - Respiratory Respiratory effort: normal Respiratory: bilateral: CTA - Cardiovascular Heart Sounds: Present: S1 & S2. Absent: rub, click - Extremities Extremities: pulses symmetrical, No edema Peripheral Pulses: within normal limits - Abdominal General gastrointestinal: Present: soft, non-tender, non-distended, normal bowel sounds Female genitourinary: Present: normal - Integumentary Integumentary: Present: clear, warm, dry - Musculoskeletal Musculoskeletal: gait normal, strength equal bilaterally - Psychiatric Psychiatric: appropriate mood/affect, intact judgment & insight - Neurologic Neurologic: CNII-XII intact, moves all extremities - Constitutional Vitals: Temp Pulse Resp BP Pulse Ox 97.6 F 93 H 16 134/61 96 03/07/20 05:01 03/07/20 05:01 03/07/20 05:01 03/07/20 05:01 03/07/20 05:01 General appearance: Present: no acute distress, well-nourished HEART Score - HEART Score EKG: Non-specific Age: > 65 Risk factors: > 3 risk factors or hx of atherosclerotic disease Troponin: Troponin T < 0.010 ng/mL (0.00-0.029) 03/06/20 16:08 Troponin: < normal limit - Critical Actions Critical Actions: 4-6 pts:12-16.6% risk of adverse cardiac event. Should be admitted Results - Labs CBC & Chem 7: 03/07/20 06:47 03/07/20 06:47 Labs: Laboratory Last Values WBC 13.0 K/mm3 (4.5-11.0) H 03/07/20 06:47 RBC 4.26 M/mm3 (3.65-5.03) 03/07/20 06:47 Hgb 13.6 gm/dl (10.1-14.3) 03/07/20 06:47 Hct 40.7 % (30.3-42.9) 03/07/20 06:47 MCV 95 fl (79-97) 03/07/20 06:47 MCH 32 pg (28-32) 03/07/20 06:47 MCHC 33 % (30-34) 03/07/20 06:47 RDW 13.4 % (13.2-15.2) 03/07/20 06:47 Plt Count 200 K/mm3 (140-440) 03/07/20 06:47 Lymph % (Auto) 8.3 % (13.4-35.0) L 03/06/20 09:25 [place] % (Auto) 4.7 % (0.0-7.3) 03/06/20 09:25 Eos % (Auto) 1.1 % (0.0-4.3) 03/06/20 09:25 Baso % (Auto) 0.3 % (0.0-1.8) 03/06/20 09:25 Lymph # 1.1 K/mm3 (1.2-5.4) L 03/06/20 09:25 [place] # 0.6 K/mm3 (0.0-0.8) 03/06/20 09:25 Eos # 0.1 K/mm3 (0.0-0.4) 03/06/20 09:25 Baso # 0.0 K/mm3 (0.0-0.1) 03/06/20 09:25 Add Manual Diff Complete 03/06/20 13:08 Total Counted 100 03/06/20 13:08 Seg Neutrophils % Materials Handling Coordinator 03/07/20 06:47 Seg Neuts % (Manual) 92.0 % (40.0-70.0) H 03/06/20 13:08 Band Neutrophils % 3.0 % 03/06/20 13:08 Lymphocytes % (Manual) 2.0 % (13.4-35.0) L 03/06/20 13:08 Reactive Lymphs % (Man) 0 % 03/06/20 13:08 Monocytes % (Manual) 3.0 % (0.0-7.3) 03/06/20 13:08 Eosinophils % (Manual) 0 % (0.0-4.3) 03/06/20 13:08 Basophils % (Manual) 0 % (0.0-1.8) 03/06/20 13:08 Metamyelocytes % 0 % 03/06/20 13:08 Myelocytes % 0 % 03/06/20 13:08 Promyelocytes % 0 % 03/06/20 13:08 Blast Cells % 0 % 03/06/20 13:08 Nucleated RBC % Not Reportable 03/06/20 13:08 Seg Neutrophils # 11.5 K/mm3 (1.8-7.7) H 03/06/20 09:25 Seg Neutrophils # Man 14.8 K/mm3 (1.8-7.7) H 03/06/20 13:08 Band Neutrophils # 0.5 K/mm3 03/06/20 13:08 Lymphocytes # (Manual) 0.3 K/mm3 (1.2-5.4) L 03/06/20 13:08 Abs React Lymphs (Man) 0.0 K/mm3 03/06/20 13:08 Monocytes # (Manual) 0.5 K/mm3 (0.0-0.8) 03/06/20 13:08 Eosinophils # (Manual) 0.0 K/mm3 (0.0-0.4) 03/06/20 13:08 Basophils # (Manual) 0.0 K/mm3 (0.0-0.1) 03/06/20 13:08 Metamyelocytes # 0.0 K/mm3 03/06/20 13:08 Myelocytes # 0.0 K/mm3 03/06/20 13:08 Promyelocytes # 0.0 K/mm3 03/06/20 13:08 Blast Cells # 0.0 K/mm3 03/06/20 13:08 WBC Morphology Not Reportable 03/06/20 13:08 Hypersegmented Neuts Not Reportable 03/06/20 13:08 Hyposegmented Neuts Not Reportable 03/06/20 13:08 Hypogranular Neuts Not Reportable 03/06/20 13:08 Smudge Cells Not Reportable 03/06/20 13:08 Toxic Granulation Not Reportable 03/06/20 13:08 Toxic Vacuolation Not Reportable 03/06/20 13:08 Dohle Bodies Not Reportable 03/06/20 13:08 Pelger-Huet Anomaly Not Reportable 03/06/20 13:08 Yana Rods Not Reportable 03/06/20 13:08 Platelet Estimate Consistent w auto 03/06/20 13:08 Clumped Platelets Not Reportable 03/06/20 13:08 Plt Clumps, EDTA Not Reportable 03/06/20 13:08 Large Platelets Not Reportable 03/06/20 13:08 Giant Platelets Not Reportable 03/06/20 13:08 Platelet Satelliting Not Reportable 03/06/20 13:08 Plt Morphology Comment Not Reportable 03/06/20 13:08 RBC Morphology Normal 03/06/20 13:08 Dimorphic RBCs Not Reportable 03/06/20 13:08 Polychromasia Not Reportable 03/06/20 13:08 Hypochromasia Not Reportable 03/06/20 13:08 Poikilocytosis Not Reportable 03/06/20 13:08 Anisocytosis Not Reportable 03/06/20 13:08 Microcytosis Not Reportable 03/06/20 13:08 Macrocytosis Not Reportable 03/06/20 13:08 Spherocytes Not Reportable 03/06/20 13:08 Pappenheimer Bodies Not Reportable 03/06/20 13:08 Sickle Cells Not Reportable 03/06/20 13:08 Target Cells Not Reportable 03/06/20 13:08 Tear Drop Cells Not Reportable 03/06/20 13:08 Ovalocytes Not Reportable 03/06/20 13:08 Helmet Cells Not Reportable 03/06/20 13:[address] Bodies Not Reportable 03/06/20 13:08 [place] Rings Not Reportable 03/06/20 13:08 [place] Cells Not Reportable 03/06/20 13:08 Bite Cells Not Reportable 03/06/20 13:08 Crenated Cell Not Reportable 03/06/20 13:08 Elliptocytes Not Reportable 03/06/20 13:08 Acanthocytes (Spur) Not Reportable 03/06/20 13:08 Rouleaux Not Reportable 03/06/20 13:08 Hemoglobin C Crystals Not Reportable 03/06/20 13:08 Schistocytes Not Reportable 03/06/20 13:08 Malaria parasites Not Reportable 03/06/20 13:08 [place]cho Bodies Not Reportable 03/06/20 13:08 Hem Pathologist Commnt No 03/06/20 13:08 PT 14.0 Sec. (12.2-14.9) 03/06/20 09:25 INR 1.06 (0.87-1.13) 03/06/20 09:25 APTT 27.7 Sec. (24.2-36.6) 03/06/20 09:25 D-Dimer 196.55 ng/mlDDU (0-234) 03/06/20 09:25 ABG pH 7.359 pH Units (7.350-7.450) 03/06/20 08:32 ABG pCO2 60.4 mm Hg 03/06/20 08:32 ABG pO2 65.8 mm Hg (80.0-90.0) L 03/06/20 08:32 ABG HCO3 33.3 mmol/L (20.0-26.0) H 03/06/20 08:32 ABG O2 Saturation 93.2 % (95.0-99.0) L 03/06/20 08:32 ABG O2 Content 17.5 (0.0-44) 03/06/20 08:32 ABG Base Excess 6.0 mmol/L (-2.0-3.0) H 03/06/20 08:32 ABG Hemoglobin 13.6 gm/dl (12.0-16.0) 03/06/20 08:32 ABG Carboxyhemoglobin 1.7 % (0.0-5.0) 03/06/20 08:32 ABG Methemoglobin 0.6 % (0.0-1.5) 03/06/20 08:32 Oxyhemoglobin 91.1 % (95.0-99.0) L 03/06/20 08:32 FiO2 40 % 03/06/20 08:32 Sodium 140 mmol/L (137-145) 03/07/20 06:47 Potassium 5.3 mmol/L (3.6-5.0) H D 03/07/20 06:47 Chloride 96.9 mmol/L (98-107) L 03/07/20 06:47 Carbon Dioxide 34 mmol/L (22-30) H 03/07/20 06:47 Anion Gap 14 mmol/L 03/07/20 06:47 BUN 18 mg/dL (7-17) H 03/07/20 06:47 Creatinine 0.7 mg/dL (0.6-1.2) 03/07/20 06:47 Estimated GFR > 60 ml/min 03/07/20 06:47 BUN/Creatinine Ratio 26 % 03/07/20 06:47 Glucose 125 mg/dL (65-100) H 03/07/20 06:47 Calcium 9.9 mg/dL (8.4-10.2) 03/07/20 06:47 Ferritin 74.4 ng/mL (10.0-200.0) 03/06/20 09:25 Total Bilirubin 0.50 mg/dL (0.1-1.2) 03/06/20 09:25 Direct Bilirubin < 0.2 mg/dL (0-0.2) 03/06/20 09:25 Indirect Bilirubin 0.3 mg/dL 03/06/20 09:25 AST 17 units/L (5-40) 03/06/20 09:25 ALT 14 units/L (7-56) 03/06/20 09:25 Alkaline Phosphatase 108 units/L (35-129) 03/06/20 09:25 Lactate Dehydrogenase 261 units/L (91-180) H 03/06/20 09:25 Troponin T < 0.010 ng/mL (0.00-0.029) 03/06/20 16:08 C-Reactive Protein 0.90 mg/dL (0.00-1.30) 03/06/20 09:25 NT-Pro-B Natriuret Pep 243.0 pg/mL (0-900) 03/06/20 09:25 Total Protein 6.1 g/dL (6.3-8.2) L 03/06/20 09:25 Albumin 4.2 g/dL (3.9-5) 03/06/20 09:25 Albumin/Globulin Ratio 2.2 % 03/06/20 09:25 Procalcitonin 0.10 ng/mL (<0.15) 03/06/20 09:25 Urine Color Yellow (Yellow) 03/06/20 12:11 Urine Turbidity Clear (Clear) 03/06/20 12:11 Urine pH 7.0 (5.0-7.0) 03/06/20 12:11 Ur Specific [place] 1.017 (1.003-1.030) 03/06/20 12:11 Urine Protein <15 mg/dl mg/dL (Negative) 03/06/20 12:11 Urine Glucose (UA) Neg mg/dL (Negative) 03/06/20 12:11 Urine Ketones Neg mg/dL (Negative) 03/06/20 12:11 Urine Blood Neg (Negative) 03/06/20 12:11 Urine Nitrite Neg (Negative) 03/06/20 12:11 Urine Bilirubin Neg (Negative) 03/06/20 12:11 Urine Urobilinogen 2.0 mg/dL (<2.0) 03/06/20 12:11 Ur Leukocyte Esterase Neg (Negative) 03/06/20 12:11 Urine WBC (Auto) 1.0 /HPF (0.0-6.0) 03/06/20 12:11 Urine RBC (Auto) 4.0 /HPF (0.0-6.0) 03/06/20 12:11 U Epithel Cells (Auto) 1.0 /HPF (0-13.0) 03/06/20 12:11 Urine Mucus Few /HPF 03/06/20 12:11 Digoxin 0.8 ng/mL (0.9-2.0) L 03/06/20 14:58 Lopez/IV: Voiding Method Toilet IV Catheter Type [Left INT / Saline Lock Antecubital] Active Medications - Current Medications Current Medications: Generic Name Dose Route Start Last Admin Trade Name Freq PRN Reason Stop Dose Admin Acetaminophen 650 mg 03/06/20 12:00 Tylenol PO Q4H PRN Pain MILD(1-3)/Fever >100.5/ARAIZA Albuterol/Ipratropium 1 ampul 03/06/20 14:00 03/07/20 03:23 Duoneb *Not For Prn Use* IH 1 ampul Q6HRT [facility] Administration Apixaban 5 mg 03/06/20 22:00 03/06/20 22:05 Eliquis PO 5 mg BID [facility] Administration Protocol Aspirin 81 mg 03/07/20 10:00 Baby Aspirin PO QDAY [facility] Atorvastatin Calcium 20 mg 03/06/20 22:00 03/06/20 22:05 Lipitor PO 20 mg QHS JO Administration Digoxin 0.125 mg 03/06/20 17:00 03/06/20 18:47 Lanoxin PO 0.125 mg DAILY@1700 [facility] Administration Furosemide 20 mg 03/07/20 10:00 Lasix PO QDAY [facility] Isosorbide Mononitrate 120 mg 03/07/20 10:00 Imdur PO QDAY [facility] Lisinopril 10 mg 03/07/20 10:00 Zestril PO DAILY JO Methylprednisolone Sodium Succinate 40 mg 03/06/20 14:00 03/07/20 05:49 Solu-Medrol IV 40 mg Q8HR JO Administration Ondansetron HCl 4 mg 03/06/20 11:36 Zofran IV Q8H PRN Nausea And Vomiting Sodium Chloride 10 ml 03/06/20 22:00 03/06/20 22:05 Sodium Chloride Flush Syringe 10 Ml IV 10 ml BID JO Administration Sodium Chloride 10 ml 03/06/20 11:36 Sodium Chloride Flush Syringe 10 Ml IV PRN PRN LINE FLUSH Sodium Chloride 10 ml 03/06/20 11:40 Sodium Chloride Flush Syringe 10 Ml IV PRN PRN LINE FLUSH Sodium Polystyrene Sulfonate 15 gm 03/07/20 09:08 Kionex PO 03/07/20 09:09 ONCE ONE Verapamil HCl 240 mg 03/07/20 10:00 Calan Sr PO DAILY JO
[2020-03-07] MEDS ORDERED: ENOXAPARIN 40 MG/0.4 ML INJ SUB-Q SCH (10:00)
--- NOTE | 2020-03-07 10:01 | Progress Note ---
Assessment and Plan Cont present cardiac regiment. COVID-19 testing pending. Plan to proceed with stress test pending COVID-19 test results - likely tomorrow. The patient has been seen in conjunction with Dr. Rama Jennings who agrees with the assessment and plan of care. - Patient Problems (1) Suspected 2018-nCoV infection Current Visit: Yes Status: Suspected (2) COPD with exacerbation Current Visit: Yes Status: Acute (3) Acute on chronic respiratory failure Current Visit: Yes Status: Acute (4) Chest pain Current Visit: Yes Status: Acute (5) Atrial fibrillation Current Visit: Yes Status: Chronic Qualifiers: Atrial fibrillation type: unspecified Qualified Code(s): I48.91 - Unspecified atrial fibrillation (6) CAD (coronary artery disease) Current Visit: Yes Status: Chronic (7) HTN (hypertension) Current Visit: Yes Status: Chronic Qualifiers: Hypertension type: essential hypertension Qualified Code(s): I10 - Essential (primary) hypertension (8) Hyperlipidemia Current Visit: Yes Status: Chronic (9) History of CVA (cerebrovascular accident) Current Visit: Yes Status: Chronic Subjective Date of service: 03/07/20 Principal diagnosis: cp Interval history: per primary RN, awake, A&O. Denies any pain or discomfort. in AFib HR 90s on telemetry. Objective Last Vital Signs Temp 97.6 F 03/07/20 05:01 Pulse 93 H 03/07/20 05:01 Resp 16 03/07/20 05:01 BP 134/61 03/07/20 05:01 Pulse Ox 96 03/07/20 05:01 - Physical Examination Narrative exam: agree with physical examination per primary team - Labs and Meds Cardiac Enzymes 03/06/20 Range/Units 09:25 AST 17 (5-40) units/L Lactate Dehydrogenase 261 H (91-180) units/L Coagulation 03/06/20 Range/Units 09:25 PT 14.0 (12.2-14.9) Sec. INR 1.06 (0.87-1.13) APTT 27.7 (24.2-36.6) Sec. CBC 03/06/20 03/07/20 Range/Units 13:08 06:47 WBC 16.1 H 13.0 H (4.5-11.0) K/mm3 RBC 4.30 4.26 (3.65-5.03) M/mm3 Hgb 13.5 13.6 (10.1-14.3) gm/dl Hct 40.8 40.7 (30.3-42.9) % Plt Count 193 200 (140-440) K/mm3 Comprehensive Metabolic Panel 03/06/20 03/06/20 03/06/20 Range/Units 09:25 09:25 13:08 Sodium 141 139 (137-145) mmol/L Potassium 4.2 4.4 (3.6-5.0) mmol/L Chloride 98.2 98.7 (98-107) mmol/L Carbon Dioxide 30 28 (22-30) mmol/L BUN 12 12 (7-17) mg/dL Creatinine 0.7 0.7 (0.6-1.2) mg/dL Glucose 108 H 110 H 156 H (65-100) mg/dL Calcium 9.1 9.3 (8.4-10.2) mg/dL Direct Bilirubin < 0.2 (0-0.2) mg/dL Indirect Bilirubin 0.3 mg/dL AST 17 (5-40) units/L ALT 14 (7-56) units/L Alkaline Phosphatase 108 (35-129) units/L Total Protein 6.1 L (6.3-8.2) g/dL Albumin 4.2 (3.9-5) g/dL 03/07/20 Range/Units 06:47 Sodium 140 (137-145) mmol/L Potassium 5.3 H D (3.6-5.0) mmol/L Chloride 96.9 L (98-107) mmol/L Carbon Dioxide 34 H (22-30) mmol/L BUN 18 H (7-17) mg/dL Creatinine 0.7 (0.6-1.2) mg/dL Glucose 125 H (65-100) mg/dL Calcium 9.9 (8.4-10.2) mg/dL Direct Bilirubin (0-0.2) mg/dL Indirect Bilirubin mg/dL AST (5-40) units/L ALT (7-56) units/L Alkaline Phosphatase (35-129) units/L Total Protein (6.3-8.2) g/dL Albumin (3.9-5) g/dL - Imaging and Cardiology EKG: report reviewed, image reviewed Echo: report reviewed ( 05/2019 showed EF 55-60%, mild LVH, mild MR, mild TR. ) Cardiac cath: report reviewed (08/2017 showed mild CAD, 10-10% ostial RCA, 70% stenosis of ostial second diagonal main branch. Medical management was recommended. )
[2020-03-07] MEDS: LISINOPRIL 10 MG TAB PO SCH ×2 (10:10→11:10)
[2020-03-07] MEDS: FUROSEMIDE 20 MG TAB PO SCH ×2 (10:10→11:10)
[2020-03-07] MEDS: ASPIRIN 81 MG TAB CHEW PO SCH ×2 (10:10→10:13)
[2020-03-07] MEDS: APIXABAN 5 MG TAB PO SCH ×3 (10:10→21:49)
[2020-03-07] MEDS: VERAPAMIL ER 240 MG TAB PO SCH (10:14)
--- NOTE | 2020-03-07 10:19 | Progress Note ---
Assessment and Plan Patient alert, awake.Patient presently resting on 4 litres O2. O2 saturation running 96%. Patient has COPD. Still smoking off and On. Counselled to stop smoking. Chest xray done 03/01/20 reported COPD. No acute cardiopulmonary process. No change since 07/10/2019. Patient afebrile and has leukocytosis. Patient is on I/V solumedrol, Apixaban and Albuterol/atrovent aerosol treatments. ABG on FIO2 40%. ABG pH 7.359 pH Units (7.350-7.450) 03/06/20 08:32 ABG pCO2 60.4 mm Hg 03/06/20 08:32 ABG pO2 65.8 mm Hg (80.0-90.0) L 03/06/20 08:32 ABG O2 Saturation 93.2 % (95.0-99.0) L 03/06/20 08:32 - Patient Problems (1) COPD with exacerbation Current Visit: Yes Status: Acute Plan to address problem: O2 4 litres via nasal canula. Albuterol/atrovent aerosol treatments q 6 hours. Continue I/V solumedrol. Continue Apixaban. Recommend GI prophylaxis. (2) Acute and chronic respiratory failure Current Visit: Yes Status: Acute Qualifiers: Plan to address problem: 2 4 litres via nasal canula. Albuterol/atrovent aerosol treatments q 6 hours. Continue I/V solumedrol. Continue Apixaban. Recommend GI prophylaxis. (3) Atrial fibrillation with rapid ventricular response Current Visit: Yes Status: Acute Plan to address problem: Patient is on Apixaban. (4) Chest pain Current Visit: Yes Status: Acute Plan to address problem: Management as per cardiology. (5) Suspected 2019-nCoV infection Current Visit: Yes Status: Suspected Plan to address problem: COVID 19 test results pending. (6) Hypothyroidism Current Visit: No Status: Chronic Plan to address problem: Management as per primary care. (7) CVA (cerebral infarction) Current Visit: No Status: Acute Plan to address problem: Management as per primary care. Subjective Date of service: 03/07/20 Principal diagnosis: cp Interval history: Patient alert, awake.Patient presently resting on 4 litres O2. O2 saturation running 96%.No acute respiratory distress at rest. Patient has COPD. Still smoking off and On. Counselled to stop smoking. Chest xray done 03/01/20 reported COPD. No acute cardiopulmonary process. No change since 07/10/2019. Patient afebrile and has leukocytosis. Patient is on I/V solumedrol, Apixaban and Albuterol/atrovent aerosol treatments. ABG on FIO2 40%. ABG pH 7.359 pH Units (7.350-7.450) 03/06/20 08:32 ABG pCO2 60.4 mm Hg 03/06/20 08:32 ABG pO2 65.8 mm Hg (80.0-90.0) L 03/06/20 08:32 ABG O2 Saturation 93.2 % (95.0-99.0) L 03/06/20 08:32 Objective Vital Signs - 12hr 03/07/20 03/07/20 03:25 05:01 Temperature 97.6 F Pulse Rate 93 H Pulse Rate [ 93 H Anterior Bilateral Throughout] Respiratory 16 Rate Respiratory 18 Rate [Anterior Bilateral Throughout] Blood Pressure 134/61 O2 Sat by Pulse 96 Oximetry Constitutional: no acute distress, alert Eyes: non-icteric ENT: oropharynx moist Neck: supple, no JVD Effort: mildly labored Ascultation: Bilateral: diminished breath sounds, other (Prolonged expiratory phase.) Cardiovascular: irregular rhythm Gastrointestinal: normoactive bowel sounds, soft, non-tender Integumentary: normal Extremities: no cyanosis, no edema Neurologic: normal mental status, pupils equal and round Psychiatric: mood appropriate CBC and BMP: 03/07/20 06:47 03/07/20 06:47 ABG, PT/INR, D-dimer: ABG ABG pH 7.359 pH Units (7.350-7.450) 03/06/20 08:32 ABG pCO2 60.4 mm Hg 03/06/20 08:32 ABG pO2 65.8 mm Hg (80.0-90.0) L 03/06/20 08:32 ABG O2 Saturation 93.2 % (95.0-99.0) L 03/06/20 08:32 PT/INR, D-dimer PT 14.0 Sec. (12.2-14.9) 03/06/20 09:25 INR 1.06 (0.87-1.13) 03/06/20 09:25 D-Dimer 196.55 ng/mlDDU (0-234) 03/06/20 09:25 Abnormal lab findings: Abnormal Labs 03/06/20 03/06/20 03/06/20 08:32 09:25 09:25 WBC 13.5 H RDW 12.9 L Lymph % (Auto) 8.3 L Lymph # 1.1 L Seg Neutrophils % 85.6 H Seg Neuts % (Manual) Lymphocytes % (Manual) Seg Neutrophils # 11.5 H Seg Neutrophils # Man Lymphocytes # (Manual) ABG pO2 65.8 L ABG HCO3 33.3 H ABG O2 Saturation 93.2 L ABG Base Excess 6.0 H Oxyhemoglobin 91.1 L Potassium Chloride Carbon Dioxide BUN Glucose 108 H Lactate Dehydrogenase Total Protein Digoxin 03/06/20 03/06/20 03/06/20 09:25 13:08 13:08 WBC 16.1 H RDW Lymph % (Auto) Lymph # Seg Neutrophils % Seg Neuts % (Manual) 92.0 H Lymphocytes % (Manual) 2.0 L Seg Neutrophils # Seg Neutrophils # Man 14.8 H Lymphocytes # (Manual) 0.3 L ABG pO2 ABG HCO3 ABG O2 Saturation ABG Base Excess Oxyhemoglobin Potassium Chloride Carbon Dioxide BUN Glucose 110 H 156 H Lactate Dehydrogenase 261 H Total Protein 6.1 L Digoxin 03/06/20 03/07/20 03/07/20 14:58 06:47 06:47 WBC 13.0 H RDW Lymph % (Auto) Lymph # Seg Neutrophils % Seg Neuts % (Manual) Lymphocytes % (Manual) Seg Neutrophils # Seg Neutrophils # Man Lymphocytes # (Manual) ABG pO2 ABG HCO3 ABG O2 Saturation ABG Base Excess Oxyhemoglobin Potassium 5.3 H D Chloride 96.9 L Carbon Dioxide 34 H BUN 18 H Glucose 125 H Lactate Dehydrogenase Total Protein Digoxin 0.8 L
[2020-03-07 10:20] LABS: Basophils % (Manual) 0 % (0.0-1.8); Eosinophils % (Manual) 0 % (0.0-4.3); Platelet Estimate Consistent w Auto; Total Cells Counted 100
[2020-03-07] MEDS ORDERED: ALPRAZolam 1 MG TAB PO PRN (15:07)
[2020-03-07] MEDS: DIGOXIN 0.125 MG TAB PO SCH (17:21)
[2020-03-07] MEDS: DULoxetine 30 MG CAP PO SCH (17:22)
[2020-03-07] MEDS ORDERED: MIRTAZAPINE 15 MG TAB PO SCH (22:00)
[2020-03-08] MEDS: IPRATROPIUM/ALBUTEROL SULFATE 3 ML AMPUL.NEB IH SCH ×2 (04:18→08:59)
[2020-03-08] MEDS ORDERED: LEVOTHYROXINE 100 MCG TAB PO SCH (06:00)
[2020-03-08] MEDS: methylPREDNISolone Sod Succinate 40 MG/1 ML INJ IV SCH ×2 (06:50→15:01)
[2020-03-08] MEDS ORDERED: REGADENOSON 0.4 MG/5 ML INJ IV ONE (07:20)
[2020-03-08 08:24] LABS: Hematocrit 42.1 % (30.3-42.9); Mean Corpuscular HGB Conc 33 % (30-34); Mean Corpuscular Volume 95 fl (79-97); Platelet Count 240 K/mm3 (140-440); Red Blood Count 4.44 M/mm3 (3.65-5.03); Red Cell Distribution Width 13.2 % (13.2-15.2)
[2020-03-08 08:40] LABS: Blood Urea Nitrogen 20 mg/dL (7-17); Calcium 9.9 mg/dL (8.4-10.2); Hemolysis Index 26
[2020-03-08 08:43] LABS: BUN/Creatinine Ratio 29
[2020-03-08] MEDS: VERAPAMIL ER 240 MG TAB PO SCH (10:30)
[2020-03-08] MEDS: LISINOPRIL 10 MG TAB PO SCH (10:32)
[2020-03-08] MEDS: ASPIRIN 81 MG TAB CHEW PO SCH (10:32)
[2020-03-08] MEDS: APIXABAN 5 MG TAB PO SCH (10:33)
[2020-03-08] MEDS: DULoxetine 30 MG CAP PO SCH (10:33)
[2020-03-08] MEDS: FUROSEMIDE 20 MG TAB PO SCH (10:33)
[2020-03-08 10:34] VITALS: BP 166/91
--- NOTE | 2020-03-08 10:41 | Progress Note ---
Assessment and Plan S/p lexiscan MPI stress test today which was negative. Chest pain resolved. AMI r/o. Currently stable cardiac status. Pt may discharge from cardiology standpoint. Follow up in our [place] office with Dr. Rama Jennings on 04/04/2020 @ 2:00PM. The patient has been seen in conjunction with Dr. Rama Jennings who agrees with the assessment and plan of care. - Patient Problems (1) Suspected 2019-nCoV infection Current Visit: Yes Status: Suspected Plan to address problem: COVID-19 testing negative (2) COPD with exacerbation Current Visit: Yes Status: Acute (3) Acute on chronic respiratory failure Current Visit: Yes Status: Acute (4) Chest pain Current Visit: Yes Status: Resolved (5) Atrial fibrillation Current Visit: Yes Status: Chronic Qualifiers: Atrial fibrillation type: unspecified Qualified Code(s): I48.91 - Unspecified atrial fibrillation (6) CAD (coronary artery disease) Current Visit: Yes Status: Chronic (7) HTN (hypertension) Current Visit: Yes Status: Chronic Qualifiers: Hypertension type: essential hypertension Qualified Code(s): I10 - Essential (primary) hypertension (8) Hyperlipidemia Current Visit: Yes Status: Chronic (9) History of CVA (cerebrovascular accident) Current Visit: Yes Status: Chronic Subjective Date of service: 03/08/20 Principal diagnosis: cp Interval history: pt for stress test, no current complaints. in AFib HR 90s on telemetry. Objective Last Vital Signs Temp 97.4 F L 03/08/20 04:23 Pulse 99 H 03/08/20 04:23 Resp 18 03/08/20 04:23 BP 166/91 03/08/20 10:32 Pulse Ox 95 03/08/20 08:33 - Physical Examination General: No Apparent Distress HEENT: Positive: PERRL, Normocephaly, Mucus Membranes Moist Neck: Positive: neck supple, trachea midline Cardiac: Positive: irregularly irregular, S1/S2 Lungs: Positive: Decreased Breath Sounds Neuro: Positive: Grossly Intact Abdomen: Negative: Tender Skin: Negative: Rash Musculoskeletal: No Pain Extremities: Absent: edema - Labs and Meds CBC 03/08/20 Range/Units 07:19 WBC 10.9 (4.5-11.0) K/mm3 RBC 4.44 (3.65-5.03) M/mm3 Hgb 14.0 (10.1-14.3) gm/dl Hct 42.1 (30.3-42.9) % Plt Count 240 (140-440) K/mm3 Comprehensive Metabolic Panel 03/08/20 Range/Units 07:19 Sodium 141 (137-145) mmol/L Potassium 4.2 D (3.6-5.0) mmol/L Chloride 96.9 L (98-107) mmol/L Carbon Dioxide 31 H (22-30) mmol/L BUN 20 H (7-17) mg/dL Creatinine 0.7 (0.6-1.2) mg/dL Glucose 98 (65-100) mg/dL Calcium 9.9 (8.4-10.2) mg/dL - Imaging and Cardiology EKG: report reviewed, image reviewed Echo: report reviewed ( 05/2019 showed EF 55-60%, mild LVH, mild MR, mild TR. ) Cardiac cath: report reviewed (08/2017 showed mild CAD, 10-10% ostial RCA, 70% stenosis of ostial second diagonal main branch. Medical management was recommended. ) - Telemetry EKG Rhythm: Atrial Fibrillation
--- NOTE | 2020-03-08 12:20 | Discharge Summary ---
Providers - Providers Date of Admission: 03/06/20 11:36 Attending physician: AKILAH GARCIAS MD 03/06/20 Consult to Cardiac Rehabilitation [CONS] Routine Reason For Exam: Phase I 03/06/20 11:36 Consult to Physician [CONS] Routine Comment: Consulting Provider: AMADOR FERNÁNDEZ Physician Instructions: Reason For Exam: copd exac 03/06/20 11:40 Consult to Cardiology [CONS] Routine Consulting Provider: DOMINICK VAUGHAN Reason For Exam: cp 03/07/20 10:04 Occupational Therapy Evaluate and Treat [CONS] Routine Comment: Reason For Exam: ataxia Physical Therapy Evaluation and Treat [CONS] Routine Comment: Reason For Exam: ataxia Primary care physician: PHYSICIAN CODER Hospitalization Reason for admission: Acute respiratory failure Condition: Stable Hospital course: Patient is 69 years old female with history of Atrial Fib on Therapeutic Anticoagulation, Chronic Respiratory Failure on Home Oxygen @2liters via NC, Severe COPD, HTN, CHF, Anxiety, CVA, MVP, OA who presents to the emergency room via EMS from home for evaluation of sudden onset of chest pain and shortness of breath that started this morning. Patient described her chest pain as left- sided, pressure and heaviness that radiated to her left upper extremity associated with significant shortness of breath and orthopnea. Patient also stated that she had a temperature of 99.9 last night. Patient also complaining of nausea but no vomiting. Patient found to be 79% on her 2 L home oxygen improved to 100% on nonrebreather. Patient denies any cough or cold-like symptoms. Most recent stress test documented at our facility was completed May 2017 which revealed normal myocardial perfusion without evidence of active ischemia or prior infarction. Normal left ventricular systolic function. Echocardiogram completed last year revealed left ventricular hypertrophy with EF of 55 to 60%. LHC done 08/2017 showed mild CAD, 10-10% ostial RCA, 70% stenosis of ostial second diagonal main branch. Medical management was recommended. tte done 05/2019 showed EF 55-60%, mild LVH, mild MR, mild TR. Lexiscan MPI stress test done 05/2017 was negative. 03/08: Patient during hospitalization although went to stress test which was normal with no acute pathology noted. Patient was treated for COPD with acute exacerbation COVID-19 testing was negative. Patient received extensive counseling about tobacco use and need to quit tobacco use if she verbalized understanding 15 minutes spent on counseling. She will be discharged on tapering dose of steroids. And I recommended outpatient follow-up with cardiology and pulmonary. Home health with physical therapy at home was also recommended. Acute on chronic hypoxic respiratory failure. The patient has underlying severe COPD. Patient will be treated with O2 and BiPAP as clinically indicated. Pulmonary consulted, Atypical chest pain secondary to COPD exacerbation with underlying costochondritis. Patient's documented stress test in May 2017 was negative. Cardiology consultation and stress test was negative. Acute COPD exacerbation. Continue bronchodilators/nebulizers. Solu-Medrol 40 mg IV every 8 hours. Pulmonary consultation. Atrial fibrillation. Continue medications for rate control. Telemetry monitoring. Continue therapeutic anticoagulation if necessary Hypertension. Resume antihypertensive medications Hyperkalemia. Resolved Anxiety disorder. Resume medications. Consider psychiatric evaluation. Chronic diastolic heart failure. Compensated. Leukocytosis: On steroids, no evidence of Pneumonia ? SOURCE as patient had elevated leukocytosis on admission. NO FEVER OR EVIDENCE OF INFECTION SIRS with organ dysfunction: Leukocytosis, hypoxic and copd, no sepsis. Suspected COVID19 Infection: Awaiting covid testing Fall: Patient reported fall- PT/OT call Disposition: [id number]/[id number] HOME UNDER HOME [facility] Time spent for discharge: 35 minutes Core Measure Documentation - Palliative Care Palliative Care/ Comfort Measures: Not Applicable - Core Measures Any of the following diagnoses?: none Exam - Physical Exam Narrative exam: General appearance: Present: no acute distress, well-nourished - EENT Eyes: Present: PERRL ENT: hearing intact, clear oral mucosa - Neck Neck: Present: supple, normal ROM - Respiratory Respiratory effort: normal Respiratory: bilateral: CTA - Cardiovascular Heart Sounds: Present: S1 & S2. Absent: rub, click - Extremities Extremities: pulses symmetrical, No edema Peripheral Pulses: within normal limits - Abdominal General gastrointestinal: Present: soft, non-tender, non-distended, normal bowel sounds Female genitourinary: Present: normal - Integumentary Integumentary: Present: clear, warm, dry - Musculoskeletal Musculoskeletal: gait normal, strength equal bilaterally - Psychiatric Psychiatric: appropriate mood/affect, intact judgment & insight - Neurologic Neurologic: CNII-XII intact, moves all extremities - Constitutional Vitals: Temp Pulse Resp BP Pulse Ox 97.4 F L 113 H 18 166/91 97 03/08/20 04:23 03/08/20 10:30 03/08/20 04:23 03/08/20 10:32 03/08/20 10:30 Plan Activity: advance as tolerated, fall precautions Diet: low fat Special Instructions: physical therapy, occupational therapy Durable Medical Equipment Needed Upon Discharge: Oxygen Follow up with: PRIMARY CARE, [Primary Care Provider] - 3-5 Days JAY LUONG MD [Staff Physician] - 7 Days DOMINICK VAUGHAN MD [Staff Physician] - 04/04/20 2:00 pm Prescriptions: Prednisone [predniSONE 5 mg (6-Day Pack, 21 Tabs)] 5 mg PO .TAPER #1 tab.ds.pk
--- NOTE | 2020-03-08 13:59 | Progress Note ---
Assessment and Plan Patient alert, awake.Patient presently resting on 4 litres O2. O2 saturation running 96%. Patient has COPD. Still smoking off and On. Counselled to stop smoking. Chest xray done 03/01/20 reported COPD. No acute cardiopulmonary process. No change since 07/10/2019. Patient afebrile and has leukocytosis. Patient is on I/V solumedrol, Apixaban and Albuterol/atrovent aerosol treatments. ABG on FIO2 40%. ABG pH 7.359 pH Units (7.350-7.450) 03/06/20 08:32 ABG pCO2 60.4 mm Hg 03/06/20 08:32 ABG pO2 65.8 mm Hg (80.0-90.0) L 03/06/20 08:32 ABG O2 Saturation 93.2 % (95.0-99.0) L 03/06/20 08:32 - Patient Problems (1) COPD with exacerbation Current Visit: Yes Status: Acute Plan to address problem: O2 4 litres via nasal canula. Albuterol/atrovent aerosol treatments q 6 hours. Continue I/V solumedrol. Continue Apixaban. Recommend GI prophylaxis. (2) Acute and chronic respiratory failure Current Visit: Yes Status: Acute Qualifiers: Plan to address problem: 2 4 litres via nasal canula. Albuterol/atrovent aerosol treatments q 6 hours. Continue I/V solumedrol. Continue Apixaban. Recommend GI prophylaxis. (3) Atrial fibrillation with rapid ventricular response Current Visit: Yes Status: Acute Plan to address problem: Patient is on Apixaban. (4) Chest pain Current Visit: Yes Status: Resolved Plan to address problem: Management as per cardiology. (5) Suspected 2019-nCoV infection Current Visit: Yes Status: Suspected Plan to address problem: COVID 19 test results pending. (6) Hypothyroidism Current Visit: No Status: Chronic Plan to address problem: Management as per primary care. (7) CVA (cerebral infarction) Current Visit: No Status: Acute Plan to address problem: Management as per primary care. Subjective Date of service: 03/08/20 Principal diagnosis: cp Interval history: Patient alert, awake.Patient presently resting on 4 litres O2. O2 saturation running 96%.No acute respiratory distress at rest. Patient has COPD. Still smoking off and On. Counselled to stop smoking. Chest xray done 03/01/20 reported COPD. No acute cardiopulmonary process. No change since 07/10/2019. Patient afebrile and has leukocytosis. Patient is on I/V solumedrol, Apixaban and Albuterol/atrovent aerosol treatments. ABG on FIO2 40%. ABG pH 7.359 pH Units (7.350-7.450) 03/06/20 08:32 ABG pCO2 60.4 mm Hg 03/06/20 08:32 ABG pO2 65.8 mm Hg (80.0-90.0) L 03/06/20 08:32 ABG O2 Saturation 93.2 % (95.0-99.0) L 03/06/20 08:32 Objective Vital Signs - 12hr 03/08/20 03/08/20 03/08/20 04:23 08:17 08:33 Temperature 97.4 F L Pulse Rate 99 H Respiratory 18 Rate Blood Pressure 118/79 153/79 O2 Sat by Pulse 95 95 Oximetry 03/08/20 03/08/20 03/08/20 09:31 09:32 09:36 Temperature Pulse Rate Respiratory Rate Blood Pressure 149/78 143/86 153/91 O2 Sat by Pulse Oximetry 03/08/20 03/08/20 03/08/20 09:38 09:39 10:30 Temperature Pulse Rate 113 H Respiratory Rate Blood Pressure 141/95 155/90 166/91 O2 Sat by Pulse 97 Oximetry 03/08/20 10:32 Temperature Pulse Rate Respiratory Rate Blood Pressure 166/91 O2 Sat by Pulse Oximetry Constitutional: no acute distress, alert Eyes: non-icteric ENT: oropharynx moist Neck: supple, no JVD Effort: mildly labored Ascultation: Bilateral: diminished breath sounds, other (Prolonged expiratory phase.) Cardiovascular: irregular rhythm Gastrointestinal: normoactive bowel sounds, soft, non-tender Integumentary: normal Extremities: no cyanosis, no edema Neurologic: normal mental status, pupils equal and round Psychiatric: mood appropriate CBC and BMP: 03/08/20 07:19 03/08/20 07:19 ABG, PT/INR, D-dimer: ABG ABG pH 7.359 pH Units (7.350-7.450) 03/06/20 08:32 ABG pCO2 60.4 mm Hg 03/06/20 08:32 ABG pO2 65.8 mm Hg (80.0-90.0) L 03/06/20 08:32 ABG O2 Saturation 93.2 % (95.0-99.0) L 03/06/20 08:32 PT/INR, D-dimer PT 14.0 Sec. (12.2-14.9) 03/06/20 09:25 INR 1.06 (0.87-1.13) 03/06/20 09:25 D-Dimer 196.55 ng/mlDDU (0-234) 03/06/20 09:25 Abnormal lab findings: Abnormal Labs 03/06/20 03/06/20 03/06/20 08:32 09:25 09:25 WBC 13.5 H RDW 12.9 L Lymph % (Auto) 8.3 L Lymph # 1.1 L Seg Neutrophils % 85.6 H Seg Neuts % (Manual) Lymphocytes % (Manual) Seg Neutrophils # 11.5 H Seg Neutrophils # Man Lymphocytes # (Manual) ABG pO2 65.8 L ABG HCO3 33.3 H ABG O2 Saturation 93.2 L ABG Base Excess 6.0 H Oxyhemoglobin 91.1 L Potassium Chloride Carbon Dioxide BUN Glucose 108 H Lactate Dehydrogenase Total Protein Digoxin 03/06/20 03/06/20 03/06/20 09:25 13:08 13:08 WBC 16.1 H RDW Lymph % (Auto) Lymph # Seg Neutrophils % Seg Neuts % (Manual) 92.0 H Lymphocytes % (Manual) 2.0 L Seg Neutrophils # Seg Neutrophils # Man 14.8 H Lymphocytes # (Manual) 0.3 L ABG pO2 ABG HCO3 ABG O2 Saturation ABG Base Excess Oxyhemoglobin Potassium Chloride Carbon Dioxide BUN Glucose 110 H 156 H Lactate Dehydrogenase 261 H Total Protein 6.1 L Digoxin 03/06/20 03/07/20 03/07/20 14:58 06:47 06:47 WBC 13.0 H RDW Lymph % (Auto) Lymph # Seg Neutrophils % Seg Neuts % (Manual) 87.0 H Lymphocytes % (Manual) 11.0 L Seg Neutrophils # Seg Neutrophils # Man 11.3 H Lymphocytes # (Manual) ABG pO2 ABG HCO3 ABG O2 Saturation ABG Base Excess Oxyhemoglobin Potassium 5.3 H D Chloride 96.9 L Carbon Dioxide 34 H BUN 18 H Glucose 125 H Lactate Dehydrogenase Total Protein Digoxin 0.8 L 03/08/20 07:19 WBC RDW Lymph % (Auto) Lymph # Seg Neutrophils % Seg Neuts % (Manual) Lymphocytes % (Manual) Seg Neutrophils # Seg Neutrophils # Man Lymphocytes # (Manual) ABG pO2 ABG HCO3 ABG O2 Saturation ABG Base Excess Oxyhemoglobin Potassium Chloride 96.9 L Carbon Dioxide 31 H BUN 20 H Glucose Lactate Dehydrogenase Total Protein Digoxin
== END 2020-03-08 15:15 | disposition home or self-care (01) | DRG 189 ==
LOC: ED 08:21 → 3A 11:36
PROVIDERS: ADMIT Hospitalist; ATTEND Internal Medicine
PROC: 4A033R1 Measurement of Arterial Saturation, Peripheral, Percutaneous Approach (ICD-10-PCS; principal; 2020-03-06)
DX: J96.21 Acute and chronic respiratory failure with hypoxia (principal); R65.11 Systemic inflammatory response syndrome (SIRS) of non-infectious origin with acute organ dysfunction; J44.1 Chronic obstructive pulmonary disease with (acute) exacerbation; I50.32 Chronic diastolic (congestive) heart failure; E87.5 Hyperkalemia; M94.0 Chondrocostal junction syndrome [Tietze]; F41.9 Anxiety disorder, unspecified; I11.0 Hypertensive heart disease with heart failure; F17.200 Nicotine dependence, unspecified, uncomplicated; I48.91 Unspecified atrial fibrillation; M19.90 Unspecified osteoarthritis, unspecified site; E03.9 Hypothyroidism, unspecified; E78.5 Hyperlipidemia, unspecified; I25.10 Atherosclerotic heart disease of native coronary artery without angina pectoris; Z86.73 Personal history of transient ischemic attack (TIA), and cerebral infarction without residual deficits; Z99.81 Dependence on supplemental oxygen; Z87.442 Personal history of urinary calculi; Z90.710 Acquired absence of both cervix and uterus; Z79.01 Long term (current) use of anticoagulants; Z03.818 Encounter for observation for suspected exposure to other biological agents ruled out; Z71.6 Tobacco abuse counseling
CPT/HCPCS: 36415; 71045; 78452; 80048; 80076; 80162; 81001; 82728; 82803; 82947; 83615; 83880; 84145; 84484; 85007; 85025; 85027; 85379; 85610; 85730; 86140; 87641; 93005; 93017; 94640; 94644; 94760; G0378; A9270-GY; A9502; J2405; J2785; J2920; J2930; U0003-CS

== ENCOUNTER 2020-09-20 10:59 | Outpatient (CLI) | payer MEDICARE, OTHER ==
--- NOTE | 2020-09-21 09:12 | Mammography Report ---
DIGITAL SCREENING MAMMOGRAM WITH CAD, 09/21/2020 CLINICAL INFORMATION / INDICATION: Routine screening mammography. TECHNIQUE: Digital bilateral 2D mammography was obtained in the craniocaudal and mediolateral obliqu e projections. This examination was interpreted with the benefit of Computer-Aided Detection analysis . COMPARISON: 05/09/2017 FINDINGS: Breast Density: The breasts are extremely dense, which lowers the sensitivity of mammography. No dominant mass, suspicious calcifications, or architectural distortion in either breast. Postsurgical scar, left breast. Overall, no significant interval change is identified. IMPRESSION: No mammographic evidence of malignancy. Follow up recommendation: Routine yearly BI-RADS Category 2: Benign. A "normal" or negative report should not discourage follow up or biopsy of a clinically significant f inding. A written summary of these findings will be mailed to the patient. The patient will be entered into a mammography reporting system which will generate a reminder letter for the patient's next appointmen t at the appropriate interval. [employer] [place] [employer] recommends yearly mammograms starting at age 40 and continuing as l judit as a woman is in good health. Breast MRI is recommended for women with an approximate 20-25% or greater lifetime risk of breast cancer, including women with a strong family history of breast or ova tiffanie cancer or who have been treated for Hodgkin's disease. Signer Name: Aishwarya Wilkes MD Signed: 09/21/2020 9:08 AM Workstation Name: [email or web address]
== END 2020-09-20 11:00 | disposition home or self-care (01) ==
LOC: SPVWC 10:59
PROVIDERS: ATTEND Obstetrics & Gynecology
DX: Z12.31 Encounter for screening mammogram for malignant neoplasm of breast (principal)
CPT/HCPCS: 77067

== ENCOUNTER 2020-10-06 08:26 | Outpatient (CLI) | payer MEDICARE, OTHER ==
[2020-10-06] MEDS ORDERED: DOBUTamine 100 MG in DEXTROSE 5% IN WATER 92 ML IV ONE (09:30)
[2020-10-06] MEDS ORDERED: REGADENOSON 0.4 MG/5 ML INJ IV ONE ×2 (09:56→09:58)
[2020-10-06 11:21] VITALS: BP 158/74
== END 2020-10-06 08:27 | disposition home or self-care (01) ==
LOC: CARD 08:26
PROVIDERS: ATTEND Internal Medicine
DX: R00.2 Palpitations (principal); J44.9 Chronic obstructive pulmonary disease, unspecified
CPT/HCPCS: 78452; 93017; A9502; J1250; J2785

== ENCOUNTER 2021-01-15 10:32 | Outpatient (CLI) | payer MEDICARE, OTHER ==
--- NOTE | 2021-01-15 11:51 | Cat Scan Report ---
CT ABDOMEN AND PELVIS WITHOUT CONTRAST INDICATION / CLINICAL INFORMATION: HEMATURIA. TECHNIQUE: Axial CT images were obtained through the abdomen and pelvis without IV contrast. Sagittal and guerrero l reformatted images. All CT scans at this location are performed using CT dose reduction for ALARA b y means of automated exposure control. COMPARISON: 09/06/2019 FINDINGS: LOWER CHEST: Severe emphysematous changes are noted at the lung bases. Borderline heart size. LIVER: No significant abnormality. GALLBLADDER: No significant abnormality. BILE DUCTS: No significant abnormality. PANCREAS: No significant abnormality. SPLEEN: No significant abnormality. ADRENALS: No significant abnormality. RIGHT KIDNEY and URETER: There is mild anterior rotation of the right kidney. No evidence for cystic disease, mass or nephrolithiasis. The right ureter is normal course and caliber. LEFT KIDNEY and URETER: The left kidney is mildly atrophic measuring 8.6 cm in length. No evidence fo r cystic disease, mass or nephrolithiasis. The left ureter is normal course and caliber. STOMACH and SMALL BOWEL: No significant abnormality. COLON: Mild diverticulosis of the distal colon is stable. No acute inflammation or obstruction. APPENDIX: Not identified, correlate with surgical history. PERITONEUM: No free fluid. No free air. No fluid collection. LYMPH NODES: No significant adenopathy. AORTA and ARTERIES: Moderate diffuse aortic and iliac calcifications. No aneurysm. IVC and VEINS: No significant abnormality. URINARY BLADDER: The bladder is poorly distended but no gross abnormality is detected. REPRODUCTIVE ORGANS: Hysterectomy. ADDITIONAL FINDINGS: None. SKELETAL SYSTEM: Moderate discogenic DJD at L4-5. IMPRESSION: No clear explanation for hematuria. No nephrolithiasis or focal renal lesion is detected. The left ki dney is mildly atrophic as described. Surgical changes as described. Mild diverticulosis of the distal colon. Severe emphysematous changes at the lung bases. Signer Name: Matt Pineda Jr, MD Signed: 01/15/2021 11:46 AM Workstation Name: [id number]
== END 2021-01-15 10:33 | disposition home or self-care (01) ==
LOC: CT 10:32
PROVIDERS: ATTEND Urology
DX: J43.9 Emphysema, unspecified (principal); R31.0 Gross hematuria; N26.1 Atrophy of kidney (terminal); K57.30 Diverticulosis of large intestine without perforation or abscess without bleeding; I70.0 Atherosclerosis of aorta; I70.8 Atherosclerosis of other arteries; Z90.711 Acquired absence of uterus with remaining cervical stump
CPT/HCPCS: 74176

== ENCOUNTER 2021-03-27 19:53 | Observation (INO) | payer MEDICARE, OTHER ==
[2021-03-27] MEDS ORDERED: ONDANSETRON 4 MG/2 ML INJ IV ONE (23:14)
[2021-03-27] MEDS ORDERED: fentaNYL 100 MCG/2 ML INJ IV ONE (23:14)
[2021-03-27] MEDS ORDERED: NITROGLYCERIN 2% OINT 1 GM TP ONE (23:14)
[2021-03-27] MEDS ORDERED: ASPIRIN 325 MG TAB PO ONE (23:14)
--- NOTE | 2021-03-27 23:19 | Emergency Department Report ---
HPI - General Time Seen by Provider: 03/27/21 23:05 - HPI HPI: Room 25 The patient is a 70-year-old female present with a chief complaint of chest pain. Patient states her symptoms began this evening at 18:00 with substernal chest pain that has been sharp and intermittent in nature. Patient states she has not noticed that she was more short of breath with the pain but admits to nausea without vomiting. Patient denies diaphoresis. Patient denies history of fever states she received her second [employer] Covid vaccination 09/30/2020. The patient states her last cardiac catheterization which she believes occurred this year showed an 80% blockage in one of her vessels but no stent was placed based off of the location. Patient gives her pain a score of 5/10 ED Past Medical Hx - Past Medical History Hx Hypertension: Yes Hx CVA: Yes Hx Congestive Heart Failure: Yes Hx Arthritis: Yes Hx Kidney Stones: Yes Hx Psychiatric Treatment: Yes (anxiety) Hx COPD: Yes Additional medical history: emphysema, bronchitis, A. Fib; MVP; aneurysm- coil on right side of head, Home oxygen @ 3 lpm nasal cannula, mitral valve prolapse - Surgical History Hx Breast Surgery: Yes (bilateral breast biopsy benign) Additional Surgical History: tonsillectomy, cerebral aneurysm coil, hyster ectomy, hemorrhoid surgery, bilateral benign breast biopsies - Family History Family history: no significant - Social History Smoking Status: Former Smoker (None x 25 years) Substance Use Type: None - Medications Home Medications: Home Medications Medication Instructions Recorded Confirmed Last Taken Type ALPRAZolam [Xanax TAB] 1 mg PO TID PRN #90 tablet 03/02/16 03/19/20 03/18/20 Rx Apixaban [Eliquis] 5 mg PO BID 06/22/19 03/19/20 03/18/20 History Aspirin [Aspirin BABY CHEW TAB] 81 mg PO QDAY 06/22/19 03/19/20 03/18/20 History Fluticasone/Salmeterol [Advair 1 puff IH BID 06/22/19 03/19/20 03/18/20 History Diskus 500-50 mcg] Mirtazapine [Remeron 45mg TAB] 45 mg PO HS 06/22/19 03/19/20 03/18/20 History Nitroglycerin [Nitrostat] 0.4 mg SL Q5M PRN 06/22/19 03/19/20 Unknown History Oxycodone HCl/Acetaminophen 1 each PO Q6HR PRN 06/22/19 03/19/20 Unknown History [Percocet 7.5/325 mg] Umeclidinium [place] [Incruse 62.5 mcg IH DAILY 06/22/19 03/19/20 03/18/20 History Ellipta 62.5MCG] Verapamil ER [Calan SR] 240 mg PO DAILY 06/22/19 03/19/20 03/18/20 History Linaclotide [Linzess] 290 mcg DAILY 06/23/19 03/19/20 03/18/20 History Digoxin [Lanoxin] 0.125 mg PO DAILY@1700 tablet 06/27/19 03/19/20 03/18/20 Rx Furosemide [Lasix TAB] 20 mg PO QDAY tablet 06/27/19 03/19/20 03/18/20 Rx ISOSORBIDE MONOnitrate [Imdur ER] 120 mg PO QDAY tablet 06/27/19 03/19/20 03/18/20 Rx Levothyroxine [Synthroid] 100 mcg PO DAILY@0600 tablet 06/27/19 03/19/20 03/18/20 Rx Naloxegol Oxalate [Movantik] 25 mg PO DAILY 06/27/19 03/19/20 03/18/20 Rx Pantoprazole [Protonix TAB] 40 mg PO QDAY tablet 06/27/19 03/19/20 03/18/20 Rx Potassium Chloride 20 meq PO DAILY packet 06/27/19 03/19/20 03/18/20 Rx lisinopriL [Zestril TAB] 10 mg PO DAILY tablet 06/27/19 03/19/20 03/18/20 Rx DULoxetine [Cymbalta] 60 mg PO QDAY 07/11/19 03/19/20 03/18/20 History predniSONE 2.5 mg PO QDAY 07/11/19 03/19/20 03/18/20 History AtorvaSTATin [Lipitor] 20 mg PO QHS #30 tablet 03/23/20 Unknown Rx levoFLOXacin [Levaquin TAB] 750 mg PO Q24HR #5 tablet 03/23/20 Unknown Rx ED Review of Systems ROS: Stated complaint: CHEST PAIN Other details as noted in HPI Constitutional: denies: diaphoresis Eyes: denies: eye pain ENT: denies: throat pain Respiratory: shortness of breath Cardiovascular: chest pain Endocrine: no symptoms reported Gastrointestinal: nausea. denies: vomiting Genitourinary: denies: dysuria Musculoskeletal: denies: back pain Neurological: denies: headache Physical Exam - Physical Exam Physical Exam: GENERAL: The patient is well-developed well-nourished female lying on stretcher not appearing to be in acute distress. [] HEENT: Normocephalic. Atraumatic. Extraocular motions are intact. Patient has moist mucous membranes. NECK: Supple. Trachea midline CHEST/LUNGS: Clear to auscultation. There is no respiratory distress noted. Rare occasional expiratory wheeze HEART/CARDIOVASCULAR: Regular. There is no tachycardia. There is no gallop rub or murmur. ABDOMEN: Abdomen is soft, nontender. Patient has normal bowel sounds. There is no abdominal distention. SKIN: There is no rash. There is no edema. There is no diaphoresis. NEURO: The patient is awake, alert, and oriented. The patient is cooperative. The patient has no focal neurologic deficits. The patient has normal speech. GCS 15 MUSCULOSKELETAL: There is no evidence of acute injury. ED Medical Decision Making - Lab Data Result diagrams: 03/27/21 23:32 03/27/21 23:32 Laboratory Tests 03/27/21 03/27/21 03/27/21 23:32 23:32 23:32 WBC 7.2 RBC 3.83 Hgb 12.5 Hct 37.5 MCV 98 H MCH 33 H MCHC 33 RDW 13.7 Plt Count 187 Lymph % (Auto) 24.2 [place] % (Auto) 6.7 Eos % (Auto) 3.0 Baso % (Auto) 0.5 Lymph # (Auto) 1.7 [place] # (Auto) 0.5 Eos # (Auto) 0.2 Baso # (Auto) 0.0 Seg Neutrophils % 65.6 Seg Neutrophils # 4.7 PT 14.9 INR 1.11 APTT 34.0 Sodium 146 H Potassium 4.9 Chloride 101.6 Carbon Dioxide 33 H Anion Gap 16 BUN 13 Creatinine 0.9 Estimated GFR > 60 BUN/Creatinine Ratio 14 Glucose 92 Calcium 9.8 Total Creatine Kinase 81 CK-MB (CK-2) 2.8 CK-MB (CK-2) Rel Index 3.4 Troponin T < 0.010 NT-Pro-B Natriuret Pep 300.2 Digoxin 03/27/21 23:32 WBC RBC Hgb Hct MCV MCH MCHC RDW Plt Count Lymph % (Auto) [place] % (Auto) Eos % (Auto) Baso % (Auto) Lymph # (Auto) [place] # (Auto) Eos # (Auto) Baso # (Auto) Seg Neutrophils % Seg Neutrophils # PT INR APTT Sodium Potassium Chloride Carbon Dioxide Anion Gap BUN Creatinine Estimated GFR BUN/Creatinine Ratio Glucose Calcium Total Creatine Kinase CK-MB (CK-2) CK-MB (CK-2) Rel Index Troponin T NT-Pro-B Natriuret Pep Digoxin 1.2 - EKG Data -: EKG Interpreted by Me Rate: normal - EKG Data When compared to previous EKG there are: no significant change Interpretation: unchanged when compared t (03/19/2020), nonspecific ST-T wave dima (ST depressions inferolaterally unchanged from 03/19/2020) - Radiology Data Radiology results: report reviewed (Chest x-ray), image reviewed (Chest x-ray) interpreted by me: Chest x-ray-no definite focal increase, no pneumothorax. [facility] [address] [place] [address] XRay Report Signed Patient: RENNY JOHNSTON MR#: [id number] : 1950 Acct:[id number] Age/Sex: 70 / F ADM Date: 03/27/21 Loc: ED Attending Dr: Ordering Physician: SUSAN VILLA MD Date of Service: 03/27/21 Procedure(s): XR chest 1V ap Accession Number(s): [id number] cc: SUSAN VILLA MD Fluoro Time In Minutes: CHEST 1 VIEW 03/27/2021 10:37 PM INDICATION / CLINICAL INFORMATION: chest pain. COMPARISON: 03/19/2020 FINDINGS: SUPPORT DEVICES: None. HEART / MEDIASTINUM: No significant abnormality. LUNGS / PLEURA: Cysts and bilateral interstitial lung disease. No localized infiltrate. No pneumothorax. ADDITIONAL FINDINGS: No significant additional findings. IMPRESSION: Stable chest. Signer Name: Mario Whitehead MD Signed: 03/28/2021 12:04 AM Workstation Name: [id number] Transcribed By: ES Dictated By: Mario Whitehead MD Elec tronically Authenticated By: Mario Whitehead MD Signed Date/Time: 03/28/213 DD/ 0003 TD/TT: Print Cancel - Differential Diagnosis ACS, pericarditis, GERD, pneumonia, bronchitis Critical care attestation.: If time is entered above; I have spent that time in minutes in the direct care of this critically ill patient, excluding procedure time. ED Disposition Clinical Impression: Chest pain Disposition: ADMITTED INPATIENT Is pt being admited?: Yes Does the pt Need Aspirin: Yes Condition: Fair Instructions: Nonspecific Chest Pain, Adult Time of Disposition: 00:29 (Hospitalist called (Dr. Eid)) Heart Score - HEART Score History: Moderately suspicious EKG: Significant ST-depression Age: > 65 Risk factors: > 3 risk factors or hx of atherosclerotic disease Troponin: < normal limit HEART Score: 7 - EKG Read Time Time EKG Completed: 00:07 EKG Read Time: 00:10
[2021-03-28 00:08] LABS: Hematocrit 37.5 % (30.3-42.9); Hemoglobin 12.5 gm/dl (10.1-14.3); Lymphocytes % (Auto) 24.2 % (13.4-35.0); Mean Corpuscular HGB Conc 33 % (30-34); Mean Corpuscular Volume 98 fl (79-97); Monocytes % (Auto) 6.7 % (0.0-7.3); Platelet Count 187 K/mm3 (140-440); Red Blood Count 3.83 M/mm3 (3.65-5.03); Red Cell Distribution Width 13.7 % (13.2-15.2)
[2021-03-28 00:09] LABS: Basophils % (Auto) 0.5 % (0.0-1.8); Eosinophils # (Auto) 0.2 K/mm3 (0.0-0.4); Lymphocytes # (Auto) 1.7 K/mm3 (1.2-5.4); Monocytes # (Auto) 0.5 K/mm3 (0.0-0.8)
--- NOTE | 2021-03-28 00:09 | XRay Report ---
CHEST 1 VIEW 03/27/2021 10:37 PM INDICATION / CLINICAL INFORMATION: chest pain. COMPARISON: 03/19/2020 FINDINGS: SUPPORT DEVICES: None. HEART / MEDIASTINUM: No significant abnormality. LUNGS / PLEURA: Cysts and bilateral interstitial lung disease. No localized infiltrate. No pneumothor ax. ADDITIONAL FINDINGS: No significant additional findings. IMPRESSION: Stable chest. Signer Name: Mario Whitehead MD Signed: 03/28/2021 12:04 AM Workstation Name: [id number]
[2021-03-28 00:23] LABS: Creatine Kinase MB 2.8 ng/mL (0.0-4.0)
[2021-03-28 00:24] LABS: BUN/Creatinine Ratio 14; Blood Urea Nitrogen 13 mg/dL (7-17); Calcium 9.8 mg/dL (8.4-10.2); Hemolysis Index 2; INR 1.11 (0.87-1.13)
[2021-03-28] MEDS ORDERED: ALBUTEROL 2.5 MG/3 ML NEBU IH PRN (00:44)
[2021-03-28] MEDS ORDERED: NALOXONE 0.4 MG/1 ML INJ IV PRN (00:44)
[2021-03-28] MEDS ORDERED: ACETAMINOPHEN 325 MG TAB PO PRN (00:44)
[2021-03-28] MEDS ORDERED: ONDANSETRON 4 MG/2 ML INJ IV PRN (00:44)
[2021-03-28] MEDS ORDERED: oxyCODONE /ACETAMINOPHEN 5-325MG TAB PO PRN (00:44)
[2021-03-28] MEDS ORDERED: MORPHINE 4 MG/1 ML INJ IV PRN (00:44)
[2021-03-28] MEDS ORDERED: NITROGLYCERIN 0.4 MG TAB SUBL SL PRN (00:44)
[2021-03-28] MEDS ORDERED: ALPRAZolam 1 MG TAB PO PRN (00:49)
--- NOTE | 2021-03-28 01:10 | History and Physical Report ---
History of Present Illness Date of examination: 03/28/21 Date of admission: 03/28/2021 Chief complaint: chest pain History of present illness: 70-year-old old adult female with history of end-stage COPD, chronic respiratory failure, atrial fibrillation, anxiety, CAD, HTN, HLD, and CVA who presents [facility] with complaints of chest pain. Patient states she was sitting down watching TV when she felt a sharp 6/10 left-sided substernal chest pain with radiation to her left shoulder. Denies diaphoresis and nausea. Patient states she took sublingual nitroglycerin x3 with no relief, so she decided come to the ED for further evaluation and treatment. Patient states she underwent cardiac cath earlier this year and believes it showed an 80% blockage in one of her vessels, however no intervention (stent) was done. Her hris developer is Dr. Jennings ([facility]) and she goes to the [place] location. Her last appointment with Dr. Jennings was in October of this year and her next follow-up appointment is scheduled for early April. Endorses receiving both doses of Moderna RNA vaccine in September of this year. Denies nausea, vomiting, emesis, diaphoresis, fever, chills, diarrhea, palpitations, shortness of breath, abdominal pain, hemoptysis, increased sputum production, melena, recent fall/injury, medication noncompliance, or recent sick contacts Past History Past Medical History: atrial fib (on eliquis), CAD, COPD (end-stage), hyperlipidemia, stroke, other (chronic respiratory failure on 3L continuously, anxiety, ) Past Surgical History: hysterectomy, tonsillectomy, Other (cerebral aneurysm coil, bilateral benign breast biopsy, hemorrhoid surgery) Social history: Lives alone, full code. denies: smoking, alcohol abuse, prescription drug abuse, IV drug use Family history: no significant family history Medications and Allergies Allergies Allergy/AdvReac Type Severity Reaction Status Date / Time adhesive Allergy Hives Verified 04/13/19 12:44 amlodipine besylate Allergy Anaphylaxis Verified 04/13/19 12:44 [From Norvasc] diltiazem Allergy Anaphylaxis Verified 04/13/19 12:44 diltiazem HCl [From Cardizem] Allergy Anaphylaxis Verified 04/13/19 12:44 Renexa Allergy Unknown Uncoded 08/13/16 09:41 Home Medications Medication Instructions Recorded Confirmed Last Taken Type ALPRAZolam [Xanax TAB] 1 mg PO TID PRN #90 tablet 03/02/16 03/19/20 03/18/20 Rx Apixaban [Eliquis] 5 mg PO BID 06/22/19 03/19/20 03/18/20 History Aspirin [Aspirin BABY CHEW TAB] 81 mg PO QDAY 06/22/19 03/19/20 03/18/20 History Fluticasone/Salmeterol [Advair 1 puff IH BID 06/22/19 03/19/20 03/18/20 History Diskus 500-50 mcg] Mirtazapine [Remeron 45mg TAB] 45 mg PO HS 06/22/19 03/19/20 03/18/20 History Nitroglycerin [Nitrostat] 0.4 mg SL Q5M PRN 06/22/19 03/19/20 Unknown History Oxycodone HCl/Acetaminophen 1 each PO Q6HR PRN 06/22/19 03/19/20 Unknown History [Percocet 7.5/325 mg] Umeclidinium [place] [Incruse 62.5 mcg IH DAILY 06/22/19 03/19/20 03/18/20 History Ellipta 62.5MCG] Verapamil ER [Calan SR] 240 mg PO DAILY 06/22/19 03/19/20 03/18/20 History Linaclotide [Linzess] 290 mcg DAILY 06/23/19 03/19/20 03/18/20 History Digoxin [Lanoxin] 0.125 mg PO DAILY@1700 tablet 06/27/19 03/19/20 03/18/20 Rx Furosemide [Lasix TAB] 20 mg PO QDAY tablet 06/27/19 03/19/20 03/18/20 Rx ISOSORBIDE MONOnitrate [Imdur ER] 120 mg PO QDAY tablet 06/27/19 03/19/20 03/18/20 Rx Levothyroxine [Synthroid] 100 mcg PO DAILY@0600 tablet 06/27/19 03/19/20 03/18/20 Rx Naloxegol Oxalate [Movantik] 25 mg PO DAILY 06/27/19 03/19/20 03/18/20 Rx Pantoprazole [Protonix TAB] 40 mg PO QDAY tablet 06/27/19 03/19/20 03/18/20 Rx Potassium Chloride 20 meq PO DAILY packet 06/27/19 03/19/20 03/18/20 Rx lisinopriL [Zestril TAB] 10 mg PO DAILY tablet 06/27/19 03/19/20 03/18/20 Rx DULoxetine [Cymbalta] 60 mg PO QDAY 07/11/19 03/19/20 03/18/20 History predniSONE 2.5 mg PO QDAY 07/11/19 03/19/20 03/18/20 History AtorvaSTATin [Lipitor] 20 mg PO QHS #30 tablet 03/23/20 Unknown Rx levoFLOXacin [Levaquin TAB] 750 mg PO Q24HR #5 tablet 03/23/20 Unknown Rx Active Meds: Active Medications Acetaminophen (Acetaminophen 325 Mg Tab) 650 mg PO Q4H PRN PRN Reason: Pain MILD(1-3)/Fever >100.5/ARAIZA Albuterol (Albuterol 2.5 Mg/3 Ml Nebu) 2.5 mg IH Q3HRT PRN PRN Reason: Shortness Of Breath Alprazolam (Alprazolam 1 Mg Tab) 1 mg PO TID PRN PRN Reason: Anxiety Apixaban (Apixaban 5 Mg Tab) 5 mg PO BID JO Atorvastatin Calcium (Atorvastatin 20 Mg Tab) 20 mg PO QHS JO Digoxin (Digoxin 0.125 Mg Tab) 0.125 mg PO DAILY@1700 [facility] Docusate Sodium (Docusate Sodium 100 Mg Cap) 100 mg PO BID JO Duloxetine HCl (Duloxetine 30 Mg Cap) 60 mg PO QDAY [facility] Morphine Sulfate (Morphine 4 Mg/1 Ml Inj) 2 mg IV Q5MIN PRN PRN Reason: Chest Pain Naloxone HCl (Naloxone 0.4 Mg/1 Ml Inj) 0.1 mg IV Q2MIN PRN PRN Reason: Res Rate </= 8 or 02 SAT < 92% Nitroglycerin (Nitroglycerin 0.4 Mg Tab Subl) 0.4 mg SL Q5M PRN PRN Reason: Chest Pain Ondansetron HCl (Ondansetron 4 Mg/2 Ml Inj) 4 mg IV Q6H PRN PRN Reason: Nausea And Vomiting Oxycodone/Acetaminophen (Oxycodone /Acetaminophen 5-325mg Tab) 1 tab PO Q6H PRN PRN Reason: Pain, Moderate (4-6) Pantoprazole Sodium (Pantoprazole 40 Mg Tab) 40 mg PO QDAY JO Sodium Chloride (Sodium Chloride 0.9% 10 Ml Flush Syringe) 10 ml IV BID JO Sodium Chloride (Sodium Chloride 0.9% 10 Ml Flush Syringe) 10 ml IV PRN PRN PRN Reason: LINE FLUSH Review of Systems All systems: negative (As noted in HPI) Exam - Physical Exam Narrative exam: Physical exam General appearance: Present: No acute distress, alert and oriented 3, older adult female - EENT Eyes: Present: PERRL, EOM intact ENT: hearing intact, normal dentition - Neck Neck: Present: supple, normal ROM - Respiratory Respiratory effort: Non-labored, on 3 L supplemental oxygen Respiratory: Diminished patient - Cardiovascular Heart rate: 71 (bpm) Rhythm: Atrial fibrillation Heart Sounds: Present: S1 & S2. Absent: rub, click - Extremities Extremities: no ischemia, pulses intact, - Peripheral Assessment Peripheral Pulses: within normal limits - Abdominal General gastrointestinal: soft, non-tender, normal bowel sounds - Integumentary Integumentary: Present: warm, dry, scattered bruising/discoloration to bilateral forearms - Musculoskeletal Musculoskeletal: Able to move all extremities -Neurological Neurological: CN II-XII intact - Psychiatric Psychiatric: cooperative - Constitutional Vitals: Temp Pulse Resp BP Pulse Ox 142/70 03/27/21 23:45 HEART Score - HEART Score EKG: Significant ST-depression Age: > 65 Risk factors: > 3 risk factors or hx of atherosclerotic disease Troponin: WBC 7.2 K/mm3 (4.5-11.0) 03/27/21 23:32 RBC 3.83 M/mm3 (3.65-5.03) 03/27/21 23:32 Hgb 12.5 gm/dl (10.1-14.3) 03/27/21 23:32 Hct 37.5 % (30.3-42.9) 03/27/21 23:32 MCV 98 fl (79-97) H 03/27/21 23:32 MCH 33 pg (28-32) H 03/27/21 23:32 MCHC 33 % (30-34) 03/27/21 23:32 RDW 13.7 % (13.2-15.2) 03/27/21 23:32 Plt Count 187 K/mm3 (140-440) 03/27/21 23:32 Lymph % (Auto) 24.2 % (13.4-35.0) 03/27/21 23:32 [place] % (Auto) 6.7 % (0.0-7.3) 03/27/21 23:32 Eos % (Auto) 3.0 % (0.0-4.3) 03/27/21 23:32 Baso % (Auto) 0.5 % (0.0-1.8) 03/27/21 23:32 Lymph # (Auto) 1.7 K/mm3 (1.2-5.4) 03/27/21 23:32 [place] # (Auto) 0.5 K/mm3 (0.0-0.8) 03/27/21 23:32 Eos # (Auto) 0.2 K/mm3 (0.0-0.4) 03/27/21 23:32 Baso # (Auto) 0.0 K/mm3 (0.0-0.1) 03/27/21 23:32 Seg Neutrophils % 65.6 % (40.0-70.0) 03/27/21 23:32 Seg Neutrophils # 4.7 K/mm3 (1.8-7.7) 03/27/21 23:32 PT 14.9 Sec. (12.2-14.9) 03/27/21 23:32 INR 1.11 (0.87-1.13) 03/27/21 23:32 APTT 34.0 Sec. (24.2-36.6) 03/27/21 23:32 Sodium 146 mmol/L (137-145) H 03/27/21 23:32 Potassium 4.9 mmol/L (3.6-5.0) 03/27/21 23:32 Chloride 101.6 mmol/L (98-107) 03/27/21 23:32 Carbon Dioxide 33 mmol/L (22-30) H 03/27/21 23:32 Anion Gap 16 mmol/L 03/27/21 23:32 BUN 13 mg/dL (7-17) 03/27/21 23:32 Creatinine 0.9 mg/dL (0.6-1.2) 03/27/21 23:32 Estimated GFR > 60 ml/min 03/27/21 23:32 BUN/Creatinine Ratio 14 % 03/27/21 23:32 Glucose 92 mg/dL (65-100) 03/27/21 23:32 Calcium 9.8 mg/dL (8.4-10.2) 03/27/21 23:32 Total Creatine Kinase 81 units/L (30-135) 03/27/21 23:32 CK-MB (CK-2) 2.8 ng/mL (0.0-4.0) 03/27/21 23:32 CK-MB (CK-2) Rel Index 3.4 (0-4) 03/27/21 23:32 Troponin T < 0.010 ng/mL (0.00-0.029) 03/27/21 23: NT-Pro-B Natriuret Pep 300.2 pg/mL (0-900) 03/27/21 23: Digoxin 1.2 ng/mL (0.9-2.0) 03/27/21 23:32 Troponin: < normal limit - Critical Actions Critical Actions: 4-6 pts:12-16.6% risk of adverse cardiac event. Should be admitted Results - Labs CBC & Chem 7: 03/27/21 23:32 03/27/21 23:32 Labs: Laboratory Last Values WBC 7.2 K/mm3 (4.5-11.0) 03/27/21 23:32 RBC 3.83 M/mm3 (3.65-5.03) 03/27/21 23:32 Hgb 12.5 gm/dl (10.1-14.3) 03/27/21 23:32 Hct 37.5 % (30.3-42.9) 03/27/21 23:32 MCV 98 fl (79-97) H 03/27/21 23:32 MCH 33 pg (28-32) H 03/27/21 23:32 MCHC 33 % (30-34) 03/27/21 23:32 RDW 13.7 % (13.2-15.2) 03/27/21 23:32 Plt Count 187 K/mm3 (140-440) 03/27/21 23:32 Lymph % (Auto) 24.2 % (13.4-35.0) 03/27/21 23:32 [place] % (Auto) 6.7 % (0.0-7.3) 03/27/21 23:32 Eos % (Auto) 3.0 % (0.0-4.3) 03/27/21 23:32 Baso % (Auto) 0.5 % (0.0-1.8) 03/27/21 23:32 Lymph # (Auto) 1.7 K/mm3 (1.2-5.4) 03/27/21 23:32 [place] # (Auto) 0.5 K/mm3 (0.0-0.8) 03/27/21 23:32 Eos # (Auto) 0.2 K/mm3 (0.0-0.4) 03/27/21 23:32 Baso # (Auto) 0.0 K/mm3 (0.0-0.1) 03/27/21 23:32 Seg Neutrophils % 65.6 % (40.0-70.0) 03/27/21 23:32 Seg Neutrophils # 4.7 K/mm3 (1.8-7.7) 03/27/21 23:32 PT 14.9 Sec. (12.2-14.9) 03/27/21 23:32 INR 1.11 (0.87-1.13) 03/27/21 23:32 APTT 34.0 Sec. (24.2-36.6) 03/27/21 23:32 Sodium 146 mmol/L (137-145) H 03/27/21 23:32 Potassium 4.9 mmol/L (3.6-5.0) 03/27/21 23:32 Chloride 101.6 mmol/L (98-107) 03/27/21 23:32 Carbon Dioxide 33 mmol/L (22-30) H 03/27/21 23:32 Anion Gap 16 mmol/L 03/27/21 23:32 BUN 13 mg/dL (7-17) 03/27/21 23:32 Creatinine 0.9 mg/dL (0.6-1.2) 03/27/21 23:32 Estimated GFR > 60 ml/min 03/27/21 23:32 BUN/Creatinine Ratio 14 % 03/27/21 23:32 Glucose 92 mg/dL (65-100) 03/27/21 23:32 Calcium 9.8 mg/dL (8.4-10.2) 03/27/21 23:32 Total Creatine Kinase 81 units/L (30-135) 03/27/21 23:32 CK-MB (CK-2) 2.8 ng/mL (0.0-4.0) 03/27/21 23:32 CK-MB (CK-2) Rel Index 3.4 (0-4) 03/27/21 23:32 Troponin T < 0.010 ng/mL (0.00-0.029) 03/27/21 23:32 NT-Pro-B Natriuret Pep 300.2 pg/mL (0-900) 03/27/21 23:32 Digoxin 1.2 ng/mL (0.9-2.0) 03/27/21 23:32 - Imaging and Cardiology Imaging and Cardiology: CXR:INDICATION / CLINICAL INFORMATION: chest pain. COMPARISON: 03/19/2020 FINDINGS: SUPPORT DEVICES: None. HEART / MEDIASTINUM: No significant abnormality. LUNGS / PLEURA: Cysts and bilateral interstitial lung disease. No localized infiltrate. No pneumothorax. ADDITIONAL FINDINGS: No significant additional findings. IMPRESSION: Stable chest. Assessment and Plan Assessment and plan: Acute atypical chest Pain -Initiate chest pain protocol -Continuous telemetry monitoring -Continue supportive care -Reports substernal chest pain with radiation to left shoulder on relief with sublingual nitro x3 - -Pain mgmt -Troponin negative x 1, will continue to trend -EKG unrevealing for acute ischemic abnormalities -EF 55 to 60% seen on Echo (05/2019) -Negative MPI stress test (02/2020) -Follows Dr. Jennings as outpatient -Cardiology ([facility]) consulted -We will defer additional cardiac work-up per Cardiology recommendations Chronic respiratory failure -Baseline oxygen requirements of 3 L nasal cannula continuously -Currently on baseline oxygen requirements -Monitor sats COPD -End-stage -Albuterol as needed continue Advair History of CAD -Continue statin Atrial fibrillation -Anticoagulated on Eliquis -Continue Eliquis HTN -Monitor BP -Resume home hypertensive meds History of anxiety -Continue Xanax as needed Advance Directives: No VTE prophylaxis?: Chemical, Mechanical Plan of care discussed with patient/family: Yes
[2021-03-28 01:56] LABS: BUN/Creatinine Ratio 13; Blood Urea Nitrogen 12 mg/dL (7-17); Calcium 9.3 mg/dL (8.4-10.2); Hemolysis Index 2
[2021-03-28 02:13] LABS: Basophils % (Auto) 0.6 % (0.0-1.8); Eosinophils # (Auto) 0.3 K/mm3 (0.0-0.4); Eosinophils % (Auto) 3.4 % (0.0-4.3); Hematocrit 35.9 % (30.3-42.9); Hemoglobin 11.9 gm/dl (10.1-14.3); Lymphocytes # (Auto) 2.1 K/mm3 (1.2-5.4); Lymphocytes % (Auto) 26.9 % (13.4-35.0); Mean Corpuscular HGB Conc 33 % (30-34); Mean Corpuscular Volume 97 fl (79-97); Monocytes # (Auto) 0.5 K/mm3 (0.0-0.8); Monocytes % (Auto) 6.2 % (0.0-7.3); Platelet Count 188 K/mm3 (140-440); Red Blood Count 3.72 M/mm3 (3.65-5.03); Red Cell Distribution Width 13.4 % (13.2-15.2)
[2021-03-28] MEDS ORDERED: BUDESONIDE 0.5 MG/2 ML NEBU IH SCH ×2 (08:00→09:00)
[2021-03-28] MEDS ORDERED: ARFORMOTEROL 15 MCG/2 ML NEBU IH SCH (08:00)
[2021-03-28] MEDS ORDERED: DULoxetine 30 MG CAP PO SCH (10:00)
[2021-03-28] MEDS ORDERED: APIXABAN 5 MG TAB PO SCH (10:00)
[2021-03-28] MEDS ORDERED: PANTOPRAZOLE 40 MG TAB PO SCH (10:00)
[2021-03-28] MEDS ORDERED: NON-FORMULARY EACH (Fluticasone/Salmeterol [Advair Diskus 500-50 Mcg] 1 EACH Blst.W.Dev) IH SCH (10:00)
[2021-03-28] MEDS ORDERED: HEPARIN 5,000 UNIT/1 ML VIAL SUB-Q SCH (10:00)
[2021-03-28] MEDS ORDERED: NON-FORMULARY EACH (Apixaban 5 MG Tablet) PO SCH (10:00)
[2021-03-28] MEDS ORDERED: DOCUSATE SODIUM 100 MG CAP PO SCH (10:00)
--- NOTE | 2021-03-28 11:22 | XRay Report ---
LEFT SHOULDER 3 VIEWS INDICATION: Fall, injury, pain. COMPARISON: 04/13/2019 IMPRESSION: No significant change is appreciated since 2019. Severe osteoarthritic changes are ident ified at the glenohumeral joint. I question if there could be osteonecrosis of the left humeral head superiorly. A 1.4 cm calcific foreign body is identified in the inferior recess of the joint space. T here is also suggestion of a 1.3 cm calcified intra-articular foreign body in the superior joint spac e as well as a 1.3 cm calcified intra-articular body in the subscapular recess. The clavicle, scapula and AC joint are unremarkable. Signer Name: Matt Pineda Jr, MD Signed: 03/28/2021 11:17 AM Workstation Name: [id number]
--- NOTE | 2021-03-28 11:51 | Consultation ---
History of Present Illness Consult date: 03/28/21 Requesting physician: JUAN FELIX Consult reason: chest pain History of present illness: Patient is a 70 y/o female with a pmhx of CAD, HTN, HLD, afib, COPD, chronic respiratory failure, and h/o of CVA who presented to the ED with a complaint of chest pain. The patient reports that yesterday around 6pm she felt a sharp stabbing pain in her chest that radiated to her left shoulder. She rates the pain 5/10. She reports that she took nitroglycerin x3 with no relief from the pain and then came to the hospital. The patient reports that she felt some nausea at the time but denies diaphoresis, vomiting, palpitations, or an increase in SOB. The patient reports falling last week and has left sided shoul chica pain from that too. She is a known to our group and is a patient of Dr. Jennings. She reports being vaccinated against COVID-19. Cardiology is consulted for chest pain. Past History Past Medical History: atrial fib (on eliquis), CAD, COPD (end-stage), hyperlipidemia, stroke, other (chronic respiratory failure on 3L continuously, anxiety, ) Past Surgical History: hysterectomy, tonsillectomy, Other (cerebral aneurysm coi l, bilateral benign breast biopsy, hemorrhoid surgery) Social history: Lives alone, smoking (history of), full code. denies: alcohol abuse, prescription drug abuse, IV drug use Family history: no significant family history Medications and Allergies Allergies Allergy/AdvReac Type Severity Reaction Status Date / Time adhesive Allergy Hives Verified 04/13/19 12:44 amlodipine besylate Allergy Anaphylaxis Verified 04/13/19 12:44 [From Norvasc] diltiazem Allergy Anaphylaxis Verified 04/13/19 12:44 diltiazem HCl [From Cardizem] Allergy Anaphylaxis Verified 04/13/19 12:44 Renexa Allergy Unknown Uncoded 08/13/16 09:41 Home Medications Medication Instructions Recorded Confirmed Last Taken Type ALPRAZolam [Xanax TAB] 1 mg PO TID PRN #90 tablet 03/02/16 03/19/20 03/18/20 Rx Apixaban [Eliquis] 5 mg PO BID 06/22/19 03/19/20 03/18/20 History Aspirin [Aspirin BABY CHEW TAB] 81 mg PO QDAY 06/22/19 03/19/20 03/18/20 History Fluticasone/Salmeterol [Advair 1 puff IH BID 06/22/19 03/19/20 03/18/20 History Diskus 500-50 mcg] Mirtazapine [Remeron 45mg TAB] 45 mg PO HS 06/22/19 03/19/20 03/18/20 History Nitroglycerin [Nitrostat] 0.4 mg SL Q5M PRN 06/22/19 03/19/20 Unknown History Umeclidinium [place] [Incruse 62.5 mcg IH DAILY 06/22/19 03/19/20 03/18/20 History Ellipta 62.5MCG] Verapamil ER [Calan SR] 240 mg PO DAILY 06/22/19 03/19/20 03/18/20 History Linaclotide [Linzess] 290 mcg DAILY 06/23/19 03/19/20 03/18/20 History Digoxin [Lanoxin] 0.125 mg PO DAILY@1700 tablet 06/27/19 03/19/20 03/18/20 Rx Furosemide [Lasix TAB] 20 mg PO QDAY tablet 06/27/19 03/19/20 03/18/20 Rx ISOSORBIDE MONOnitrate [Imdur ER] 120 mg PO QDAY tablet 06/27/19 03/19/20 03/18/20 Rx Levothyroxine [Synthroid] 100 mcg PO DAILY@0600 tablet 06/27/19 03/19/20 03/18/20 Rx Naloxegol Oxalate [Movantik] 25 mg PO DAILY 06/27/19 03/19/20 03/18/20 Rx Pantoprazole [Protonix TAB] 40 mg PO QDAY tablet 06/27/19 03/19/20 03/18/20 Rx Potassium Chloride 20 meq PO DAILY packet 06/27/19 03/19/20 03/18/20 Rx lisinopriL [Zestril TAB] 10 mg PO DAILY tablet 06/27/19 03/19/20 03/18/20 Rx DULoxetine [Cymbalta] 60 mg PO QDAY 07/11/19 03/19/20 03/18/20 History predniSONE 2.5 mg PO QDAY 07/11/19 03/19/20 03/18/20 History AtorvaSTATin [Lipitor] 20 mg PO QHS #30 tablet 03/23/20 Unknown Rx levoFLOXacin [Levaquin TAB] 750 mg PO Q24HR #5 tablet 03/23/20 Unknown Rx Docusate Sodium [Colace CAP] 100 mg PO DAILY #30 capsule 03/28/21 Unknown Rx Oxycodone HCl/Acetaminophen 1 each PO Q6HR PRN #14 03/28/21 Unknown Rx [Percocet 7.5/325 mg] Active Meds: Active Medications Acetaminophen (Acetaminophen 325 Mg Tab) 650 mg PO Q4H PRN PRN Reason: Pain MILD(1-3)/Fever >100.5/ARAIZA Albuterol (Albuterol 2.5 Mg/3 Ml Nebu) 2.5 mg IH Q3HRT PRN PRN Reason: Shortness Of Breath Alprazolam (Alprazolam 1 Mg Tab) 1 mg PO TID PRN PRN Reason: Anxiety Apixaban (Apixaban 5 Mg Tab) 5 mg PO BID [facility] Last Admin: 03/28/21 11:28 Dose: 5 mg Documented by: Arformoterol Tartrate (Arformoterol 15 Mcg/2 Ml Nebu) 15 mcg IH Q12HRT [facility] Atorvastatin Calcium (Atorvastatin 20 Mg Tab) 20 mg PO QHS [facility] Budesonide (Budesonide 0.5 Mg/2 Ml Nebu) 0.5 mg IH Q12HRT [facility] Digoxin (Digoxin 0.125 Mg Tab) 0.125 mg PO DAILY@1700 [facility] Docusate Sodium (Docusate Sodium 100 Mg Cap) 100 mg PO BID [facility] Last Admin: 03/28/21 11:27 Dose: 100 mg Documented by: Duloxetine HCl (Duloxetine 30 Mg Cap) 60 mg PO QDAY [facility] Last Admin: 03/28/21 11:27 Dose: 60 mg Documented by: Morphine Sulfate (Morphine 4 Mg/1 Ml Inj) 2 mg IV Q5MIN PRN PRN Reason: Chest Pain Naloxone HCl (Naloxone 0.4 Mg/1 Ml Inj) 0.1 mg IV Q2MIN PRN PRN Reason: Res Rate </= 8 or 02 SAT < 92% Nitroglycerin (Nitroglycerin 0.4 Mg Tab Subl) 0.4 mg SL Q5M PRN PRN Reason: Chest Pain Ondansetron HCl (Ondansetron 4 Mg/2 Ml Inj) 4 mg IV Q6H PRN PRN Reason: Nausea And Vomiting Oxycodone/Acetaminophen (Oxycodone /Acetaminophen 5-325mg Tab) 1 tab PO Q6H PRN PRN Reason: Pain, Moderate (4-6) Last Admin: 03/28/21 05:00 Dose: 1 tab Documented by: Pantoprazole Sodium (Pantoprazole 40 Mg Tab) 40 mg PO QDAY [facility] Last Admin: 03/28/21 11:27 Dose: 40 mg Documented by: Sodium Chloride (Sodium Chloride 0.9% 10 Ml Flush Syringe) 10 ml IV BID [facility] Last Admin: 03/28/21 11:28 Dose: 10 ml Documented by: Sodium Chloride (Sodium Chloride 0.9% 10 Ml Flush Syringe) 10 ml IV PRN PRN PRN Reason: LINE FLUSH Review of Systems All systems: negative Constitutional: no weight loss, no weight gain Ears, nose, mouth and throat: no nasal congestion, no nasal discharge, no sinus pressure, no sinus pain Cardiovascular: chest pain, shortness of breath, dyspnea on exertion, no palpitations, no edema, no syncope, no lightheadedness Respiratory: shortness of breath, dyspnea on exertion Gastrointestinal: nausea, no abdominal pain, no vomiting, no diarrhea Musculoskeletal: shooting arm pain, other (lef tshoulder pain), no neck stiffness, no neck pain Integumentary: other (BUE bruises) Neurological: no head injury, no transient paralysis, no paralysis, no weakness Psychiatric: no anxiety, no memory loss Endocrine: no cold intolerance, no heat intolerance Hematologic/Lymphatic: no easy bruising, no easy bleeding Physical Examination Last Vital Signs Temp 98.5 F 03/28/21 00:45 Pulse 70 03/28/21 06:00 Resp 16 03/28/21 06:00 BP 149/76 03/28/21 06:00 Pulse Ox 97 03/28/21 06:00 General appearance: no acute distress HEENT: Positive: PERRL Neck: Positive: trachea midline Cardiac: Positive: irregularly irregular Lungs: Positive: Decreased Breath Sounds Neuro: Positive: Grossly Intact Abdomen: Positive: Soft, Active Bowel Sounds Skin: Positive: Bruising (BUE) Extremities: Present: upper extr. pulses, lower extr. pulses. Absent: edema Results 03/28/21 01:14 03/28/21 01:14 Cardiac Enzymes 03/27/21 Range/Units 23:32 CK-MB (CK-2) 2.8 (0.0-4.0) ng/mL Coagulation 03/27/21 Range/Units 23:32 PT 14.9 (12.2-14.9) Sec. INR 1.11 (0.87-1.13) APTT 34.0 (24.2-36.6) Sec. CBC 03/27/21 03/28/21 Range/Units 23:32 01:14 WBC 7.2 7.8 (4.5-11.0) K/mm3 RBC 3.83 3.72 (3.65-5.03) M/mm3 Hgb 12.5 11.9 (10.1-14.3) gm/dl Hct 37.5 35.9 (30.3-42.9) % Plt Count 187 188 (140-440) K/mm3 Lymph # (Auto) 1.7 2.1 (1.2-5.4) K/mm3 [place] # (Auto) 0.5 0.5 (0.0-0.8) K/mm3 Eos # (Auto) 0.2 0.3 (0.0-0.4) K/mm3 Baso # (Auto) 0.0 0.0 (0.0-0.1) K/mm3 Comprehensive Metabolic Panel 03/27/21 03/28/21 Range/Units 23:32 01:14 Sodium 146 H 142 (137-145) mmol/L Potassium 4.9 4.8 (3.6-5.0) mmol/L Chloride 101.6 101.0 (98-107) mmol/L Carbon Dioxide 33 H 32 H (22-30) mmol/L BUN 13 12 (7-17) mg/dL Creatinine 0.9 0.9 (0.6-1.2) mg/dL Glucose 92 102 H (65-100) mg/dL Calcium 9.8 9.3 (8.4-10.2) mg/dL - Imaging and Cardiology Echo: report reviewed Cardiac cath: report reviewed EKG: report reviewed, image reviewed EKG interpretations - Telemetry EKG Rhythm: Atrial Fibrillation - EKG Supraventricular dysrhythmia: atrial fibrillation Assessment and Plan Atypical Chest pain Chronic AFIB CAD HLD * Echo 10/30/2020-EF 60 to 65%, right ventricle size is mildly dilated, right atrium is moderately mild mitral regurgitation, moderate pulmonary hypert ension. * Lexiscan MPI stress 10/06/2020-normal myocardial perfusion without evidence of active ischemia or prior infarction. * [facility] 08/28/2017-mild coronary disease 10 to 20% stenosis of ostial right coronary and 70% stenosis of ostial secondary diagonal main branch LAD is large without significant disease circumflex and left main without significant disease EF 55 to 60%. * EKG afib 71 no acute ischemic changes. Trops neg x2. AMI ruled out. BNP normal range * Atypical chest pain not of cardiac origin. Patient recently fell and continues to have pain in left shoulder. * Continue home meds Eliquis, digoxin, Lisinopril, atorvastatin COPD Chronic respiratory failure * Patient on NC at time of interview. * Management per primary team Pain is atypical and likely related to fall. From a cardiac standpoint patient is stable and may be discharged Upon discharge patient may follow up with Dr. Jennings, [facility], . Patient seen in conjunction with Dr. Gross who agrees with this plan of care. Will see as needed - Patient Problems (1) Chest pain Current Visit: No Status: Resolved (2) Afib Current Visit: No Status: Chronic (3) CAD (coronary artery disease) Current Visit: No Status: Chronic Qualifiers: Coronary Disease-Associated Artery/Lesion type: [place] artery [place] vs. transplanted heart: unspecified whether [place] or transplanted heart Associated angina: with stable angina Qualified Code(s): I25.118 - Atherosclerotic heart disease of [place] coronary artery with other forms of angina pectoris (4) COPD (chronic obstructive pulmonary disease) Current Visit: No Status: Acute Qualifiers: COPD type: COPD with acute exacerbation Qualified Code(s): J44.1 - Chronic obstructive pulmonary disease with (acute) exacerbation (5) Respiratory failure Current Visit: No Status: Acute Qualifiers: Chronicity: acute Respiratory failure complication: hypoxia Qualified Code(s): J96.01 - Acute respiratory failure with hypoxia (6) Hyperlipidemia Current Visit: No Status: Chronic (7) History of CVA (cerebrovascular accident) Current Visit: No Status: Chronic
[2021-03-28 12:28] VITALS: BP 161/83
--- NOTE | 2021-03-28 13:34 | Event Note ---
Date: 03/28/21 Patient seen and examined, incidental found out pain in the Left shoulder, no open wound, PT reports she fell. PT/OT Ordered. Continue to monitor obtain x- shoulder.
--- NOTE | 2021-03-28 16:28 | Discharge Summary ---
Providers - Providers Date of Admission: 03/28/21 00:44 Attending physician: AKILAH GARCIAS MD 03/28/21 Consult to Cardiac Rehabilitation [CONS] Routine Reason For Exam: Phase I 03/28/21 00:44 Consult to Physician [CONS] Routine Comment: Consulting Provider: TAHIR VAUGHAN Physician Instructions: Reason For Exam: c/o CP, est pt hx CAD, 03/28/21 09:36 Occupational Therapy Evaluate and Treat [CONS] Routine Comment: Reason For Exam: fall Physical Therapy Evaluation and Treat [CONS] Routine Comment: Reason For Exam: fall Primary care physician: NATASHA WOODALL Hospitalization Reason for admission: PAIN Condition: Stable Hospital course: 70-year-old old adult female with history of end-stage COPD, chronic respiratory failure, atrial fibrillation, anxiety, CAD, HTN, HLD, and CVA who presents [facility] ED with complaints of chest pain. Patient states she was sitting down watching TV when she felt a sharp 6/10 left-sided substernal chest pain with radiation to her left shoulder. Denies diaphoresis and nausea. Patient states she took sublingual nitroglycerin x3 with no relief, so she decided come to the ED for further evaluation and treatment. Patient states she underwent cardiac cath earlier this year and believes it showed an 80% blockage in one of her vessels, however no intervention (stent) was done. Her thermocouple tester is Dr. Vaughan ([facility]) and she goes to the [place] location. Her last appointment with Dr. Vaughan was in October of this year and her next follow-up appointment is scheduled for early April. Endorses receiving both doses of Moderna RNA vaccine in September of this year. Denies nausea, vomiting, emesis, diaphoresis, fever, chills, diarrhea, palpitations, shortness of breath, abdominal pain, hemoptysis, increased sputum production, melena, recent fall/injury, medication noncompliance, or recent sick contacts 03/28: Patient clinically stable, Discussed with cardiology, no further work up at this time. Shoulder xray ordered and showed No significant change is appreciated since 2019. Severe osteoarthritic changes are identified at the glenohumeral joint. I question if there could be osteonecrosis of the left humeral head superiorly. A 1.4 cm calcific foreign body is identified in the inferior recess of the joint space. There is also suggestion of a 1.3 cm calcified intra-articular foreign body in the superior joint space as well as a 1.3 cm calcified intra-articular body in the subscapular recess. The clavicle, s capula and AC joint are unremarkable. 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 Chronic respiratory failure COPD History of CAD Atrial fibrillation -Anticoagulated on Eliquis -Continue Eliquis HTN -Monitor BP -Resume home hypertensive meds History of anxiety -Continue Xanax as needed Disposition: HOME / SELF CARE / HOMELESS Final Discharge Diagnosis (Prints w/discharge instructions): Atypical Chest pain secondary to fall- COSTOCHONDRITIS Time spent for discharge: 35 mins Core Measure Documentation - Palliative Care Palliative Care/ Comfort Measures: Not Applicable - Core Measures Any of the following diagnoses?: none Exam - Physical Exam Narrative exam: General appearance: Present: No acute distress, alert and oriented 3, older adult female - EENT Eyes: Present: PERRL, EOM intact ENT: hearing intact, normal dentition - Neck Neck: Present: supple, normal ROM - Respiratory Respiratory effort: Non-labored, on 3 L supplemental oxygen Respiratory: Diminished patient - Cardiovascular Heart rate: 71 (bpm) Rhythm: Atrial fibrillation Heart Sounds: Present: S1 & S2. Absent: rub, click - Extremities Extremities: no ischemia, pulses intact, - Peripheral Assessment Peripheral Pulses: within normal limits - Abdominal General gastrointestinal: soft, non-tender, normal bowel sounds - Integumentary Integumentary: Present: warm, dry, scattered bruising/discoloration to bilateral forearms. Tender to touch on the left shoulder - Musculoskeletal Musculoskeletal: Able to move all extremities -Neurological Neurological: CN II-XII intact - Psychiatric Psychiatric: cooperative - Constitutional Vitals: Temp Pulse Resp BP Pulse Ox 98.5 F 83 18 161/83 91 03/28/21 00:45 03/28/21 12:00 03/28/21 12:28 03/28/21 12:00 03/28/21 12:28 Plan Activity: advance as tolerated, fall precautions Diet: low fat Special Instructions: record daily weights, record daily BP diary Plan of Treatment: Must follow with Orthopedic to evaluate the shoulder which possibly has FORIGEN BODY Follow up with: NATASHA WOODALL MD [Primary Care Provider] - 7 Days GAUTAM BARRETT MD [Staff Physician] - 7 Days EVITA MORRIS MD [Staff Physician] - 7 Days Prescriptions: Docusate Sodium [Colace CAP] 100 mg PO DAILY #30 capsule Oxycodone HCl/Acetaminophen [Percocet 7.5/325 mg] 1 each PO Q6HR PRN #14 PRN Reason: Pain
[2021-03-28] MEDS ORDERED: DIGOXIN 0.125 MG TAB PO SCH (17:00)
--- NOTE | 2021-03-29 09:51 | Electrocardiograph Report ---
[facility] Test Date: 2021-03-28 Test Time: 00:07:37 Pat Name: RENNY BASSETT Department: Room: [place] [address] Gender: F Compliance Review Specialist: : [id number] Requested By: SUSAN VILLA Order Number: [id number] Reading MD: Juan Bassett Measurements Intervals [place] Rate: 71 P: WI: QRS: 84 QRSD: 86 T: 252 QT: 373 QTc: 405 Interpretive Statements Atrial fibrillation DIFFUSE ST DEPRESSION-CONSIDER ISCHEMIA OR DIG EFFECT. NSTW'S No previous ECG available for comparison Electronically Signed On 03-29-2021 9:51:35 EDT by Juan Bassett
== END 2021-03-28 12:30 | disposition home or self-care (01) ==
LOC: ED 19:53 → 4A 03-28 00:44
PROVIDERS: ADMIT Internal Medicine Geriatric Medicine; ATTEND Internal Medicine
DX: J96.01 Acute respiratory failure with hypoxia (principal); R07.89 Other chest pain; J44.1 Chronic obstructive pulmonary disease with (acute) exacerbation; I11.0 Hypertensive heart disease with heart failure; I50.9 Heart failure, unspecified; I25.10 Atherosclerotic heart disease of native coronary artery without angina pectoris; M87.822 Other osteonecrosis, left humerus; I48.91 Unspecified atrial fibrillation; F41.9 Anxiety disorder, unspecified; E78.5 Hyperlipidemia, unspecified; Z86.73 Personal history of transient ischemic attack (TIA), and cerebral infarction without residual deficits; Z90.710 Acquired absence of both cervix and uterus; Z79.899 Other long term (current) drug therapy; Z98.890 Other specified postprocedural states; Z79.82 Long term (current) use of aspirin; Z87.442 Personal history of urinary calculi; Z87.891 Personal history of nicotine dependence
CPT/HCPCS: 36415; 71045; 73030; 80048; 80162; 82550; 82553; 83880; 84484; 85025; 85610; 85730; 93005; 96374; 96375; 97161; 99285; G0378; J2405; J3010

== ENCOUNTER 2021-06-11 11:34 | Inpatient (IN) | payer MEDICARE, OTHER ==
--- NOTE | 2021-06-11 11:50 | Emergency Department Report ---
HPI - General Chief Complaint: Dyspnea/Respdistress Time Seen by Provider: 06/11/21 11:47 - HPI HPI: This is a 71-year-old female presents to the emergency department via EMS from the office of her remote mortgage underwriter, Dr. Perea, with a complaint of a 3-day history of progressively worsening shortness of breath and some hypoxia seen in the office. The patient did not initially want to come into the emergency department when the symptoms began because she knew that she had an appointment with her remote mortgage underwriter today, Friday. When she got into their office she was found to have an oxygen saturation of about 75% and EMS was called. The patient has a history of COPD for which she is oxygen dependent at home on 3 L via nasal cannula. They went up to 6 L and the patient went up to 100%. She also has a past medical history of CHF, emphysema, atrial fibrillation on anticoagulation, hypertension. Along with the shortness of breath, the patient also complains of a mixed dry and productive cough. She denies any chest pain, lower extremity swelling, nausea, vomiting, back pain, diaphoresis, fever. No recent travel or sick contacts at home. The patient is vaccinated against COVID-19 including a recent booster. Her PCP is Dr Tunde Zamora and Stenocaptioner is Dr Flip Jennings. ED Past Medical Hx - Past Medical History Hx Hypertension: Yes Hx CVA: Yes Hx Congestive Heart Failure: Yes Hx Arthritis: Yes Hx Kidney Stones: Yes Hx Psychiatric Treatment: Yes (anxiety) Hx COPD: Yes Additional medical history: emphysema, bronchitis, A. Fib; MVP; aneurysm- coil on right side of head, Home oxygen @ 3 lpm nasal cannula, mitral valve prolapse - Surgical History Hx Breast Surgery: Yes (bilateral breast biopsy benign) Additional Surgical History: tonsillectomy, cerebral aneurysm coil, hysterectomy, hemorrhoid surgery, bilateral benign breast biopsies - Social History Smoking Status: Never Smoker - Medications Home Medications: Home Medications Medication Instructions Recorded Confirmed Last Taken Type ALPRAZolam [Xanax TAB] 1 mg PO TID PRN #90 tablet 03/02/16 03/19/20 06/11/21 08:00 Rx Apixaban [Eliquis] 5 mg PO BID 06/22/19 03/19/20 06/11/21 08:00 History Aspirin [Aspirin BABY CHEW TAB] 81 mg PO QDAY 06/22/19 03/19/20 06/11/21 08:00 History Fluticasone/Salmeterol [Advair 1 puff IH BID 06/22/19 03/19/20 06/11/21 08:00 History Diskus 500-50 mcg] Mirtazapine [Remeron 45mg TAB] 45 mg PO HS 06/22/19 03/19/20 06/10/21 21:00 History Nitroglycerin [Nitrostat] 0.4 mg SL Q5M PRN 06/22/19 03/19/20 Unknown History Umeclidinium [place] [Incruse 62.5 mcg IH DAILY 06/22/19 03/19/20 06/11/21 08:00 History Ellipta 62.5MCG] Verapamil ER [Calan SR] 240 mg PO DAILY 06/22/19 03/19/20 06/11/21 08:00 History Digoxin [Lanoxin] 0.125 mg PO DAILY@1700 tablet 06/27/19 03/19/20 06/11/21 08:00 Rx Furosemide [Lasix TAB] 20 mg PO QDAY tablet 06/27/19 03/19/20 06/11/21 08:00 Rx Levothyroxine [Synthroid] 100 mcg PO DAILY@0600 tablet 06/27/19 03/19/20 06/11/21 08:00 Rx Naloxegol Oxalate [Movantik] 25 mg PO DAILY 06/27/19 03/19/20 06/11/21 08:00 Rx Pantoprazole [Protonix TAB] 40 mg PO QDAY tablet 06/27/19 03/19/20 06/11/21 08:00 Rx Potassium Chloride 20 meq PO DAILY packet 06/27/19 03/19/20 06/11/21 08:00 Rx DULoxetine [Cymbalta] 60 mg PO QDAY 07/11/19 03/19/20 06/11/21 08:00 History predniSONE 2.5 mg PO QDAY 07/11/19 03/19/20 06/11/21 08:00 History AtorvaSTATin [Lipitor] 20 mg PO QHS #30 tablet 03/23/20 06/10/21 21:00 Rx Oxycodone HCl/Acetaminophen 1 each PO Q6HR PRN #14 03/28/21 06/11/21 08:00 Rx [Percocet 7.5/325 mg] Linaclotide [Linzess] 290 mcg PO DAILY 06/11/21 06/11/21 06/11/21 08:00 History Naloxegol Oxalate [Movantik] 25 mg PO DAILY 06/11/21 06/11/21 06/11/21 08:00 H istory lisinopriL [Zestril TAB] 5 mg PO DAILY 06/11/21 06/11/21 08:00 History ED Review of Systems ROS: Stated complaint: difficulty breathing Other details as noted in HPI Comment: All other systems reviewed and negative Constitutional: denies: chills, fever Eyes: denies: eye pain, vision change ENT: denies: ear pain, throat pain Respiratory: cough, shortness of breath Cardiovascular: denies: chest pain, edema Gastrointestinal: denies: abdominal pain, vomiting Genitourinary: denies: dysuria, discharge Musculoskeletal: denies: back pain, arthralgia Skin: denies: rash, lesions Neurological: denies: headache, weakness Physical Exam - Physical Exam Physical Exam: GENERAL: The patient is well-developed well-nourished. HENT: Normocephalic. Atraumatic. Patient has moist mucous membranes. EYES: Extraocular motions are intact. NECK: Supple. Trachea is midline. CHEST/LUNGS: Decreased breath sounds. There is mild tachypnea but no accessory muscle use. There is no respiratory distress noted. HEART/CARDIOVASCULAR: Irregular rhythm. There is no tachycardia. There is no murmur. ABDOMEN: Abdomen is soft, nontender. Patient has normal bowel sounds. SKIN: Skin is warm and dry. NEURO: The patient is awake, alert, and oriented. The patient is cooperative. The patient has no focal neurologic deficits. Normal speech. MUSCULOSKELETAL: There is no tenderness or deformity. There is no limitation range of motion. ED Medical Decision Making - Lab Data Result diagrams: 06/11/21 11:57 06/11/21 12:01 Lab Results 06/11/21 06/11/21 06/11/21 Range/Units 11:57 12:01 12:01 WBC 10.3 (4.5-11.0) K/mm3 RBC 3.90 (3.65-5.03) M/mm3 Hgb 12.5 (10.1-14.3) gm/dl Hct 37.4 (30.3-42.9) % MCV 96 (79-97) fl MCH 32 (28-32) pg MCHC 33 (30-34) % RDW 13.0 L (13.2-15.2) % Plt Count 185 (140-440) K/mm3 Lymph % (Auto) 9.7 L (13.4-35.0) % Clinch % (Auto) 5.3 (0.0-7.3) % Eos % (Auto) 2.3 (0.0-4.3) % Baso % (Auto) 0.5 (0.0-1.8) % Lymph # (Auto) 1.0 L (1.2-5.4) K/mm3 Clinch # (Auto) 0.5 (0.0-0.8) K/mm3 Eos # (Auto) 0.2 (0.0-0.4) K/mm3 Baso # (Auto) 0.1 (0.0-0.1) K/mm3 Seg Neutrophils % 82.2 H (40.0-70.0) % Seg Neutrophils # 8.5 H (1.8-7.7) K/mm3 PT 19.8 H (12.2-14.9) Sec. INR 1.52 H (0.87-1.13) APTT 36.2 (24.2-36.6) Sec. Sodium 138 (137-145) mmol/L Potassium 4.8 (3.6-5.0) mmol/L Chloride 96.6 L (98-107) mmol/L Carbon Dioxide 31 H (22-30) mmol/L Anion Gap 15 mmol/L BUN 15 (7-17) mg/dL Creatinine 0.7 (0.6-1.2) mg/dL Estimated GFR > 60 ml/min BUN/Creatinine Ratio 21 % Glucose 130 H (65-100) mg/dL Calcium 9.6 (8.4-10.2) mg/dL Total Bilirubin 0.60 (0.1-1.2) mg/dL AST 16 (5-40) units/L ALT 13 (7-56) units/L Alkaline Phosphatase 103 (35-129) units/L Troponin T < 0.010 (0.00-0.029) ng/mL NT-Pro-B Natriuret Pep 495.2 (0-900) pg/mL Total Protein 7.5 (6.3-8.2) g/dL Albumin 4.1 (3.9-5) g/dL Albumin/Globulin Ratio 1.2 % - EKG Data -: EKG Interpreted by Me - EKG Data When compared to previous EKG there are: no significant change Interpretation: unchanged when compared t (03/28/21), other (Atrial fibrillation with a rate of 71, normal axis. No ST elevation FL) - Radiology Data Radiology results: image reviewed interpreted by me: Chest x-ray does not show any acute process. There are no pleural effusions, obvious pneumonia and there is no pneumothorax. No widened mediastinum. - Medical Decision Making This patient presents with a 3-day history of shortness of breath and was found to have hypoxia in the office of her remote mortgage underwriter, despite being on her home oxygen." The patient was increased to 6 L on nasal cannula by EMS and oxygen saturation went up into the high 90s. Chest x-ray does not show any pneumonia, pleural effusions, widened mediastinum, or any other acute process. Patient's labs have been mostly unremarkable. However, given the patient's increased oxygen demand and recent hypoxia, she will be admitted to the hospital for further evaluation and treatment and was accepted for admission by the Dr. Eda ovalle. Critical Care Time: No Critical care attestation.: If time is entered above; I have spent that time in minutes in the direct care of this critically ill patient, excluding procedure time. ED Disposition Clinical Impression: COPD with exacerbation, Chronic atrial fibrillation, Hypoxia Disposition: ADMITTED INPATIENT Is pt being admited?: Yes Condition: Serious Time of Disposition: 13:23
[2021-06-11 12:27] LABS: Basophils # (Auto) 0.1 K/mm3 (0.0-0.1); Basophils % (Auto) 0.5 % (0.0-1.8); Eosinophils # (Auto) 0.2 K/mm3 (0.0-0.4); Eosinophils % (Auto) 2.3 % (0.0-4.3); Hematocrit 37.4 % (30.3-42.9); Hemoglobin 12.5 gm/dl (10.1-14.3); Lymphocytes % (Auto) 9.7 % (13.4-35.0); Mean Corpuscular HGB Conc 33 % (30-34); Mean Corpuscular Volume 96 fl (79-97); Monocytes # (Auto) 0.5 K/mm3 (0.0-0.8); Monocytes % (Auto) 5.3 % (0.0-7.3); Platelet Count 185 K/mm3 (140-440)
[2021-06-11 12:33] LABS: INR 1.52 (0.87-1.13)
[2021-06-11 12:34] LABS: Partial Thromboplastin Time 36.2 Sec. (24.2-36.6)
--- NOTE | 2021-06-11 12:36 | XRay Report ---
CHEST 1 VIEW 06/11/2021 12:08 PM INDICATION / CLINICAL INFORMATION: SOB. COMPARISON: 03/27/2021 FINDINGS: SUPPORT DEVICES: None. HEART / MEDIASTINUM: No significant abnormality. LUNGS / PLEURA: Stable chronic interstitial lung disease without acute abnormality. No pneumothorax. ADDITIONAL FINDINGS: No significant additional findings. IMPRESSION: 1. No acute findings. Signer Name: Juan Carlos De Leon MD Signed: 06/11/2021 12:32 PM Workstation Name: [id number]
[2021-06-11] MEDS ORDERED: IPRATROPIUM 0.02% NEBU 2.5 ML IH ONE (12:37)
[2021-06-11] MEDS ORDERED: ALBUTEROL 2.5 MG/3 ML NEBU IH ONE (12:37)
[2021-06-11] MEDS ORDERED: methylPREDNISolone Sod Succinate 125 MG/2 ML INJ IV ONE (12:37)
[2021-06-11 12:46] LABS: Alanine Aminotransferase 13 units/L (7-56); Albumin 4.1 g/dL (3.9-5); Blood Urea Nitrogen 15 mg/dL (7-17); Calcium 9.6 mg/dL (8.4-10.2); Hemolysis Index 5
[2021-06-11 12:48] LABS: BUN/Creatinine Ratio 21
[2021-06-11] MEDS ORDERED: METOCLOPRAMIDE 10 MG/2 ML INJ IV PRN (15:13)
[2021-06-11] MEDS ORDERED: HYDROmorphone 1 MG/1 ML INJ IV PRN (15:13)
[2021-06-11] MEDS ORDERED: oxyCODONE /ACETAMINOPHEN 5-325MG TAB PO PRN (15:13)
[2021-06-11] MEDS ORDERED: ONDANSETRON 4 MG/2 ML INJ IV PRN (15:13)
[2021-06-11] MEDS ORDERED: ACETAMINOPHEN 325 MG TAB PO PRN (15:13)
[2021-06-11] MEDS ORDERED: NON-FORMULARY EACH (Apixaban 5 MG Tablet) PO SCH (15:15)
[2021-06-11] MEDS ORDERED: NALOXEGOL OXALATE 25 MG PO SCH (15:15)
[2021-06-11] MEDS ORDERED: LINACLOTIDE 290 MCG PO SCH (15:15)
[2021-06-11] MEDS ORDERED: NON-FORMULARY EACH (Fluticasone/Salmeterol [Advair Diskus 500-50 Mcg] 1 EACH Blst.W.Dev) IH SCH (15:15)
[2021-06-11] MEDS: FUROSEMIDE 20 MG TAB PO SCH (15:51)
[2021-06-11] MEDS: DULoxetine 30 MG CAP PO SCH (15:51)
[2021-06-11] MEDS ORDERED: LISINOPRIL 10 MG TAB PO SCH (16:00)
[2021-06-11] MEDS: DIGOXIN 0.125 MG TAB PO SCH (17:29)
[2021-06-11] MEDS ORDERED: IPRATROPIUM/ALBUTEROL SULFATE 3 ML AMPUL.NEB IH PRN (17:38)
[2021-06-11] MEDS: ARFORMOTEROL 15 MCG/2 ML NEBU IH SCH (20:55)
[2021-06-11] MEDS: BUDESONIDE 0.5 MG/2 ML NEBU IH SCH (20:55)
[2021-06-11] MEDS: IPRATROPIUM/ALBUTEROL SULFATE 3 ML AMPUL.NEB IH SCH (20:59)
[2021-06-11] MEDS ORDERED: NON-FORMULARY EACH (Mirtazapine [Remeron 45mg Tab] 45 MG Tab.Rapdis) PO SCH (22:00)
[2021-06-11] MEDS ORDERED: HEPARIN 5,000 UNIT/1 ML VIAL SUB-Q SCH (22:00)
[2021-06-11] MEDS ORDERED: APIXABAN 5 MG TAB PO SCH (22:00)
[2021-06-11] MEDS: MIRTAZAPINE 15 MG TAB PO SCH (22:33)
[2021-06-11] MEDS: methylPREDNISolone Sod Succinate 125 MG/2 ML INJ IV SCH (22:34)
[2021-06-11] MEDS: ALPRAZolam 1 MG TAB PO PRN (23:52)
[2021-06-12 05:29] LABS: Hematocrit 37.1 % (30.3-42.9); Hemoglobin 11.9 gm/dl (10.1-14.3); Mean Corpuscular HGB Conc 32 % (30-34); Mean Corpuscular Volume 97 fl (79-97); Platelet Count 178 K/mm3 (140-440); Red Blood Count 3.83 M/mm3 (3.65-5.03)
[2021-06-12] MEDS: LEVOTHYROXINE 100 MCG TAB PO SCH (05:40)
[2021-06-12] MEDS: methylPREDNISolone Sod Succinate 125 MG/2 ML INJ IV SCH ×3 (05:40→22:15)
[2021-06-12 05:48] LABS: Alanine Aminotransferase 11 units/L (7-56); Albumin 3.9 g/dL (3.9-5); Blood Urea Nitrogen 12 mg/dL (7-17); Calcium 9.2 mg/dL (8.4-10.2); Hemolysis Index 2
[2021-06-12 05:50] LABS: BUN/Creatinine Ratio 24
--- NOTE | 2021-06-12 07:37 | History and Physical Report ---
History of Present Illness Date of examination: 06/11/21 Date of admission: 06/11/21 13:23 Chief complaint: Increasing shortness of breath for 3 days History of present illness: 71-year-old female with multiple medical problems including COPD hypertension, CHF, hypothyroidism, hyperlipidemia, GERD and IBS comes in for increasing shortness of breath for 3 days. Patient signed by Dr. Patricia's office because of failed outpatient therapy. Patient evaluated in obvious saturations over 75% and the education analyst office patient is on 3 L nasal cannula oxygen at home compliant with her medications increasing wheezing for the past 3 days. No fever or chills. No exposure to Covid virus. Vaccinated. Including a booster. Patient being admitted for severe hypoxia and severe wheezing and COPD - Past Medical History --Hypertension: Yes --CVA: Yes --Congestive Heart Failure: Yes --Arthritis: Yes --Kidney Stones: Yes --Psychiatric Treatment: Yes (anxiety) --COPD: Yes --Additional medical history: emphysema, bronchitis, A. Fib; MVP; aneurysm- coil on right side of head, Home oxygen @ 3 lpm nasal cannula, mitral valve prolapse - Surgical History --Breast Surgery: Yes (bilateral breast biopsy benign) Additional Surgical History: tonsillectomy, cerebral aneurysm coil, hysterectomy, hemorrhoid surgery, bilateral benign breast biopsies - Social History Smoking Status: Never Smoker Family history Htn Review of Systems ROS: Stated complaint: difficulty breathing Other details as noted in HPI Comment: All other systems reviewed and negative Constitutional: denies: chills, fever Eyes: denies: eye pain, vision change ENT: denies: ear pain, throat pain Respiratory: cough, shortness of breath Cardiovascular: denies: chest pain, edema Gastrointestinal: denies: abdominal pain, vomiting Genitourinary: denies: dysuria, discharge Musculoskeletal: denies: back pain, arthralgia Skin: denies: rash, lesions Neurological: denies: headache, weakness Medications and Allergies Allergies Allergy/AdvReac Type Severity Reaction Status Date / Time adhesive Allergy Hives Verified 04/13/19 12:44 amlodipine besylate Allergy Anaphylaxis Verified 04/13/19 12:44 [From Norvasc] diltiazem Allergy Anaphylaxis Verified 04/13/19 12:44 diltiazem HCl [From Cardizem] Allergy Anaphylaxis Verified 04/13/19 12:44 Renexa Allergy Unknown Uncoded 08/13/16 09:41 Home Medications Medication Instructions Recorded Confirmed Last Taken Type ALPRAZolam [Xanax TAB] 1 mg PO TID PRN #90 tablet 03/02/16 06/11/21 06/11/21 08:00 Rx Apixaban [Eliquis] 5 mg PO BID 06/22/19 06/11/21 06/11/21 08:00 History Aspirin [Aspirin BABY CHEW TAB] 81 mg PO QDAY 06/22/19 06/11/21 03/18/20 History Fluticasone/Salmeterol [Advair 1 puff IH BID 06/22/19 06/11/21 06/11/21 08:00 History Diskus 500-50 mcg] Mirtazapine [Remeron 45mg TAB] 45 mg PO HS 06/22/19 06/11/21 06/10/21 21:00 History Nitroglycerin [Nitrostat] 0.4 mg SL Q5M PRN 06/22/19 06/11/21 Unknown History Umeclidinium [place] [Incruse 62.5 mcg IH DAILY 06/22/19 06/11/21 06/11/21 08:00 History Ellipta 62.5MCG] Verapamil ER [Calan SR] 240 mg PO DAILY 06/22/19 06/11/21 06/11/21 08:00 History Digoxin [Lanoxin] 0.125 mg PO DAILY@1700 tablet 06/27/19 06/11/21 06/11/21 08:00 Rx Furosemide [Lasix TAB] 20 mg PO QDAY tablet 06/27/19 06/11/21 06/11/21 08:00 Rx Levothyroxine [Synthroid] 100 mcg PO DAILY@0600 tablet 06/27/19 06/11/21 06/11/21 08:00 Rx Naloxegol Oxalate [Movantik] 25 mg PO DAILY 06/27/19 06/11/21 06/11/21 08:00 Rx Pantoprazole [Protonix TAB] 40 mg PO QDAY tablet 06/27/19 06/11/21 06/11/21 08: 00 Rx Potassium Chloride 20 meq PO DAILY packet 06/27/19 06/11/21 06/11/21 08:00 Rx DULoxetine [Cymbalta] 60 mg PO QDAY 07/11/19 06/11/21 03/18/20 History predniSONE 2.5 mg PO QDAY 07/11/19 06/11/21 06/11/21 08:00 History AtorvaSTATin [Lipitor] 20 mg PO QHS #30 tablet 03/23/20 06/11/21 06/10/21 21:00 Rx Oxycodone HCl/Acetaminophen 1 each PO Q6HR PRN #14 03/28/21 06/11/21 06/11/21 08:00 Rx [Percocet 7.5/325 mg] Linaclotide [Linzess] 290 mcg PO DAILY 06/11/21 06/11/21 Unknown History Linaclotide [Linzess] 290 mcg PO DAILY 06/11/21 06/11/21 06/11/21 08:00 History Naloxegol Oxalate [Movantik] 25 mg PO DAILY 06/11/21 06/11/21 06/11/21 08:00 History lisinopriL [Zestril TAB] 5 mg PO DAILY 06/11/21 06/11/21 06/11/21 08:00 History Active Meds: Active Medications Acetaminophen (Acetaminophen 325 Mg Tab) 650 mg PO Q4H PRN PRN Reason: Pain MILD(1-3)/Fever >100.5/ARAIZA Albuterol/Ipratropium (Ipratropium/Albuterol Sulfate 3 Ml Ampul.Neb) 1 ampul IH Q3H PRN PRN Reason: Wheezing Albuterol/Ipratropium (Ipratropium/Albuterol Sulfate 3 Ml Ampul.Neb) 1 ampul IH QIDRT [facility] Last Admin: 06/11/21 20:59 Dose: Not Given Documented by: Alprazolam (Alprazolam 1 Mg Tab) 1 mg PO TID PRN PRN Reason: Anxiety Last Admin: 06/11/21 23:52 Dose: 1 mg Documented by: Apixaban (Apixaban 5 Mg Tab) 5 mg PO Q12HR [facility] Arformoterol Tartrate (Arformoterol 15 Mcg/2 Ml Nebu) 15 mcg IH Q12HRT [facility] Last Admin: 06/11/21 20:55 Dose: 15 mcg Documented by: Aspirin (Aspirin 81 Mg Tab Chew) 81 mg PO QDAY [facility] Atorvastatin Calcium (Atorvastatin 20 Mg Tab) 20 mg PO QHS [facility] Last Admin: 06/11/21 22:34 Dose: 20 mg Documented by: Budesonide (Budesonide 0.5 Mg/2 Ml Nebu) 1 mg IH Q12HRT [facility] Last Admin: 06/11/21 20:55 Dose: 1 mg Documented by: Digoxin (Digoxin 0.125 Mg Tab) 0.125 mg PO DAILY@1700 [facility] Last Admin: 06/11/21 17:29 Dose: Not Given Documented by: Duloxetine HCl (Duloxetine 30 Mg Cap) 60 mg PO QDAY [facility] Last Admin: 06/11/21 15:51 Dose: Not Given Documented by: Furosemide (Furosemide 20 Mg Tab) 20 mg PO QDAY [facility] Last Admin: 06/11/21 15:51 Dose: Not Given Documented by: Hydromorphone HCl (Hydromorphone 1 Mg/1 Ml Inj) 0.5 mg IV Q3H PRN PRN Reason: Pain , Severe (7-10) Levofloxacin/Dextrose (Levaquin 750mg/150ml) 750 mg in 150 mls @ 100 mls/hr IV Q24H [facility]; Protocol Last Admin: 06/11/21 18:30 Dose: 100 mls/hr Documented by: Levothyroxine Sodium (Levothyroxine 100 Mcg Tab) 100 mcg PO DAILY@0600 [facility] Last Admin: 06/12/21 05:40 Dose: 100 mcg Documented by: Lisinopril (Lisinopril 5 Mg Tab) 5 mg PO DAILY [facility] Methylprednisolone Sodium Succinate (Methylprednisolone Sod Succinate 125 Mg/2 Ml Inj) 125 mg IV Q8H [facility] Last Admin: 06/12/21 05:40 Dose: 125 mg Documented by: Metoclopramide HCl (Metoclopramide 10 Mg/2 Ml Inj) 10 mg IV Q6H PRN PRN Reason: Nausea And Vomiting Mirtazapine (Mirtazapine 15 Mg Tab) 45 mg PO QHS [facility] Last Admin: 06/11/21 22:33 Dose: 45 mg Documented by: Miscellaneous Medication (Linaclotide [Linzess]) 290 mcg PO DAILY [facility] Last Admin: 06/11/21 15:50 Dose: Not Given Documented by: Miscellaneous Medication (Naloxegol Oxalate [Movantik]) 25 mg PO DAILY [facility] Last Admin: 06/11/21 15:51 Dose: Not Given Documented by: Ondansetron HCl (Ondansetron 4 Mg/2 Ml Inj) 4 mg IV Q8H PRN PRN Reason: Nausea And Vomiting Oxycodone/Acetaminophen (Oxycodone /Acetaminophen 5-325mg Tab) 1 tab PO Q6H PRN PRN Reason: Pain, Moderate (4-6) Potassium Chloride (Potassium Chloride 20 Meq Packet) 20 meq PO DAILY [facility] Sodium Chloride (Sodium Chloride 0.9% 10 Ml Flush Syringe) 10 ml IV BID [facility] Last Admin: 06/11/21 22:34 Dose: 10 ml Documented by: Sodium Chloride (Sodium Chloride 0.9% 10 Ml Flush Syringe) 10 ml IV PRN PRN PRN Reason: LINE FLUSH Verapamil HCl (Verapamil Er 120 Mg Tab) 240 mg PO DAILY [facility] Exam - Constitutional Vitals: Temp Pulse Resp BP Pulse Ox 97.7 F 74 16 135/59 99 06/12/21 04:40 06/12/21 04:40 06/12/21 04:40 06/12/21 04:40 06/12/21 04:40 General appearance: Present: severe distress, well-nourished - EENT Eyes: Present: PERRL ENT: hearing intact, clear oral mucosa - Neck Neck: Present: supple, normal ROM - Respiratory Respiratory effort: normal Respiratory: bilateral: diminished, rhonchi, wheezing - Cardiovascular Heart rate: 88 Rhythm: regular Heart Sounds: Present: S1 & S2. Absent: rub, click - Extremities Extremities: no ischemia, pulses intact, pulses symmetrical, No edema Peripheral Pulses: within normal limits - Abdominal General gastrointestinal: Present: soft, non-tender, non-distended, normal bowel sounds Female genitourinary: Present: normal - Integumentary Integumentary: Present: clear, warm, dry - Musculoskeletal Musculoskeletal: gait normal, strength equal bilaterally - Psychiatric Psychiatric: appropriate mood/affect, intact judgment & insight - Neurologic Neurologic: CNII-XII intact, moves all extremities - Allied Health Allied health notes reviewed: nursing, case management HEART Score - HEART Score History: Slightly suspicious Age: > 65 Risk factors: > 3 risk factors or hx of atherosclerotic disease Troponin: Troponin T < 0.010 ng/mL (0.00-0.029) 06/11/21 12:01 Troponin: < normal limit - Critical Actions Critical Actions: 0-3 pts:0.9-1.7%risk of adverse cardiac event.Candidate for discharge Results - Labs CBC & Chem 7: 06/12/21 04:55 06/12/21 04:55 Labs: Laboratory Last Values WBC 7.6 K/mm3 (4.5-11.0) 06/12/21 04:55 RBC 3.83 M/mm3 (3.65-5.03) 06/12/21 04:55 Hgb 11.9 gm/dl (10.1-14.3) 06/12/21 04:55 Hct 37.1 % (30.3-42.9) 06/12/21 04:55 MCV 97 fl (79-97) 06/12/21 04:55 MCH 31 pg (28-32) 06/12/21 04:55 MCHC 32 % (30-34) 06/12/21 04:55 RDW 13.0 % (13.2-15.2) L 06/12/21 04:55 Plt Count 178 K/mm3 (140-440) 06/12/21 04:55 Lymph % (Auto) 9.7 % (13.4-35.0) L 06/11/21 11:57 [place] % (Auto) 5.3 % (0.0-7.3) 06/11/21 11:57 Eos % (Auto) 2.3 % (0.0-4.3) 06/11/21 11:57 Baso % (Auto) 0.5 % (0.0-1.8) 06/11/21 11:57 Lymph # (Auto) 1.0 K/mm3 (1.2-5.4) L 06/11/21 11:57 [place] # (Auto) 0.5 K/mm3 (0.0-0.8) 06/11/21 11:57 Eos # (Auto) 0.2 K/mm3 (0.0-0.4) 06/11/21 11:57 Baso # (Auto) 0.1 K/mm3 (0.0-0.1) 06/11/21 11:57 Seg Neutrophils % [place] 06/12/21 04:55 Seg Neutrophils # 8.5 K/mm3 (1.8-7.7) H 06/11/21 11:57 PT 19.8 Sec. (12.2-14.9) H 06/11/21 12:01 INR 1.52 (0.87-1.13) H 06/11/21 12:01 APTT 36.2 Sec. (24.2-36.6) 06/11/21 12:01 Sodium 140 mmol/L (137-145) 06/12/21 04:55 Potassium 4.8 mmol/L (3.6-5.0) 06/12/21 04:55 Chloride 101.0 mmol/L (98-107) 06/12/21 04:55 Carbon Dioxide 29 mmol/L (22-30) 06/12/21 04:55 Anion Gap 15 mmol/L 06/12/21 04:55 BUN 12 mg/dL (7-17) 06/12/21 04:55 Creatinine 0.5 mg/dL (0.6-1.2) L 06/12/21 04:55 Estimated GFR > 60 ml/min 06/12/21 04:55 BUN/Creatinine Ratio 24 % 06/12/21 04:55 Glucose 159 mg/dL (65-100) H 06/12/21 04:55 Calcium 9.2 mg/dL (8.4-10.2) 06/12/21 04:55 Total Bilirubin 0.40 mg/dL (0.1-1.2) 06/12/21 04:55 AST 14 units/L (5-40) 06/12/21 04:55 ALT 11 units/L (7-56) 06/12/21 04:55 Alkaline Phosphatase 102 units/L (35-129) 06/12/21 04:55 Troponin T < 0.010 ng/mL (0.00-0.029) 06/11/21 12:01 NT-Pro-B Natriuret Pep 495.2 pg/mL (0-900) 06/11/21 12:01 Total Protein 7.2 g/dL (6.3-8.2) 06/12/21 04:55 Albumin 3.9 g/dL (3.9-5) 06/12/21 04:55 Albumin/Globulin Ratio 1.2 % 06/12/21 04:55 Short CBC 06/11/21 06/12/21 Range/Units 11:57 04:55 WBC 10.3 7.6 (4.5-11.0) K/mm3 Hgb 12.5 11.9 (10.1-14.3) gm/dl Hct 37.4 37.1 (30.3-42.9) % Plt Count 185 178 (140-440) K/mm3 BMP 06/11/21 06/12/21 12:01 04:55 Sodium 138 140 Potassium 4.8 4.8 Chloride 96.6 L 101.0 Carbon Dioxide 31 H 29 BUN 15 12 Creatinine 0.7 0.5 L Glucose 130 H 159 H Calcium 9.6 9.2 Cardiac Enzymes 06/11/21 Range/Units 12:01 Troponin T < 0.010 (0.00-0.029) ng/mL Liver Function 06/11/21 06/12/21 Range/Units 12:01 04:55 Total Bilirubin 0.60 0.40 (0.1-1.2) mg/dL AST 16 14 (5-40) units/L ALT 13 11 (7-56) units/L Alkaline Phosphatase 103 102 (35-129) units/L Albumin 4.1 3.9 (3.9-5) g/dL - Imaging and Cardiology Chest x-ray: report reviewed Imaging and Cardiology: Chest x-ray No acute findings Lopez/IV: Voiding Method Toilet Assessment and Plan Advance Directives: Yes (Full code) VTE prophylaxis?: Chemical Plan of care discussed with patient/family: Yes - Patient Problems (1) Acute respiratory failure with hypoxia and hypercapnia Current Visit: Yes Status: Acute Plan to address problem: Patient initiated on duo nebs [id number] and as needed and IV Levaquin and IV Solu-Medrol at a higher dose Pulmonary consult requested (2) COPD with exacerbation Current Visit: Yes Status: Acute Plan to address problem: IV Solu-Medrol, IV Levaquin, and duo nebs and Pulmicort added (3) Chronic atrial fibrillation Current Visit: Yes Status: Chronic Plan to address problem: On Eliquis (4) HTN (hypertension) Current Visit: No Status: Chronic Qualifiers: Hypertension type: essential hypertension Qualified Code(s): I10 - Essential (primary) hypertension Plan to address problem: Continue antihypertensives and adjust medications as necessary (5) Hyperlipidemia Current Visit: No Status: Chronic Qualifiers: Hyperlipidemia type: mixed hyperlipidemia Qualified Code(s): E78.2 - Mixed hyperlipidemia Plan to address problem: Continue statins (6) Hypothyroidism Current Visit: No Status: Chronic Plan to address problem: Continue Synthroid and check TSH (7) DVT prophylaxis Current Visit: No Status: Acute Plan to address problem: On anticoagulation GI prophylaxis
[2021-06-12 07:40] LABS: Total Cells Counted 100
[2021-06-12 07:41] LABS: Large Platelets Few; Platelet Estimate Consistent w Auto; RBC Morphology Normal; Toxic Granulation 1+
--- NOTE | 2021-06-12 08:25 | Consultation ---
History of Present Illness Consult date: 06/12/21 Reason for consult: dyspnea, cough, COPD History of present illness: 71-year-old female with multiple medical problems including COPD hypertension, CHF, hypothyroidism, hyperlipidemia, GERD and IBS comes in for increasing shortness of breath for 3 days. Patient came to my office with shortness of breath ,cough with productive sputum mixed with blood and with Low O2 saturation. Patient evaluated in obvious saturations and is on 3 L nasal cannula and Lowest o2 saturation 75%.Patients O2 increased to five litres and called EMS to bring her to the emergency room. Patient has home O2 and compliant with her medications and still increasing wheezing for the past 3 days. No fever or chills. No exposure to Covid virus. Vaccinated. Including a booster. Patient being admitted for severe hypoxia and severe wheezing and Acute exacerbation of COPD. Patient has history of smoking 1 pack a day for 30 years. Stopped smoking 25 years ago. retired from [employer].Says worked [employer] line [employer]. Allergic to multiple medications Adhesive tape, amlodipine, diltiazem, Renexa. Patient still complaining shortness of breath. Patient is on 3 litres O2. O2 saturation 99%. Patient afebrile. No leukocytosis. Patients Blood pressure 135/89, pulse 74, Respirations 18. Patients chest xray done 06/11/21 reported Stable chronic interstitial lung disease without acute abnormality. No pneumothorax. Patient presently on I/V solumedrol, Albuterol/atrovent aerosol treatments, Apixaban, Zithromax and ceftriaxone. Recommend GI prophylaxis. Past History Past Medical History: atrial fib, COPD, heart failure, stroke, other (allergic rhinitis.) Social history: smoking (History of smoking in the past.) Family history: cancer Medications and Allergies Allergies Allergy/AdvReac Type Severity Reaction Status Date / Time adhesive Allergy Hives Verified 06/13/21 09:07 amlodipine besylate Allergy Anaphylaxis Verified 06/13/21 09:07 [From Norvasc] diltiazem Allergy Anaphylaxis Verified 06/13/21 09:07 diltiazem HCl [From Cardizem] Allergy Anaphylaxis Verified 06/13/21 09:07 Renexa Allergy Unknown Uncoded 06/13/21 09:08 Home Medications Medication Instructions Recorded Confirmed Last Taken Type ALPRAZolam [Xanax TAB] 1 mg PO TID PRN #90 tablet 03/02/16 06/11/21 06/11/21 08:00 Rx Apixaban [Eliquis] 5 mg PO BID 06/22/19 06/11/21 06/11/21 08:00 History Aspirin [Aspirin BABY CHEW TAB] 81 mg PO QPM 06/22/19 06/12/21 06/10/21 History Fluticasone/Salmeterol [Advair 1 puff IH BID 06/22/19 06/11/21 06/11/21 08:00 History Diskus 500-50 mcg] Mirtazapine [Remeron 45mg TAB] 45 mg PO HS 06/22/19 06/11/21 06/10/21 21:00 History Nitroglycerin [Nitrostat] 0.4 mg SL Q5M PRN 06/22/19 06/12/21 05/11/21 History Umeclidinium Fraser [Incruse 62.5 mcg IH QAM 06/22/19 06/12/21 06/11/21 08:00 History Ellipta 62.5MCG] Verapamil ER [Calan SR] 240 mg PO DAILY 06/22/19 06/11/21 06/11/21 08:00 History Digoxin [Lanoxin] 0.125 mg PO DAILY@1700 tablet 06/27/19 06/11/21 06/11/21 08:00 Rx Furosemide [Lasix TAB] 20 mg PO QDAY tablet 06/27/19 06/11/21 06/10/21 Rx Levothyroxine [Synthroid] 100 mcg PO DAILY@0600 tablet 06/27/19 06/11/21 06/11/21 08:00 Rx Pantoprazole [Protonix TAB] 40 mg PO QDAY tablet 06/27/19 06/11/21 06/11/21 08:00 Rx Potassium Chloride 20 meq PO DAILY packet 06/27/19 06/11/21 06/11/21 08:00 Rx DULoxetine [Cymbalta] 60 mg PO QDAY 07/11/19 06/11/21 03/18/20 History predniSONE 2.5 mg PO QAM 07/11/19 06/12/21 06/11/21 08:00 History AtorvaSTATin [Lipitor] 20 mg PO QHS #30 tablet 03/23/20 06/11/21 06/10/21 21:00 Rx Oxycodone HCl/Acetaminophen 1 each PO Q6HR PRN #14 03/28/21 06/11/21 06/11/21 08:00 Rx [Percocet 7.5/325 mg] Linaclotide [Linzess] 290 mcg PO DAILY 06/11/21 06/11/21 06/11/21 08:00 History Naloxegol Oxalate [Movantik] 25 mg PO DAILY 06/11/21 06/11/21 06/11/21 08:00 History lisinopriL [Zestril TAB] 5 mg PO QPM 06/11/21 06/12/21 06/10/21 History Cholecalciferol (Vitamin D3) 50 mcg PO QDAY 06/12/21 06/12/21 06/11/21 History [Vitamin D3] Multivit-Min/FA/Lycopen/Lutein 1 each PO QAM 06/12/21 06/12/21 06/11/21 History [Centrum Silver Tablet] Active Meds: Active Medications Acetaminophen (Acetaminophen 325 Mg Tab) 650 mg PO Q4H PRN PRN Reason: Pain MILD(1-3)/Fever >100.5/ARAIZA Albuterol/Ipratropium (Ipratropium/Albuterol Sulfate 3 Ml Ampul.Neb) 1 ampul IH Q3H PRN PRN Reason: Wheezing Albuterol/Ipratropium (Ipratropium/Albuterol Sulfate 3 Ml Ampul.Neb) 1 ampul IH QIDRT [facility] Last Admin: 06/11/21 20:59 Dose: Not Given Documented by: Alprazolam (Alprazolam 1 Mg Tab) 1 mg PO TID PRN PRN Reason: Anxiety Last Admin: 06/11/21 23:52 Dose: 1 mg Documented by: Apixaban (Apixaban 5 Mg Tab) 5 mg PO Q12HR [facility] Arformoterol Tartrate (Arformoterol 15 Mcg/2 Ml Nebu) 15 mcg IH Q12HRT [facility] Last Admin: 06/11/21 20:55 Dose: 15 mcg Documented by: Aspirin (Aspirin 81 Mg Tab Chew) 81 mg PO QDAY [facility] Atorvastatin Calcium (Atorvastatin 20 Mg Tab) 20 mg PO QHS [facility] Last Admin: 06/11/21 22:34 Dose: 20 mg Documented by: Budesonide (Budesonide 0.5 Mg/2 Ml Nebu) 1 mg IH Q12HRT [facility] Last Admin: 06/11/21 20:55 Dose: 1 mg Documented by: Digoxin (Digoxin 0.125 Mg Tab) 0.125 mg PO DAILY@1700 [facility] Last Admin: 06/11/21 17:29 Dose: Not Given Documented by: Duloxetine HCl (Duloxetine 30 Mg Cap) 60 mg PO QDAY [facility] Last Admin: 06/11/21 15:51 Dose: Not Given Documented by: Furosemide (Furosemide 20 Mg Tab) 20 mg PO QDAY [facility] Last Admin: 06/11/21 15:51 Dose: Not Given Documented by: Hydromorphone HCl (Hydromorphone 1 Mg/1 Ml Inj) 0.5 mg IV Q3H PRN PRN Reason: Pain , Severe (7-10) Levofloxacin/Dextrose (Levaquin 750mg/150ml) 750 mg in 150 mls @ 100 mls/hr IV Q24H [facility]; Protocol Stop: 06/15/21 19:59 Last Admin: 06/11/21 18:30 Dose: 100 mls/hr Documented by: Levothyroxine Sodium (Levothyroxine 100 Mcg Tab) 100 mcg PO DAILY@0600 [facility] Last Admin: 06/12/21 05:40 Dose: 100 mcg Documented by: Lisinopril (Lisinopril 5 Mg Tab) 5 mg PO DAILY [facility] Methylprednisolone Sodium Succinate (Methylprednisolone Sod Succinate 125 Mg/2 Ml Inj) 125 mg IV Q8H [facility] Last Admin: 06/12/21 05:40 Dose: 125 mg Documented by: Metoclopramide HCl (Metoclopramide 10 Mg/2 Ml Inj) 10 mg IV Q6H PRN PRN Reason: Nausea And Vomiting Mirtazapine (Mirtazapine 15 Mg Tab) 45 mg PO QHS [facility] Last Admin: 06/11/21 22:33 Dose: 45 mg Documented by: Miscellaneous Medication (Linaclotide [Linzess]) 290 mcg PO DAILY [facility] Last Admin: 06/11/21 15:50 Dose: Not Given Documented by: Miscellaneous Medication (Naloxegol Oxalate [Movantik]) 25 mg PO DAILY [facility] Last Admin: 06/11/21 15:51 Dose: Not Given Documented by: Ondansetron HCl (Ondansetron 4 Mg/2 Ml Inj) 4 mg IV Q8H PRN PRN Reason: Nausea And Vomiting Oxycodone/Acetaminophen (Oxycodone /Acetaminophen 5-325mg Tab) 1 tab PO Q6H PRN PRN Reason: Pain, Moderate (4-6) Potassium Chloride (Potassium Chloride 20 Meq Packet) 20 meq PO DAILY [facility] Sodium Chloride (Sodium Chloride 0.9% 10 Ml Flush Syringe) 10 ml IV BID [facility] Last Admin: 06/11/21 22:34 Dose: 10 ml Documented by: Sodium Chloride (Sodium Chloride 0.9% 10 Ml Flush Syringe) 10 ml IV PRN PRN PRN Reason: LINE FLUSH Verapamil HCl (Verapamil Er 120 Mg Tab) 240 mg PO DAILY JO Review of Systems All systems: negative Physical Examination Vital signs: Vital Signs Pulse Ox 100 06/11/21 12:09 General appearance: alert, appears uncomfortable, other (Increased work of breathing at rest.) Eyes: non-icteric ENT: oropharynx moist Neck: supple, no JVD Ascultation: Bilateral: diminished breath sounds, other (Prolonged expiratory phase.) Cardiovascular: irregular rhythm Gastrointestinal: normoactive bowel sounds, soft, non-tender Integumentary: normal Extremities: no cyanosis, no edema Musculoskeletal: no deformities Gait: poor gait normal mental status, non-focal exam, pupils equal and round depressed Results - Laboratory Findings CBC and BMP: 06/12/21 04:55 06/12/21 04:55 PT/INR, D-dimer PT 19.8 Sec. (12.2-14.9) H 06/11/21 12:01 INR 1.52 (0.87-1.13) H 06/11/21 12:01 Abnormal lab findings: Abnormal Labs 06/11/21 06/11/21 06/11/21 11:57 12:01 12:01 RDW 13.0 L Lymph % (Auto) 9.7 L Lymph # (Auto) 1.0 L Seg Neutrophils % 82.2 H Seg Neuts % (Manual) Lymphocytes % (Manual) Seg Neutrophils # 8.5 H Lymphocytes # (Manual) PT 19.8 H INR 1.52 H Chloride 96.6 L Carbon Dioxide 31 H Creatinine Glucose 130 H 06/12/21 06/12/21 04:55 04:55 RDW 13.0 L Lymph % (Auto) Lymph # (Auto) Seg Neutrophils % Seg Neuts % (Manual) 94.0 H Lymphocytes % (Manual) 6.0 L Seg Neutrophils # Lymphocytes # (Manual) 0.5 L PT INR Chloride Carbon Dioxide Creatinine 0.5 L Glucose 159 H - Diagnostic Findings Chest x-ray: report reviewed, image reviewed Additional studies: CHEST 1 VIEW 06/11/2021 12:08 PM INDICATION / CLINICAL INFORMATION: SOB. COMPARISON: 03/27/2021 FINDINGS: SUPPORT DEVICES: None. HEART / MEDIASTINUM: No significant abnormality. LUNGS / PLEURA: Stable chronic interstitial lung disease without acute abnormality. No pneumothorax. ADDITIONAL FINDINGS: No significant additional findings. IMPRESSION: 1. No acute findings. Assessment and Plan 71-year-old female with multiple medical problems including COPD hypertension, CHF, hypothyroidism, hyperlipidemia, GERD and IBS comes in for increasing shortness of breath for 3 days. Patient came to my office with shortness of breath ,cough with productive sputum mixed with blood and with Low O2 saturation. Patient evaluated in obvious saturations and is on 3 L nasal cannula and Lowest o2 saturation 75%.Patients O2 increased to five litres and called EMS to bring her to the emergency room. Patient has home O2 and compliant with her medications and still increasing wheezing for the past 3 days. No fever or chills. No exposure to Covid virus. Vaccinated. Including a booster. Patient being admitted for severe hypoxia and severe wheezing and Acute exacerbation of COPD. Patient has history of smoking 1 pack a day for 30 years. Stopped smoking 25 years ago. retired from [employer].Says worked [employer]. Allergic to multiple medications Adhesive tape, amlodipine, diltiazem, Renexa.. Patient still complaining shortness of breath. Patient is on 3 litres O2. O2 saturation 99%. Patient afebrile. No leukocytosis. Patients Blood pressure 135/89, pulse 74, Respirations 18. Patients chest xray done 06/11/21 reported Stable chronic interstitial lung disease without acute abnormality. No pneumothorax. Patient presently on I/V solumedrol, Albuterol/atrovent aerosol treatments, Apixaban, Zithromax and ceftriaxone. Recommend GI prophylaxis. - Patient Problems (1) Acute respiratory failure with hypoxia and hypercapnia Current Visit: Yes Status: Acute Plan to address problem: O2 3 litres via nasal canula Continue I/V solumedrol. Albuterol/atrovent aerosol treatments. Continue Apixaban. Recommend GI prophylaxis. Continue Zithromax and ceftriaxone. (2) COPD with exacerbation Current Visit: Yes Status: Acute Plan to address problem: O2 3 litres via nasal canula Continue I/V solumedrol. Albuterol/atrovent aerosol treatments. Continue Apixaban. Recommend GI prophylaxis. Continue Zithromax and ceftriaxone. (3) Chronic atrial fibrillation Current Visit: Yes Status: Chronic Plan to address problem: Patient is on APIXABAN Management as per primary care and cardiology. (4) Acute bronchitis Current Visit: No Status: Acute Plan to address problem: Patient is on ceftriaxone and zithromax. (5) HTN (hypertension) Current Visit: No Status: Chronic Qualifiers: Hypertension type: essential hypertension Plan to address problem: Management as per primary care. (6) Hyperlipidemia Current Visit: No Status: Chronic Qualifiers: Hyperlipidemia type: mixed hyperlipidemia Qualified Code(s): E78.2 - Mixed hyperlipidemia Plan to address problem: Management as per primary care. (7) Hypothyroidism Current Visit: No Status: Chronic Plan to address problem: Patient is on Levothyroxine. MManagement as primary care. (8) Right middle lobe pulmonary nodule Current Visit: No Status: Chronic Plan to address problem: Repeating CAT scan of chest.
[2021-06-12] MEDS: IPRATROPIUM/ALBUTEROL SULFATE 3 ML AMPUL.NEB IH SCH ×4 (09:21→20:39)
[2021-06-12] MEDS: BUDESONIDE 0.5 MG/2 ML NEBU IH SCH ×2 (09:21→20:40)
[2021-06-12] MEDS: POTASSIUM CHLORIDE 20 MEQ PACKET PO SCH (09:36)
[2021-06-12] MEDS: APIXABAN 5 MG TAB PO SCH ×2 (09:36→22:10)
[2021-06-12] MEDS: FUROSEMIDE 20 MG TAB PO SCH (09:36)
[2021-06-12] MEDS: ASPIRIN 81 MG TAB CHEW PO SCH (09:36)
[2021-06-12] MEDS: DULoxetine 30 MG CAP PO SCH (09:37)
[2021-06-12] MEDS: ARFORMOTEROL 15 MCG/2 ML NEBU IH SCH ×2 (09:41→20:40)
[2021-06-12] MEDS ORDERED: FLU VACC QUAD 2021-22(6MOS UP)/PF 60 MCG/0.5 ML SYRINGE IM ONE ×2 (12:00→14:15)
[2021-06-12] MEDS: LISINOPRIL 5 MG TAB PO SCH (12:48)
[2021-06-12] MEDS: VERAPAMIL ER 120 MG TAB PO SCH (12:57)
[2021-06-12] MEDS: DIGOXIN 0.125 MG TAB PO SCH (17:11)
--- NOTE | 2021-06-12 19:21 | Progress Note ---
Assessment and Plan Assessment and plan: 71-year-old female with multiple medical problems including COPD on chronic prednisone therapy and home O2 3 L, hypertension, CHF, hypothyroidism, hyperlipidemia, GERD and IBS comes in for increasing shortness of breath for 3 days. Patient signed by Dr. Patricia's office because of failed outpatient therapy. Patient evaluated in obvious saturations over 75% and the hand surgeon office patient is on 3 L nasal cannula oxygen at home compliant with her medications increasing wheezing for the past 3 days. No fever or chills. No exposure to Covid virus. Vaccinated. Including a booster. Patient being admitted for severe hypoxia and severe wheezing and COPD (1) Acute respiratory failure with hypoxia and hypercapnia Current Visit: Yes Status: Acute Plan to address problem: Patient initiated on duo nebs [id number] and as needed and IV Levaquin and IV Solu-Medrol at a higher dose Patient is currently needing 6 L of O2 versus 3 L at baseline Pulmonary consulted and following (2) COPD on chronic prednisone therapy with exacerbation Current Visit: Yes Status: Acute Plan to address problem: Patient with diffuse bilateral wheezing No pneumonia on chest x-ray. Labs unremarkable. IV Solu-Medrol, IV Levaquin, and duo nebs and Pulmicort added (3) Chronic atrial fibrillation Current Visit: Yes Status: Chronic Plan to address problem: On Eliquis (4) HTN (hypertension) Current Visit: No Status: Chronic Qualifiers: Hypertension type: essential hypertension Qualified Code(s): I10 - Essential (primary) hypertension Plan to address problem: Continue antihypertensives and adjust medications as necessary (5) Hyperlipidemia Current Visit: No Status: Chronic Qualifiers: Hyperlipidemia type: mixed hyperlipidemia Qualified Code(s): E78.2 - Mixed hyperlipidemia Plan to address problem: Continue statins (6) Hypothyroidism Current Visit: No Status: Chronic Plan to address problem: Continue Synthroid and check TSH (7) DVT prophylaxis Current Visit: No Status: Acute Plan to address problem: On anticoagulation GI prophylaxis History Interval history: Patient presents with 3-day history of worsening dyspnea and wheezing. She has been on chronic prednisone therapy 2.5 mg since at least couple of years. Currently she is on 6 L O2 versus 3 L at baseline. Patient reports no significant improvement of her dyspnea. She has some brown-colored sputum but not purulent. Pulmonary is also following. Hospitalist Physical - Constitutional Vitals: Temp Pulse Resp BP Pulse Ox 98.3 F 93 H 20 141/67 97 06/12/21 11:08 06/12/21 17:15 06/12/21 17:15 06/12/21 12:57 06/12/21 16:00 General appearance: Present: well-nourished, other (Mild to moderate respiratory distress.) - EENT Eyes: Present: PERRL ENT: clear oral mucosa - Neck Neck: Present: supple - Respiratory Respiratory effort: labored Respiratory: bilateral: wheezing (Moderately tight diffuse wheezes.) - Cardiovascular Rhythm: irregularly irregular (Chronic A. fib) - Extremities Extremities: No edema - Abdominal General gastrointestinal: soft, non-tender, normal bowel sounds - Integumentary Integumentary: Absent: rash - Psychiatric Psychiatric: appropriate mood/affect - Neurologic Neurologic: no focal deficits HEART Score - HEART Score Age: > 65 Risk factors: > 3 risk factors or hx of atherosclerotic disease Troponin: Troponin T < 0.010 ng/mL (0.00-0.029) 06/11/21 12:01 Troponin: < normal limit - Critical Actions Critical Actions: 0-3 pts:0.9-1.7%risk of adverse cardiac event.Candidate for discharge Results - Labs CBC & Chem 7: 06/12/21 04:55 06/12/21 04:55 Labs: Laboratory Last Values WBC 7.6 K/mm3 (4.5-11.0) 06/12/21 04:55 RBC 3.83 M/mm3 (3.65-5.03) 06/12/21 04:55 Hgb 11.9 gm/dl (10.1-14.3) 06/12/21 04:55 Hct 37.1 % (30.3-42.9) 06/12/21 04:55 MCV 97 fl (79-97) 06/12/21 04:55 MCH 31 pg (28-32) 06/12/21 04:55 MCHC 32 % (30-34) 06/12/21 04:55 RDW 13.0 % (13.2-15.2) L 06/12/21 04:55 Plt Count 178 K/mm3 (140-440) 06/12/21 04:55 Lymph % (Auto) 9.7 % (13.4-35.0) L 06/11/21 11:57 [place] % (Auto) 5.3 % (0.0-7.3) 06/11/21 11:57 Eos % (Auto) 2.3 % (0.0-4.3) 06/11/21 11:57 Baso % (Auto) 0.5 % (0.0-1.8) 06/11/21 11:57 Lymph # (Auto) 1.0 K/mm3 (1.2-5.4) L 06/11/21 11:57 [place] # (Auto) 0.5 K/mm3 (0.0-0.8) 06/11/21 11:57 Eos # (Auto) 0.2 K/mm3 (0.0-0.4) 06/11/21 11:57 Baso # (Auto) 0.1 K/mm3 (0.0-0.1) 06/11/21 11:57 Add Manual Diff Complete 06/12/21 04:55 Total Counted 100 06/12/21 04:55 Seg Neutrophils % Basket Hand Braider 06/12/21 04:55 Seg Neuts % (Manual) 94.0 % (40.0-70.0) H 06/12/21 04:55 Lymphocytes % (Manual) 6.0 % (13.4-35.0) L 06/12/21 04:55 Nucleated RBC % Not Reportable 06/12/21 04:55 Seg Neutrophils # 8.5 K/mm3 (1.8-7.7) H 06/11/21 11:57 Seg Neutrophils # Man 7.1 K/mm3 (1.8-7.7) 06/12/21 04:55 Band Neutrophils # 0.0 K/mm3 06/12/21 04:55 Lymphocytes # (Manual) 0.5 K/mm3 (1.2-5.4) L 06/12/21 04:55 Abs React Lymphs (Man) 0.0 K/mm3 06/12/21 04:55 Monocytes # (Manual) 0.0 K/mm3 (0.0-0.8) 06/12/21 04:55 Eosinophils # (Manual) 0.0 K/mm3 (0.0-0.4) 06/12/21 04:55 Basophils # (Manual) 0.0 K/mm3 (0.0-0.1) 06/12/21 04:55 Metamyelocytes # 0.0 K/mm3 06/12/21 04:55 Myelocytes # 0.0 K/mm3 06/12/21 04:55 Promyelocytes # 0.0 K/mm3 06/12/21 04:55 Blast Cells # 0.0 K/mm3 06/12/21 04:55 WBC Morphology Not Reportable 06/12/21 04:55 Hypersegmented Neuts Not Reportable 06/12/21 04:55 Hyposegmented Neuts Not Reportable 06/12/21 04:55 Hypogranular Neuts Not Reportable 06/12/21 04:55 Smudge Cells Not Reportable 06/12/21 04:55 Toxic Granulation 1+ 06/12/21 04:55 Toxic Vacuolation Not Reportable 06/12/21 04:55 Dohle Bodies Not Reportable 06/12/21 04:55 Pelger-Huet Anomaly Not Reportable 06/12/21 04:55 Yana Rods Not Reportable 06/12/21 04:55 Platelet Estimate Consistent w auto 06/12/21 04:55 Clumped Platelets Not Reportable 06/12/21 04:55 Plt Clumps, EDTA Not Reportable 06/12/21 04:55 Large Platelets Few 06/12/21 04:55 Giant Platelets Not Reportable 06/12/21 04:55 Platelet Satelliting Not Reportable 06/12/21 04:55 Plt Morphology Comment Not Reportable 06/12/21 04:55 RBC Morphology Normal 06/12/21 04:55 Dimorphic RBCs Not Reportable 06/12/21 04:55 Polychromasia Not Reportable 06/12/21 04:55 Hypochromasia Not Reportable 06/12/21 04:55 Poikilocytosis Not Reportable 06/12/21 04:55 Anisocytosis Not Reportable 06/12/21 04:55 Microcytosis Not Reportable 06/12/21 04:55 Macrocytosis Not Reportable 06/12/21 04:55 Spherocytes Not Reportable 06/12/21 04:55 Pappenheimer Bodies Not Reportable 06/12/21 04:55 Sickle Cells Not Reportable 06/12/21 04:55 Target Cells Not Reportable 06/12/21 04:55 Tear Drop Cells Not Reportable 06/12/21 04:55 Ovalocytes Not Reportable 06/12/21 04:55 Helmet Cells Not Reportable 06/12/21 04:55 Bob-[place]ford Bodies Not Reportable 06/12/21 04:55 [place] Rings Not Reportable 06/12/21 04:55 Negrita Cells Not Reportable 06/12/21 04:55 Bite Cells Not Reportable 06/12/21 04:55 Crenated Cell Not Reportable 06/12/21 04:55 Elliptocytes Not Reportable 06/12/21 04:55 Acanthocytes (Spur) Not Reportable 06/12/21 04:55 Rouleaux Not Reportable 06/12/21 04:55 Hemoglobin C Crystals Not Reportable 06/12/21 04:55 Schistocytes Not Reportable 06/12/21 04:55 Malaria parasites Not Reportable 06/12/21 04:55 Lencho Bodies Not Reportable 06/12/21 04:55 Hem Pathologist Commnt No 06/12/21 04:55 PT 19.8 Sec. (12.2-14.9) H 06/11/21 12:01 INR 1.52 (0.87-1.13) H 06/11/21 12:01 APTT 36.2 Sec. (24.2-36.6) 06/11/21 12:01 Sodium 140 mmol/L (137-145) 06/12/21 04:55 Potassium 4.8 mmol/L (3.6-5.0) 06/12/21 04:55 Chloride 101.0 mmol/L (98-107) 06/12/21 04:55 Carbon Dioxide 29 mmol/L (22-30) 06/12/21 04:55 Anion Gap 15 mmol/L 06/12/21 04:55 BUN 12 mg/dL (7-17) 06/12/21 04:55 Creatinine 0.5 mg/dL (0.6-1.2) L 06/12/21 04:55 Estimated GFR > 60 ml/min 06/12/21 04:55 BUN/Creatinine Ratio 24 % 06/12/21 04:55 Glucose 159 mg/dL (65-100) H 06/12/21 04:55 Calcium 9.2 mg/dL (8.4-10.2) 06/12/21 04:55 Total Bilirubin 0.40 mg/dL (0.1-1.2) 06/12/21 04:55 AST 14 units/L (5-40) 06/12/21 04:55 ALT 11 units/L (7-56) 06/12/21 04:55 Alkaline Phosphatase 102 units/L (35-129) 06/12/21 04:55 Troponin T < 0.010 ng/mL (0.00-0.029) 06/11/21 12:01 NT-Pro-B Natriuret Pep 495.2 pg/mL (0-900) 06/11/21 12:01 Total Protein 7.2 g/dL (6.3-8.2) 06/12/21 04:55 Albumin 3.9 g/dL (3.9-5) 06/12/21 04:55 Albumin/Globulin Ratio 1.2 % 06/12/21 04:55 TSH 1.020 mlU/mL (0.270-4.200) 06/12/21 09:05 Lopez/IV: Voiding Method Toilet Active Medications - Current Medications Current Medications: Generic Name Dose Route Start Last Admin Trade Name Freq PRN Reason Stop Dose Admin Acetaminophen 650 mg 06/11/21 15:13 Acetaminophen 325 Mg Tab PO Q4H PRN Pain MILD(1-3)/Fever >100.5/ARAIZA Albuterol/Ipratropium 1 ampul 06/11/21 17:38 Ipratropium/Albuterol Sulfate 3 Ml Ampul.Neb IH Q3H PRN Wheezing Albuterol/Ipratropium 1 ampul 06/11/21 20:00 06/12/21 17:15 Ipratropium/Albuterol Sulfate 3 Ml Ampul.Neb IH 1 ampul QIDRT JO Administration Alprazolam 1 mg 06/11/21 15:11 06/11/21 23:52 Alprazolam 1 Mg Tab PO 1 mg TID PRN Administration Anxiety Apixaban 5 mg 06/12/21 10:00 06/12/21 09:36 Apixaban 5 Mg Tab PO 5 mg Q12HR JO Administration Arformoterol Tartrate 15 mcg 06/11/21 20:00 06/12/21 09:41 Arformoterol 15 Mcg/2 Ml Nebu IH 15 mcg Q12HRT JO Administration Aspirin 81 mg 06/12/21 10:00 06/12/21 09:36 Aspirin 81 Mg Tab Chew PO 81 mg QDAY JO Administration Atorvastatin Calcium 20 mg 06/11/21 22:00 06/11/21 22:34 Atorvastatin 20 Mg Tab PO 20 mg QHS JO Administration Budesonide 1 mg 06/11/21 20:00 06/12/21 09:21 Budesonide 0.5 Mg/2 Ml Nebu IH 0.5 mg Q12HRT JO Administration Digoxin 0.125 mg 06/11/21 17:00 06/12/21 17:11 Digoxin 0.125 Mg Tab PO 0.125 mg DAILY@1700 JO Administration Duloxetine HCl 60 mg 06/11/21 16:00 06/12/21 09:37 Duloxetine 30 Mg Cap PO 60 mg QDAY JO Administration Furosemide 20 mg 06/11/21 16:00 06/12/21 09:36 Furosemide 20 Mg Tab PO 20 mg QDAY JO Administration Hydromorphone HCl 0.5 mg 06/11/21 15:13 Hydromorphone 1 Mg/1 Ml Inj IV Q3H PRN Pain , Severe (7-10) Levofloxacin/Dextrose 750 mg in 150 mls @ 100 mls/hr 06/11/21 18:30 06/12/21 17:05 Levaquin 750mg/150ml IV 06/15/21 19:59 100 mls/hr Q24H JO Administration Protocol Levothyroxine Sodium 100 mcg 06/12/21 06:00 06/12/21 05:40 Levothyroxine 100 Mcg Tab PO 100 mcg DAILY@0600 JO Administration Lisinopril 5 mg 06/12/21 10:00 06/12/21 12:48 Lisinopril 5 Mg Tab PO 5 mg DAILY JO Administration Methylprednisolone Sodium Succinate 125 mg 06/11/21 22:00 06/12/21 14:15 Methylprednisolone Sod Succinate 125 Mg/2 Ml Inj IV 125 mg Q8H JO Administration Metoclopramide HCl 10 mg 06/11/21 15:13 Metoclopramide 10 Mg/2 Ml Inj IV Q6H PRN Nausea And Vomiting Mirtazapine 45 mg 06/11/21 22:00 06/11/21 22:33 Mirtazapine 15 Mg Tab PO 45 mg QHS JO Administration Miscellaneous Medication 290 mcg 06/11/21 15:15 11/15/21 15:50 Linaclotide [Linzess] PO Not Given DAILY JO Miscellaneous Medication 25 mg 06/11/21 15:15 06/11/21 15:51 Naloxegol Oxalate [Movantik] PO Not Given DAILY JO Ondansetron HCl 4 mg 06/11/21 15:13 Ondansetron 4 Mg/2 Ml Inj IV Q8H PRN Nausea And Vomiting Oxycodone/Acetaminophen 1 tab 06/11/21 15:13 Oxycodone /Acetaminophen 5-325mg Tab PO Q6H PRN Pain, Moderate (4-6) Potassium Chloride 20 meq 06/12/21 10:00 06/12/21 09:36 Potassium Chloride 20 Meq Packet PO 20 meq DAILY JO Administration Sodium Chloride 10 ml 06/11/21 16:00 06/12/21 17:14 Sodium Chloride 0.9% 10 Ml Flush Syringe IV 10 ml BID JO Administration Sodium Chloride 10 ml 06/11/21 15:13 Sodium Chloride 0.9% 10 Ml Flush Syringe IV PRN PRN LINE FLUSH Verapamil HCl 240 mg 06/12/21 10:00 06/12/21 12:57 Verapamil Er 120 Mg Tab PO 240 mg DAILY JO Administration
[2021-06-12] MEDS: MIRTAZAPINE 15 MG TAB PO SCH (22:10)
[2021-06-12] MEDS: ALPRAZolam 1 MG TAB PO PRN (22:10)
[2021-06-13] MEDS: LEVOTHYROXINE 100 MCG TAB PO SCH (06:06)
[2021-06-13] MEDS: methylPREDNISolone Sod Succinate 125 MG/2 ML INJ IV SCH ×3 (06:07→21:57)
--- NOTE | 2021-06-13 08:38 | Electrocardiograph Report ---
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
[2021-06-13] MEDS: BUDESONIDE 0.5 MG/2 ML NEBU IH SCH ×2 (08:46→20:34)
[2021-06-13] MEDS: IPRATROPIUM/ALBUTEROL SULFATE 3 ML AMPUL.NEB IH SCH ×4 (08:46→20:34)
[2021-06-13] MEDS: POTASSIUM CHLORIDE 20 MEQ PACKET PO SCH (10:47)
[2021-06-13] MEDS: DULoxetine 30 MG CAP PO SCH (10:48)
[2021-06-13] MEDS: VERAPAMIL ER 120 MG TAB PO SCH (10:48)
[2021-06-13] MEDS: LISINOPRIL 5 MG TAB PO SCH (10:49)
[2021-06-13] MEDS: ASPIRIN 81 MG TAB CHEW PO SCH (10:49)
[2021-06-13] MEDS: APIXABAN 5 MG TAB PO SCH ×2 (10:50→21:57)
[2021-06-13] MEDS: FUROSEMIDE 20 MG TAB PO SCH (10:50)
[2021-06-13] MEDS: AZITHROMYCIN 250 MG TAB PO SCH (10:57)
[2021-06-13] MEDS: cefTRIAXone/NS 2 GM/100 ML 2 GM/100 ML BAG IV SCH (10:57)
--- NOTE | 2021-06-13 13:19 | Progress Note ---
Assessment and Plan 71-year-old female with multiple medical problems including COPD hypertension, CHF, hypothyroidism, hyperlipidemia, GERD and IBS comes in for increasing shortness of breath for 3 days. Patient came to my office with shortness of breath ,cough with productive sputum mixed with blood and with Low O2 saturation. Patient evaluated in obvious saturations and is on 3 L nasal cannula and Lowest o2 saturation 75%.Patients O2 increased to five litres and called EMS to bring her to the emergency room. Patient has home O2 and compliant with her medications and still increasing wheezing for the past 3 days. No fever or chills. No exposure to Covid virus. Vaccinated. Including a booster. Patient being admitted for severe hypoxia and severe wheezing and Acute exacerbation of COPD. Patient has history of smoking 1 pack a day for 30 years. Stopped smoking 25 years ago. retired from [employer].Says worked [employer]. Allergic to multiple medications Adhesive tape, amlodipine, diltiazem, Renexa. Patient still complaining shortness of breath. Patient is on 3 litres O2. O2 saturation 99%. Patient afebrile. No leukocytosis. Patients Blood pressure 145/71, pulse 91, Respirations 20. Patients chest xray done 06/11/21 reported Stable chronic interstitial lung disease without acute abnormality. No pneumothorax. Patient has history of right mid lung nodule. Repeating CAT scan of chest. Patient presently on I/V solumedrol, Albuterol/atrovent aerosol treatments, Apixaban, Zithromax and ceftriaxone. Recommend GI prophylaxis. - Patient Problems (1) Acute respiratory failure with hypoxia and hypercapnia Current Visit: Yes Status: Acute Plan to address problem: O2 3 litres via nasal canula Continue I/V solumedrol. Albuterol/atrovent aerosol treatments. Continue Apixaban. Recommend GI prophylaxis. Continue Zithromax and ceftriaxone. (2) COPD with exacerbation Current Visit: Yes Status: Acute Plan to address problem: O2 3 litres via nasal canula Continue I/V solumedrol. Albuterol/atrovent aerosol treatments. Continue Apixaban. Recommend GI prophylaxis. Continue Zithromax and ceftriaxone. (3) Chronic atrial fibrillation Current Visit: Yes Status: Chronic Plan to address problem: Patient is on APIXABAN Management as per primary care and cardiology. (4) Acute bronchitis Current Visit: No Status: Acute Plan to address problem: Patient is on ceftriaxone and zithromax. (5) HTN (hypertension) Current Visit: No Status: Chronic Qualifiers: Hypertension type: essential hypertension Plan to address problem: Management as per primary care. (6) Hyperlipidemia Current Visit: No Status: Chronic Qualifiers: Hyperlipidemia type: mixed hyperlipidemia Qualified Code(s): E78.2 - Mixed hyperlipidemia Plan to address problem: Management as per primary care. (7) Hypothyroidism Current Visit: No Status: Chronic Plan to address problem: Patient is on Levothyroxine. MManagement as primary care. (8) Right middle lobe pulmonary nodule Current Visit: No Status: Chronic Plan to address problem: Repeating CAT scan of chest. Subjective Date of service: 06/13/21 Interval history: 71-year-old female with multiple medical problems including COPD hypertension, CHF, hypothyroidism, hyperlipidemia, GERD and IBS comes in for increasing shortness of breath for 3 days. Patient came to my office with shortness of breath ,cough with productive sputum mixed with blood and with Low O2 saturation. Patient evaluated in obvious saturations and is on 3 L nasal cannula and Lowest o2 saturation 75%.Patients O2 increased to five litres and called EMS to bring her to the emergency room. Patient has home O2 and compliant with her medications and still increasing wheezing for the past 3 days. No fever or chills. No exposure to Covid virus. Vaccinated. Including a booster. Patient being admitted for severe hypoxia and severe wheezing and Acute exacerbation of COPD. Patient has history of smoking 1 pack a day for 30 years. Stopped smoking 25 years ago. retired from [employer]Says worked [employer]. Allergic to multiple medications Adhesive tape, amlodipine, diltiazem, Renexa. Patient still complaining shortness of breath. Patient is on 3 litres O2. O2 sa turation 99%. Patient afebrile. No leukocytosis. Patients Blood pressure 145/71, pulse 91, Respirations 20. Patients chest xray done 06/11/21 reported Stable chronic interstitial lung disease without acute abnormality. No pneumothorax. Patient has history of right mid lung nodule. Repeating CAT scan of chest. Patient presently on I/V solumedrol, Albuterol/atrovent aerosol treatments, Apixaban, Zithromax and ceftriaxone. Recommend GI prophylaxis. Objective Vital Signs - 12hr 06/13/21 06/13/21 06/13/21 05:00 05:08 08:40 Temperature 98.1 F 98.1 F Pulse Rate 95 H 95 H Pulse Rate [ 97 H Anterior Bilateral Throughout] Respiratory 20 18 Rate Respiratory 20 Rate [Anterior Bilateral Throughout] Blood Pressure 130/78 Blood Pressure 130/78 [Left] O2 Sat by Pulse 94 94 Oximetry 06/13/21 06/13/21 06/13/21 09:02 10:48 10:49 Temperature Pulse Rate 68 68 Pulse Rate [ Anterior Bilateral Throughout] Respiratory Rate Respiratory Rate [Anterior Bilateral Throughout] Blood Pressure Blood Pressure [Left] O2 Sat by Pulse 96 Oximetry 06/13/21 12:37 Temperature 98.7 F Pulse Rate 102 H Pulse Rate [ Anterior Bilateral Throughout] Respiratory 18 Rate Respiratory Rate [Anterior Bilateral Throughout] Blood Pressure 145/71 Blood Pressure [Left] O2 Sat by Pulse 99 Oximetry Constitutional: alert, appears uncomfortable, other (Increased work of breathing at rest.) Eyes: non-icteric ENT: oropharynx moist Neck: supple, no JVD Ascultation: Bilateral: diminished breath sounds, other (Prolonged expiratory phase.) Cardiovascular: irregular rhythm Gastrointestinal: normoactive bowel sounds, soft, non-tender Integumentary: normal Extremities: no cyanosis, no edema Neurologic: normal mental status, non-focal exam, pupils equal and round Psychiatric: depressed CBC and BMP: 06/12/21 04:55 06/12/21 04:55 ABG, PT/INR, D-dimer: PT/INR, D-dimer PT 19.8 Sec. (12.2-14.9) H 06/11/21 12:01 INR 1.52 (0.87-1.13) H 06/11/21 12:01 Abnormal lab findings: Abnormal Labs 06/11/21 06/11/21 06/11/21 11:57 12:01 12:01 RDW 13.0 L Lymph % (Auto) 9.7 L Lymph # (Auto) 1.0 L Seg Neutrophils % 82.2 H Seg Neuts % (Manual) Lymphocytes % (Manual) Seg Neutrophils # 8.5 H Lymphocytes # (Manual) PT 19.8 H INR 1.52 H Chloride 96.6 L Carbon Dioxide 31 H Creatinine Glucose 130 H 06/12/21 06/12/21 04:55 04:55 RDW 13.0 L Lymph % (Auto) Lymph # (Auto) Seg Neutrophils % Seg Neuts % (Manual) 94.0 H Lymphocytes % (Manual) 6.0 L Seg Neutrophils # Lymphocytes # (Manual) 0.5 L PT INR Chloride Carbon Dioxide Creatinine 0.5 L Glucose 159 H
[2021-06-13] MEDS: DIGOXIN 0.125 MG TAB PO SCH (17:20)
--- NOTE | 2021-06-13 18:16 | Progress Note ---
Assessment and Plan Assessment and plan: 71-year-old female with multiple medical problems including COPD on chronic prednisone therapy and home O2 3 L, hypertension, CHF, hypothyroidism, hyperlipidemia, GERD and IBS comes in for increasing shortness of breath for 3 days. Patient signed by Dr. Patricia's office because of failed outpatient therapy. 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 No fever or chills. No exposure to Covid virus. Vaccinated. Including a booster. Patient being admitted for severe hypoxia and severe wheezing and COPD (1) Acute respiratory failure with hypoxia and hypercapnia Current Visit: Yes Status: Acute Plan to address problem: Patient initiated on duo nebs [id number] and as needed and IV Levaquin and IV Solu-Medrol at a higher dose Respiratory distress and breathing improving, O2 weaned from 6L to 3 L at baseline. Will star tapering Solu-Medrol slowly Pulmonary consulted and following (2) COPD on chronic steroid dependent with exacerbation Current Visit: Yes Status: Acute Plan to address problem: Patient on prednisone 2.5 mg chronically presents with dyspnea and diffuse bilateral wheezing No pneumonia on chest x-ray. Labs unremarkable. IV Solu-Medrol, IV Levaquin, and duo nebs and Pulmicort added Improving, as above (3) Chronic atrial fibrillation Current Visit: Yes Status: Chronic Plan to address problem: On Eliquis (4) HTN (hypertension) Current Visit: No Status: Chronic Qualifiers: Hypertension type: essential hypertension Qualified Code(s): I10 - Essential (primary) hypertension Plan to address problem: Continue antihypertensives and adjust medications as necessary (5) Hyperlipidemia Current Visit: No Status: Chronic Qualifiers: Hyperlipidemia type: mixed hyperlipidemia Qualified Code(s): E78.2 - Mixed hyperlipidemia Plan to address problem: Continue statins (6) Hypothyroidism Current Visit: No Status: Chronic Plan to address problem: Continue Synthroid and check TSH (7) DVT prophylaxis Current Visit: No Status: Acute Plan to address problem: On anticoagulation GI prophylaxis History Interval history: Patient reports breathing better. O2 weaned from 6L to 3 L, her baseline. Wheezing better. Afebrile. Has cough with brown sputum. Hospitalist Physical - Constitutional Vitals: Temp Pulse Resp BP Pulse Ox 98.7 F 76 20 145/71 99 06/13/21 12:37 06/13/21 17:20 06/13/21 16:50 06/13/21 12:37 06/13/21 12:37 General appearance: Present: no acute distress, well-nourished, other (No respiratory distress today.) - EENT Eyes: Present: PERRL, EOM intact ENT: hearing intact, other (Mild facial edema) - Neck Neck: Present: supple - Respiratory Respiratory effort: normal, other (O2 weaned to 3 L, her baseline) Respiratory: bilateral: wheezing (Diffuse moderately tight bilateral wheezes) - Cardiovascular Rhythm: other (Controlled A. fib) - Extremities Extremities: No edema - Abdominal General gastrointestinal: soft, non-tender, normal bowel sounds - Psychiatric Psychiatric: appropriate mood/affect - Neurologic Neurologic: no focal deficits HEART Score - HEART Score Age: > 65 Risk factors: > 3 risk factors or hx of atherosclerotic disease Troponin: Troponin T < 0.010 ng/mL (0.00-0.029) 06/11/21 12:01 Troponin: < normal limit - Critical Actions Critical Actions: 0-3 pts:0.9-1.7%risk of adverse cardiac event.Candidate for discharge Results - Labs CBC & Chem 7: 06/12/21 04:55 06/12/21 04:55 Labs: Laboratory Last Values WBC 7.6 K/mm3 (4.5-11.0) 06/12/21 04:55 RBC 3.83 M/mm3 (3.65-5.03) 06/12/21 04:55 Hgb 11.9 gm/dl (10.1-14.3) 06/12/21 04:55 Hct 37.1 % (30.3-42.9) 06/12/21 04:55 MCV 97 fl (79-97) 06/12/21 04:55 MCH 31 pg (28-32) 06/12/21 04:55 MCHC 32 % (30-34) 06/12/21 04:55 RDW 13.0 % (13.2-15.2) L 06/12/21 04:55 Plt Count 178 K/mm3 (140-440) 06/12/21 04:55 Lymph % (Auto) 9.7 % (13.4-35.0) L 06/11/21 11:57 [place] % (Auto) 5.3 % (0.0-7.3) 06/11/21 11:57 Eos % (Auto) 2.3 % (0.0-4.3) 06/11/21 11:57 Baso % (Auto) 0.5 % (0.0-1.8) 06/11/21 11:57 Lymph # (Auto) 1.0 K/mm3 (1.2-5.4) L 06/11/21 11:57 [place] # (Auto) 0.5 K/mm3 (0.0-0.8) 06/11/21 11:57 Eos # (Auto) 0.2 K/mm3 (0.0-0.4) 06/11/21 11:57 Baso # (Auto) 0.1 K/mm3 (0.0-0.1) 06/11/21 11:57 Add Manual Diff Complete 06/12/21 04:55 Total Counted 100 06/12/21 04:55 Seg Neutrophils % Lumber 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 Operator 06/12/21 04:55 Seg Neuts % (Manual) 94.0 % (40.0-70.0) H 06/12/21 04:55 Lymphocytes % (Manual) 6.0 % (13.4-35.0) L 06/12/21 04:55 Nucleated RBC % Not Reportable 06/12/21 04:55 Seg Neutrophils # 8.5 K/mm3 (1.8-7.7) H 06/11/21 11:57 Seg Neutrophils # Man 7.1 K/mm3 (1.8-7.7) 06/12/21 04:55 Band Neutrophils # 0.0 K/mm3 06/12/21 04:55 Lymphocytes # (Manual) 0.5 K/mm3 (1.2-5.4) L 06/12/21 04:55 Abs React Lymphs (Man) 0.0 K/mm3 06/12/21 04:55 Monocytes # (Manual) 0.0 K/mm3 (0.0-0.8) 06/12/21 04:55 Eosinophils # (Manual) 0.0 K/mm3 (0.0-0.4) 06/12/21 04:55 Basophils # (Manual) 0.0 K/mm3 (0.0-0.1) 06/12/21 04:55 Metamyelocytes # 0.0 K/mm3 06/12/21 04:55 Myelocytes # 0.0 K/mm3 06/12/21 04:55 Promyelocytes # 0.0 K/mm3 06/12/21 04:55 Blast Cells # 0.0 K/mm3 06/12/21 04:55 WBC Morphology Not Reportable 06/12/21 04:55 Hypersegmented Neuts Not Reportable 06/12/21 04:55 Hyposegmented Neuts Not Reportable 06/12/21 04:55 Hypogranular Neuts Not Reportable 06/12/21 04:55 Smudge Cells Not Reportable 06/12/21 04:55 Toxic Granulation 1+ 06/12/21 04:55 Toxic Vacuolation Not Reportable 06/12/21 04:55 Dohle Bodies Not Reportable 06/12/21 04:55 Pelger-Huet Anomaly Not Reportable 06/12/21 04:55 Yana Rods Not Reportable 06/12/21 04:55 Platelet Estimate Consistent w auto 06/12/21 04:55 Clumped Platelets Not Reportable 06/12/21 04:55 Plt Clumps, EDTA Not Reportable 06/12/21 04:55 Large Platelets Few 06/12/21 04:55 Giant Platelets Not Reportable 06/12/21 04:55 Platelet Satelliting Not Reportable 06/12/21 04:55 Plt Morphology Comment Not Reportable 06/12/21 04:55 RBC Morphology Normal 06/12/21 04:55 Dimorphic RBCs Not Reportable 06/12/21 04:55 Polychromasia Not Reportable 06/12/21 04:55 Hypochromasia Not Reportable 06/12/21 04:55 Poikilocytosis Not Reportable 06/12/21 04:55 Anisocytosis Not Reportable 06/12/21 04:55 Microcytosis Not Reportable 06/12/21 04:55 Macrocytosis Not Reportable 06/12/21 04:55 Spherocytes Not Reportable 06/12/21 04:55 Pappenheimer Bodies Not Reportable 06/12/21 04:55 Sickle Cells Not Reportable 06/12/21 04:55 Target Cells Not Reportable 06/12/21 04:55 Tear Drop Cells Not Reportable 06/12/21 04:55 Ovalocytes Not Reportable 06/12/21 04:55 Helmet Cells Not Reportable 06/12/21 04:55 Bob-Sealy Bodies Not Reportable 06/12/21 04:55 Jay Rings Not Reportable 06/12/21 04:55 Rosine Cells Not Reportable 06/12/21 04:55 Bite Cells Not Reportable 06/12/21 04:55 Crenated Cell Not Reportable 06/12/21 04:55 Elliptocytes Not Reportable 06/12/21 04:55 Acanthocytes (Spur) Not Reportable 06/12/21 04:55 Rouleaux Not Reportable 06/12/21 04:55 Hemoglobin C Crystals Not Reportable 06/12/21 04:55 Schistocytes Not Reportable 06/12/21 04:55 Malaria parasites Not Reportable 06/12/21 04:55 Lencho Bodies Not Reportable 06/12/21 04:55 Hem Pathologist Commnt No 06/12/21 04:55 PT 19.8 Sec. (12.2-14.9) H 06/11/21 12:01 INR 1.52 (0.87-1.13) H 06/11/21 12:01 APTT 36.2 Sec. (24.2-36.6) 06/11/21 12:01 Sodium 140 mmol/L (137-145) 06/12/21 04:55 Potassium 4.8 mmol/L (3.6-5.0) 06/12/21 04:55 Chloride 101.0 mmol/L (98-107) 06/12/21 04:55 Carbon Dioxide 29 mmol/L (22-30) 06/12/21 04:55 Anion Gap 15 mmol/L 06/12/21 04:55 BUN 12 mg/dL (7-17) 06/12/21 04:55 Creatinine 0.5 mg/dL (0.6-1.2) L 06/12/21 04:55 Estimated GFR > 60 ml/min 06/12/21 04:55 BUN/Creatinine Ratio 24 % 06/12/21 04:55 Glucose 159 mg/dL (65-100) H 06/12/21 04:55 Calcium 9.2 mg/dL (8.4-10.2) 06/12/21 04:55 Total Bilirubin 0.40 mg/dL (0.1-1.2) 06/12/21 04:55 AST 14 units/L (5-40) 06/12/21 04:55 ALT 11 units/L (7-56) 06/12/21 04:55 Alkaline Phosphatase 102 units/L (35-129) 06/12/21 04:55 Troponin T < 0.010 ng/mL (0.00-0.029) 06/11/21 12:01 NT-Pro-B Natriuret Pep 495.2 pg/mL (0-900) 06/11/21 12:01 Total Protein 7.2 g/dL (6.3-8.2) 06/12/21 04:55 Albumin 3.9 g/dL (3.9-5) 06/12/21 04:55 Albumin/Globulin Ratio 1.2 % 06/12/21 04:55 TSH 1.020 mlU/mL (0.270-4.200) 06/12/21 09:05 Lopez/IV: Voiding Method Toilet Active Medications - Current Medications Current Medications: Generic Name Dose Route Start Last Admin Trade Name Freq PRN Reason Stop Dose Admin Acetaminophen 650 mg 06/11/21 15:13 Acetaminophen 325 Mg Tab PO Q4H PRN Pain MILD(1-3)/Fever >100.5/ARAIZA Albuterol/Ipratropium 1 ampul 06/11/21 17:38 Ipratropium/Albuterol Sulfate 3 Ml Ampul.Neb IH Q3H PRN Wheezing Albuterol/Ipratropium 1 ampul 06/11/21 20:00 06/13/21 16:53 Ipratropium/Albuterol Sulfate 3 Ml Ampul.Neb IH 1 ampul QIDRT JO Administration Alprazolam 1 mg 06/11/21 15:11 06/12/21 22:10 Alprazolam 1 Mg Tab PO 1 mg TID PRN Administration Anxiety Apixaban 5 mg 06/12/21 10:00 06/13/21 10:50 Apixaban 5 Mg Tab PO 5 mg Q12HR JO Administration Arformoterol Tartrate 15 mcg 06/11/21 20:00 06/12/21 20:40 Arformoterol 15 Mcg/2 Ml Nebu IH 15 mcg Q12HRT JO Administration Aspirin 81 mg 06/12/21 10:00 06/13/21 10:49 Aspirin 81 Mg Tab Chew PO 81 mg QDAY JO Administration Atorvastatin Calcium 20 mg 06/11/21 22:00 06/12/21 22:10 Atorvastatin 20 Mg Tab PO 20 mg QHS JO Administration Azithromycin 500 mg 06/13/21 11:00 06/13/21 10:57 Azithromycin 250 Mg Tab PO 06/17/21 10:01 500 mg QDAY JO Administration Protocol Budesonide 1 mg 06/11/21 20:00 06/13/21 08:46 Budesonide 0.5 Mg/2 Ml Nebu IH 0.5 mg Q12HRT JO Administration Digoxin 0.125 mg 06/11/21 17:00 06/13/21 17:20 Digoxin 0.125 Mg Tab PO 0.125 mg DAILY@1700 JO Administration Duloxetine HCl 60 mg 06/11/21 16:00 06/13/21 10:48 Duloxetine 30 Mg Cap PO 60 mg QDAY JO Administration Furosemide 20 mg 06/11/21 16:00 06/13/21 10:50 Furosemide 20 Mg Tab PO 20 mg QDAY JO Administration Ceftriaxone Sodium 2 gm in 100 mls @ 200 mls/hr 06/13/21 11:00 06/13/21 10:57 Rocephin/Ns 2 Gm/100 Ml IV 200 mls/hr Q24H JO Administration Protocol Levothyroxine Sodium 100 mcg 06/12/21 06:00 06/13/21 06:06 Levothyroxine 100 Mcg Tab PO 100 mcg DAILY@0600 JO Administration Lisinopril 5 mg 06/12/21 10:00 06/13/21 10:49 Lisinopril 5 Mg Tab PO 5 mg DAILY JO Administration Methylprednisolone Sodium Succinate 60 mg 06/13/21 14:00 06/13/21 14:01 Methylprednisolone Sod Succinate 125 Mg/2 Ml Inj IV 60 mg Q8HR JO Administration Metoclopramide HCl 10 mg 06/11/21 15:13 Metoclopramide 10 Mg/2 Ml Inj IV Q6H PRN Nausea And Vomiting Mirtazapine 45 mg 06/11/21 22:00 06/12/21 22:10 Mirtazapine 15 Mg Tab PO 45 mg QHS JO Administration Miscellaneous Medication 290 mcg 06/11/21 15:15 06/11/21 15:50 Linaclotide [Linzess] PO Not Given DAILY JO Miscellaneous Medication 25 mg 06/11/21 15:15 06/11/21 15:51 Naloxegol Oxalate [Movantik] PO Not Given DAILY JO Ondansetron HCl 4 mg 06/11/21 15:13 Ondansetron 4 Mg/2 Ml Inj IV Q8H PRN Nausea And Vomiting Potassium Chloride 20 meq 06/12/21 10:00 06/13/21 10:47 Potassium Chloride 20 Meq Packet PO 20 meq DAILY JO Administration Sodium Chloride 10 ml 06/11/21 16:00 06/13/21 10:58 Sodium Chloride 0.9% 10 Ml Flush Syringe IV 10 ml BID JO Administration Sodium Chloride 10 ml 06/11/21 15:13 06/13/21 14:09 Sodium Chloride 0.9% 10 Ml Flush Syringe IV 10 ml PRN PRN Administration LINE FLUSH Verapamil HCl 240 mg 06/12/21 10:00 06/13/21 10:48 Verapamil Er 120 Mg Tab PO 240 mg DAILY JO Administration
[2021-06-13] MEDS: ARFORMOTEROL 15 MCG/2 ML NEBU IH SCH ×2 (20:34)
[2021-06-13] MEDS: MIRTAZAPINE 15 MG TAB PO SCH (21:56)
[2021-06-13] MEDS: ALPRAZolam 1 MG TAB PO PRN (21:58)
[2021-06-14] MEDS: LEVOTHYROXINE 100 MCG TAB PO SCH (05:49)
[2021-06-14] MEDS: methylPREDNISolone Sod Succinate 125 MG/2 ML INJ IV SCH (05:50)
[2021-06-14] MEDS: IPRATROPIUM/ALBUTEROL SULFATE 3 ML AMPUL.NEB IH SCH ×4 (08:13→20:39)
[2021-06-14] MEDS: ARFORMOTEROL 15 MCG/2 ML NEBU IH SCH ×2 (08:14→20:39)
[2021-06-14] MEDS: BUDESONIDE 0.5 MG/2 ML NEBU IH SCH ×2 (08:14→20:39)
--- NOTE | 2021-06-14 10:09 | Cat Scan Report ---
CT chest w con HISTORY: follow up on right middle lobe nodule OMNI 300 100 ML COMPARISON: Jun 22 2019 CTA chest TECHNIQUE: Chest CT exam. All CT scans at this location are performed using CT dose reduction for ALA RA by means of automated exposure control. FINDINGS: CT CHEST: Lungs: Severe emphysema. Unchanged pulmonary nodules. The largest measures 1 cm in the anterior segme nt right upper lobe. No new or enlarging pulmonary nodule identified. Linear parenchymal opacities in the superior and posterior basal segment left lower lobe, likely subsegmental atelectasis. Trachea and Bronchi: No significant abnormality. Mediastinum/Lymph nodes: No lymphadenopathy. Heart: No significant abnormality. Vasculature: No significant abnormality. Osseous Structures: No aggressive appearing osseous lesions. Additional Findings: None IMPRESSION: 1. Severe emphysema with unchanged pulmonary nodules, most consistent with benign etiology. Signer Name: Leif Kahn MD Signed: 06/14/2021 10:05 AM Workstation Name: [id number]
[2021-06-14] MEDS: VERAPAMIL ER 120 MG TAB PO SCH (10:20)
[2021-06-14] MEDS: AZITHROMYCIN 250 MG TAB PO SCH (10:24)
[2021-06-14] MEDS: DULoxetine 30 MG CAP PO SCH (10:24)
[2021-06-14] MEDS: LISINOPRIL 5 MG TAB PO SCH (10:24)
[2021-06-14] MEDS: ASPIRIN 81 MG TAB CHEW PO SCH (10:24)
[2021-06-14] MEDS: APIXABAN 5 MG TAB PO SCH ×2 (10:24→22:27)
[2021-06-14] MEDS: POTASSIUM CHLORIDE 20 MEQ PACKET PO SCH (10:25)
[2021-06-14] MEDS: FUROSEMIDE 20 MG TAB PO SCH (10:29)
[2021-06-14] MEDS: cefTRIAXone/NS 2 GM/100 ML 2 GM/100 ML BAG IV SCH (11:30)
[2021-06-14 13:00] LABS: ABG Base Excess 3.5 mmol/L (-2.0-3.0); ABG HCO3 29.1 mmol/L (20.0-26.0); ABG Methemoglobin 0.6 % (0.0-1.5); ABG Oxygen Saturation 81.9 % (95.0-99.0); ABG PCO2 48.6 mm Hg; ABG PH 7.395 pH Units (7.350-7.450); ABG PO2 45.8 mm Hg (80.0-90.0)
--- NOTE | 2021-06-14 13:16 | Progress Note ---
Assessment and Plan Acute hypoxemic and hypercapnic respiratory failure COPD with exacerbation Chronic atrial fibrillation Acute bronchitis HTN Hyperlipidemia Hypothyroidism Right middle lobe pulmonary nodule - CT chest with severe bullous emphysema and peripheral RML lung nodule (stable per report) - PET scan +/- biopsy outpatient vs surveillance - continue bronchodilators (HEAVENLY & LABA) with pulmonary hygiene per RT - taper solumedrol (reduced to 40 mg IV q12h) - continuye care as below otherwise; - continue to wean supplemental oxygen to keep O2 sats > 90% - continue inhaled corticosteroids - continue to avoid nephrotoxins, renally dose all medications - continue mobility protocols to prevent pressure ulcers - PT/OT as tolerated - Wound care per RN/WCT - continue accuchecks with glycemic control per SSI for target blood glucose < 180 mg/dL - Smoking cessation strongly counseled at the bedside - home oxygen evaluation at discharge - GI & VTE prophylaxis - Flu & pneumovax per protocol - Pulmonary out patient follow up for PFTs and optimization of respiratory status - continue other care per attending / other consultants - prn analgesia per pain score ... re-evaluate in am & prn Subjective Date of service: 06/14/21 Principal diagnosis: Ac hypoxemic and hypercapnic resp failure; AE-COPD; RML pulm nodule Interval history: Patient is seen today for: Acute hypoxemic and hypercapnic respiratory failure; AE-COPD; A-fib; RML pulmonary nodule Seen and examined at bedside; 24hour events reviewed; nursing and respiratory care staff consulted; no adverse overnight events reported to me; resting peacefully in bed; remains on supplemental oxygen but really at home baseline of 3L NC; she feels a little better; denies chest pain or hemoptysis Objective Vital Signs - 12hr 06/14/21 06/14/21 06/14/21 04:45 08:14 10:24 Temperature 97.8 F Pulse Rate 93 H Pulse Rate [ 96 H Anterior Bilateral Throughout] Respiratory 18 Rate Respiratory 20 Rate [Anterior Bilateral Throughout] Blood Pressure 135/67 137/65 O2 Sat by Pulse 94 95 Oximetry 06/14/21 11:54 Temperature Pulse Rate Pulse Rate [ Anterior Bilateral Throughout] Respiratory Rate Respiratory Rate [Anterior Bilateral Throughout] Blood Pressure O2 Sat by Pulse 96 Oximetry Constitutional: no acute distress, alert, other (mildly increased work of breathing at rest.) Eyes: non-icteric ENT: oropharynx moist Neck: supple, no JVD Effort: mildly labored Ascultation: Bilateral: diminished breath sounds, other (Prolonged expiratory phase.) Percussion: Bilateral: not dull Cardiovascular: irregular rhythm Gastrointestinal: normoactive bowel sounds, soft, non-tender, non-distended Integumentary: normal Extremities: no cyanosis, no edema, pulses normal, no ischemia or petechiae Neurologic: normal mental status, non-focal exam, pupils equal and round, CN II- XII normal Psychiatric: mood appropriate, affect normal CBC and BMP: 06/12/21 04:55 06/12/21 04:55 ABG, PT/INR, D-dimer: ABG ABG pH 7.395 pH Units (7.350-7.450) 06/14/21 12:19 ABG pCO2 48.6 mm Hg 06/14/21 12:19 ABG pO2 45.8 mm Hg (80.0-90.0) L 06/14/21 12:19 ABG O2 Saturation 81.9 % (95.0-99.0) L 06/14/21 12:19 PT/INR, D-dimer PT 19.8 Sec. (12.2-14.9) H 06/11/21 12:01 INR 1.52 (0.87-1.13) H 06/11/21 12:01 Abnormal lab findings: Abnormal Labs 06/11/21 06/11/21 06/11/21 11:57 12:01 12:01 RDW 13.0 L Lymph % (Auto) 9.7 L Lymph # (Auto) 1.0 L Seg Neutrophils % 82.2 H Seg Neuts % (Manual) Lymphocytes % (Manual) Seg Neutrophils # 8.5 H Lymphocytes # (Manual) PT 19.8 H INR 1.52 H ABG pO2 ABG HCO3 ABG O2 Saturation ABG Base Excess Oxyhemoglobin Chloride 96.6 L Carbon Dioxide 31 H Creatinine Glucose 130 H 06/12/21 06/12/21 06/14/21 04:55 04:55 12:19 RDW 13.0 L Lymph % (Auto) Lymph # (Auto) Seg Neutrophils % Seg Neuts % (Manual) 94.0 H Lymphocytes % (Manual) 6.0 L Seg Neutrophils # Lymphocytes # (Manual) 0.5 L PT INR ABG pO2 45.8 L ABG HCO3 29.1 H ABG O2 Saturation 81.9 L ABG Base Excess 3.5 H Oxyhemoglobin 80.3 L Chloride Carbon Dioxide Creatinine 0.5 L Glucose 159 H Chest x-ray: image reviewed (chronic COPD changes / hyperinflation) Allied health notes reviewed: nursing
[2021-06-14] MEDS ORDERED: methylPREDNISolone Sod Succinate 125 MG/2 ML INJ IV SCH (15:00)
--- NOTE | 2021-06-14 18:19 | Progress Note ---
Assessment and Plan Assessment and plan: 71-year-old female with multiple medical problems including COPD on chronic prednisone therapy and home O2 3 L, hypertension, CHF, hypothyroidism, hyperlipidemia, GERD and IBS comes in for increasing shortness of breath for 3 days. Patient signed by Dr. Patricia's office because of failed outpatient therapy. Patient evaluated in obvious saturations over 75% and the dye machine tender office patient is on 3 L nasal cannula oxygen at home compliant with her medications increasing wheezing for the past 3 days. No fever or chills. No exposure to Covid virus. Vaccinated. Including a booster. Patient being admitted for severe hypoxia and severe wheezing and COPD (1) Acute respiratory failure with hypoxia and hypercapnia Current Visit: Yes Status: Acute Plan to address problem: Patient initiated on duo nebs [id number] and as needed and IV Levaquin and IV Solu-Medrol at a higher dose Respiratory distress and breathing improving, O2 weaned from 6L to 3 L at baseline. Will star tapering Solu-Medrol slowly Pulmonary consulted and following (2) COPD on chronic steroid dependent with exacerbation Current Visit: Yes Status: Acute Plan to address problem: Patient on prednisone 2.5 mg chronically presents with dyspnea and diffuse bilateral wheezing No pneumonia on chest x-ray. Labs unremarkable. IV Solu-Medrol, IV Rocephin, azithromycin, and duo nebs and Pulmicort added CT chest on 06/14 showed severe emphysema but no pneumonia or pulmonary edema. Improving, as above (3) Chronic atrial fibrillation, rate controlled Current Visit: Yes Status: Chronic Plan to address problem: On Eliquis (4) HTN (hypertension) Current Visit: No Status: Chronic Qualifiers: Hypertension type: essential hypertension Qualified Code(s): I10 - Essential (primary) hypertension Plan to address problem: Continue antihypertensives and adjust medications as necessary (5) Hyperlipidemia Current Visit: No Status: Chronic Qualifiers: Hyperlipidemia type: mixed hyperlipidemia Qualified Code(s): E78.2 - Mixed hyperlipidemia Plan to address problem: Continue statins (6) Hypothyroidism Current Visit: No Status: Chronic Plan to address problem: Continue Synthroid and check TSH (7) DVT prophylaxis Current Visit: No Status: Acute Plan to address problem: On anticoagulation GI prophylaxis History Interval history: Patient reports breathing better. Continues to experience dyspnea on exertion which is unchanged according to patient. O2 weaned from 6L to 3 L, her baseline. Wheezing better. Afebrile. Has cough with brown sputum. Hospitalist Physical - Constitutional Vitals: Temp Pulse Resp BP Pulse Ox 98.4 F 93 H 20 183/83 89 06/14/21 12:19 06/14/21 15:48 06/14/21 15:48 06/14/21 12:19 06/14/21 12:19 General appearance: Present: no acute distress, well-nourished, other (No respiratory distress today.) - EENT Eyes: Present: PERRL, EOM intact ENT: clear oral mucosa - Neck Neck: Present: supple - Respiratory Respiratory effort: other (Mild dyspnea but not in acute respite distress at rest) Respiratory: bilateral: diminished, wheezing (Good inspiratory air movement but tight expiratory wheezes) - Cardiovascular Rhythm: other (A. fib, rate controlled) - Extremities Extremities: No edema - Abdominal General gastrointestinal: soft, non-tender, non-distended, normal bowel sounds - Integumentary Integumentary: Absent: rash - Psychiatric Psychiatric: appropriate mood/affect - Neurologic Neurologic: no focal deficits, moves all extremities HEART Score - HEART Score Age: > 65 Risk factors: > 3 risk factors or hx of atherosclerotic disease Troponin: Troponin T < 0.010 ng/mL (0.00-0.029) 06/11/21 12:01 Troponin: < normal limit - Critical Actions Critical Actions: 0-3 pts:0.9-1.7%risk of adverse cardiac event.Candidate for discharge Results - Labs CBC & Chem 7: 06/12/21 04:55 06/12/21 04:55 Labs: Laboratory Last Values WBC 7.6 K/mm3 (4.5-11.0) 06/12/21 04:55 RBC 3.83 M/mm3 (3.65-5.03) 06/12/21 04:55 Hgb 11.9 gm/dl (10.1-14.3) 06/12/21 04:55 Hct 37.1 % (30.3-42.9) 06/12/21 04:55 MCV 97 fl (79-97) 06/12/21 04:55 MCH 31 pg (28-32) 06/12/21 04:55 MCHC 32 % (30-34) 06/12/21 04:55 RDW 13.0 % (13.2-15.2) L 06/12/21 04:55 Plt Count 178 K/mm3 (140-440) 06/12/21 04:55 Lymph % (Auto) 9.7 % (13.4-35.0) L 06/11/21 11:57 [place] % (Auto) 5.3 % (0.0-7.3) 06/11/21 11:57 Eos % (Auto) 2.3 % (0.0-4.3) 06/11/21 11:57 Baso % (Auto) 0.5 % (0.0-1.8) 06/11/21 11:57 Lymph # (Auto) 1.0 K/mm3 (1.2-5.4) L 06/11/21 11:57 [place] # (Auto) 0.5 K/mm3 (0.0-0.8) 06/11/21 11:57 Eos # (Auto) 0.2 K/mm3 (0.0-0.4) 06/11/21 11:57 Baso # (Auto) 0.1 K/mm3 (0.0-0.1) 06/11/21 11:57 Add Manual Diff Complete 06/12/21 04:55 Total Counted 100 06/12/21 04:55 Seg Neutrophils % Coin Purse Assembler 06/12/21 04:55 Seg Neuts % (Manual) 94.0 % (40.0-70.0) H 06/12/21 04:55 Lymphocytes % (Manual) 6.0 % (13.4-35.0) L 06/12/21 04:55 Nucleated RBC % Not Reportable 06/12/21 04:55 Seg Neutrophils # 8.5 K/mm3 (1.8-7.7) H 06/11/21 11:57 Seg Neutrophils # Man 7.1 K/mm3 (1.8-7.7) 06/12/21 04:55 Band Neutrophils # 0.0 K/mm3 06/12/21 04:55 Lymphocytes # (Manual) 0.5 K/mm3 (1.2-5.4) L 06/12/21 04:55 Abs React Lymphs (Man) 0.0 K/mm3 06/12/21 04:55 Monocytes # (Manual) 0.0 K/mm3 (0.0-0.8) 06/12/21 04:55 Eosinophils # (Manual) 0.0 K/mm3 (0.0-0.4) 06/12/21 04:55 Basophils # (Manual) 0.0 K/mm3 (0.0-0.1) 06/12/21 04:55 Metamyelocytes # 0.0 K/mm3 06/12/21 04:55 Myelocytes # 0.0 K/mm3 06/12/21 04:55 Promyelocytes # 0.0 K/mm3 06/12/21 04:55 Blast Cells # 0.0 K/mm3 06/12/21 04:55 WBC Morphology Not Reportable 06/12/21 04:55 Hypersegmented Neuts Not Reportable 06/12/21 04:55 Hyposegmented Neuts Not Reportable 06/12/21 04:55 Hypogranular Neuts Not Reportable 06/12/21 04:55 Smudge Cells Not Reportable 06/12/21 04:55 Toxic Granulation 1+ 06/12/21 04:55 Toxic Vacuolation Not Reportable 06/12/21 04:55 Dohle Bodies Not Reportable 06/12/21 04:55 Pelger-Huet Anomaly Not Reportable 06/12/21 04:55 Yana Rods Not Reportable 06/12/21 04:55 Platelet Estimate Consistent w auto 06/12/21 04:55 Clumped Platelets Not Reportable 06/12/21 04:55 Plt Clumps, EDTA Not Reportable 06/12/21 04:55 Large Platelets Few 06/12/21 04:55 Giant Platelets Not Reportable 06/12/21 04:55 Platelet Satelliting Not Reportable 06/12/21 04:55 Plt Morphology Comment Not Reportable 06/12/21 04:55 RBC Morphology Normal 06/12/21 04:55 Dimorphic RBCs Not Reportable 06/12/21 04:55 Polychromasia Not Reportable 06/12/21 04:55 Hypochromasia Not Reportable 06/12/21 04:55 Poikilocytosis Not Reportable 06/12/21 04:55 Anisocytosis Not Reportable 06/12/21 04:55 Microcytosis Not Reportable 06/12/21 04:55 Macrocytosis Not Reportable 06/12/21 04:55 Spherocytes Not Reportable 06/12/21 04:55 Pappenheimer Bodies Not Reportable 06/12/21 04:55 Sickle Cells Not Reportable 06/12/21 04:55 Target Cells Not Reportable 06/12/21 04:55 Tear Drop Cells Not Reportable 06/12/21 04:55 Ovalocytes Not Reportable 06/12/21 04:55 Helmet Cells Not Reportable 06/12/21 04:55 [place] Bodies Not Reportable 06/12/21 04:55 Delevan Rings Not Reportable 06/12/21 04:55 [place] Cells Not Reportable 06/12/21 04:55 Bite Cells Not Reportable 06/12/21 04:55 Crenated Cell Not Reportable 06/12/21 04:55 Elliptocytes Not Reportable 06/12/21 04:55 Acanthocytes (Spur) Not Reportable 06/12/21 04:55 Rouleaux Not Reportable 06/12/21 04:55 Hemoglobin C Crystals Not Reportable 06/12/21 04:55 Schistocytes Not Reportable 06/12/21 04:55 Malaria parasites Not Reportable 06/12/21 04:55 Lencho Bodies Not Reportable 06/12/21 04:55 Hem Pathologist Commnt No 06/12/21 04:55 PT 19.8 Sec. (12.2-14.9) H 06/11/21 12:01 INR 1.52 (0.87-1.13) H 06/11/21 12:01 APTT 36.2 Sec. (24.2-36.6) 06/11/21 12:01 ABG pH 7.395 pH Units (7.350-7.450) 06/14/21 12:19 ABG pCO2 48.6 mm Hg 06/14/21 12:19 ABG pO2 45.8 mm Hg (80.0-90.0) L 06/14/21 12:19 ABG HCO3 29.1 mmol/L (20.0-26.0) H 06/14/21 12:19 ABG O2 Saturation 81.9 % (95.0-99.0) L 06/14/21 12:19 ABG O2 Content 13.8 (0.0-44) 06/14/21 12:19 ABG Base Excess 3.5 mmol/L (-2.0-3.0) H 06/14/21 12:19 ABG Hemoglobin 12.2 gm/dl (12.0-16.0) 06/14/21 12:19 ABG Carboxyhemoglobin 1.4 % (0.0-5.0) 06/14/21 12:19 ABG Methemoglobin 0.6 % (0.0-1.5) 06/14/21 12:19 Oxyhemoglobin 80.3 % (95.0-99.0) L 06/14/21 12:19 FiO2 21 % 06/14/21 12:19 Sodium 140 mmol/L (137-145) 06/12/21 04:55 Potassium 4.8 mmol/L (3.6-5.0) 06/12/21 04:55 Chloride 101.0 mmol/L (98-107) 06/12/21 04:55 Carbon Dioxide 29 mmol/L (22-30) 06/12/21 04:55 Anion Gap 15 mmol/L 06/12/21 04:55 BUN 12 mg/dL (7-17) 06/12/21 04:55 Creatinine 0.5 mg/dL (0.6-1.2) L 06/12/21 04:55 Estimated GFR > 60 ml/min 06/12/21 04:55 BUN/Creatinine Ratio 24 % 06/12/21 04:55 Glucose 159 mg/dL (65-100) H 06/12/21 04:55 Calcium 9.2 mg/dL (8.4-10.2) 06/12/21 04:55 Total Bilirubin 0.40 mg/dL (0.1-1.2) 06/12/21 04:55 AST 14 units/L (5-40) 06/12/21 04:55 ALT 11 units/L (7-56) 06/12/21 04:55 Alkaline Phosphatase 102 units/L (35-129) 06/12/21 04:55 Troponin T < 0.010 ng/mL (0.00-0.029) 06/11/21 12:01 NT-Pro-B Natriuret Pep 495.2 pg/mL (0-900) 06/11/21 12:01 Total Protein 7.2 g/dL (6.3-8.2) 06/12/21 04:55 Albumin 3.9 g/dL (3.9-5) 06/12/21 04:55 Albumin/Globulin Ratio 1.2 % 06/12/21 04:55 TSH 1.020 mlU/mL (0.270-4.200) 06/12/21 09:05 Lopez/IV: Voiding Method Toilet Active Medications - Current Medications Current Medications: Generic Name Dose Route Start Last Admin Trade Name Freq PRN Reason Stop Dose Admin Acetaminophen 650 mg 06/11/21 15:13 Acetaminophen 325 Mg Tab PO Q4H PRN Pain MILD(1-3)/Fever >100.5/ARAIZA Albuterol/Ipratropium 1 ampul 06/11/21 17:38 Ipratropium/Albuterol Sulfate 3 Ml Ampul.Neb IH Q3H PRN Wheezing Albuterol/Ipratropium 1 ampul 06/11/21 20:00 06/14/21 15:48 Ipratropium/Albuterol Sulfate 3 Ml Ampul.Neb IH 1 ampul QIDRT JO Administration Alprazolam 1 mg 06/11/21 15:11 06/13/21 21:58 Alprazolam 1 Mg Tab PO 1 mg TID PRN Administration Anxiety Apixaban 5 mg 06/12/21 10:00 06/14/21 10:24 Apixaban 5 Mg Tab PO 5 mg Q12HR JO Administration Arformoterol Tartrate 15 mcg 06/11/21 20:00 06/14/21 08:14 Arformoterol 15 Mcg/2 Ml Nebu IH 15 mcg Q12HRT JO Administration Aspirin 81 mg 06/12/21 10:00 06/14/21 10:24 Aspirin 81 Mg Tab Chew PO 81 mg QDAY JO Administration Atorvastatin Calcium 20 mg 06/11/21 22:00 06/13/21 21:57 Atorvastatin 20 Mg Tab PO 20 mg QHS JO Administration Azithromycin 500 mg 06/13/21 11:00 06/14/21 10:24 Azithromycin 250 Mg Tab PO 06/17/21 10:01 500 mg QDAY JO Administration Protocol Budesonide 1 mg 06/11/21 20:00 06/14/21 08:14 Budesonide 0.5 Mg/2 Ml Nebu IH 1 mg Q12HRT JO Administration Digoxin 0.125 mg 06/11/21 17:00 06/13/21 17:20 Digoxin 0.125 Mg Tab PO 0.125 mg DAILY@1700 JO Administration Duloxetine HCl 60 mg 06/11/21 16:00 06/14/21 10:24 Duloxetine 30 Mg Cap PO 60 mg QDAY JO Administration Furosemide 20 mg 06/11/21 16:00 06/14/21 10:29 Furosemide 20 Mg Tab PO 20 mg QDAY JO Administration Ceftriaxone Sodium 2 gm in 100 mls @ 200 mls/hr 06/13/21 11:00 06/14/21 11:30 Rocephin/Ns 2 Gm/100 Ml IV 200 mls/hr Q24H JO Administration Protocol Levothyroxine Sodium 100 mcg 06/12/21 06:00 06/14/21 05:49 Levothyroxine 100 Mcg Tab PO 100 mcg DAILY@0600 JO Administration Lisinopril 5 mg 06/12/21 10:00 06/14/21 10:24 Lisinopril 5 Mg Tab PO 5 mg DAILY JO Administration Methylprednisolone Sodium Succinate 40 mg 06/14/21 20:00 Methylprednisolone Sod Succinate 40 Mg/1 Ml Inj IV Q12H [facility] Metoclopramide HCl 10 mg 06/11/21 15:13 Metoclopramide 10 Mg/2 Ml Inj IV Q6H PRN Nausea And Vomiting Mirtazapine 45 mg 06/11/21 22:00 06/13/21 21:56 Mirtazapine 15 Mg Tab PO 45 mg QHS [facility] Administration Miscellaneous Medication 290 mcg 06/11/21 15:15 06/11/21 15:50 Linaclotide [Linzess] PO Not Given DAILY [facility] Miscellaneous Medication 25 mg 06/11/21 15:15 06/11/21 15:51 Naloxegol Oxalate [Movantik] PO Not Given DAILY [facility] Ondansetron HCl 4 mg 06/11/21 15:13 Ondansetron 4 Mg/2 Ml Inj IV Q8H PRN Nausea And Vomiting Potassium Chloride 20 meq 06/12/21 10:00 06/14/21 10:25 Potassium Chloride 20 Meq Packet PO 20 meq DAILY JO Administration Sodium Chloride 10 ml 06/11/21 16:00 06/14/21 10:25 Sodium Chloride 0.9% 10 Ml Flush Syringe IV 10 ml BID JO Administration Sodium Chloride 10 ml 06/11/21 15:13 06/13/21 14:09 Sodium Chloride 0.9% 10 Ml Flush Syringe IV 10 ml PRN PRN Administration LINE FLUSH Verapamil HCl 240 mg 06/12/21 10:00 06/13/21 10:48 Verapamil Er 120 Mg Tab PO 240 mg DAILY JO Administration
[2021-06-14] MEDS: DIGOXIN 0.125 MG TAB PO SCH (18:20)
[2021-06-14] MEDS: ALPRAZolam 1 MG TAB PO PRN (22:26)
[2021-06-14] MEDS: MIRTAZAPINE 15 MG TAB PO SCH (22:27)
[2021-06-14] MEDS: methylPREDNISolone Sod Succinate 40 MG/1 ML INJ IV SCH (22:27)
[2021-06-15] MEDS: LEVOTHYROXINE 100 MCG TAB PO SCH (05:57)
[2021-06-15] MEDS: IPRATROPIUM/ALBUTEROL SULFATE 3 ML AMPUL.NEB IH SCH ×3 (07:47→16:07)
[2021-06-15] MEDS: ARFORMOTEROL 15 MCG/2 ML NEBU IH SCH (07:47)
[2021-06-15] MEDS: BUDESONIDE 0.5 MG/2 ML NEBU IH SCH (07:47)
[2021-06-15] MEDS: AZITHROMYCIN 250 MG TAB PO SCH (10:15)
[2021-06-15] MEDS: VERAPAMIL ER 120 MG TAB PO SCH (10:15)
[2021-06-15] MEDS: DULoxetine 30 MG CAP PO SCH (10:15)
[2021-06-15] MEDS: POTASSIUM CHLORIDE 20 MEQ PACKET PO SCH (10:15)
[2021-06-15] MEDS: APIXABAN 5 MG TAB PO SCH (10:15)
[2021-06-15] MEDS: FUROSEMIDE 20 MG TAB PO SCH (10:15)
[2021-06-15] MEDS: LISINOPRIL 5 MG TAB PO SCH (10:15)
[2021-06-15] MEDS: ASPIRIN 81 MG TAB CHEW PO SCH (10:15)
[2021-06-15] MEDS: cefTRIAXone/NS 2 GM/100 ML 2 GM/100 ML BAG IV SCH (10:18)
[2021-06-15] MEDS: methylPREDNISolone Sod Succinate 40 MG/1 ML INJ IV SCH (10:18)
--- NOTE | 2021-06-15 13:08 | Progress Note ---
Assessment and Plan Acute hypoxemic and hypercapnic respiratory failure COPD with exacerbation Chronic atrial fibrillation Acute bronchitis HTN Hyperlipidemia Hypothyroidism Right middle lobe pulmonary nodule - discontinued solumedrol - Prednisone 40 mg p.o. daily - discharge ok with pulmonary clinic f/up and 7-10 day taper off prednisone - continue care as below otherwise; - continue bronchodilators (HEAVENLY & LABA) with pulmonary hygiene per RT - continue to wean supplemental oxygen to keep O2 sats > 90% - continue inhaled corticosteroids - continue to avoid nephrotoxins, renally dose all medications - continue mobility protocols to prevent pressure ulcers - PT/OT as tolerated - Wound care per RN/WCT - continue accuchecks with glycemic control per SSI for target blood glucose < 180 mg/dL - Smoking cessation strongly counseled at the bedside - home oxygen evaluation at discharge - GI & VTE prophylaxis - Flu & pneumovax per protocol - Pulmonary out patient follow up for PFTs and optimization of respiratory status - continue other care per attending / other consultants - prn analgesia per pain score ... re-evaluate in am & prn Subjective Date of service: 06/15/21 Principal diagnosis: Ac hypoxemic and hypercapnic resp failure; AE-COPD; RML pulm nodule Interval history: Patient is seen today for: Acute hypoxemic and hypercapnic respiratory failure; AE-COPD; A-fib; RML pulmonary nodule Seen and examined at bedside; 24hour events reviewed; nursing and respiratory care staff consulted; no adverse overnight events reported to me; resting peacefully in bed; remains on supplemental oxygen; looks and feels better; wants to go home and states she knows to call 911 if she develops distress but is also back to her baseline; denies N/V/F/C/ chest pain or palpitations Objective Vital Signs - 12hr 06/15/21 06/15/21 06/15/21 05:33 07:47 10:13 Temperature 98.9 F 97.4 F L Pulse Rate 80 98 H Pulse Rate [ 105 H Anterior Bilateral Throughout] Respiratory 18 20 Rate Respiratory 20 Rate [Anterior Bilateral Throughout] Blood Pressure 123/62 Blood Pressure 158/84 [Left] O2 Sat by Pulse 95 98 97 Oximetry 06/15/21 06/15/21 06/15/21 10:15 11:42 12:00 Temperature Pulse Rate 98 H Pulse Rate [ 102 H Anterior Bilateral Throughout] Respiratory Rate Respiratory 20 Rate [Anterior Bilateral Throughout] Blood Pressure 158/84 Blood Pressure [Left] O2 Sat by Pulse 94 Oximetry Constitutional: no acute distress, alert, other (mildly increased work of breathing at rest.) Eyes: non-icteric ENT: oropharynx moist Neck: supple, no JVD Effort: mildly labored Ascultation: Bilateral: diminished breath sounds, other (Prolonged expiratory phase.) Percussion: Bilateral: not dull Cardiovascular: irregular rhythm Gastrointestinal: normoactive bowel sounds, soft, non-tender, non-distended Integumentary: normal Extremities: no cyanosis, no edema, pulses normal, no ischemia or petechiae Neurologic: normal mental status, non-focal exam, pupils equal and round, CN II-XII normal Psychiatric: mood appropriate, affect normal CBC and BMP: 06/12/21 04:55 06/12/21 04:55 ABG, PT/INR, D-dimer: ABG ABG pH 7.395 pH Units (7.350-7.450) 06/14/21 12:19 ABG pCO2 48.6 mm Hg 06/14/21 12:19 ABG pO2 45.8 mm Hg (80.0-90.0) L 06/14/21 12:19 ABG O2 Saturation 81.9 % (95.0-99.0) L 06/14/21 12:19 PT/INR, D-dimer PT 19.8 Sec. (12.2-14.9) H 06/11/21 12:01 INR 1.52 (0.87-1.13) H 06/11/21 12:01 Abnormal lab findings: Abnormal Labs 06/11/21 06/11/21 06/11/21 11:57 12:01 12:01 RDW 13.0 L Lymph % (Auto) 9.7 L Lymph # (Auto) 1.0 L Seg Neutrophils % 82.2 H Seg Neuts % (Manual) Lymphocytes % (Manual) Seg Neutrophils # 8.5 H Lymphocytes # (Manual) PT 19.8 H INR 1.52 H ABG pO2 ABG HCO3 ABG O2 Saturation ABG Base Excess Oxyhemoglobin Chloride 96.6 L Carbon Dioxide 31 H Creatinine Glucose 130 H 06/12/21 06/12/21 06/14/21 04:55 04:55 12:19 RDW 13.0 L Lymph % (Auto) Lymph # (Auto) Seg Neutrophils % Seg Neuts % (Manual) 94.0 H Lymphocytes % (Manual) 6.0 L Seg Neutrophils # Lymphocytes # (Manual) 0.5 L PT INR ABG pO2 45.8 L ABG HCO3 29.1 H ABG O2 Saturation 81.9 L ABG Base Excess 3.5 H Oxyhemoglobin 80.3 L Chloride Carbon Dioxide Creatinine 0.5 L Glucose 159 H Allied health notes reviewed: nursing
[2021-06-15] MEDS: DIGOXIN 0.125 MG TAB PO SCH (16:30)
[2021-06-15 16:31] VITALS: BP 134/76
[2021-06-15] MEDS ORDERED: predniSONE 20 MG TAB PO SCH (17:00)
--- NOTE | 2021-06-15 17:35 | Discharge Summary ---
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 Patient signed by Dr. Luong's office because of failed outpatient therapy. 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 No fever or chills. No exposure to Covid virus. Vaccinated. Including a booster. Patient being admitted for severe hypoxia and severe wheezing and COPD (1) Acute respiratory failure with hypoxia and hypercapnia Current Visit: Yes Status: Acute Plan to address problem: Patient initiated on duo nebs [id number] and as needed and IV Levaquin and IV Solu-Medrol at a higher dose Respiratory distress and breathing improving, O2 weaned from 6L to 3 L at baseline. Will star tapering Solu-Medrol slowly Pulmonary consulted and following (2) COPD on chronic steroid dependent with exacerbation Current Visit: Yes Status: Acute Plan to address problem: Patient on prednisone 2.5 mg chronically presents with dyspnea and diffuse bilateral wheezing No pneumonia on chest x-ray. Labs unremarkable. IV Solu-Medrol, IV Rocephin, azithromycin, and duo nebs and Pulmicort added CT chest on 06/14 showed severe emphysema but no pneumonia or pulmonary edema. Improving, as above (3) Chronic atrial fibrillation, rate controlled Current Visit: Yes Status: Chronic Plan to address problem: On Eliquis (4) HTN (hypertension) Current Visit: No Status: Chronic Qualifiers: Hypertension type: essential hypertension Qualified Code(s): I10 - Essential (primary) hypertension Plan to address problem: Continue antihypertensives and adjust medications as necessary (5) Hyperlipidemia Current Visit: No Status: Chronic Qualifiers: Hyperlipidemia type: mixed hyperlipidemia Qualified Code(s): E78.2 - Mixed hyperlipidemia Plan to address problem: Continue statins (6) Hypothyroidism Current Visit: No Status: Chronic Plan to address problem: Continue Synthroid and check TSH Disposition: HOME / SELF CARE / HOMELESS Exam - Constitutional Vitals: Temp Pulse Resp BP Pulse Ox 97.4 F L 98 H 20 134/76 94 06/15/21 10:13 06/15/21 16:30 06/15/21 11:42 06/15/21 16:30 06/15/21 12:00 General appearance: Present: no acute distress - EENT Eyes: Present: EOM intact ENT: other ([place]) - Neck Neck: Present: supple - Respiratory Respiratory effort: normal Respiratory: bilateral: diminished, rhonchi - Cardiovascular Rhythm: irregularly irregular - Extremities Extremities: No edema - Abdominal General gastrointestinal: Present: soft, non-tender, non-distended, normal bowel sounds - Integumentary Integumentary: Absent: rash - Musculoskeletal Musculoskeletal: strength equal bilaterally - Psychiatric Psychiatric: appropriate mood/affect - Neurologic Neurologic: no focal deficits, moves all extremities Plan Activity: advance as tolerated Diet: low fat, low salt Follow up with: PRIMARY CARE, [Primary Care Provider] - 7 Days JAY LUONG MD [Staff Physician] - 7 Days Prescriptions: Azithromycin 250 mg PO DAILY #5 tablet methylPREDNISolone [Medrol 4MG DOSEPAK (21 tabs)] 4 mg PO BID #21 tab.ds.pk
== END 2021-06-15 18:35 | disposition home or self-care (01) | DRG 189 ==
LOC: ED 11:34 → 3A 13:23 → INTOOBSV 13:23 → 3A 20:43 → OBSVTOIN 06-12 11:00
PROVIDERS: ADMIT Internal Medicine; ATTEND Internal Medicine
PROC: 4A033R1 Measurement of Arterial Saturation, Peripheral, Percutaneous Approach (ICD-10-PCS; principal; 2021-06-14)
DX: J96.01 Acute respiratory failure with hypoxia (principal); I48.20 Chronic atrial fibrillation, unspecified; J44.1 Chronic obstructive pulmonary disease with (acute) exacerbation; J44.0 Chronic obstructive pulmonary disease with (acute) lower respiratory infection; E03.9 Hypothyroidism, unspecified; I50.9 Heart failure, unspecified; M19.90 Unspecified osteoarthritis, unspecified site; F41.9 Anxiety disorder, unspecified; I11.0 Hypertensive heart disease with heart failure; E78.5 Hyperlipidemia, unspecified; J96.02 Acute respiratory failure with hypercapnia; R91.1 Solitary pulmonary nodule; J20.9 Acute bronchitis, unspecified; K21.9 Gastro-esophageal reflux disease without esophagitis; Z86.73 Personal history of transient ischemic attack (TIA), and cerebral infarction without residual deficits; Z90.710 Acquired absence of both cervix and uterus; Z20.822 Contact with and (suspected) exposure to COVID-19
CPT/HCPCS: 36415; 36600; 71045; 71260; 80053; 82803; 83880; 84443; 84484; 85007; 85025; 85610; 85730; 90686; 93005; 94640; 94644; 94760; G0378; J0696; J1644; J1956; J2920; J2930; J7512; Q9967

== ENCOUNTER 2022-02-14 08:48 | Emergency (ER) | payer MEDICARE, OTHER ==
[2022-02-14] MEDS ORDERED: levoFLOXacin 750 MG TAB PO ONE (11:21)
--- NOTE | 2022-02-14 11:27 | Emergency Department Report ---
ED Shortness of Breath HPI - General Chief Complaint: Dyspnea/Respdistress Stated Complaint: COPD Time Seen by Provider: 02/14/22 09:28 Source: patient, EMS Mode of arrival: Stretcher Limitations: No Limitations - History of Present Illness Initial Comments: 71-year-old female with a history of COPD/asthma and remote smoking history who now presents with shortness of breath started 2 days ago progressively getting worse. Patient was given Solu-Medrol and DuoNeb by EMR and route to ED. Patient was recently discharged from the hospital on Friday 4 days ago with same symptoms. Cough is nonproductive. No fever or chills reported. No other modifying or associated factors reported. MD Complaint: shortness of breath - Related Data Home Medications Medication Instructions Recorded Confirmed Last Taken Aspirin [Aspirin BABY CHEW TAB] 81 mg PO QPM 06/22/19 07/05/21 06/10/21 Mirtazapine [Remeron 45mg TAB] 45 mg PO HS 06/22/19 07/05/21 06/10/21 21:00 Nitroglycerin [Nitrostat] 0.4 mg SL Q5M PRN 06/22/19 07/05/21 05/11/21 Verapamil ER [Calan SR] 240 mg PO DAILY 06/22/19 07/05/21 06/11/21 08:00 DULoxetine [Cymbalta] 60 mg PO QDAY 07/11/19 07/05/21 03/18/20 Linaclotide [Linzess] 290 mcg PO DAILY 06/11/21 07/05/21 06/11/21 08:00 lisinopriL [Zestril TAB] 5 mg PO QPM 06/11/21 07/05/21 06/10/21 Multivit-Min/FA/Lycopen/Lutein 1 each PO QAM 06/12/21 07/05/21 06/11/21 [Centrum Silver Tablet] Previous Rx's Medication Instructions Recorded Last Taken Type ALPRAZolam [Xanax TAB] 1 mg PO TID PRN #90 tablet 03/02/16 06/11/21 08:00 Rx Digoxin [Lanoxin] 0.125 mg PO DAILY@1700 tablet 06/27/19 06/11/21 08:00 Rx Furosemide [Lasix TAB] 20 mg PO QDAY tablet 06/27/19 06/10/21 Rx Levothyroxine [Synthroid] 100 mcg PO DAILY@0600 tablet 06/27/19 06/11/21 08:00 Rx Pantoprazole [Protonix TAB] 40 mg PO QDAY tablet 06/27/19 06/11/21 08:00 Rx Potassium Chloride 20 meq PO DAILY packet 06/27/19 06/11/21 08:00 Rx AtorvaSTATin [Lipitor] 20 mg PO QHS #30 tablet 03/23/20 06/10/21 21:00 Rx Oxycodone HCl/Acetaminophen 1 each PO Q6HR PRN #14 03/28/21 06/11/21 08:00 Rx [Percocet 7.5/325 mg] Amoxicillin/K Clav Tab [Augmentin 1 each PO Q12HR #8 tablet 07/05/21 Unknown Rx 875MG TAB] Apixaban [Eliquis] 2.5 mg PO BID #60 07/05/21 06/11/21 08:00 Rx Budesonide/Formoterol Fumarate 10.2 gm IH BID 30 Days hfa.aer.ad 07/05/21 Unknown Rx [Symbicort 160-4.5 Mcg Inhaler] Ipratropium [Atrovent NEB] 0.5 mg IH Q6HRT #30 nebu 07/05/21 Unknown Rx Fluconazole (Nf) [Diflucan TAB] 150 mg PO ONCE 1 Days #1 tablet NS 02/14/22 Unknown Rx Prednisone [predniSONE 10 mg 10 mg PO .TAPER #1 tab.ds.pk 02/14/22 Unknown Rx (6-Day Pack, 21 Tabs)] levoFLOXacin [Levaquin TAB] 500 mg PO QDAY 7 Days #7 tablet NS 02/14/22 Unknown Rx Allergies Allergy/AdvReac Type Severity Reaction Status Date / Time adhesive Allergy Hives Verified 02/14/22 09:05 amlodipine besylate Allergy Anaphylaxis Verified 02/14/22 09:05 [From Norvasc] diltiazem Allergy Anaphylaxis Verified 02/14/22 09:05 diltiazem HCl [From Cardizem] Allergy Anaphylaxis Verified 02/14/22 09:05 Renexa Allergy Unknown Uncoded 02/14/22 09:05 ED Review of Systems ROS: Stated complaint: COPD Other details as noted in HPI Comment: All other systems reviewed and negative Respiratory: shortness of breath, SOB with exertion, wheezing ED Past Medical Hx - Past Medical History Previous Medical History?: Yes Hx Hypertension: Yes Hx CVA: Yes Hx Congestive Heart Failure: Yes Hx Arthritis: Yes Hx Kidney Stones: Yes Hx Psychiatric Treatment: Yes (anxiety) Hx COPD: Yes Hx HIV: No Additional medical history: emphysema, bronchitis, A. Fib; MVP; aneurysm- coil on right side of head, Home oxygen @ 3 lpm nasal cannula, mitral valve prolapse - Surgical History Past Surgical History?: Yes Hx Coronary Stent: Yes Hx Breast Surgery: Yes (bilateral breast biopsy benign) Additional Surgical History: tonsillectomy, cerebral aneurysm coil, hysterectomy, hemorrhoid surgery, bilateral benign breast biopsies - Social History Smoking Status: Unknown if ever smoked - Medications Home Medications: Home Medications Medication Instructions Recorded Confirmed Last Taken Type ALPRAZolam [Xanax TAB] 1 mg PO TID PRN #90 tablet 03/02/16 07/05/21 06/11/21 08:00 Rx Aspirin [Aspirin BABY CHEW TAB] 81 mg PO QPM 06/22/19 07/05/21 06/10/21 History Mirtazapine [Remeron 45mg TAB] 45 mg PO HS 06/22/19 07/05/21 06/10/21 21:00 History Nitroglycerin [Nitrostat] 0.4 mg SL Q5M PRN 06/22/19 07/05/21 05/11/21 History Verapamil ER [Calan SR] 240 mg PO DAILY 06/22/19 07/05/21 06/11/21 08:00 History Digoxin [Lanoxin] 0.125 mg PO DAILY@1700 tablet 06/27/19 07/05/21 06/11/21 08:00 Rx Furosemide [Lasix TAB] 20 mg PO QDAY tablet 06/27/19 07/05/21 06/10/21 Rx Levothyroxine [Synthroid] 100 mcg PO DAILY@0600 tablet 06/27/19 07/05/2105/28 08:00 Rx Pantoprazole [Protonix TAB] 40 mg PO QDAY tablet 06/27/19 07/05/21 06/11/21 08:00 Rx Potassium Chloride 20 meq PO DAILY packet 06/27/19 07/05/21 06/11/21 08:00 Rx DULoxetine [Cymbalta] 60 mg PO QDAY 07/11/19 07/05/21 03/18/20 History AtorvaSTATin [Lipitor] 20 mg PO QHS #30 tablet 03/23/20 07/05/21 06/10/21 21:00 Rx Oxycodone HCl/Acetaminophen 1 each PO Q6HR PRN #14 03/28/21 07/05/21 06/11/21 08:00 Rx [Percocet 7.5/325 mg] Linaclotide [Linzess] 290 mcg PO DAILY 06/11/21 07/05/21 06/11/21 08:00 History lisinopriL [Zestril TAB] 5 mg PO QPM 06/11/21 07/05/21 06/10/21 History Multivit-Min/FA/Lycopen/Lutein 1 each PO QAM 06/12/21 07/05/21 06/11/21 History [Centrum Silver Tablet] Amoxicillin/K Clav Tab [Augmentin 1 each PO Q12HR #8 tablet 07/05/21 Unknown Rx 875MG TAB] Apixaban [Eliquis] 2.5 mg PO BID #60 07/05/21 07/05/21 06/11/21 08:00 Rx Budesonide/Formoterol Fumarate 10.2 gm IH BID 30 Days hfa.aer.ad 07/05/21 Unknown Rx [Symbicort 160-4.5 Mcg Inhaler] Ipratropium [Atrovent NEB] 0.5 mg IH Q6HRT #30 nebu 07/05/21 Unknown Rx Fluconazole (Nf) [Diflucan TAB] 150 mg PO ONCE 1 Days #1 tablet NS 02/14/22 Unknown Rx Prednisone [predniSONE 10 mg 10 mg PO .TAPER #1 tab.ds.pk 02/14/22 Unknown Rx (6-Day Pack, 21 Tabs)] levoFLOXacin [Levaquin TAB] 500 mg PO QDAY 7 Days #7 tablet NS 02/14/22 Unknown Rx ED Physical Exam - General Limitations: No Limitations General appearance: alert, in no apparent distress - Head Head exam: Present: normal inspection - Eye Eye exam: Present: normal appearance Pupils: Present: normal accommodation - ENT ENT exam: Present: normal exam, normal orophraynx, mucous membranes dry - Neck Neck exam: Present: normal inspection, full ROM. Absent: tenderness - Respiratory Respiratory exam: Present: normal lung sounds bilaterally, wheezes. Absent: respiratory distress, accessory muscle use - Cardiovascular Cardiovascular Exam: Present: regular rate, normal rhythm, normal heart sounds - GI/Abdominal GI/Abdominal exam: Present: soft, normal bowel sounds. Absent: distended, tenderness - Extremities Exam Extremities exam: Present: normal inspection, normal capillary refill. Absent: tenderness, pedal edema - Back Exam Back exam: Absent: tenderness - Neurological Exam Neurological exam: Present: alert, oriented X3 - Psychiatric Psychiatric exam: Present: normal affect, normal mood - Skin Skin exam: Present: warm, normal color ED Course Vital Signs 02/14/22 02/14/22 02/14/22 08:55 09:31 10:19 Temperature 98.8 F Pulse Rate 99 H 92 H Respiratory 22 29 H Rate Blood Pressure Blood Pressure 136/82 146/67 [Left] O2 Sat by Pulse 90 91 94 Oximetry 02/14/22 02/14/22 02/14/22 10:40 10:45 11:01 Temperature Pulse Rate 95 H 99 H 94 H Respiratory 15 17 21 Rate Blood Pressure 136/77 152/87 Blood Pressure [Left] O2 Sat by Pulse 94 88 91 Oximetry 02/14/22 02/14/22 02/14/22 11:15 11:31 11:45 Temperature Pulse Rate 96 H 100 H 94 H Respiratory 26 H 19 20 Rate Blood Pressure 152/87 152/87 152/87 Blood Pressure [Left] O2 Sat by Pulse 91 92 94 Oximetry 02/14/22 02/14/22 02/14/22 12:01 12:15 12:31 Temperature Pulse Rate 100 H 104 H 105 H Respiratory 23 34 H 29 H Rate Blood Pressure 141/72 141/72 141/72 Blood Pressure [Left] O2 Sat by Pulse 87 88 89 Oximetry 02/14/22 12:45 Temperature Pulse Rate 100 H Respiratory 14 Rate Blood Pressure 141/72 Blood Pressure [Left] O2 Sat by Pulse 94 Oximetry - Reevaluation(s) Reevaluation #1: 02/14/22 14:40 pt requested for yeast treatment following her levaquin --so diflucan given ED Medical Decision Making - Lab Data Result diagrams: 02/14/22 12:00 02/14/22 11:52 - EKG Data -: EKG Interpreted by Me Rate: tachycardia - EKG Data 02/14/22 12:10 Noted with atrial fibrillation at a rate of 98 bpm, with no ST elevation or d epression in this abnormal ECG. - Medical Decision Making Here with shortness of breath--among differential diagnosis could be but not limited to acute exacerbation of COPD, myocardiac infarction, pulmonary embolism, acute exacerbation of asthma, pneumothorax, pneumonia or Viral or Bacterial Upper/Lower respiratory tract infection or other systemic infection.--To rule out the above will go ahead and order EKG, cardiac enzyme including troponin, BNP, CKMB, chest x-ray, CBC, CMP, UA and or D-dimer. In the meantime we will go ahead and treat with DuoNeb, 125 mg of Solu-Medrol, and will make a case for antibiotics Levaquin considering likely cause to be acute COPD exacerbation and continue to monitor the patient. Given Solumedrol 125 mg IV x 1 Pt reports feeling a little better CXR noted with FINDINGS: SUPPORT DEVICES: None. HEART /PULMONARY VASCULATURE: Stable. LUNGS / PLEURA: Lungs are hyperexpanded with severe chronic interstitial lung c hanges, most pronounced along the lateral right lung. This appears progressed from prior study from 07/02/2021. There is increased nodularity of the right mid to upper lung. No sizable pleural effusion. No pneumothorax. IMPRESSION: Increased interstitial prominence and suspected nodularity of the lateral right lung. Findings may reflect progression in chronic interstitial lung changes. Supe rimposed acute infiltrate is unable to be excluded. No focal airspace consolidation. With the above finding couple with her multiple presentation to the ED in the last couple of weeks I will make a case to add Levaquin to her home regimen and close follow up with her PCP-- Critical care attestation.: If time is entered above; I have spent that time in minutes in the direct care of this critically ill patient, excluding procedure time. ED Disposition Clinical Impression: COPD with exacerbation Afib Qualifiers: Atrial fibrillation type: unspecified chronic Qualified Code(s): I48.20 - Chronic atrial fibrillation, unspecified Disposition: 01 HOME / SELF CARE / HOMELESS Is pt being admited?: No Does the pt Need Aspirin: No Condition: Stable Instructions: Chronic Obstructive Pulmonary Disease Exacerbation, [id number], Atrial Fibrillation, [id number], Chronic Obstructive Pulmonary Disease (ED) Additional Instructions: It is very important that you take and complete the antibiotics as prescribed Continue your other medical management for your COPD Call and schedule follow-up with your primary doctor in the next 3 to 5 days for progress Please do not hesitate to call or return to emergency room if your symptoms worsen Prescriptions: Fluconazole (Nf) [Diflucan TAB] 150 mg PO ONCE 1 Days #1 tablet NS levoFLOXacin [Levaquin TAB] 500 mg PO QDAY 7 Days #7 tablet NS Prednisone [predniSONE 10 mg (6-Day Pack, 21 Tabs)] 10 mg PO .TAPER #1 tab.ds.pk Referrals: PRIMARY CARE, [Primary Care Provider] - 3-5 Days Time of Disposition: 14:01
--- NOTE | 2022-02-14 12:42 | XRay Report ---
XR chest 1V ap INDICATION / CLINICAL INFORMATION: yvon. COMPARISON: 07/02/2021 FINDINGS: SUPPORT DEVICES: None. HEART /PULMONARY VASCULATURE: Stable. LUNGS / PLEURA: Lungs are hyperexpanded with severe chronic interstitial lung changes, most pronounce d along the lateral right lung. This appears progressed from prior study from 07/02/2021. There is inc reased nodularity of the right mid to upper lung. No sizable pleural effusion. No pneumothorax. IMPRESSION: Increased interstitial prominence and suspected nodularity of the lateral right lung. Fin dings may reflect progression in chronic interstitial lung changes. Superimposed acute infiltrate is unable to be excluded. No focal airspace consolidation. Signer Name: Fransisco Larsen MD Signed: 02/14/2022 12:38 PM Workstation Name: [id number]
[2022-02-14 12:46] LABS: Partial Thromboplastin Time 29.8 Sec. (24.2-36.6)
[2022-02-14 12:48] LABS: Alanine Aminotransferase 14 units/L (7-56); Albumin 4.8 g/dL (3.9-5); Blood Urea Nitrogen 16 mg/dL (7-17); Calcium 9.9 mg/dL (8.4-10.2); Hemolysis Index 15
[2022-02-14 12:51] LABS: Hematocrit 39.7 % (30.3-42.9); Hemoglobin 13.1 gm/dl (10.1-14.3); Mean Corpuscular HGB Conc 33 % (30-34); Mean Corpuscular Volume 98 fl (79-97); Platelet Count 207 K/mm3 (140-440); Red Blood Count 4.05 M/mm3 (3.65-5.03); Red Cell Distribution Width 12.9 % (13.2-15.2)
[2022-02-14 13:05] LABS: BUN/Creatinine Ratio 27
--- NOTE | 2022-02-14 13:53 | Electrocardiograph Report ---
[facility] Test Date: 2022-02-14 Test Time: 11:43:00 Pat Name: RENNY JOHNSTON Department: Room: Gender: F Letterer: GP : 1950 Requested By: AKTHARINE SAUCEDO Order Number: [id number] Reading MD: Moise Perera Measurements Intervals [place] Rate: 98 P: [place]: QRS: 62 QRSD: 87 T: 238 QT: 313 QTc: 401 Interpretive Statements Atrial fibrillation Nonspecific ST segment abnormality Compared to ECG 07/02/2021 16:41:00 No significant change Electronically Signed On 02-14-2022 13:53:00 EDT by Moise Perera
[2022-02-14 14:49] LABS: Basophils % (Manual) 0 % (0.0-1.8); Eosinophils % (Manual) 0 % (0.0-4.3); Monocytes % (Manual) 0 % (0.0-7.3); Total Cells Counted 100
[2022-02-14 14:50] LABS: Anisocytosis Few; Platelet Estimate Consistent w Auto; Poikilocytosis Few; Stomatocytes Few
[2022-02-14 14:55] LABS: Hyaline Casts,Urine 1 /LPF; Mucus,Urine FEW /HPF
[2022-02-14 15:02] VITALS: BP 114/68
[2022-02-14 15:04] LABS: Bilirubin,Urine Negative (Negative); Blood,Urine Negative (Negative); Color,Urine Yellow (Yellow)
[2022-02-14 15:05] LABS: Protein,Urine <30 mg dL mg/dL (Negative); Urobilinogen,Urine < 2.0 mg/dL (<2.0)
== END 2022-02-14 15:02 | disposition home or self-care (01) ==
LOC: ED 08:48
DX: J44.1 Chronic obstructive pulmonary disease with (acute) exacerbation (principal); J45.901 Unspecified asthma with (acute) exacerbation; I48.91 Unspecified atrial fibrillation; I10 Essential (primary) hypertension; Z86.79 Personal history of other diseases of the circulatory system
CPT/HCPCS: 36415; 71045; 80053; 81001; 84484; 85007; 85025; 85610; 85730; 93005; 99283; 99284